=== PATIENT | male | born 1950 | race Caucasian/White ===

== ENCOUNTER 2019-08-02 13:31 | Outpatient (RCR) | payer MEDICARE, OTHER, SELFPAY | END 2019-08-29 00:01 | LOC: MPT 13:31 | PROVIDERS: Visit Provider Internal Medicine | DX: M47.816 Spondylosis without myelopathy or radiculopathy, lumbar region (principal); M16.10 Unilateral primary osteoarthritis, unspecified hip | CPT/HCPCS: 97140; 97161 ==

== ENCOUNTER 2019-08-30 06:00 | Outpatient (RCR) | payer MEDICARE, OTHER, SELFPAY | END 2019-09-29 23:59 | disposition home or self-care (01) | LOC: MPT 06:00 | PROVIDERS: PCP Nurse Practitioner; Visit Provider Internal Medicine | DX: M54.42 Lumbago with sciatica, left side (principal); G89.29 Other chronic pain | CPT/HCPCS: 97032; 97110; 97140; 97161 ==

== ENCOUNTER 2019-09-30 06:00 | Outpatient (RCR) | payer MEDICARE, OTHER, SELFPAY | END 2019-10-28 23:59 | disposition home or self-care (01) | LOC: MPT 06:00 | PROVIDERS: PCP Nurse Practitioner; Visit Provider Internal Medicine | DX: G89.29 Other chronic pain (principal); M54.42 Lumbago with sciatica, left side | CPT/HCPCS: 97032; 97110; 97140; G0283 ==

== ENCOUNTER 2019-10-29 06:00 | Outpatient (RCR) | payer MEDICARE, OTHER, SELFPAY | END 2019-11-28 23:59 | disposition home or self-care (01) | LOC: MPT 06:00 | PROVIDERS: PCP Nurse Practitioner; Visit Provider Internal Medicine | DX: M54.42 Lumbago with sciatica, left side (principal); G89.29 Other chronic pain | CPT/HCPCS: 97110; 97140; G0283 ==

== ENCOUNTER → 2019-11-07 15:07 | Outpatient (BNVA) | payer MEDICARE, OTHER, SELFPAY | PROVIDERS: PCP Nurse Practitioner; Visit Provider Podiatrist Foot & Ankle Surgery | DX: S92.511A Displaced fracture of proximal phalanx of right lesser toe(s), initial encounter for closed fracture (principal); X58.XXXA Exposure to other specified factors, initial encounter; Z89.421 Acquired absence of other right toe(s); L60.0 Ingrowing nail; E11.9 Type 2 diabetes mellitus without complications | CPT/HCPCS: 73630 ==

== ENCOUNTER → 2020-01-01 12:59 | Outpatient (BNVA) | payer MEDICARE, OTHER, SELFPAY | PROVIDERS: PCP Nurse Practitioner; Visit Provider Podiatrist Foot & Ankle Surgery | DX: S92.911A Unspecified fracture of right toe(s), initial encounter for closed fracture (principal); X58.XXXA Exposure to other specified factors, initial encounter; Z89.421 Acquired absence of other right toe(s) | CPT/HCPCS: 73630 ==

== ENCOUNTER 2020-01-11 14:12 | Outpatient (CLI) | payer MEDICARE, OTHER, SELFPAY | END 2020-01-11 14:13 | disposition home or self-care (01) | LOC: WOUND 14:15 | PROVIDERS: PCP Nurse Practitioner; Visit Provider Nurse Practitioner Family | DX: T23.202A Burn of second degree of left hand, unspecified site, initial encounter (principal); X08.8XXA Exposure to other specified smoke, fire and flames, initial encounter | CPT/HCPCS: 16020; G0463 ==

== ENCOUNTER 2020-01-18 13:35 | Outpatient (CLI) | payer MEDICARE, OTHER, SELFPAY | END 2020-01-18 13:36 | disposition home or self-care (01) | LOC: WOUND 13:37 | PROVIDERS: PCP Nurse Practitioner; Visit Provider Nurse Practitioner Family | DX: T23.231A Burn of second degree of multiple right fingers (nail), not including thumb, initial encounter (principal); X08.8XXA Exposure to other specified smoke, fire and flames, initial encounter | CPT/HCPCS: 99213 ==

== ENCOUNTER 2020-01-24 06:00 | Outpatient (RCR) | payer MEDICARE, OTHER, SELFPAY | END 2020-01-28 23:59 | disposition home or self-care (01) | LOC: MOT 06:00 | PROVIDERS: PCP Nurse Practitioner; Referring Provider Nurse Practitioner Family; Visit Provider Nurse Practitioner Family | DX: G89.29 Other chronic pain (principal); M54.41 Lumbago with sciatica, right side | CPT/HCPCS: 97140; 97167 ==

== ENCOUNTER → 2020-01-24 13:23 | Outpatient (BNVA) | payer MEDICARE, OTHER, SELFPAY | PROVIDERS: PCP Nurse Practitioner; Visit Provider Podiatrist Foot & Ankle Surgery | DX: S92.511A Displaced fracture of proximal phalanx of right lesser toe(s), initial encounter for closed fracture (principal); X58.XXXA Exposure to other specified factors, initial encounter | CPT/HCPCS: 73630 ==

== ENCOUNTER 2020-01-29 06:00 | Outpatient (RCR) | payer MEDICARE, OTHER, SELFPAY | END 2020-02-27 23:59 | disposition home or self-care (01) | LOC: MOT 06:00 | PROVIDERS: PCP Nurse Practitioner; Visit Provider Nurse Practitioner Family | DX: S69.81XD Other specified injuries of right wrist, hand and finger(s), subsequent encounter (principal) | CPT/HCPCS: 97110; 97140; 97535 ==

== ENCOUNTER 2020-02-01 06:00 | Outpatient (RCR) | payer MEDICARE, OTHER, SELFPAY | END 2020-02-27 23:59 | disposition home or self-care (01) | LOC: MPT 06:00 | PROVIDERS: PCP Nurse Practitioner; Referring Provider Internal Medicine; Visit Provider Internal Medicine | DX: G89.29 Other chronic pain (principal); M54.41 Lumbago with sciatica, right side | CPT/HCPCS: 97110; 97140; 97162; G0283 ==

== ENCOUNTER 2020-02-01 13:23 | Outpatient (CLI) | payer MEDICARE, OTHER, SELFPAY | END 2020-02-01 13:24 | disposition home or self-care (01) | LOC: WOUND 13:24 | PROVIDERS: PCP Nurse Practitioner; Visit Provider Nurse Practitioner Family | DX: T23.231A Burn of second degree of multiple right fingers (nail), not including thumb, initial encounter (principal); X08.8XXA Exposure to other specified smoke, fire and flames, initial encounter | CPT/HCPCS: 11042 ==

== ENCOUNTER 2020-02-08 10:42 | Outpatient (CLI) | payer MEDICARE, OTHER, SELFPAY | END 2020-02-08 10:43 | disposition home or self-care (01) | LOC: WOUND 10:45 | PROVIDERS: PCP Nurse Practitioner; Visit Provider Nurse Practitioner Family | DX: Z09 Encounter for follow-up examination after completed treatment for conditions other than malignant neoplasm (principal) | CPT/HCPCS: 99202; 99212 ==

== ENCOUNTER 2020-02-28 06:00 | Outpatient (RCR) | payer MEDICARE, OTHER, SELFPAY | END 2020-03-29 23:59 | disposition home or self-care (01) | LOC: MPT 06:00 | PROVIDERS: PCP Internal Medicine; Referring Provider Internal Medicine; Visit Provider Internal Medicine | DX: G89.29 Other chronic pain (principal); M54.41 Lumbago with sciatica, right side | CPT/HCPCS: 97110; 97140; G0283 ==

== ENCOUNTER 2020-02-28 06:00 | Outpatient (RCR) | payer MEDICARE, OTHER, SELFPAY | END 2020-03-29 23:59 | disposition home or self-care (01) | LOC: MOT 06:00 | PROVIDERS: PCP Internal Medicine; Visit Provider Nurse Practitioner Family | DX: R53.1 Weakness (principal) | CPT/HCPCS: 97110; 97140 ==

== ENCOUNTER 2020-03-05 00:13 | Inpatient (IN) | payer MEDICARE, OTHER, SELFPAY ==
[2020-03-05] VITALS (55 sets, daily range): BP systolic 95–142; BP diastolic 53–84; PULSE 59–159; RESP 12–31; TEMP 36.5–37; O2SAT 89–99; BMI 37.8
--- NOTE | 2020-03-05 00:38 | XRR_ITS ---
PROCEDURE INFORMATION: Exam: XR Chest, 1 View Exam date and time: 03/05/2020 1:10 AM Age: 69 years old Clinical indication: Shortness of breath; Prior surgery; Surgery type: Cabg; Additional info: SOB TECHNIQUE: Imaging protocol: XR of the chest Views: 1 view. COMPARISON: CR Chest 1 [place] [id number] 12/26/2018 2:39 PM FINDINGS: Lungs: No consolidation. No evidence of overt edema. Pleural space: No significant visible pleural effusion. No pneumothorax. Heart/Mediastinum: Stable enlargement of cardiac silhouette. Bones/joints: Sternotomy wires and / or mediastinal surgical clips are present, consistent with previous coronary arterial bypass grafting. XR/XR chest 1V portable [id number] IMPRESSION: Stable enlarged cardiac silhouette. No acute pulmonary finding.
--- NOTE | 2020-03-05 00:39 | ECG_ITS ---
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 Measurements Intervals [place] Rate: 83 P: [place]: -1 QRS: -23 QRSD: 96 T: 150 QT: 394 QTc: 464 Interpretive Statements ATRIAL FIBRILLATION WITH ABERRANT CONDUCTION OR VENTRICULAR PREMATURE COMPLEXES BORDERLINE LEFT AXIS DEVIATION [QRS AXIS < -20] ST DEVIATION AND MODERATE T-WAVE ABNORMALITY, CONSIDER LATERAL ISCHEMIA [-0.1+ mV T WAVE IN I/aVL/V5/V6] Compared to ECG 12/24/2018 20:40:35 T-wave abnormality now present Possible ischemia now present ST (T wave) deviation no longer present Electronically Signed On 03-05-2020 16:54:12 CDT by David Hilliard M.D. [id number] f
[2020-03-05] MEDS: nitroglycerin 1 gm/inch oint Pkt 0.5 INCH TOPICAL (00:49)
[2020-03-05] MEDS: bumetanide 0.25 mg/mL SDV 10 mL 2 MG IV (00:54)
[2020-03-05 01:05] LABS: Basophils % 0.5 %; Eosinophils # 0.2 10^3/uL (0.0-0.8); Hematocrit 28.5 % (42.0-52.0); Lymphocytes # 1.4 10^3/uL (0.8-4.8); Lymphocytes % 16.6 %; Mean Corpuscular HGB Conc 28.1 g/dL (30.0-36.0); Mean Corpuscular Hemoglobin 24.6 pg (28.0-34.0); Mean Corpuscular Volume 87.7 fL (80-94); Mean Platelet Volume 8.8 fL (7.4-10.4); Monocytes # 0.6 10^3/uL (0.2-0.9); Monocytes % 6.9 %; Neutrophils # 6.2 10^3/uL (1.8-7.7); Neutrophils % 73.6 %; Nucleated Red Blood Cells % 0 %; Platelet Count 148 10^3/cmm (130-400); Red Blood Count 3.25 10^6/uL (4.1-5.3); Red Cell Distribution Width 21.3 % (12.1-15.1); White Blood Count 8.4 10^3/uL (4.0-10.0)
[2020-03-05 01:14] LABS: Lactic Sepsis W/Reflex 1.6 mmol/L (0.5-2.2)
[2020-03-05 01:15] LABS: Troponin(5th) Baseline 41 ng/L (0-15)
[2020-03-05 01:24] LABS: Alanine Aminotransferase 16 U/L (0-41); Alkaline Phosphatase 110 IU/L (40-130); Anion Gap 15.9 (5-19); Aspartate Amino Transferase 18 U/L (0-40); Blood Urea Nitrogen 36 mg/dL (8-23); Calcium 8.9 mg/dL (8.5-10.5); Carbon Dioxide 24 mmol/L (22-29); Chloride 102 mmol/L (98-107); Globulin 2.7 g/dL (1.3-4.6); Glucose 156 mg/dL (65-115); NT Pro B Type Natriuretic Pept 2871 pg/mL (0-125); Osmolality Calculated 287 mOsm/kg (285-295); Potassium 3.9 mmol/L (3.5-5.1); Sodium 138 mmol/L (136-145); Total Bilirubin 0.5 mg/dL (0.15-1.2); Total Protein 6.7 g/dL (6.6-8.7)
--- NOTE | 2020-03-05 01:27 | W.ED.SOB ---
HPI - SOB/Dyspnea General: Chief Complaint: Shortness of Breath/Dyspnea Stated Complaint: sob Time Seen by Provider: 03/05/20 00:26 History of Present Illness: HPI Narrative: 69-year-old male with a history of congestive heart failure. He presents with progressive shortness of breath and dyspnea on exertion over the past several days. His daughter notes that he has had weight gain in the past 2 days as well. He is not coughing. He is not having fevers. He does experience orthopnea. He is noticed more swelling to his lower extremities. He denies any chest pain. MD elicited complaint: shortness of breath Pertinent past history: congestive heart failure Onset (ago): day(s) (3) Timing: progressively worsening Severity: moderate Exacerbating factors: lying flat and exertion Relieving factors: rest Known history of: congestive heart failure Associated symptoms: Reports dizziness and orthopnea; Deny chest congestion, chest pain, cough, fever(s), nausea, palpitations or vomiting Review of Systems Const: Denies: fever(s) or chills Eyes: Denies: change in vision Card: Reports: orthopnea; Denies: chest pain or palpitations Resp: Denies: chest congestion GI: Denies: nausea or vomiting Neuro: Reports: dizziness [facility] ED PFSH: Medical History (Updated 03/05/20 @ 03:41 by Jayden Roa DO) CHF (congestive heart failure) GERD (gastroesophageal reflux disease) Heart disease Kidney disease Surgical History History of amputation Social History Smoking and tobacco status: never smoked Alcohol intake: never Current occupational status: retired Physical Exam Const: GENERAL APPEARANCE: well developed ORIENTATION/CONSCIOUSNESS: Yes oriented to person, Yes oriented to place and Yes oriented to time HENMT: COMMON NORMALS: normocephalic, external ears normal and Normal external nose present HEAD & SCALP: normocephalic; no scalp tenderness NOSE: Normal external nose present EXTERNAL EAR: Yes external ears normal Eye: COMMON NORMALS: Equal, round and reactive pupils present, EOMs intact bilaterally and conjunctivae normal EYELID: eyelids normal CONJUNCTIVA: Yes conjunctivae normal PUPIL: Yes Equal, round and reactive pupils present Neck/C-Spine: GENERAL: No tracheal deviation Chest: COMMONS NORMALS: normal inspection of the chest CHEST: No tenderness Resp: COMMON NORMALS: clear to auscultation bilaterally EFFORT & INSPECTION: Yes tachypneic, No respiratory distress, No retractions, No uses accessory muscles and No tracheal deviation AUSCULTATION: clear to auscultation bilaterally, no rhonchi, no wheezes and diminished lung sounds Cardio: COMMON NORMALS: regular rate and regular rhythm RATE: regular rate RHYTHM: regular rhythm HEART SOUNDS: no murmurs PERIPHERAL PULSES: radial pulses present GI: INSPECTION: No abdominal distension PALPATION: No Guarding due to palpation present (GI) and No Rigid due to palpation Neuro: SENSORIUM/ORIENTATION: Yes oriented to person, Yes oriented to place and Yes oriented to time Psych: COMMON NORMALS: mental status grossly normal Course Vital Signs: Vital signs: Vital Signs Temperature 98.0 F 03/05/20 05:00 Pulse Rate 86 03/05/20 05:00 Respiratory Rate 18 03/05/20 05:00 Blood Pressure 124/63 03/05/20 05:00 Pulse Oximetry 96 03/05/20 03:17 MDM - SOB/Dyspnea MDM Narrative: Medical decision making narrative: 69-year-old male with a history of congestive heart failure, chronic renal disease. He presents with intolerance to any exertion, including walking to his own bathroom. He is tachypneic. He has somewhat diminished breath sounds and swollen legs with weight gain in the last 3 days. His hemoglobin is 8. He has some mild pulmonary vascular congestion on chest x-ray with no effusions. His creatinine is at baseline. His oxygen saturations have been good, as he is likely saturating the hemoglobin he has just fine, but his severe anemia is affecting his heart failure. He will be observed. Lab Data: Labs: Lab Results 03/05/20 03/05/20 03/05/20 Range/Units 00:50 00:50 00:50 WBC 8.4 (4.0-10.0) 10^3/ uL RBC 3.25 L (4.1-5.3) 10^6/u L Hgb 8.0 L (11.7-16.6) g/dL Hct 28.5 L (42.0-52.0) % MCV 87.7 (80-94) fL MCH 24.6 L (28.0-34.0) pg MCHC 28.1 L (30.0-36.0) g/dL RDW 21.3 H (12.1-15.1) % Plt Count 148 (130-400) 10^3/c mm MPV 8.8 (7.4-10.4) fL Neut % (Auto) 73.6 % Lymph % (Auto) 16.6 % [place] % (Auto) 6.9 % Eos % (Auto) 2.0 % Baso % (Auto) 0.5 % Neut # (Auto) 6.2 (1.8-7.7) 10^3/u L Lymph # (Auto) 1.4 (0.8-4.8) 10^3/u L [place] # (Auto) 0.6 (0.2-0.9) 10^3/u L Eos # (Auto) 0.2 (0.0-0.8) 10^3/u L Baso # (Auto) 0.0 (0.0-0.1) 10^3/u L Nucleated RBC % (a uto) 0 % Nucleated RBCs # 0.0 /100WBC Sodium 138 (136-145) mmol/L Potassium 3.9 (3.5-5.1) mmol/L Chloride 102 (98-107) mmol/L Carbon Dioxide 24 (22-29) mmol/L Anion Gap 15.9 (5-19) BUN 36 H (8-23) mg/dL Creatinine 1.9 H (0.7-1.2) mg/dL Glucose 156 H (65-115) mg/dL Calculated Osmolal ity 287 (285-295) mOsm/k g Lactic Acid 1.6 (0.5-2.2) mmol/L Calcium 8.9 (8.5-10.5) mg/dL Total Bilirubin 0.5 (0.15-1.2) mg/dL AST 18 (0-40) U/L ALT 16 (0-41) U/L Alkaline Phosphata se 110 (40-130) IU/L Troponin T Baselin e (0-15) ng/L Troponin T 120 Min table [place] (0-15) ng/L NT-Pro-B Natriuret Pep 2871 H (0-125) pg/mL Total Protein 6.7 (6.6-8.7) g/dL Albumin 4.0 (3.5-5.2) g/dL Globulin 2.7 (1.3-4.6) g/dL Blood Type Rho(D) Type Antibody Screen Crossmatch 03/05/20 03/05/20 03/05/20 Range/Units 00:50 01:57 04:37 WBC (4.0-10.0) 10^3/ uL RBC (4.1-5.3) 10^6/u L Hgb (11.7-16.6) g/dL Hct (42.0-52.0) % MCV (80-94) fL MCH (28.0-34.0) pg MCHC (30.0-36.0) g/dL RDW (12.1-15.1) % Plt Count (130-400) 10^3/c mm MPV (7.4-10.4) fL Neut % (Auto) % Lymph % (Auto) % [place] % (Auto) % Eos % (Auto) % Baso % (Auto) % Neut # (Auto) (1.8-7.7) 10^3/u L Lymph # (Auto) (0.8-4.8) 10^3/u L [place] # (Auto) (0.2-0.9) 10^3/u L Eos # (Auto) (0.0-0.8) 10^3/u L Baso # (Auto) (0.0-0.1) 10^3/u L Nucleated RBC % (a uto) % Nucleated RBCs # /100WBC Sodium (136-145) mmol/L Potassium (3.5-5.1) mmol/L Chloride (98-107) mmol/L Carbon Dioxide (22-29) mmol/L Anion Gap (5-19) BUN (8-23) mg/dL Creatinine (0.7-1.2) mg/dL Glucose (65-115) mg/dL Calculated Osmolal ity (285-295) mOsm/k g Lactic Acid (0.5-2.2) mmol/L Calcium (8.5-10.5) mg/dL Total Bilirubin (0.15-1.2) mg/dL AST (0-40) U/L ALT (0-41) U/L Alkaline Phosphata se (40-130) IU/L Troponin T Baselin e 41 H (0-15) ng/L Troponin T 120 Min [place] 46.82 H (0-15) ng/L NT-Pro-B Natriuret Pep (0-125) pg/mL Total Protein (6.6-8.7) g/dL Albumin (3.5-5.2) g/dL Globulin (1.3-4.6) g/dL Blood Type O Positive Rho(D) Type Positive Antibody Screen Negative Crossmatch See Detail Discharge Plan Discharge Patient Disposition: Placed in Observation Admit Provider: Ina Baldwin Clinical Impression: Congestive heart failure Qualifiers: Heart failure type: systolic Heart failure chronicity: acute Qualified Code(s): I50.21 - Acute systolic (congestive) heart failure Anemia Qualifiers: Anemia type: due to chronic kidney disease Chronic kidney disease stage: stage 4 (severe) Qualified Code(s): N18.4 - Chronic kidney disease, stage 4 (severe) Condition: Stable Referrals: Linh Toro MD [Primary Care Provider] - Coding Level of Care Code ED Portfolio Manager for Chg Fwd Exam Comprehensive
[2020-03-05] MEDS: oxyCODONE-APAP 5-325 mg Tablet 1 TAB PO (04:53)
[2020-03-05 05:06] LABS: Troponin 5 2HR 46.82 ng/L (0-15); Troponin 5 2HR Delta 5.82 ABS# (0-10)
[2020-03-05] MEDS: morphine 4 mg/mL SDV 1 mL IVP (06:02)
[2020-03-05 06:25] LABS: Glucose Point of Care 161 mg/dL (70-110)
--- NOTE | 2020-03-05 06:31 | P.HP_ITS ---
Providers/Chief Complaint Admitting Physician: Ina Baldwin MD Primary Care Provider: Linh Toro MD Chief Complaint: sob History of Present Illness Gian Bowers is a 69 year old male who presented to the emergency room with chief complaint of difficulty breathing. Symptoms have been progressively worsening over the last couple of weeks, even more so over the last 2 days. He reports that he is probably gained about 10 pounds in the last week. He has had increased swelling. Describes orthopnea though no PND. He is becoming progressively more short of breath with less amount of exertion. He was getting worried that something was happening to his heart and called his daughter to have him come in for evaluation. He was noted to be anemic with a hemoglobin of 8. Last comparative values that I have are from a little over a year ago. At that time hemoglobin was 12. Patient denies any blood in his stools or black tarry stools. He states that his PCP has been wanting him to get set up for an EGD and a colonoscopy. Primary care provider is in [place]. His aviation technical systems specialist is also in [place], Dr Mcgrath. He is not sure when his last echo was. Do have results from November of last year when ejection fraction was noted to be 45 to 50%. He had some wall motion abnormalities. Was a technically difficult study. He reports compliance with his diuretic therapy, 4 mg of Bumex twice a day. He says that he took his last as needed dose of Zaroxolyn about 2 weeks ago and had good urine output from that. He uses his CPAP at night. No other recent medication changes beyond addition of Requip for restless leg. This is been titrated upward. No chest pain. In the emergency room he was noted to be quite dyspneic. With the hemoglobin being low a unit of blood was ordered and was initiated. He is already received some diuresis. He is being admitted for further evaluation and treatment. Review of Systems Const: Denies: fever(s), chills or change in appetite Eyes: Denies: change in vision ENMT: Denies: throat pain, dry mouth or nasal congestion Card: Reports: swelling of feet/ankles, dyspnea on exertion and orthopnea; Denies: chest pain, palpitations or syncope Resp: Reports: dyspnea and non-productive cough; Denies: productive cough or pain on inspiration GI: Denies: abdominal pain, nausea, vomiting, diarrhea, constipation, hematochezia or melena : Denies: difficulty urinating Skin/Breast: Denies: rash or pruritus Neuro: Reports: numbness in extremities (Chronic); Denies: headache(s), weakness in extremities or dizziness Psych: Denies: anxiety or depression Flaco/Lymph: Reports: easy bruising, easy bleeding and other (But denies excessive bleeding) Medications/Allergies Home Medications Medication Instructions Recorded Confirmed Last Taken Type Novolin N Flexpen See Rx Instructions .ROUTE .COMPLEX 03/05/20 03/05/20 Unknown History Novolin R Flexpen See Rx Instructions .ROUTE .COMPLEX 03/05/20 03/05/20 Unknown History allopurinol 100 mg PO DAILY 03/05/20 03/05/20 Unknown History aspirin 81 mg PO DAILY 03/05/20 03/05/20 Unknown History atorvastatin [Lipitor] 20 mg PO QPM 03/05/20 03/05/20 Unknown History bumetanide 4 mg PO BID 03/05/20 03/05/20 Unknown History carvedilol [Coreg] 25 mg PO BID 03/05/20 03/05/20 Unknown History cetirizine [Zyrtec] 5 mg PO BID 03/05/20 03/05/20 Unknown History finasteride [Proscar] 5 mg PO DAILY 03/05/20 03/05/20 Unknown History ouxijhhvaka-lwajvqtai-sky C-Mn cap PO BID 03/05/20 Unknown History [Glucosamine Chondroitin MaxStr] hydralazine 10 mg PO QID 03/05/20 03/05/20 Unknown History iron 325 mg PO DAILY 03/05/20 03/05/20 Unknown History isosorbide mononitrate 30 mg PO DAILY 03/05/20 03/05/20 Unknown History lidocaine 1 patch TOPICAL DAILY PRN 03/05/20 03/05/20 Unknown History metolazone See Rx Instructions .ROUTE .COMPLEX 03/05/20 03/05/20 Unknown History milk thistle seed extract 200 mg PO BID 03/05/20 03/05/20 Unknown History multivitamin 1 tab PO DAILY 03/05/20 03/05/20 Unknown History nitroglycerin 0.4 mg SUBLINGUAL Q5M PRN 03/05/20 03/05/20 Unknown History re-0-fer-epa-fish oil-vit D3 [Fish cap PO 03/05/20 Unknown History Oil-Vit D3] omeprazole magnesium [Prilosec OTC] 20 mg PO DAILY 03/05/20 03/05/20 Unknown History potassium chloride 10 meq PO BID 03/05/20 03/05/20 Unknown History primidone [Mysoline] 50 mg PO BID 03/05/20 03/05/20 Unknown History ropinirole [Requip] 0.5 mg PO BID PRN 03/05/20 03/05/20 Unknown History tamsulosin [Flomax] 0.4 mg PO DAILY 03/05/20 03/05/20 Unknown History tramadol 100 mg PO TID PRN 03/05/20 03/05/20 Unknown History warfarin See Rx Instructions .ROUTE .COMPLEX 03/05/20 03/05/20 Unknown History warfarin [Coumadin] 5 mg PO DAILY 03/05/20 03/05/20 Unknown History Allergies Allergy/AdvReac Type Severity Reaction Status Date / Time lisinopril Allergy swelling Verified 01/24/20 13:40 metformin Allergy pain Verified 01/24/20 13:40 NSAIDS (Non-Steroidal Allergy kidney Verified 01/24/20 13:40 Anti-Inflamma failure zolpidem [From Ambien] Allergy sleep Verified 01/24/20 13:40 walking Additional Medication Information Home medications include Requip, iron, Zaroxolyn as needed, Novolin in and regular insulin, Mysoline, potassium, Proscar, Bumex, tramadol, carvedilol, Lido derm patch, milk thistle, aspirin, Neurontin, Flomax, Imdur, Coumadin, hydralazine, nitroglycerin as needed, Lipitor, Prilosec, allopurinol, Zyrtec, glucosamine/chondroitin, fish oil and multivitamin PFSH Acute PFSH: Medical History (Updated 03/05/20 @ 08:15 by Ina Baldwin MD) Atrial fibrillation CAD (coronary artery disease) CHF (congestive heart failure) Chronic back pain Chronic kidney disease, stage IV (severe) Diabetes mellitus, type II Insulin requiring Diverticulosis Gallstones GERD (gastroesophageal reflux disease) Gout History of MRSA infection Hyperlipidemia Hypertension Obesity (BMI 30-39.9) Obstructive sleep apnea Surgical History (Updated 03/05/20 @ 06:43 by Ina Baldwin MD) 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, 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 bypass graft 5 vessels, 2008 History of prior ablation treatment To nerves in the neck and back area Social History Smoking and tobacco status: never smoked Alcohol intake: never Current occupational status: retired Vitals/I&O/Wt Last Vital Signs Temp 98.3 F 03/05/20 05:48 Pulse 86 03/05/20 05:00 Resp 18 03/05/20 06:02 BP 128/76 03/05/20 05:48 Pulse Ox 96 03/05/20 03:17 03/04/20 03/04/20 03/05/20 14:59 22:59 06:59 Intake Total 0 / 0 Balance 0 / 0 Weight last 48 hrs Weight 130.181 kg Physical Exam Const: COMMON NORMALS: patient oriented x3 and alert HENMT: COMMON NORMALS: normocephalic and atraumatic Eye: COMMON NORMALS: Equal, round and reactive pupils present and EOMs intact bilaterally Neck/C-Spine: COMMON NORMALS: supple (Large) Lymph: LYMPHATIC: no lymphadenopathy noted Resp: COMMON NORMALS: normal respiratory effort, No use of accessory muscles and clear to auscultation bilaterally AUSCULTATION: clear to auscultation bilaterally Cardio: COMMON NORMALS: regular rate and regular rhythm JUGULAR VENOUS DISTENTION: JVD positive to the level of the angle of the jaw RHYTHM: abnormal rhythm irregularly irregular HEART SOUNDS: Gallop heart sound present S4 gallop and no murmurs GI: COMMON NORMALS: Soft to palpation and non-tender AUSCULTATION: Yes normoactive bowel sounds Extremity: COMMON NORMALS: capillary refill normal and no calf tenderness NARRATIVE EXTREMITY EXAM: 3+ edema Neuro: COMMON NORMALS: moves all extremities SPEECH: speech normal SENSORY EXAM: Yes extremities bilateral pin-prick: decreased and light-touch: decreased Psych: COMMON NORMALS: cooperative THOUGHT PROCESS: Normal thought process present Skin: NARRATIVE SKIN EXAM: Scattered sores to lower extremities in different stages of healing chronic stasis changes noted to both lower extremities. Erythema without warmth. Data : 03/05/20 00:50 03/05/20 00:50 A&P Assessment and plan (1) Congestive heart failure: Acute on chronic. Suspect multifactorial related to slowly progressive chronic kidney disease and anemia. Currently do not see evidence of other process going on here. He has recently started Requip but otherwise medicines are the same and he reports compliance. Only complaint is of being more short of breath. Status: Chronic Qualifiers: Heart failure chronicity: acute on chronic Heart failure type: diastolic Qualified Code(s): I50.33 - Acute on chronic diastolic (congestive) heart failure (2) Anemia: With iron deficiency, values February 21 by PCP showed iron of 34, percent saturation of 9 and TIBC of 358. Ferritin was 52.8. I suspect with the weight gain, some of the drop in hemoglobin is dilutional but he is also reached a threshold that is very likely contributing to the increased symptomatology he describes. Status: Chronic Qualifiers: Anemia type: due to chronic kidney disease Chronic kidney disease stage: stage 4 (severe) Qualified Code(s): N18.4 - Chronic kidney disease, stage 4 (severe); D63.1 - Anemia in chronic kidney disease (3) Atrial fibrillation: Currently rate controlled Status: Chronic Qualifiers: Atrial fibrillation type: permanent Qualified Code(s): I48.21 - Permanent atrial fibrillation (4) Chronic anticoagulation: Coumadin Status: Chronic (5) CAD (coronary artery disease): Denies current chest pain and initial cardiac enzymes without significant delta Status: Chronic Qualifiers: Coronary Disease-Associated Artery/Lesion type: bypass graft [place] vs. transplanted heart: [place] heart Associated angina: without angina Qualified Code(s): I25.810 - Atherosclerosis of coronary artery bypass graft(s) without angina pectoris (6) Chronic kidney disease, stage IV (severe): January 14, BUN and creatinine were 56/2.39. Baseline creatinine generally ranges 2-2.25 according to family Status: Chronic (7) Diabetes mellitus, type II: Hemoglobin A1c on February 21 was 7.7 Status: Chronic Qualifiers: Diabetes mellitus supervisor long goods insulin use: with skilled nursing use Diabetes mellitus complication status: with neurologic complications Diabetes mellitus complication detail: with polyneuropathy Qualified Code(s): E11.42 - Type 2 diabetes mellitus with diabetic polyneuropathy; Z79.4 - FPC (current) use of insulin (8) Hypertension: Status: Chronic Qualifiers: Hypertension type: essential hypertension Qualified Code(s): I10 - Essential (primary) hypertension (9) Obesity (BMI 30-39.9): Status: Chronic Additional A&P Information Observation admission for now Continue transfusion Give a dose of Venofer, needs oral iron replacement at discharge Watch for any evidence of bleeding but believe this probably is related to worsening chronic kidney disease over time IV diuresis Monitor I's and O's closely Limited echocardiogram ordered to see if his ejection fraction has changed significantly from last year Continue other home medications Normally on carvedilol, Imdur, statin, aspirin, Bumex and metolazone as needed Continue home Coumadin, recheck INR tomorrow Monitor renal function for worsening with IV diuresis Check urinalysis Monitor blood pressures for significant variation such as hypotension or significant hypertension that might be contributing CPAP at night Other home medications as ordered Chronic anticoagulation with therapeutic INR within the last week at 2.4 provides appropriate DVT prophylaxis Supportive care otherwise Plans discussed with patient as well as with his daughter. Both were given an opportunity to ask questions. Anticipate discharge home, possibly with some CHF monitoring in the short-term Full code Attestations Medical Necessity Statement*: Anticipated stay currently less than 2 midnights. Patient has some CHF symptoms and clinical evidence of some volume overload in addition to progressively worsening anemia. He has already received a transfusion of blood and is improving with diuresis administered in the emergency room. Clinical course today will determine ultimate plans. 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 transplanted heart: [place] heart Associated angina: without angina Chronic kidney disease, stage IV (severe) N18.4 Diabetes mellitus, type II E11.42; Z79.4 Diabetes mellitus skilled nursing insulin use: with supervisor long goods use Diabetes mellitus complication status: with neurologic complications Diabetes mellitus complication detail: with polyneuropathy Hypertension I10 Hypertension type: essential hypertension Obesity (BMI 30-39.9) E66.9
--- NOTE | 2020-03-05 08:00 | PC.NURSE ---
TAR 1st unit of blood complete. Vitals were not documented from previous shift. Vitals were obtained, WNL. Line flushed. 2nd unit of blood to be initiated.
--- NOTE | 2020-03-05 08:06 | PC.NURSE ---
TAR 2nd unit of blood initiated at 0804. Patient educated on s/s of transfusion reaction. Patient verbalized understanding of information and did not have any further questions. Nurse to continue to monitor for 15 minutes.
[2020-03-05 08:41] LABS: Glucose Point of Care 170 mg/dL (70-110)
[2020-03-05] MEDS: bumetanide 0.25 mg/mL SDV 10 mL 1 MG IV ×2 (08:48→20:04)
--- NOTE | 2020-03-05 08:52 | USCV_ITS ---
Gain Bowers Age: 69 Gender: M : 1950 Exam Date: 03/05/2020 13:15 Ordering Phys: Prashant Aguilar MD Technologist: Alicja Haq Exam Location: [facility] [place] Indication: sob BP: 112 / 66 HR: 81 Rhythm: Sinus Technical Quality: Technically difficult study MEASUREMENTS (Male / Female) Normal Values 2D ECHO LV Diastolic Diameter PLAX 4.8 cm 4.2 - 5.9 / 3.9 - 5.3 cm LV Systolic Diameter PLAX 3.4 cm LV Chamber Size 3.4 cm IVS Diastolic Thickness 1.0 cm 0.6 - 1.0 / 0.6 - 0.9 cm IVS Systolic Thickness 1.8 cm LVPW Diastolic Thickness 2.4 cm 0.6 - 1.0 / 0.6 - 0.9 cm LVPW Systolic Thickness 2.2 cm RV Chamber Size 2.8 cm LVOT Diameter 2.0 cm LV Ejection Fraction 2D Teich 54.6 % LV Ejection Fraction MOD 2C 33.7 % LV Ejection Fraction 2C AL 35.1 % LA Diameter 5.5 cm LA Width 4.2 cm LA Height 5.8 cm RA Width 3.9 cm RA Height 4.9 cm Aorta at Sinotubular Diameter 3.2 cm M-MODE LV Diastolic Diameter MM 5.7 cm 4.2 - 5.9 / 3.9 - 5.3 cm LV Systolic Diameter MM 3.8 cm LV Ejection Fraction MM Teich 60.9 % IVS Diastolic Thickness MM 1.2 cm 0.6 - 1.0 / 0.6 - 0.9 cm IVS Systolic Thickness MM 1.8 cm LVPW Diastolic Thickness MM 1.2 cm 0.6 - 1.0 / 0.6 - 0.9 cm LVPW Systolic Thickness MM 1.6 cm Aortic Annulus Diameter 3.5 cm LA Ao Ratio MM 1.6 MV E Point Septal Separation 1.1 cm DOPPLER AV Peak Velocity 103.0 cm/s LVOT Peak Velocity 98.0 cm/s AV Area Cont Eq vti 3.6 cm squared AV Area Cont Eq pk 3.0 cm squared MV Area PHT 4.4 cm squared Mitral E to A Ratio 4.0 MV E' Velocity 11.0 cm/s Mitral E to MV E' Ratio 12.3 Mitral E to LV E' Lateral Ratio 11.3 Mitral E to LV E' Septal Ratio 13.6 TR Peak Velocity 264.0 cm/s TR Peak Gradient 27.8 mmHg TR Mean Velocity 230.3 cm/s TR Mean Gradient 23.8 mmHg TR Velocity Time Integral 98.9 cm TV Peak E Velocity 94.0 cm/s Right Atrial Pressure 3.0 mmHg Pulmonary Artery Systolic Pressu 30.9 mmHg PV Peak Velocity 99.0 cm/s RV Acceleration Time 0.1 s RV Ejection Time 0.3 s RV AcT/ET 0.2 FINDINGS Left Ventricle Normal left ventricular cavity size. Normal left ventricular systolic function. Flattened septum in diastole consistent with right ventricle volume overload. Flattened septum in systole consistent with right ventricle pressure overload. Grade III/IV diastolic dysfunction (restrictive filling pattern), severely elevated filling pressures. Right Ventricle The right ventricle is normal in size and function. Moderate pulmonary hypertension, RVSP 30.9 mmHg. Right Atrium The right atrium is normal in size. Left Atrium Moderately increased left atrial size. Mitral Valve Moderately thickened mitral valve. No mitral valve stenosis. Mild mitral valve regurgitation. Aortic Valve Moderate aortic valve calcification. No aortic valve stenosis. Mild aortic valve regurgitation. Tricuspid Valve Structurally normal tricuspid valve without significant stenosis or regurgitation. Pulmonary artery systolic pressure is normal. Pulmonic Valve Structurally normal pulmonic valve without significant stenosis. There is no pulmonic regurgitation. Pericardium Normal pericardium without effusion. Aorta Normal ascending aorta dimension. CONCLUSIONS 1-Normal left ventricular cavity size. Normal left ventricular systolic function. Flattened septum in diastole consistent with right ventricle volume overload. Flattened septum in systole consistent with right ventricle pressure overload. Grade III/IV diastolic dysfunction (restrictive filling pattern), severely elevated filling pressures. 2-The right ventricle is normal in size and function. Moderate pulmonary hypertension, RVSP 30.9 mmHg. 3-Moderately thickened mitral valve. No mitral valve stenosis. Mild mitral valve regurgitation. 4-Moderately increased left atrial size. 5-Moderate aortic valve calcification. No aortic valve stenosis. Mild aortic valve regurgitation. 6-There is no pericardial effusion. 7-Right atrial pressure is around 5 mm of mercury. 8-No significant change since the prior echocardiogram study of 12/27/2018. Chele Ho MD (Electronically Signed) Final Date: 05 March 2020 18:11 S
[2020-03-05] MEDS: gabapentin 100 mg Capsule PO ×3 (08:53→20:04)
[2020-03-05] MEDS: finasteride 5 mg Tablet PO (08:53)
[2020-03-05] MEDS: tamsulosin 0.4 mg Capsule PO (08:53)
[2020-03-05] MEDS: primidone 50 mg Tablet PO ×2 (08:54→17:31)
[2020-03-05] MEDS: potassium chloride ER 10 mEq Tablet 20 MEQ PO (08:54)
[2020-03-05] MEDS: cetirizine 10 mg Tablet PO (08:54)
[2020-03-05] MEDS: isosorbide mononitrate ER 30 mg Tablet PO (08:54)
[2020-03-05] MEDS: ferrous sulfate EC 325 mg Tablet PO ×2 (08:54→17:31)
[2020-03-05] MEDS: carvedilol 25 mg Tablet PO ×2 (08:54→20:04)
[2020-03-05] MEDS: pantoprazole DR 40 mg Tablet PO (08:54)
[2020-03-05] MEDS: aspirin 81 mg EC Tablet PO (08:55)
[2020-03-05] MEDS: ropinirole 0.25 mg Tablet 0.5 MG PO ×3 (08:55→20:36)
[2020-03-05] MEDS: allopurinol 100 mg Tablet PO (08:55)
[2020-03-05] MEDS: metOLazone 5 MG Tablet 2.5 MG PO (08:55)
[2020-03-05] MEDS: hyDRALAzine 10 mg Tablet PO ×3 (08:56→20:36)
[2020-03-05] MEDS: lidocaine 5% Patch 1 PATCH TOPICAL (09:00)
--- NOTE | 2020-03-05 10:30 | PC.NURSE ---
IV iron sucrose administration clarified with Dr. Aguilar as patient had received Iron PO as well as blood transfusions. Patient also exhibiting s/s of fluid overload. Physician gave telephone order for nurse to continue with administration of iron sucrose, RBVO.
--- NOTE | 2020-03-05 10:35 | PC.NURSE ---
Addendum entered by Tosha Boucher 03/05/20 13:05: Upon finding patient exhibiting these symptoms, the blood transfusion was immediately stopped, IV flushed. When physician was notified, physician did not want patient to be started on IV normal saline per protocol. Original Note: Blood Transfusion Reaction Nurse rounded on patient to assess blood vitals, patient found lethargic, pale, clammy, and short of breath. Patient and vital signs assessed. Patient states he feels like he can't get a breath and that he is so weak he don't feel like he can open his eyes or get out of bed. Patient states he just feels like something is wrong. Crackles auscultated in lower lobes. Dr. Aguilar notified via telephone of findings. Physician gave nurse verbal order for a stat Chest X-Ray, 25 mg of benadryl IV one time NOW, send blood for transfusion reaction testing. RBVO. Nurse also informed physician that patient had not voided since the administration of IV diuretics. Physician ordered for nurse to bladder scan patient. RBVO. Call back for further orders.
--- NOTE | 2020-03-05 10:38 | XRR_ITS ---
PROCEDURE INFORMATION: Exam: XR Chest, 1 View Exam date and time: 03/05/2020 10:51 AM Age: 69 years old Clinical indication: Shortness of breath and other: Dizziness; Prior surgery; Surgery date: 6+ months; Surgery type: Open heart; Patient HX: Dyspnea, retaining fluid. Swelling of feet/ankles, dyspnea on exertion and orthopnea; Additional info: SOB, transfusion reaction TECHNIQUE: Imaging protocol: XR of the chest Views: 1 view. COMPARISON: CR XR chest 1V portable [id number] 03/05/2020 12:59 AM FINDINGS: Lungs: No consolidation. No evidence of overt pulmonary edema. Pleural space: No significant visible pleural effusion. No pneumothorax. Heart/Mediastinum: Stable enlargement of cardiac silhouette. Bones/joints: Sternotomy wires and / or mediastinal surgical clips are present, consistent with previous coronary arterial bypass grafting. XR/XR chest 1V portable [id number] IMPRESSION: Stable enlargement of cardiac silhouette. No acute pulmonary finding.
[2020-03-05] MEDS: diphenhydrAMINE 50 mg/mL SDV 1mL 25 MG IVP (10:42)
--- NOTE | 2020-03-05 10:48 | PC.NURSE ---
Bladder Scan Update Nurse notified physician that bladder scanner could not be located in the hospital at this time. Patient bladder is palpable and patient retracts from the pain produced by palpation of bladder. Physician gave nurse telephone order to straight cath patient NOW. RBVO. 550 ml of urine returned. Patient tolerated well.
[2020-03-05] MEDS: iron sucrose 200 MG in sodium chloride 0.9% (100 ml) 100 ML 220 MG IV (10:53)
--- NOTE | 2020-03-05 11:30 | PC.NURSE ---
Condition Update Patient color has returned to normal. Skin warm and dry. Patient is no longer lethargic. Patient states that he feels better and is able to breathe easier. VS are stable-see vital sign documentation. Patient no longer retracts from palpating of lower ABD/ bladder. Patient still has crackles in lower lobes. Dr. Aguilar notified of findings. Physician to return to bedside to evaluate patient. No further orders at this time.
[2020-03-05 11:32] LABS: Glucose Point of Care 205 mg/dL (70-110)
[2020-03-05 12:42] LABS: Add Urine Microscopic? NO
--- NOTE | 2020-03-05 12:42 | PC.CHAP ---
Pastoral Care Encounter/Spiritual Assessment Type of Contact [] Declined bag tester visit [] Patient/Family/Request visit [] Outpatient visit [] Follow-up visit [] Physician referral [] Code/Alert [x] Routine visit [] Staff referral [] Actively dying [] Patient sleeping [] Family support [] [] Out of room [] Palliative care [] [x] Receiving care in room [] Pre-surgical visit [] Trauma [] Long length of stay [] ICU visit [] Other: Relational/Emotional Strength [x] Patient feels connected with others/family/visitors/staff [x] Distress [] Loneliness/isolation [] Abandonment Spirituality of Patient [x] Person of Cherelle [] Attends Orthodoxy of their Cherelle [x] Believes in Prayer [] Reads Bible or Islam materials [] There are Spiritual issues to be addressed Sawmill Supervisor Interventions [x] Prayer [x] Active listening [x] Non-anxious presence [x] Spiritual/emotional support [] Crisis/trauma care [x] Spiritual counseling [] Bereavement support [] Provided bereavement packet [] Provided Bible/devotional materials [] Provided toy/stuffed animal, coloring book to patient or family member [] Provided Communion [] Anointing/[place] [] Salvation [x] Completed spiritual assessment [] Other: Impact on Illness or Injury [] Angry [] Fearful [x] Anxious [] Often cries [] Exhaustion [] Unable to work [] Unable to attend voodoo [] Unable to walk/stand [] Unable to read [] Unable to drive [] Unable to eat/drink [] Unable to sleep [] Unable to be with family [] Patient intubated [] Other: Summary lots of health problems doesn't know what is going to happen? Has a good attitude! Time spent with patient 10 mins
[2020-03-05 12:57] LABS: Urine Appearance Clear (CLEAR); Urine Color Straw (Yellow)
[2020-03-05 12:58] LABS: Bilirubin Urine Neg (NEGATIVE); Blood Urine Neg (Negative); Glucose Urine UA Norm (Normal); Ketones Urine Negative (Negative); Leukocyte Esterase Urine Negative (Negative); Nitrate Urine Negative (Negative); Protein Urine Neg (Negative); Specific Gravity, Urine 1.005 (1.005-1.030); Urobilinogen Urine Norm (Negative)
[2020-03-05] MEDS: warfarin 5 mg Tablet PO (13:56)
--- NOTE | 2020-03-05 13:59 | PC.NURSE ---
Spoke with Dr silva; patient has not had an INR drawn this stay instructions to give warfarin will draw INR in the morning. also discussed Patient blood pressure and his hydralazine order to be given now; instructions to hold hydralazine at this time.
--- NOTE | 2020-03-05 14:18 | PM.PN ---
Subjective Subjective: Interval history: This morning patient was examined, states that his shortness of breath is somewhat improved, no fevers, no chills, has been complaining of shortness of breath for the last 3 days, shortness of breath with minimal exertion, which is quite unusual for him, 10 pound weight gain, bilateral lower extremity edema no fevers, no chills, non-smoker, no recent surgeries, no calf pain or calf swelling, patient was receiving his first unit of blood At midmorning, patient receiving his second unit of blood, when he became short of breath, flushed, unit of blood was stopped, sent for transfusion related reaction, given Benadryl, given an extra dose of 5 mg metolazone, clinically improved Medications: Medication Review Details: Home medications include Requip, iron, Zaroxolyn as needed, Novolin in and regular insulin, Mysoline, potassium, Proscar, Bumex, tramadol, carvedilol, Lidoderm patch, milk thistle, aspirin, Neurontin, Flomax, Imdur, Coumadin, hydralazine, nitroglycerin as needed, Lipitor, Prilosec, allopurinol, Zyrtec, glucosamine/chondroitin, fish oil and multivitamin Vitals/I&O/Wt Last Vital Signs Temp 98.0 F 03/05/20 11:23 Pulse 93 03/05/20 11:44 Resp 24 H 03/05/20 11:44 BP 109/68 03/05/20 11:44 Pulse Ox 94 03/05/20 11:44 03/04/20 03/05/20 03/05/20 22:59 06:59 14:59 Intake Total 0 / 0 1125 / 1125 Output Total 600 / 600 Balance 0 / 0 525 / 525 Weight last 48 hrs Weight 130.181 kg Physical Exam Const: COMMON NORMALS: no acute distress and patient oriented x3 HENMT: COMMON NORMALS: normocephalic HEAD & SCALP: normocephalic Neck/C-Spine: COMMON NORMALS: no JVD Resp: COMMON NORMALS: normal respiratory effort, No retractions, No use of accessory muscles and clear to auscultation bilaterally AUSCULTATION: clear to auscultation bilaterally Cardio: COMMON NORMALS: no JVD, regular rate, regular rhythm, S1 normal heart sound present and S2 normal heart sound present RATE: regular rate RHYTHM: regular rhythm HEART SOUNDS: S1 normal heart sound present and S2 normal heart sound present GI: COMMON NORMALS: Normal to inspection, nondistended, normoactive bowel sounds present, Soft to palpation, non-tender, No hepatosplenomegaly present, no masses and no bruits PALPATION: Yes Soft to palpation and Yes No hepatosplenomegaly present Extremity: COMMON NORMALS: capillary refill normal, no clubbing, cyanosis or edema, no calf tenderness and no pedal edema Neuro: COMMON NORMALS: patient oriented x3 Psych: COMMON NORMALS: mental status grossly normal Data : 03/05/20 00:50 03/05/20 00:50 A&P Assessment and plan (1) Congestive heart failure: Acute on chronic. Suspect multifactorial related to slowly progressive chronic kidney disease and anemia. Currently do not see evidence of other process going on here. He has recently started Requip but otherwise medicines are the same and he reports compliance. Only complaint is of being more short of breath. -Continue Bumex 1 mg every 12 hours, fluid restrictions 1500 cc, increase metolazone to 5 mg daily, strict I's and O's, monitor creatinine Status: Chronic Qualifiers: Heart failure chronicity: acute on chronic Heart failure type: diastolic Qualified Code(s): I50.33 - Acute on chronic diastolic (congestive) heart failure (2) Anemia: With iron deficiency, values February 21 by PCP showed iron of 34, percent saturation of 9 and TIBC of 358. Ferritin was 52.8. I suspect with the weight gain, some of the drop in hemoglobin is dilutional but he is also reached a threshold that is very likely contributing to the increased symptomatology he describes. -Etiology likely multifactorial related to CKD and slow GI bleed -Received 1 unit PRBC -Second unit of PRBC was stopped due to transfusion related reaction, although unlikely I believe -No bloody stools, continue to monitor hemoglobin Status: Chronic Qualifiers: Anemia type: due to chronic kidney disease Chronic kidney disease stage: stage 4 (severe) Qualified Code(s): N18.4 - Chronic kidney disease, stage 4 (severe); D63.1 - Anemia in chronic kidney disease (3) Atrial fibrillation: -Currently rate controlled -Continue Coumadin, monitor INR, monitor for signs of bleeding -As there is no overt signs of GI bleed, hemodynamics stability, I will continue Coumadin Status: Chronic Qualifiers: Atrial fibrillation type: permanent Qualified Code(s): I48.21 - Permanent atrial fibrillation (4) Chronic anticoagulation: Coumadin, continue Status: Chronic (5) CAD (coronary artery disease): Denies current chest pain and initial cardiac enzymes without significant delta Status: Chronic Qualifiers: Coronary Disease-Associated Artery/Lesion type: bypass graft [place] vs. transplanted heart: [place] heart Associated angina: without angina Qualified Code(s): I25.810 - Atherosclerosis of coronary artery bypass graft(s) without angina pectoris (6) Chronic kidney disease, stage IV (severe): January 14, BUN and creatinine were 56/2.39. Baseline creatinine generally ranges 2-2.25 according to family Status: Chronic (7) Diabetes mellitus, type II: Hemoglobin A1c on February 21 was 7.7 Status: Chronic Qualifiers: Diabetes mellitus marine oil terminal superintendent insulin use: with intermediate use Diabetes mellitus complication status: with neurologic complications Diabetes mellitus complication detail: with polyneuropathy Qualified Code(s): E11.42 - Type 2 diabetes mellitus with diabetic polyneuropathy; Z79.4 - intermediate manager (current) use of insulin (8) Hypertension: Status: Chronic Qualifiers: Hypertension type: essential hypertension Qualified Code(s): I10 - Essential (primary) hypertension (9) Obesity (BMI 30-39.9): Status: Chronic (10) Transfusion reaction: -Beverly flushed, short of breath during second unit of blood -Second unit of blood was stopped, sent for transfusion related reaction -I feel that the likelihood of transfusion reaction and TRALI is fairly unlikely but panel is pending -Currently doing better, asymptomatic, received Benadryl and metolazone, chest x-ray no significant changes compared to prior Status: Acute Additional A&P Information Observation admission for now Continue transfusion Give a dose of Venofer, needs oral iron replacement at discharge Watch for any evidence of bleeding but believe this probably is related to worsening chronic kidney disease over time IV diuresis Monitor I's and O's closely Limited echocardiogram ordered to see if his ejection fraction has changed significantly from last year Continue other home medications Normally on carvedilol, Imdur, statin, aspirin, Bumex and metolazone as needed Continue home Coumadin, recheck INR tomorrow Monitor renal function for worsening with IV diuresis Check urinalysis Monitor blood pressures for significant variation such as hypotension or significant hypertension that might be contributing CPAP at night Other home medications as ordered Chronic anticoagulation with therapeutic INR within the last week at 2.4 provides appropriate DVT prophylaxis Supportive care otherwise Plans discussed with patient as well as with his daughter. Both were given an opportunity to ask questions. Anticipate discharge home, possibly with some CHF monitoring in the short-term Full code Attestations Medical Necessity Statement*: Requires continued hospitalization due to CHF exacerbation, anemia Coding Level of Care Code Acute Steel Welder for g Fwd Diagnoses Congestive heart failure I50.33 Heart failure chronicity: acute on chronic Heart failure type: diastolic Anemia N18.4; D63.1 Anemia type: due to chronic kidney disease Chronic kidney disease stage: stage 4 (severe) Atrial fibrillation I48.21 Atrial fibrillation type: permanent Chronic anticoagulation Z79.01 CAD (coronary artery disease) I25.810 Coronary Disease-Associated Artery/Lesion type: bypass graft [place] vs. transplanted heart: [place] heart Associated angina: without angina Chronic kidney disease, stage IV (severe) N18.4 Diabetes mellitus, type II E11.42; Z79.4 Diabetes mellitus marine oil terminal superintendent insulin use: with intermediate use Diabetes mellitus complication status: with neurologic complications Diabetes mellitus complication detail: with polyneuropathy Hypertension I10 Hypertension type: essential hypertension Obesity (BMI 30-39.9) E66.9 Transfusion reaction T80.92XA
[2020-03-05 16:39] LABS: Glucose Point of Care 188 mg/dL (70-110)
[2020-03-05 20:29] LABS: Glucose Point of Care 318 mg/dL (70-110)
[2020-03-05] MEDS: atorvastatin 40 mg Tablet 20 MG PO (20:36)
--- NOTE | 2020-03-05 21:09 | PC.NURSE ---
Patient does not have any complaints at this time. Will monitor.
[2020-03-05] MEDS: TRAMadol 50 mg Tablet 100 MG PO (21:47)
[2020-03-05] MEDS: gabapentin 300 mg Capsule PO (21:47)
--- NOTE | 2020-03-05 22:58 | PC.NURSE ---
Spoke with Dr. Baldwin at 1999 to verify Gabapentin ordered. One Gababpentin is ordered 100mg TID and the other one is ordered for 300 mg bedtime. Both doses were due 03/05/20 at 2100, totally 400mg. Ordered to give 2 hours apart from each other.
--- NOTE | 2020-03-05 23:10 | PC.NURSE ---
Patient is currently on CPAP.
[2020-03-06] VITALS (29 sets, daily range): BP systolic 111–135; BP diastolic 58–88; PULSE 61–132; RESP 7–24; TEMP 36.4–36.8; O2SAT 87–98
[2020-03-06 04:41] LABS: Basophils # 0.1 10^3/uL (0.0-0.1); Basophils % 0.6 %; Eosinophils # 0.2 10^3/uL (0.0-0.8); Eosinophils % 2.7 %; Hematocrit 31.2 % (42.0-52.0); Hemoglobin 9.1 g/dL (11.7-16.6); Lymphocytes # 1.2 10^3/uL (0.8-4.8); Lymphocytes % 13.8 %; Mean Corpuscular HGB Conc 29.2 g/dL (30.0-36.0); Mean Corpuscular Hemoglobin 25.3 pg (28.0-34.0); Mean Corpuscular Volume 86.7 fL (80-94); Mean Platelet Volume 9.3 fL (7.4-10.4); Monocytes # 0.6 10^3/uL (0.2-0.9); Neutrophils # 6.5 10^3/uL (1.8-7.7); Neutrophils % 75.6 %; Nucleated Red Blood Cells % 0 %; Platelet Count 155 10^3/cmm (130-400); Red Cell Distribution Width 20.7 % (12.1-15.1); White Blood Count 8.6 10^3/uL (4.0-10.0)
[2020-03-06 05:04] LABS: Magnesium 2.1 mg/dL (1.7-2.3); Phosphorus 4.1 mg/dL (2.5-4.5)
[2020-03-06 05:13] LABS: Alanine Aminotransferase 14 U/L (0-41); Albumin Level 3.9 g/dL (3.5-5.2); Alkaline Phosphatase 115 IU/L (40-130); Anion Gap 17.6 (5-19); Aspartate Amino Transferase 15 U/L (0-40); Blood Urea Nitrogen 35 mg/dL (8-23); Carbon Dioxide 23 mmol/L (22-29); Chloride 101 mmol/L (98-107); Globulin 3.1 g/dL (1.3-4.6); Glucose 141 mg/dL (65-115); Osmolality Calculated 286 mOsm/kg (285-295); Potassium 3.6 mmol/L (3.5-5.1); Sodium 138 mmol/L (136-145); Total Bilirubin 0.9 mg/dL (0.15-1.2)
[2020-03-06 06:23] LABS: Glucose Point of Care 162 mg/dL (70-110)
[2020-03-06] MEDS: carvedilol 25 mg Tablet PO ×2 (07:25→20:11)
[2020-03-06] MEDS: TRAMadol 50 mg Tablet 100 MG PO ×3 (07:25→21:51)
[2020-03-06] MEDS: ferrous sulfate EC 325 mg Tablet PO ×2 (07:25→17:20)
[2020-03-06] MEDS: bumetanide 0.25 mg/mL SDV 10 mL 1 MG IV ×2 (07:25→20:11)
--- NOTE | 2020-03-06 07:39 | USCV_ITS ---
RobinsonGian Age: 69 Gender: M : 1950 Exam Date: 03/06/2020 08:35 Ordering Phys: Prashant Aguilar MD Technologist: Shivani Madden Exam Location: [facility] Indication: LOWER LEG EDEMA HISTORY: History of RT GSV harvest per patient. PROCEDURES: Venous duplex imaging was performed in bilateral lower extremities. The following venous structures were evaluated: common femoral vein, profunda vein, proximal portion of the greater saphenous vein, superficial femoral vein, and the popliteal vein. In addition, the posterior tibial and peroneal trunk were evaluated. FINDINGS: Normal 2-D Doppler and augmentation and compressibility throughout the lower extremity venous structures. Additional imaging through the proximal calf veins also reveals no thrombus. Limited evaluation of the greater saphenous vein is patent with no thrombus. Bilateral subcutaneous lower extremity edema noted. CONCLUSIONS No DVT bilateral lower extremities. Bilateral SQ edema. Dr. Afsaneh Oden DO (Electronically Signed) Final Date: 06 March 2020 13:28 S
--- NOTE | 2020-03-06 07:39 | NM_ITS ---
WS: [id number] NUCLEAR MEDICINE VENTILATION/PERFUSION LUNG SCAN HISTORY: rv overload, sudden onset sob COMPARISON: Chest radiograph 03/05/2020 TECHNIQUE: Ventilation: 32.0 mCi of Technetium 99 DTPA aerosol inhaled. Perfusion: 5.5 mCi of technetium 99m MAA IV. Wedge-shaped matched defect at the LEFT lung base. Perfusion is improved over the ventilatory portion . Mild deposition of radionuclide at the LEFT hilum. Heart is enlarged. NM/NM pul vent and perfus* [id number] IMPRESSION: Low probability pulmonary embolism.
[2020-03-06 07:57] LABS: Troponin T (5th) Once 42 ng/L (0-15)
--- NOTE | 2020-03-06 09:42 | PC.CHAP ---
Pastoral Care Encounter/Spiritual Assessment Type of Contact [] Declined senior web analyst visit [] Patient/Family/Request visit [] Outpatient visit [] Follow-up visit [] Physician referral [] Code/Alert [x] Routine visit [] Staff referral [] Actively dying [] Patient sleeping [] Family support [] [] Out of room [] Palliative care [] [] Receiving care in room [] Pre-surgical visit [] Trauma [] Long length of stay [] ICU visit [] Other: Relational/Emotional Strength [] Patient feels connected with others/family/visitors/staff [] Distress [] Loneliness/isolation [] Abandonment Spirituality of Patient [] Person of Cherelle [] Attends Presybeterian of their Cherelle [] Believes in Prayer [] Reads Bible or Oriental Orthodox materials [] There are Spiritual issues to be addressed Air Sampler Interventions [x] Prayer [x] Active listening [x] Non-anxious presence [x] Spiritual/emotional support [] Crisis/trauma care [] Spiritual counseling [] Bereavement support [] Provided bereavement packet [] Provided Bible/devotional materials [] Provided toy/stuffed animal, coloring book to patient or family member [] Provided Communion [] Anointing/[place] [] Salvation [x] Completed spiritual assessment [] Other: Impact on Illness or Injury [] Angry [] Fearful [] Anxious [] Often cries [] Exhaustion [] Unable to work [] Unable to attend tenriism [] Unable to walk/stand [] Unable to read [] Unable to drive [] Unable to eat/drink [] Unable to sleep [] Unable to be with family [] Patient intubated [] Other: Summary Charan enjoyed breakfast, feeling his breathing has improved. Time spent with patient 15 min
[2020-03-06] MEDS: hyDRALAzine 10 mg Tablet PO (09:43)
[2020-03-06] MEDS: cetirizine 10 mg Tablet PO (09:43)
[2020-03-06] MEDS: potassium chloride ER 10 mEq Tablet 20 MEQ PO (09:43)
[2020-03-06] MEDS: ropinirole 0.25 mg Tablet 0.5 MG PO ×3 (09:43→21:51)
[2020-03-06] MEDS: isosorbide mononitrate ER 30 mg Tablet PO (09:43)
[2020-03-06] MEDS: pantoprazole DR 40 mg Tablet PO (09:43)
[2020-03-06] MEDS: gabapentin 100 mg Capsule PO ×3 (09:43→20:11)
[2020-03-06] MEDS: primidone 50 mg Tablet PO ×2 (09:43→17:20)
[2020-03-06] MEDS: tamsulosin 0.4 mg Capsule PO (09:43)
[2020-03-06] MEDS: finasteride 5 mg Tablet PO (09:43)
[2020-03-06] MEDS: aspirin 81 mg EC Tablet PO (09:43)
[2020-03-06] MEDS: allopurinol 100 mg Tablet PO (09:43)
[2020-03-06] MEDS: lidocaine 5% Patch 1 PATCH TOPICAL (09:44)
--- NOTE | 2020-03-06 11:25 | PC.NURSE ---
patient reports concerns of a blister to his great right toe Stating thats how i lost my other toes it started like that i would like Dr landin to check on it if he can patient educated on policy Dr silva notified will have patient follow up outpatient with Dr landin
--- NOTE | 2020-03-06 11:29 | PC.NURSE ---
Dr silva notified that iron infusion was recived late from pharmacy instructions to give now
[2020-03-06] MEDS: iron sucrose 200 MG in sodium chloride 0.9% (100 ml) 100 ML 220 MG IV (11:30)
[2020-03-06 11:37] LABS: Glucose Point of Care 195 mg/dL (70-110)
--- NOTE | 2020-03-06 15:06 | PC.NURSE ---
instructions given by dr silva to Brian harris
[2020-03-06] MEDS: warfarin 5 mg Tablet PO (15:09)
--- NOTE | 2020-03-06 15:47 | PC.NURSE ---
call received from orthopedics clinic from Dr Novak staff in regards to a call received from patients over the blister on his great right toe Dr Pack is willing to see patient after clinic today although a consult order is needed. Explained to Dr novak staff that this concern was brought up to Hospitalist Dr Aguilar is was not willing to consult at that time reporting that the patient could follow up outpatient. Notified Dr Aguilar of call from Dr. novak office. Dr aguilar declines the need to be seen by inpatient and could follow up with him outpatient.
--- NOTE | 2020-03-06 16:32 | PC.NURSE ---
patient reports SOB no distress noted 02 saturation is 95-98% on room air HR is Afib WNL. Dr silva notified no new orders or instructions given will continue to monitor
--- NOTE | 2020-03-06 16:33 | PC.NURSE ---
patient has called his retinal surgeon to come see him and is at the ER entrance Dr silva notified and approval is given for retinal surgeon to come in the building. Security notified
[2020-03-06 16:34] LABS: Glucose Point of Care 150 mg/dL (70-110)
--- NOTE | 2020-03-06 16:56 | P.PN_ITS ---
Subjective Subjective: Interval history: Patient had a couple episodes of intermittent shortness of breath yesterday, but they resolved on their own, he saturating high 90s during the episodes, states that he is feeling better this morning, his diuresed roughly a liter, no fevers, no chills, no chest pain, no lightheadedness, no dizziness, no nausea, no vomiting, would like me to speak to his about his hospitalization Medications: Medication Review Details: Home medications include Requip, iron, Zaroxolyn as needed, Novolin in and regular insulin, Mysoline, potassium, Proscar, Bumex, tramadol, carvedilol, Lidoderm patch, milk thistle, aspirin, Neurontin, Flomax, Imdur, Coumadin, hydralazine, nitroglycerin as needed, Lipitor, Prilosec, allopurinol, Zyrtec, glucosamine/chondroitin, fish oil and multivitamin Vitals/I&O/Wt Last Vital Signs Temp 98.0 F 03/06/20 14:54 Pulse 81 03/06/20 14:54 Resp 18 03/06/20 14:54 BP 124/79 03/06/20 14:54 Pulse Ox 96 03/06/20 14:54 03/06/20 03/06/20 03/06/20 06:59 14:59 22:59 Intake Total 620 / 620 Output Total 1500 / 2425 300 / 300 Balance -1500 / -950 320 / 320 Weight last 48 hrs Weight 98.157 kg Weight 94.438 kg Weight 130.181 kg Physical Exam Const: COMMON NORMALS: no acute distress and patient oriented x3 HENMT: COMMON NORMALS: normocephalic HEAD & SCALP: normocephalic Neck/C-Spine: COMMON NORMALS: no JVD Resp: COMMON NORMALS: normal respiratory effort, No retractions, No use of accessory muscles and clear to auscultation bilaterally AUSCULTATION: clear to auscultation bilaterally Cardio: COMMON NORMALS: no JVD, regular rate, regular rhythm, S1 normal heart sound present and S2 normal heart sound present RATE: regular rate RHYTHM: regular rhythm HEART SOUNDS: S1 normal heart sound present and S2 normal heart sound present GI: COMMON NORMALS: Normal to inspection, nondistended, normoactive bowel sounds present, Soft to palpation, non-tender, No hepatosplenomegaly present, no masses and no bruits PALPATION: Yes Soft to palpation and Yes No hepatosplenomegaly present Extremity: COMMON NORMALS: capillary refill normal, no clubbing, cyanosis or edema, no calf tenderness and no pedal edema Neuro: COMMON NORMALS: patient oriented x3 Psych: COMMON NORMALS: mental status grossly normal Data : 03/06/20 03:20 03/06/20 03:20 A&P Assessment and plan (1) Congestive heart failure: Acute on chronic. Suspect multifactorial related to slowly progressive chronic kidney disease and anemia. Currently do not see evidence of other process going on here. He has recently started Requip but otherwise medicines are the same and he reports compliance. Only complaint is of being more short of breath. -Continue Bumex 2 mg every 12 hours, fluid restrictions 1500 cc, increase metolazone to 5 mg daily, strict I's and O's, monitor creatinine -Patient's echocardiogram showed normal left ventricular systolic dysfunction, but did show flattened septum in diastole consistent with right ventricular volume overload, flattened septum in systole consistent with right ventricular pressure overload, grade 3 out of 4 diastolic dysfunction, right ventricular systolic pressure was 30, indicating moderate pulmonary hypertension -Does report a history of radiofrequency ablation for back pain, roughly a month ago by, but has been doing well since it, been quite mobile, but tells me that he has had a general decline in terms of weakness, fatigue, tiredness, shortness of breath -We will do VQ scan to rule out PE, and bilateral lower extremity ultrasound to rule out DVT, cannot do a CT Stephanie given his creatinine Status: Chronic Qualifiers: Heart failure chronicity: acute on chronic Heart failure type: diastolic Qualified Code(s): I50.33 - Acute on chronic diastolic (congestive) heart failure (2) Anemia: With iron deficiency, values February 21 by PCP showed iron of 34, percent saturation of 9 and TIBC of 358. Ferritin was 52.8. I suspect with the weight gain, some of the drop in hemoglobin is dilutional but he is also reached a threshold that is very likely contributing to the increased symptomatology he describes. -Etiology likely multifactorial related to CKD and slow GI bleed -Received 1 unit PRBC -Second unit of PRBC was stopped due to transfusion related reaction, although unlikely I believe -No bloody stools, continue to monitor hemoglobin, last hemoglobin 9.1 -Continue Venofer here transfusions Status: Chronic Qualifiers: Anemia type: due to chronic kidney disease Chronic kidney disease stage: stage 4 (severe) Qualified Code(s): N18.4 - Chronic kidney disease, stage 4 (severe); D63.1 - Anemia in chronic kidney disease (3) Atrial fibrillation: -Currently rate controlled -Continue Coumadin, monitor INR, monitor for signs of bleeding -As there is no overt signs of GI bleed, hemodynamics stability, I will continue Coumadin -If hemoglobin remained stable, I will switch him over to Eliquis or Xarelto Status: Chronic Qualifiers: Atrial fibrillation type: permanent Qualified Code(s): I48.21 - Permanent atrial fibrillation (4) Chronic anticoagulation: Coumadin, continue Status: Chronic (5) CAD (coronary artery disease): Denies current chest pain and initial cardiac enzymes without significant delta Status: Chronic Qualifiers: Coronary Disease-Associated Artery/Lesion type: bypass graft [place] vs. transplanted heart: [place] heart Associated angina: without angina Qualified Code(s): I25.810 - Atherosclerosis of coronary artery bypass graft(s) without angina pectoris (6) Chronic kidney disease, stage IV (severe): January 14, BUN and creatinine were 56/2.39. Baseline creatinine generally ranges 2-2.25 according to family Status: Chronic (7) Diabetes mellitus, type II: Hemoglobin A1c on February 21 was 7.7 Status: Chronic Qualifiers: Diabetes mellitus prison insulin use: with prison use Diabetes me llitus complication status: with neurologic complications Diabetes mellitus complication detail: with polyneuropathy Qualified Code(s): E11.42 - Type 2 diabetes mellitus with diabetic polyneuropathy; Z79.4 - continuous churn buttermaker (current) use of insulin (8) Hypertension: Status: Chronic Qualifiers: Hypertension type: essential hypertension Qualified Code(s): I10 - Essential (primary) hypertension (9) Obesity (BMI 30-39.9): Status: Chronic (10) Transfusion reaction: -[place] flushed, short of breath during second unit of blood -Second unit of blood was stopped, sent for transfusion related reaction -I feel that the likelihood of transfusion reaction and TRALI is fairly unlikely but panel is pending -Currently doing better, asymptomatic, received Benadryl and metolazone, chest x-ray no significant changes compared to prior Status: Acute Additional A&P Information Change to inpatient, needs more diuresis Give a dose of Venofer, needs oral iron replacement at discharge Watch for any evidence of bleeding but believe this probably is related to worsening chronic kidney disease over time IV diuresis Monitor I's and O's closely Continue other home medications Normally on carvedilol, Imdur, statin, aspirin, Bumex and metolazone as needed Continue home Coumadin, recheck INR tomorrow Monitor renal function for worsening with IV diuresis Check urinalysis Monitor blood pressures for significant variation such as hypotension or significant hypertension that might be contributing CPAP at night Other home medications as ordered Chronic anticoagulation with therapeutic INR within the last week at 2.4 provides appropriate DVT prophylaxis Supportive care otherwise Plans discussed with patient as well as with his daughter. Both were given an opportunity to ask questions. Anticipate discharge home, possibly with some CHF monitoring in the short-term Full code Attestations Medical Necessity Statement*: Requires continued hospitalization to acute respiratory failure secondary CHF Coding Level of Care Code Acute Claims Attorney for [facility] Fwd Diagnoses Congestive heart failure I50.33 Heart failure chronicity: acute on chronic Heart failure type: diastolic Anemia N18.4; D63.1 Anemia type: due to chronic kidney disease Chronic kidney disease stage: stage 4 (severe) Atrial fibrillation I48.21 Atrial fibrillation type: permanent Chronic anticoagulation Z79.01 CAD (coronary artery disease) I25.810 Coronary Disease-Associated Artery/Lesion type: bypass graft [place] vs. transplanted heart: [place] heart Associated angina: without angina Chronic kidney disease, stage IV (severe) N18.4 Diabetes mellitus, type II E11.42; Z79.4 Diabetes mellitus prison insulin use: with continuous churn buttermaker use Diabetes mellitus complication status: with neurologic complications Diabetes mellitus complication detail: with polyneuropathy Hypertension I10 Hypertension type: essential hypertension Obesity (BMI 30-39.9) E66.9 Transfusion reaction T80.92XA
--- NOTE | 2020-03-06 19:53 | PC.NURSE ---
Ask patient if he wanted a bath/shower. Patient said no.He already had one.
--- NOTE | 2020-03-06 20:23 | PC.NURSE ---
Dr. Aguilar notified of stating that patient was prescribed Sodium Bicarb, but did not have the chance to start taking it due to being admitted to the hospital here.
[2020-03-06] MEDS: atorvastatin 40 mg Tablet 20 MG PO (21:52)
[2020-03-06] MEDS: gabapentin 300 mg Capsule PO (21:52)
--- NOTE | 2020-03-06 23:23 | PC.NURSE ---
When to remove patient's lidocaine patch per order when bedtime medications were given and patch was not there. Patient states I think it fell off when I took a shower.
--- NOTE | 2020-03-06 23:24 | PC.NURSE ---
Patient does not have any complaints at this time. CPAP is on. Will monitor.
[2020-03-07] VITALS (30 sets, daily range): BP systolic 108–130; BP diastolic 58–80; PULSE 65–98; RESP 9–25; TEMP 36.4–36.9; O2SAT 85–98
[2020-03-07 00:20] LABS: Glucose Point of Care 170 mg/dL (70-110)
--- NOTE | 2020-03-07 00:42 | PC.NURSE ---
Nurse rounded on patient and noticed blood on his left hand. Patient had a new skin tear to left hand. Patient states I don't know how that got there, I must have done it in my sleep. Hand was cleansed with saline and optifoam placed. Patient was educated that he needs to use his urinal to pee in order to have accurate output measurements. Patient uses urinal at times. Patient voided in toilet once, getting some on the floor. Patient also spilled his urinal on the floor once.
--- NOTE | 2020-03-07 01:28 | PC.NURSE ---
Patient is currently resting in bed with eyes closed.
[2020-03-07 04:00] LABS: Basophils % 0.3 %; Eosinophils # 0.2 10^3/uL (0.0-0.8); Hematocrit 32.4 % (42.0-52.0); Hemoglobin 9.7 g/dL (11.7-16.6); Lymphocytes # 0.7 10^3/uL (0.8-4.8); Mean Corpuscular HGB Conc 29.9 g/dL (30.0-36.0); Mean Corpuscular Volume 86.9 fL (80-94); Mean Platelet Volume 9.3 fL (7.4-10.4); Monocytes # 0.7 10^3/uL (0.2-0.9); Monocytes % 6.6 %; Neutrophils # 8.55 10^3/uL (1.8-7.7); Neutrophils % 83.6 %; Nucleated Red Blood Cells % 0 %; Platelet Count 152 10^3/cmm (130-400); Red Blood Count 3.73 10^6/uL (4.1-5.3); Red Cell Distribution Width 21.4 % (12.1-15.1); White Blood Count 10.2 10^3/uL (4.0-10.0)
[2020-03-07 04:20] LABS: INR 1.89 (0.8-1.2)
[2020-03-07 04:42] LABS: Alanine Aminotransferase 12 U/L (0-41); Albumin Level 4.1 g/dL (3.5-5.2); Alkaline Phosphatase 115 IU/L (40-130); Anion Gap 17.6 (5-19); Aspartate Amino Transferase 13 U/L (0-40); Blood Urea Nitrogen 35 mg/dL (8-23); Carbon Dioxide 23 mmol/L (22-29); Chloride 99 mmol/L (98-107); Globulin 2.8 g/dL (1.3-4.6); Glucose 175 mg/dL (65-115); Magnesium 1.9 mg/dL (1.7-2.3); Osmolality Calculated 284 mOsm/kg (285-295); Phosphorus 3.4 mg/dL (2.5-4.5); Potassium 3.6 mmol/L (3.5-5.1); Sodium 136 mmol/L (136-145); Total Bilirubin 1.1 mg/dL (0.15-1.2); Total Protein 6.9 g/dL (6.6-8.7)
--- NOTE | 2020-03-07 04:57 | PC.NURSE ---
Patient has had uneventful night. Will monitor.
[2020-03-07 06:29] LABS: Glucose Point of Care 196 mg/dL (70-110)
[2020-03-07] MEDS: bumetanide 0.25 mg/mL SDV 10 mL 1 MG IV ×2 (06:56→19:49)
[2020-03-07] MEDS: carvedilol 25 mg Tablet PO ×2 (06:56→19:50)
--- NOTE | 2020-03-07 09:12 | PM.PN ---
Subjective Subjective: Interval history: patient states that he is doing well, shortness of breath has significantly improved, some shortness of breath with exertion, but overall improved, no fevers, no chills, he is concerned that on his right lower extremity has a little bit of a bruise from stubbing his toe, was hoping I could call Dr. Pack about it, Medications: Medication Review Details: Home medications include Requip, iron, Zaroxolyn as needed, Novolin in and regular insulin, Mysoline, potassium, Proscar, Bumex, tramadol, carvedilol, Lidoderm patch, milk thistle, aspirin, Neurontin, Flomax, Imdur, Coumadin, hydralazine, nitroglycerin as needed, Lipitor, Prilosec, allopurinol, Zyrtec, glucosamine/chondroitin, fish oil and multivitamin Vitals/I&O/Wt Last Vital Signs Temp 97.6 F 03/07/20 07:21 Pulse 80 03/07/20 07:21 Resp 18 03/07/20 07:21 BP 129/77 03/07/20 07:21 Pulse Ox 96 03/07/20 07:21 03/06/20 03/07/20 03/07/20 22:59 06:59 14:59 Intake Total 400 / 1020 120 / 120 Output Total 400 / 700 150 / 850 Balance -400 / -80 250 / 170 120 / 120 Weight last 48 hrs Weight 99.065 kg Weight 98.157 kg Weight 94.438 kg Physical Exam Const: COMMON NORMALS: no acute distress and patient oriented x3 HENMT: COMMON NORMALS: normocephalic HEAD & SCALP: normocephalic Neck/C-Spine: COMMON NORMALS: no JVD Resp: COMMON NORMALS: normal respiratory effort, No retractions, No use of accessory muscles and clear to auscultation bilaterally AUSCULTATION: clear to auscultation bilaterally Cardio: COMMON NORMALS: no JVD, regular rate, regular rhythm, S1 normal heart sound present and S2 normal heart sound present RATE: regular rate RHYTHM: regular rhythm HEART SOUNDS: S1 normal heart sound present and S2 normal heart sound present GI: COMMON NORMALS: Normal to inspection, nondistended, normoactive bowel sounds present, Soft to palpation, non-tender, No hepatosplenomegaly present, no masses and no bruits PALPATION: Yes Soft to palpation and Yes No hepatosplenomegaly present Extremity: COMMON NORMALS: capillary refill normal, no clubbing, cyanosis or edema, no calf tenderness and no pedal edema NARRATIVE EXTREMITY EXAM: Right lower extremity, big toe, hematoma, 1 x 1 cm, bilateral peripheral neuropathy Neuro: COMMON NORMALS: patient oriented x3 Psych: COMMON NORMALS: mental status grossly normal Data : 03/07/20 03:13 03/07/20 03:13 A&P Assessment and plan (1) Congestive heart failure: Acute on chronic. Suspect multifactorial related to slowly progressive chronic kidney disease and anemia. Currently do not see evidence of other process going on here. He has recently started Requip but otherwise medicines are the same and he reports compliance. Only complaint is of being more short of breath. -Continue Bumex 2 mg every 12 hours, fluid restrictions 1500 cc, increase metolazone to 5 mg daily, strict I's and O's, monitor creatinine -Patient's echocardiogram showed normal left ventricular systolic dysfunction, but did show flattened septum in diastole consistent with right ventricular volume overload, flattened septum in systole consistent with right ventricular pressure overload, grade 3 out of 4 diastolic dysfunction, right ventricular systolic pressure was 30, indicating moderate pulmonary hypertension -Does report a history of radiofrequency ablation for back pain, roughly a month ago by, but has been doing well since it, been quite mobile, but tells me that he has had a general decline in terms of weakness, fatigue, tiredness, shortness of breath -VQ scan low probability of PE, bilateral extremities negative for DVT Status: Chronic Qualifiers: Heart failure chronicity: acute on chronic Heart failure type: diastolic Qualified Code(s): I50.33 - Acute on chronic diastolic (congestive) heart failure (2) Anemia: With iron deficiency, values February 21 by PCP showed iron of 34, percent saturation of 9 and TIBC of 358. Ferritin was 52.8. I suspect with the weight gain, some of the drop in hemoglobin is dilutional but he is also reached a threshold that is very likely contributing to the increased symptomatology he describes. -Etiology likely multifactorial related to CKD and slow GI bleed -Received 1 unit PRBC -Second unit of PRBC was stopped due to transfusion related reaction, although unlikely I believe -No bloody stools, continue to monitor hemoglobin, last hemoglobin 9.7 -Continue Venofer here transfusions Status: Chronic Qualifiers: Anemia type: due to chronic kidney disease Chronic kidney disease stage: stage 4 (severe) Qualified Code(s): N18.4 - Chronic kidney disease, stage 4 (severe); D63.1 - Anemia in chronic kidney disease (3) Atrial fibrillation: -Currently rate controlled -Continue Coumadin, monitor INR, monitor for signs of bleeding -As there is no overt signs of GI bleed, hemodynamics stability, I will continue Coumadin -If hemoglobin remained stable patient on Coumadin, 9.7, continue Coumadin for now, switch to Eliquis as outpatient Status: Chronic Qualifiers: Atrial fibrillation type: permanent Qualified Code(s): I48.21 - Permanent atrial fibrillation (4) Chronic anticoagulation: Coumadin, continue Status: Chronic (5) CAD (coronary artery disease): Denies current chest pain and initial cardiac enzymes without significant delta Status: Chronic Qualifiers: Coronary Disease-Associated Artery/Lesion type: bypass graft [place] vs. transplanted heart: [place] heart Associated angina: without angina Qualified Code(s): I25.810 - Atherosclerosis of coronary artery bypass graft(s) without angina pectoris (6) Chronic kidney disease, stage IV (severe): January 14, BUN and creatinine were 56/2.39. Baseline creatinine generally ranges 2-2.25 according to family Status: Chronic (7) Diabetes mellitus, type II: Hemoglobin A1c on February 21 was 7.7 Status: Chronic Qualifiers: Diabetes mellitus long winder tender insulin use: with long winder tender use Diabetes mellitus complication status: with neurologic complications Diabetes mellitus complication detail: with polyneuropathy Qualified Code(s): E11.42 - Type 2 diabetes mellitus with diabetic polyneuropathy; Z79.4 - longterm (current) use of insulin (8) Hypertension: Status: Chronic Qualifiers: Hypertension type: essential hypertension Qualified Code(s): I10 - Essential (primary) hypertension (9) Obesity (BMI 30-39.9): Status: Chronic (10) Transfusion reaction: -[place] flushed, short of breath during second unit of blood -Second unit of blood was stopped, sent for transfusion related reaction -I feel that the likelihood of transfusion reaction and TRALI is fairly unlikely but panel is pending -Currently doing better, asymptomatic, received Benadryl and metolazone, chest x-ray no significant changes compared to prior Status: Acute Additional A&P Information Change to inpatient, needs more diuresis Give a dose of Venofer, needs oral iron replacement at discharge Watch for any evidence of bleeding but believe this probably is related to worsening chronic kidney disease over time IV diuresis Monitor I's and O's closely Continue other home medications Normally on carvedilol, Imdur, statin, aspirin, Bumex and metolazone as needed Continue home Coumadin, recheck INR tomorrow Monitor renal function for worsening with IV diuresis Check urinalysis Monitor blood pressures for significant variation such as hypotension or significant hypertension that might be contributing CPAP at night Other home medications as ordered Chronic anticoagulation with therapeutic INR within the last week at 2.4 provides appropriate DVT prophylaxis Supportive care otherwise Plans discussed with patient as well as with his daughter. Both were given an opportunity to ask questions. Anticipate discharge home, possibly with some CHF monitoring in the short-term Full code Right lower extremity, big toe, hematoma continue to monitor, follow with Dr. 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 transplanted heart: [place] heart Associated angina: without angina Chronic kidney disease, stage IV (severe) N18.4 Diabetes mellitus, type II E11.42; Z79.4 Diabetes mellitus longterm insulin use: with longterm use Diabetes mellitus complication status: with neurologic complications Diabetes mellitus complication detail: with polyneuropathy Hypertension I10 Hypertension type: essential hypertension Obesity (BMI 30-39.9) E66.9 Transfusion reaction T80.92XA
[2020-03-07 09:57] LABS: Glucose Point of Care 199 mg/dL (70-110)
[2020-03-07] MEDS: tamsulosin 0.4 mg Capsule PO (09:58)
[2020-03-07] MEDS: ferrous sulfate EC 325 mg Tablet PO ×2 (09:58→17:53)
[2020-03-07] MEDS: isosorbide mononitrate ER 30 mg Tablet PO (09:59)
[2020-03-07] MEDS: finasteride 5 mg Tablet PO (09:59)
[2020-03-07] MEDS: potassium chloride ER 10 mEq Tablet 20 MEQ PO (09:59)
[2020-03-07] MEDS: cetirizine 10 mg Tablet PO (09:59)
[2020-03-07] MEDS: gabapentin 100 mg Capsule PO ×3 (09:59→21:34)
[2020-03-07] MEDS: metOLazone 5 MG Tablet PO (09:59)
[2020-03-07] MEDS: pantoprazole DR 40 mg Tablet PO (09:59)
[2020-03-07] MEDS: primidone 50 mg Tablet PO ×2 (10:00→17:53)
[2020-03-07] MEDS: lidocaine 5% Patch 1 PATCH TOPICAL (10:00)
[2020-03-07] MEDS: aspirin 81 mg EC Tablet PO (10:00)
[2020-03-07] MEDS: allopurinol 100 mg Tablet PO (10:00)
[2020-03-07] MEDS: iron sucrose 200 MG in sodium chloride 0.9% (100 ml) 100 ML 220 MG IV (10:03)
[2020-03-07] MEDS: ropinirole 0.25 mg Tablet 0.5 MG PO ×3 (10:15→21:35)
[2020-03-07 11:07] LABS: Glucose Point of Care 189 mg/dL (70-110)
[2020-03-07] MEDS: TRAMadol 50 mg Tablet 100 MG PO ×2 (11:14→14:46)
[2020-03-07] MEDS: warfarin 5 mg Tablet PO (14:44)
[2020-03-07 15:55] LABS: Glucose Point of Care 166 mg/dL (70-110)
--- NOTE | 2020-03-07 16:02 | PC.NURSE ---
[id number] patient asked about a medication that he did not have on his home medication list patient had his send a picture of the medication bottle Sodium Bicarb 10Gr tab [address] silva of patient asking if he should be taking that medication instructions to contact patient's pharmacy and verify dose and order home dose. contacted [facility] dose confirmed to be Sodium bicarb 650 mg BID home dose ordered to start at next scheduled time
--- NOTE | 2020-03-07 16:12 | PC.NURSE ---
[address] silva of patients Hr dropping down to the high 40 s while sleeping no new instructions at this time
[2020-03-07] MEDS: sodium bicarbonate 650 mg Tablet PO (17:53)
[2020-03-07] MEDS: morphine 4 mg/mL SDV 1 mL IVP (19:50)
[2020-03-07] MEDS: atorvastatin 40 mg Tablet 20 MG PO (21:35)
[2020-03-07 21:48] LABS: Glucose Point of Care 155 mg/dL (70-110)
[2020-03-07] MEDS: gabapentin 300 mg Capsule PO (22:54)
[2020-03-08] VITALS (12 sets, daily range): BP systolic 110–142; BP diastolic 58–77; PULSE 59–84; RESP 11–21; TEMP 36.6–37.1; O2SAT 16–97
[2020-03-08 03:51] LABS: Basophils % 0.5 %; Eosinophils # 0.3 10^3/uL (0.0-0.8); Eosinophils % 3.6 %; Hematocrit 32.6 % (42.0-52.0); Hemoglobin 9.4 g/dL (11.7-16.6); Lymphocytes # 1.3 10^3/uL (0.8-4.8); Lymphocytes % 15.9 %; Mean Corpuscular HGB Conc 28.8 g/dL (30.0-36.0); Mean Corpuscular Hemoglobin 25.5 pg (28.0-34.0); Mean Corpuscular Volume 88.3 fL (80-94); Mean Platelet Volume 9.4 fL (7.4-10.4); Monocytes # 0.7 10^3/uL (0.2-0.9); Monocytes % 8.5 %; Neutrophils # 5.59 10^3/uL (1.8-7.7); Neutrophils % 71.1 %; Nucleated Red Blood Cells % 0 %; Platelet Count 145 10^3/cmm (130-400); Red Blood Count 3.69 10^6/uL (4.1-5.3); Red Cell Distribution Width 21.8 % (12.1-15.1); White Blood Count 7.9 10^3/uL (4.0-10.0)
[2020-03-08 04:10] LABS: INR 2.07 (0.8-1.2)
[2020-03-08 04:24] LABS: Alanine Aminotransferase 10 U/L (0-41); Albumin Level 3.7 g/dL (3.5-5.2); Alkaline Phosphatase 106 IU/L (40-130); Anion Gap 17.2 (5-19); Aspartate Amino Transferase 13 U/L (0-40); Blood Urea Nitrogen 42 mg/dL (8-23); Calcium 9.1 mg/dL (8.5-10.5); Carbon Dioxide 24 mmol/L (22-29); Chloride 98 mmol/L (98-107); Globulin 3.4 g/dL (1.3-4.6); Glucose 162 mg/dL (65-115); Osmolality Calculated 283 mOsm/kg (285-295); Phosphorus 3.7 mg/dL (2.5-4.5); Potassium 3.2 mmol/L (3.5-5.1); Sodium 136 mmol/L (136-145); Total Protein 7.1 g/dL (6.6-8.7)
[2020-03-08] MEDS: bumetanide 0.25 mg/mL SDV 10 mL 1 MG IV (07:42)
[2020-03-08] MEDS: ferrous sulfate EC 325 mg Tablet PO ×2 (07:42→17:27)
[2020-03-08] MEDS: carvedilol 25 mg Tablet PO ×2 (07:42→19:20)
[2020-03-08 07:47] LABS: Glucose Point of Care 167 mg/dL (70-110)
[2020-03-08] MEDS: primidone 50 mg Tablet PO ×2 (09:59→17:27)
[2020-03-08] MEDS: sodium bicarbonate 650 mg Tablet PO ×2 (09:59→17:27)
[2020-03-08] MEDS: finasteride 5 mg Tablet PO (09:59)
[2020-03-08] MEDS: ropinirole 0.25 mg Tablet 0.5 MG PO ×3 (09:59→21:40)
[2020-03-08] MEDS: metOLazone 5 MG Tablet PO (09:59)
[2020-03-08] MEDS: tamsulosin 0.4 mg Capsule PO (09:59)
[2020-03-08] MEDS: pantoprazole DR 40 mg Tablet PO (09:59)
[2020-03-08] MEDS: allopurinol 100 mg Tablet PO (10:00)
[2020-03-08] MEDS: cetirizine 10 mg Tablet PO (10:00)
[2020-03-08] MEDS: isosorbide mononitrate ER 30 mg Tablet PO (10:00)
[2020-03-08] MEDS: aspirin 81 mg EC Tablet PO (10:00)
--- NOTE | 2020-03-08 10:00 | PC.NURSE ---
Verified with Dr. Aguilar that patient is to receive iron infusion today. [facility] to prepare dose.
[2020-03-08] MEDS: potassium chloride ER 10 mEq Tablet 20 MEQ PO (10:01)
[2020-03-08] MEDS: lidocaine 5% Patch 1 PATCH TOPICAL ×2 (10:02→21:42)
[2020-03-08] MEDS: gabapentin 100 mg Capsule PO ×3 (10:15→21:40)
[2020-03-08 11:45] LABS: Glucose Point of Care 188 mg/dL (70-110)
[2020-03-08] MEDS: potassium chloride ER 10 mEq Tablet 40 MEQ PO (11:46)
[2020-03-08] MEDS: TRAMadol 50 mg Tablet 100 MG PO ×2 (11:54→21:56)
[2020-03-08] MEDS: iron sucrose 200 MG in sodium chloride 0.9% (100 ml) 100 ML 100 MG IV (12:16)
--- NOTE | 2020-03-08 13:19 | PM.PN ---
Subjective Subjective: Interval history: This morning patient is roughly lost about 8 to 9 pounds since his hospitalization, states that his breathing has improved, no fevers, chills, nausea, vomiting, he is worried about the hematoma on his right foot, but looks about the same compared to yesterday Plan was to discharge patient today, however physical therapy work with patient, patient walked in the hallway, midway he became short of breath, oxygen saturations dropped into the 80s, plan is to keep him another day for more diuresis Vitals/I&O/Wt Last Vital Signs Temp 97.8 F 03/08/20 11:07 Pulse 59 L 03/08/20 11:14 Resp 14 03/08/20 11:07 BP 142/67 03/08/20 11:07 Pulse Ox 97 03/08/20 11:14 03/07/20 03/08/20 03/08/20 22:59 06:59 14:59 Intake Total 350 / 710 240 / 240 Output Total 1550 / 1550 300 / 300 Balance -1200 / -840 -60 / -60 Weight last 48 hrs Weight 99.065 kg Physical Exam Const: COMMON NORMALS: no acute distress and patient oriented x3 HENMT: COMMON NORMALS: normocephalic HEAD & SCALP: normocephalic Neck/C-Spine: COMMON NORMALS: no JVD Resp: COMMON NORMALS: normal respiratory effort, No retractions, No use of accessory muscles and clear to auscultation bilaterally AUSCULTATION: clear to auscultation bilaterally Cardio: COMMON NORMALS: no JVD, regular rate, regular rhythm, S1 normal heart sound present and S2 normal heart sound present RATE: regular rate RHYTHM: regular rhythm HEART SOUNDS: S1 normal heart sound present and S2 normal heart sound present GI: COMMON NORMALS: Normal to inspection, nondistended, normoactive bowel sounds present, Soft to palpation, non-tender, No hepatosplenomegaly present, no masses and no bruits PALPATION: Yes Soft to palpation and Yes No hepatosplenomegaly present Extremity: COMMON NORMALS: capillary refill normal, no clubbing, cyanosis or edema, no calf tenderness and no pedal edema NARRATIVE EXTREMITY EXAM: Right lower extremity, big toe, hematoma, 1 x 1 cm, bilateral peripheral neuropathy Neuro: COMMON NORMALS: patient oriented x3 Psych: COMMON NORMALS: mental status grossly normal Data : 03/08/20 03:20 03/08/20 03:20 A&P Assessment and plan (1) Congestive heart failure: Acute on chronic. Suspect multifactorial related to slowly progressive chronic kidney disease and anemia. Currently do not see evidence of other process going on here. He has recently started Requip but otherwise medicines are the same and he reports compliance. Only complaint is of being more short of breath. -Continue Bumex 1 mg every 12 hours on hold given creatinine of 2.2, fluid restrictions 1500 cc, strict I's and O's, monitor creatinine -Continue metolazone 5 mg daily -Patient's echocardiogram showed normal left ventricular systolic dysfunction, but did show flattened septum in diastole consistent with right ventricular volume overload, flattened septum in systole consistent with right ventricular pressure overload, grade 3 out of 4 diastolic dysfunction, right ventricular systolic pressure was 30, indicating moderate pulmonary hypertension -Does report a history of radiofrequency ablation for back pain, roughly a month ago by, but has been doing well since it, been quite mobile, but tells me that he has had a general decline in terms of weakness, fatigue, tiredness, shortness of breath -VQ scan low probability of PE, bilateral extremities negative for DVT Status: Chronic Qualifiers: Heart failure chronicity: acute on chronic Heart failure type: diastolic Qualified Code(s): I50.33 - Acute on chronic diastolic (congestive) heart failure (2) Anemia: With iron deficiency, values February 21 by PCP showed iron of 34, percent saturation of 9 and TIBC of 358. Ferritin was 52.8. I suspect with the weight gain, some of the drop in hemoglobin is dilutional but he is also reached a threshold that is very likely contributing to the increased symptomatology he describes. -Etiology likely multifactorial related to CKD and slow GI bleed -Received 1 unit PRBC -Second unit of PRBC was stopped due to transfusion related reaction, although unlikely I believe -No bloody stools, continue to monitor hemoglobin, last hemoglobin 9.4 -Continue Venofer here transfusions Status: Chronic Qualifiers: Anemia type: due to chronic kidney disease Chronic kidney disease stage: stage 4 (severe) Qualified Code(s): N18.4 - Chronic kidney disease, stage 4 (severe); D63.1 - Anemia in chronic kidney disease (3) Atrial fibrillation: -Currently rate controlled -Continue Coumadin, monitor INR, monitor for signs of bleeding -As there is no overt signs of GI bleed, hemodynamics stability, I will continue Coumadin -If hemoglobin remained stable patient on Coumadin, 9.7, continue Coumadin for now, switch to Eliquis as outpatient Status: Chronic Qualifiers: Atrial fibrillation type: permanent Qualified Code(s): I48.21 - Permanent atrial fibrillation (4) Chronic anticoagulation: Coumadin, continue Status: Chronic (5) CAD (coronary artery disease): Denies current chest pain and initial cardiac enzymes without significant delta Status: Chronic Qualifiers: Coronary Disease-Associated Artery/Lesion type: bypass graft [place] vs. transplanted heart: [place] heart Associated angina: without angina Qualified Code(s): I25.810 - Atherosclerosis of coronary artery bypass graft(s) without angina pectoris (6) Chronic kidney disease, stage IV (severe): January 14, BUN and creatinine were 56/2.39. Baseline creatinine generally ranges 2-2.25 according to family Status: Chronic (7) Diabetes mellitus, type II: Hemoglobin A1c on February 21 was 7.7 Status: Chronic Qualifiers: Diabetes mellitus assistant terminal manager insulin use: with assistant terminal manager use Diabetes mellitus complication status: with neurologic complications Diabetes mellitus complication detail: with polyneuropathy Qualified Code(s): E11.42 - Type 2 diabetes mellitus with diabetic polyneuropathy; Z79.4 - retirement (current) use of insulin (8) Hypertension: Status: Chronic Qualifiers: Hypertension type: essential hypertension Qualified Code(s): I10 - Essential (primary) hypertension (9) Obesity (BMI 30-39.9): Status: Chronic (10) Transfusion reaction: -[place] flushed, short of breath during second unit of blood -Second unit of blood was stopped, sent for transfusion related reaction -I feel that the likelihood of transfusion reaction and TRALI is fairly unlikely but panel is pending -Currently doing better, asymptomatic, received Benadryl and metolazone, chest x-ray no significant changes compared to prior Status: Acute Additional A&P Information Change to inpatient, needs more diuresis Give a dose of Venofer, needs oral iron replacement at discharge Watch for any evidence of bleeding but believe this probably is related to worsening chronic kidney disease over time IV diuresis Monitor I's and O's closely Continue other home medications Normally on carvedilol, Imdur, statin, aspirin, Bumex and metolazone as needed Continue home Coumadin, recheck INR daily Monitor renal function for worsening with IV diuresis Monitor blood pressures for significant variation such as hypotension or significant hypertension that might be contributing CPAP at night Other home medications as ordered Chronic anticoagulation with therapeutic INR within the last week at 2.4 provides appropriate DVT prophylaxis Supportive care otherwise Plans discussed with patient as well as with his daughter. Both were given an opportunity to ask questions. Anticipate discharge home, possibly with some CHF monitoring in the short-term Full code Right lower extremity, big toe, hematoma continue to monitor, follow with Dr. Pack's outpatient Attestations Medical Necessity Statement*: Patient requires continued hospitalization due to acute respiratory failure Coding Level of Care Code Acute [employer] for [employer] Diagnoses Congestive heart failure I50.33 Heart failure chronicity: acute on chronic Heart failure type: diastolic Anemia N18.4; D63.1 Anemia type: due to chronic kidney disease Chronic kidney disease stage: stage 4 (severe) Atrial fibrillation I48.21 Atrial fibrillation type: permanent Chronic anticoagulation Z79.01 CAD (coronary artery disease) I25.810 Coronary Disease-Associated Artery/Lesion type: bypass graft [place] vs. transplanted heart: [place] heart Associated angina: without angina Chronic kidney disease, stage IV (severe) N18.4 Diabetes mellitus, type II E11.42; Z79.4 Diabetes mellitus assistant terminal manager insulin use: with assistant terminal manager use Diabetes mellitus complication status: with neurologic complications Diabetes mellitus complication detail: with polyneuropathy Hypertension I10 Hypertension type: essential hypertension Obesity (BMI 30-39.9) E66.9 Transfusion reaction T80.92XA
[2020-03-08] MEDS: bisacodyl 5 mg Tablet 10 MG PO ×2 (14:27→21:40)
[2020-03-08] MEDS: warfarin 5 mg Tablet PO (14:28)
[2020-03-08 17:20] LABS: Glucose Point of Care 157 mg/dL (70-110)
--- NOTE | 2020-03-08 19:31 | PC.NURSE ---
Rounding on patient and he is laying in bed watching tv. Patient is alert and oriented and denies any pain. Will continue to monitor.
[2020-03-08 21:01] LABS: Glucose Point of Care 171 mg/dL (70-110)
[2020-03-08] MEDS: atorvastatin 40 mg Tablet 20 MG PO (21:41)
[2020-03-08] MEDS: gabapentin 300 mg Capsule PO (22:52)
[2020-03-08] MEDS: lactulose oral liq 20 gm/30 mL UDC 30 GM PO (22:52)
--- NOTE | 2020-03-08 22:58 | PC.NURSE ---
Dr. Baldwin called Me stating patients daughter had contacted her about patients constipation and that she had put in orders for dulcolax x1 and lactalose PRN and if I could give those. I told her patient had had dulcolax on dayshift and provider said she was aware. Will monitor for bowel movement.
--- NOTE | 2020-03-09 00:05 | PC.NURSE ---
Dr. Baldwin contacted due to patient complaint of still not having a Bowel movement after PRN medications given. Patient is passing gas and has active bowel sounds. Will await further orders.
[2020-03-09] MEDS: lactulose oral liq 20 gm/30 mL UDC 30 GM PO (00:57)
[2020-03-09] MEDS: bisacodyl 10 mg Supp PR (00:58)
[2020-03-09 04:00] VITALS: BP 127/75; PULSE 60; RESP 16; TEMP 36.5; O2SAT 95
[2020-03-09 04:01] LABS: Basophils % 0.4 %; Eosinophils # 0.2 10^3/uL (0.0-0.8); Eosinophils % 2.7 %; Hematocrit 33.3 % (42.0-52.0); Hemoglobin 9.8 g/dL (11.7-16.6); Lymphocytes # 0.7 10^3/uL (0.8-4.8); Lymphocytes % 7.9 %; Mean Corpuscular HGB Conc 29.4 g/dL (30.0-36.0); Mean Corpuscular Hemoglobin 26.1 pg (28.0-34.0); Mean Corpuscular Volume 88.8 fL (80-94); Mean Platelet Volume 9.2 fL (7.4-10.4); Monocytes # 0.6 10^3/uL (0.2-0.9); Neutrophils # 7.33 10^3/uL (1.8-7.7); Neutrophils % 81.6 %; Nucleated Red Blood Cells % 0 %; Platelet Count 146 10^3/cmm (130-400); Red Blood Count 3.75 10^6/uL (4.1-5.3)
[2020-03-09 04:31] LABS: Alanine Aminotransferase 10 U/L (0-41); Albumin Level 3.9 g/dL (3.5-5.2); Alkaline Phosphatase 121 IU/L (40-130); Anion Gap 16.3 (5-19); Aspartate Amino Transferase 13 U/L (0-40); Blood Urea Nitrogen 51 mg/dL (8-23); Calcium 9.4 mg/dL (8.5-10.5); Carbon Dioxide 25 mmol/L (22-29); Chloride 99 mmol/L (98-107); Globulin 3.7 g/dL (1.3-4.6); Glucose 202 mg/dL (65-115); Magnesium 2.2 mg/dL (1.7-2.3); Osmolality Calculated 288 mOsm/kg (285-295); Phosphorus 4.1 mg/dL (2.5-4.5); Potassium 3.3 mmol/L (3.5-5.1); Sodium 137 mmol/L (136-145); Total Bilirubin 0.9 mg/dL (0.15-1.2); Total Protein 7.6 g/dL (6.6-8.7)
[2020-03-09 04:32] VITALS: BMI 29.2
--- NOTE | 2020-03-09 04:43 | PC.NURSE ---
unable to chart amount voided due to patient voided while having a BM and attempting to have a BM.
--- NOTE | 2020-03-09 05:45 | PC.NURSE ---
End of shift: Patient had a large BM this shift. Patient remains alert and oriented. Patient has had complaints of back pain. Patient has rested off and on this shift. Will continue to monitor.
[2020-03-09 07:14] VITALS: BP 128/60; PULSE 74; RESP 23; TEMP 36.7; O2SAT 97
[2020-03-09 07:53] LABS: Glucose Point of Care 170 mg/dL (70-110)
[2020-03-09] MEDS: carvedilol 25 mg Tablet PO (08:01)
[2020-03-09] MEDS: ferrous sulfate EC 325 mg Tablet PO (08:01)
[2020-03-09 08:54] LABS: INR 1.95 (0.8-1.2)
--- NOTE | 2020-03-09 09:30 | PC.SOCIAL ---
IMM completed 0n 03/09/2020 @ 0907
--- NOTE | 2020-03-09 09:38 | XRR_ITS ---
PROCEDURE INFORMATION: Exam: XR Right Foot Exam date and time: 03/09/2020 11:13 AM Age: 69 years old Clinical indication: Swelling, leg or foot; Prior surgery; Surgery date: 1-6 months; Surgery type: 2nd toe amputation; Patient HX: History of neuropathy; Additional info: Right big toe swelling TECHNIQUE: Imaging protocol: XR Right foot. Views: 1 or 2 views. COMPARISON: CR XR foot RT min 3V* [id number] 01/24/2020 1:29 PM FINDINGS: Bones/joints: Stable small plantar calcaneal bone spur. Stable moderate to severe degenerative changes at the hindfoot and ankle. Stable moderate degenerative change at the 1st MTP joint and 1st IP joint. There is redemonstration of an oblique fracture of the distal metadiaphysis of the 3rd proximal phalanx. There is mild callus formation, the fracture line is still visible however. Stable postsurgical changes consistent with previous amputation of the 2nd toe. No acute fracture. No dislocation. Bones are diffusely osteopenic. Findings are stable. Soft tissues: Stable large calcified enthesophyte at the Achilles tendon insertion. Surgical clips in the soft tissues medial to the ankle are stable. No soft tissue swelling. No radiopaque foreign body. XR/XR foot RT 2V [id number] IMPRESSION: 1. No acute fracture. Followup imaging recommended in 7-14 days if clinical concern for fracture persists. 2. There is redemonstration of an oblique fracture of the distal metadiaphysis of the 3rd proximal phalanx. There is mild callus formation, the fracture line is still visible however. 3. Stable postsurgical changes consistent with previous amputation of the 2nd toe. 4. Stable degenerative changes at the ankle and foot. 5. Incidental/nonacute findings are listed in the report.
[2020-03-09] MEDS: iron sucrose 200 MG in sodium chloride 0.9% (100 ml) 100 ML 100 MG IV (09:42)
[2020-03-09] MEDS: lidocaine 5% Patch 1 PATCH TOPICAL (09:43)
[2020-03-09] MEDS: pantoprazole DR 40 mg Tablet PO (09:44)
[2020-03-09] MEDS: gabapentin 100 mg Capsule PO (09:44)
[2020-03-09] MEDS: tamsulosin 0.4 mg Capsule PO (09:45)
[2020-03-09] MEDS: isosorbide mononitrate ER 30 mg Tablet PO (09:45)
[2020-03-09] MEDS: allopurinol 100 mg Tablet PO (09:45)
[2020-03-09] MEDS: potassium chloride ER 10 mEq Tablet 20 MEQ PO (09:45)
[2020-03-09] MEDS: cetirizine 10 mg Tablet PO (09:45)
[2020-03-09] MEDS: finasteride 5 mg Tablet PO (09:46)
[2020-03-09] MEDS: aspirin 81 mg EC Tablet PO (09:46)
[2020-03-09] MEDS: ropinirole 0.25 mg Tablet 0.5 MG PO (09:46)
[2020-03-09] MEDS: sodium bicarbonate 650 mg Tablet PO (09:46)
[2020-03-09] MEDS: metOLazone 5 MG Tablet PO (09:46)
[2020-03-09] MEDS: amoxicillin-clav 875-125 mg Tablet 1 TAB PO (09:48)
[2020-03-09] MEDS: doxycycline 100 mg Tablet PO (09:49)
--- NOTE | 2020-03-09 10:41 | PM.DCS ---
Discharge Providers Date of Admission: 03/06/20 15:23 Date of Discharge: March 09, 2020 Attending Provider at Admission: Kevan Vanegas Attending Provider at Discharge: Prashant Aguilar MD Primary Care Provider: Linh Toro MD Diagnoses at Discharge Discharge Diagnosis (1) Congestive heart failure: Status: Chronic Qualifiers: Heart failure chronicity: acute on chronic Heart failure type: diastolic Qualified Code(s): I50.33 - Acute on chronic diastolic (congestive) heart failure (2) Anemia: Status: Chronic Problem details: With iron deficiency Qualifiers: Anemia type: due to chronic kidney disease Chronic kidney disease stage: stage 4 (severe) Qualified Code(s): N18.4 - Chronic kidney disease, stage 4 (severe); D63.1 - Anemia in chronic kidney disease (3) Atrial fibrillation: Status: Chronic Qualifiers: Atrial fibrillation type: permanent Qualified Code(s): I48.21 - Permanent atrial fibrillation (4) Chronic anticoagulation: Status: Chronic (5) CAD (coronary artery disease): Status: Chronic Qualifiers: Associated angina: without angina Coronary Disease-Associated Artery/Lesion type: bypass graft [place] vs. 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 Qualified Code(s): E11.42 - Type 2 diabetes mellitus with diabetic polyneuropathy; Z79.4 - adjunct faculty for medical terminology (current) use of insulin (8) Hypertension: Status: Chronic Qualifiers: Hypertension type: essential hypertension Qualified Code(s): I10 - Essential (primary) hypertension (9) Obesity (BMI 30-39.9): Status: Chronic (10) Transfusion reaction: Status: Acute Reason for Visit Reason for Visit: sob Hospital Course Discharge Summary: This is a 69-year-old male with a past medical history of diastolic CHF, atrial fibrillation on Coumadin, CAD, chronic kidney disease stage IV, type 2 diabetes mellitus, diverticulosis, GERD, hypertension, hyperlipidemia, obesity, obesity hypoventilation syndrome, history of osteomyelitis of the right second toe, who presents to [facility] due to complaints of shortness of breath and generalized weakness. For patient's shortness of breath, likely secondary to diastolic CHF exacerbation, was admitted to the cardiac stepdown unit, received fluid restrictions less than 1500 cc, daily weights, strict I's and O's, Bumex IV, with metolazone p.o., patient clinically improved, ambulating without significant symptomatology. Echo showed normal left ventricular systolic function, no wall motion abnormalities, severe diastolic dysfunction grade 3 out of 4. Patient was discharged on Bumex 1 mg twice daily, metolazone 5 mg daily, potassium replacement therapy, fluid restrictions less than 1500 cc daily, with close follow-up with me in clinic for recheck creatinine in 1 week. Patient on echocardiogram showed flattened septum in diastole consistent with right ventricular volume overload, flattened septum in systole consistent with right ventricular pressure overload, right ventricular systolic pressure was 30.9, moderate pulmonary hypertension. I felt that likelihood of pulmonary embolism was fairly unlikely, especially as he was on Coumadin, however his history of being in therapeutic range is unknown. Given his elevated creatinine, CT angiogram of the chest cannot be ordered. Patient had a ventilation/perfusion scan to evaluate for his risk of pulmonary embolism, the probability was low, bilateral lower extremity ultrasounds were negative for DVT. Thus I felt that the likelihood of pulmonary embolism was fairly unlikely. Likely the elements of right ventricular overload and pulmonary hypertension could all be from the diastolic heart failure. But given his moderate pulmonary hypertension, and evidence of right ventricular overload, I will have patient follow-up with Dr. Persaud as outpatient. On admission, patient's hemoglobin was as low as 9.1, he received 1 unit PRBC. Hemoglobin remains between 9 and 10 throughout his admission. No bloody or black stools, no hemodynamic compromise. Likely patient's acute on chronic anemia is secondary to acute renal failure and a slow GI bleed. Patient was kept on Protonix during his admission. After extensive discussion with patient, decision was made to continue with Protonix and Carafate as outpatient. For consideration of EGD and colonoscopy as outpatient through either Dr. Castro's office or Dr. Ceballos's office depending on patient's choice. Patient was advised that if he were to have any bloody or black stools or any lightheadedness currently or dizziness go to the emergency room. Patient was advised to recheck CBC in 1 week. As patient's hemoglobin remained stable on Coumadin, after discussion risks and benefits, we decided to keep patient on Coumadin, with close follow-up of INR and CBC as outpatient. After his EGD and colonoscopy, hopefully we can switch him over from Coumadin to Eliquis or Xarelto. Patient has chronic kidney disease stage IV, Dr. Aburto has been considering dialysis for some time, but patient has been delaying it. Creatinine on discharge was 2.2. Baseline is anywhere between 2-4. Also during admission, patient was noted to have right toe ingrown toenail, with minimal hematoma at the tip of his toe, has severe diabetic peripheral neuropathy and no feeling in his right toe. On the day of discharge, there was some erythema and redness surrounding the area concerning for developing cellulitis. I have kept the patient on doxycycline and Augmentin for 7 days. Patient is to follow-up with Dr. Pack as outpatient for further evaluation. Physical Exam Const: COMMON NORMALS: no acute distress and patient oriented x3 HENMT: COMMON NORMALS: normocephalic HEAD & SCALP: normocephalic Neck/C-Spine: COMMON NORMALS: no JVD Resp: COMMON NORMALS: normal respiratory effort, No retractions, No use of accessory muscles and clear to auscultation bilaterally AUSCULTATION: clear to auscultation bilaterally Cardio: COMMON NORMALS: no JVD, regular rate, regular rhythm, S1 normal heart sound present and S2 normal heart sound present RATE: regular rate RHYTHM: regular rhythm HEART SOUNDS: S1 normal heart sound present and S2 normal heart sound present GI: COMMON NORMALS: Normal to inspection, nondistended, normoactive bowel sounds present, Soft to palpation, non-tender, No hepatosplenomegaly present, no masses and no bruits PALPATION: Yes Soft to palpation and Yes No hepatosplenomegaly present Extremity: COMMON NORMALS: capillary refill normal, no clubbing, cyanosis or edema, no calf tenderness and no pedal edema NARRATIVE EXTREMITY EXAM: Right great toe, minimal hematoma at the tip of the toe, swelling or surrounding erythema Neuro: COMMON NORMALS: patient oriented x3 Psych: COMMON NORMALS: mental status grossly normal Discharge Data Data Completed and Pending: Completed Studies During Hospitalization Category Date Time Status XR chest 1V raheem ble [id number] Stat Exams 03/05/20 10:38 Completed XR chest 1V raheem ble [id number] Urgent Exams 03/05/20 00:38 Completed NM pul vent and p erfus* [id number] Stat Nuc Med 03/06/20 07:39 Completed CV echo complete* [id number] Routine Ultrasound 03/05/20 08:52 [place] [id number] Routin e Ultrasound 03/06/20 07:39 Completed Pending at discharge Category Date Time Status XR foot RT 2V [id number] Stat Exams 03/09/20 09:38 Ordered Labs from last 24 hours 03/09/20 03/09/20 03/09/20 07:50 03:32 03:32 WBC RBC Hgb Hct MCV MCH MCHC RDW Plt Count MPV Neut % (Auto) Lymph % (Auto) [place] % (Auto) Eos % (Auto) Baso % (Auto) Neut # (Auto) Lymph # (Auto) [place] # (Auto) Eos # (Auto) Baso # (Auto) Nucleated RBC % (a uto) Nucleated RBCs # PT 23.00 H INR 1.95 H Sodium 137 Potassium 3.3 L Chloride 99 Carbon Dioxide 25 Anion Gap 16.3 BUN 51 H Creatinine 2.2 H Glucose 202 H POC Glucose 170 Calculated Osmolal ity 288 Calcium 9.4 Phosphorus 4.1 Magnesium 2.2 Total Bilirubin 0.9 AST 13 ALT 10 Alkaline Phosphata se 121 Total Protein 7.6 Albumin 3.9 Globulin 3.7 03/09/20 03/08/20 03/08/20 03:32 20:56 17:08 WBC 9.0 RBC 3.75 L Hgb 9.8 L Hct 33.3 L MCV 88.8 MCH 26.1 L MCHC 29.4 L RDW 22.0 H Plt Count 146 MPV 9.2 Neut % (Auto) 81.6 Lymph % (Auto) 7.9 [place] % (Auto) 7.0 Eos % (Auto) 2.7 Baso % (Auto) 0.4 Neut # (Auto) 7.33 Lymph # (Auto) 0.7 L [place] # (Auto) 0.6 Eos # (Auto) 0.2 Baso # (Auto) 0.0 Nucleated RBC % (a uto) 0 Nucleated RBCs # 0.0 PT INR Sodium Potassium Chloride Carbon Dioxide Anion Gap BUN Creatinine Glucose POC Glucose 171 157 Calculated Osmolal ity Calcium Phosphorus Magnesium Total Bilirubin AST ALT Alkaline Phosphata se Total Protein Albumin Globulin 03/08/20 11:38 WBC RBC Hgb Hct MCV MCH MCHC RDW Plt Count MPV Neut % (Auto) Lymph % (Auto) [place] % (Auto) Eos % (Auto) Baso % (Auto) Neut # (Auto) Lymph # (Auto) [place] # (Auto) Eos # (Auto) Baso # (Auto) Nucleated RBC % (a uto) Nucleated RBCs # PT INR Sodium Potassium Chloride Carbon Dioxide Anion Gap BUN Creatinine Glucose POC Glucose 188 Calculated Osmolal ity Calcium Phosphorus Magnesium Total Bilirubin AST ALT Alkaline Phosphata se Total Protein Albumin Globulin Vitals: Last Vital Signs Temp 98.0 F 03/09/20 07:14 Pulse 74 03/09/20 07:14 Resp 23 H 03/09/20 07:14 BP 128/60 03/09/20 07:14 Pulse Ox 97 03/09/20 07:14 Discharge Plan Discharge Patient Disposition: Home, Self-Care Condition: Stable Prescriptions: New metolazone 5 mg Tablet 5 mg PO DAILY 30 Days Qty: 30 RF: 0 doxycycline monohydrate 100 mg Tablet 100 mg PO BID 7 Days Qty: 14 RF: 0 amoxicillin-pot clavulanate 875-125 mg Tablet 1 tab PO BID 7 Days Qty: 14 RF: 0 Klor-Con M20 20 mEq tablet,ER particles/crystals 20 meq PO BID 30 Days Qty: 60 RF: 0 Protonix 40 mg tablet,delayed release (DR/EC) 40 mg PO BID 30 Days Qty: 60 RF: 0 Carafate 1 gram tablet 1 gm PO BID 30 Days Qty: 60 RF: 0 Continued Mysoline 50 mg Tablet 50 mg PO BID RF: 0 Coreg 25 mg Tablet 25 mg PO BID RF: 0 Lipitor 20 mg Tablet 20 mg PO QPM RF: 0 isosorbide mononitrate 30 mg Tablet Extended Release 24 Hr 30 mg PO DAILY RF: 0 warfarin 2.5 mg Tablet See Rx Instructions .ROUTE .COMPLEX RF: 0 allopurinol 100 mg Tablet 100 mg PO DAILY RF: 0 aspirin 81 mg Tablet,Delayed Release (Dr/Ec) 81 mg PO DAILY RF: 0 Flomax 0.4 mg Capsule 0.4 mg PO DAILY RF: 0 Requip 0.25 mg Tablet 0.5 mg PO BID PRN (Reason: RESTLESS LEG SYNDROME) RF: 0 iron 325 mg (65 mg iron) Tablet 325 mg PO DAILY RF: 0 lidocaine 5 % Adhesive Patch,Medicated 1 patch TOPICAL DAILY PRN (Reason: Pain) RF: 0 Coumadin 5 mg Tablet 5 mg PO DAILY RF: 0 nitroglycerin 0.4 mg Tablet, Sublingual 0.4 mg SUBLINGUAL Q5M PRN (Reason: Chest Pain) RF: 0 Proscar 5 mg Tablet 5 mg PO DAILY RF: 0 milk thistle seed extract 200 mg Capsule 200 mg PO BID RF: 0 tramadol 100 mg Tablet 100 mg PO TID PRN (Reason: Pain) RF: 0 multivitamin Tablet 1 tab PO DAILY RF: 0 Zyrtec 10 mg Tablet 5 mg PO BID RF: 0 Glucosamine Chondroitin MaxStr 500-400 mg Capsule PO BID RF: 0 Fish Oil-Vit D3 300-1,000-1,000 mg-mg-unit Capsule PO RF: 0 sodium bicarbonate 650 mg Tablet 650 mg PO BID RF: 0 Changed bumetanide 2 mg Tablet 1 mg PO BID 30 Days Qty: 30 RF: 0 Novolin R Flexpen See Rx Instructions .ROUTE .COMPLEX Qty: 100 RF: 1 Discontinued metolazone 2.5 mg Tablet See Rx Instructions .ROUTE .COMPLEX RF: 0 hydralazine 10 mg Tablet 10 mg PO QID RF: 0 potassium chloride 10 mEq Tablet Extended Release 10 meq PO BID RF: 0 Prilosec OTC 20 mg Tablet,Delayed Release (Dr/Ec) 20 mg PO DAILY RF: 0 Novolin N Flexpen See Rx Instructions .ROUTE .COMPLEX RF: 0 Discharge Orders: Discharge Order (Routine); Ordered 03/09/20 Ordered By: Prashant Aguilar Other Ambulatory Orders: Complete Blood Count w/Auto (Routine) Timeframe: 1 Week Location: Determined by Patient Ordered By: Prashant Aguilar Comprehensive Metabolic Panel (Routine) Timeframe: 1 Week Facility: [facility] - Location: Lab - Main Lab Ordered By: Prashant Aguilar Referrals: Ion Ceballos MD [Physician] - 1 week ([facility] [place] Computer [employer]ware [employer] will contact you to schedule an appointment in 1 week. If you haven't heard from them by Wednesday afternoon. Please, call ) Prashant Aguilar MD [Hospitalist] - 03/13/20 1:00 pm ( [facility] [place] [facility] will contact you to confirm your appointment on 03/13/20 at 1:00p.m. If you haven't heard from them by Wednesday afternoon. Please, call ) Linh Toro MD [Primary Care Provider] - (Please, call for an appointment with Dr. Linh Toro in 1 week. ) Susanne Persaud MD [Physician] - 1 month ([facility] will contact you to schedule an follow-up appointment in 1 month. If you haven't heard from them by Wednesday afternoon. Please, call ) Discharge Diet: Cardiac Discharge Activity: Resume usual activity Patient Instructions: Metolazone (By mouth), Sucralfate (By mouth), Doxycycline (By mouth), Potassium Chloride (By mouth), Amoxicillin (By mouth), Pantoprazole (By mouth), Heart Failure (DC), Coronary Artery Disease (DC), Atrial Fibrillation (DC), Hypertension (DC), Anemia (DC), CHF Stoplight Activity Restrictions/Additional Instructions: -For heart failure, please restrict fluids less than 1500 cc, daily weights, if you gain more than 2 pounds over a day, take an extra 1 mg of Bumex -Continue 1 mg of Bumex twice daily, metolazone 5 mg once daily -Recheck CMP for creatinine in 1 week -If you have worsening shortness of breath please come to the emergency room -For your GI bleed, continue Protonix 40 twice daily, Carafate 1 g twice daily -If you have bloody or black stools come back to the emergency room -Recheck CBC in 1 week -Continue Coumadin dosing, recheck INR in 1 week -For your right lower toe swelling, please follow-up Dr. Pack on Wednesday, continue antibiotics Discharge Attestations Time Spent in Discharge Care*: less than 30 min Quality Metrics Clinical Quality Measures During this hospital stay, did patient experience: None Coding Level of Care Code Acute Document Advisor for Wallace Fwd Exam Comprehensive Diagnoses Congestive heart failure I50.33 Heart failure chronicity: acute on chronic Heart failure type: diastolic Anemia N18.4; D63.1 Anemia type: due to chronic kidney disease Chronic kidney disease stage: stage 4 (severe) Atrial fibrillation I48.21 Atrial fibrillation type: permanent Chronic anticoagulation Z79.01 CAD (coronary artery disease) I25.810 Associated angina: without angina Coronary Disease-Associated Artery/Lesion type: bypass graft [place] vs. 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
[2020-03-09 11:21] VITALS: BP 123/73; PULSE 71; RESP 19; TEMP 36.5; O2SAT 98
[2020-03-09 11:33] LABS: Glucose Point of Care 162 mg/dL (70-110)
[2020-03-09 14:00] VITALS: BP 123/73; PULSE 71; RESP 19; TEMP 36.5; O2SAT 98
[2020-03-09 14:02] VITALS: BP 123/73; PULSE 71; RESP 19; TEMP 36.5; O2SAT 98
--- NOTE | 2020-03-09 14:02 | PC.NURSE ---
no mouna/arb ordered due to ef 54% and ckd
--- NOTE | 2020-03-09 14:47 | PC.NURSE ---
pt has been recommended to have a colonoscopy and an egd post-hospitalization.he requests that a dr peraza in [place] perform it,as he is familiar with his case.he states he needs an order for this.dr silva notified.he states he cannot decide which provider will do these tests for pt.dr silva suggests we fax the discharge summary to dr peraza's office with request for appt.this was done.
--- NOTE | 2020-03-09 15:23 | PC.NURSE ---
discharge instructions given and explained.pt verb understanding of instructions.discharged via w/c to exit.daughter to drive pt home.
== END 2020-03-09 14:30 | disposition home or self-care (01) | DRG 291 ==
LOC: ER 03:41 → CSU 05:05
PROVIDERS: Emergency Medicine; Hospitalist; Admitting Provider Pathology Anatomic Pathology & Clinical Pathology; PCP Internal Medicine; Visit Provider Family Medicine
DX: I13.0 Hypertensive heart and chronic kidney disease with heart failure and stage 1 through stage 4 chronic kidney disease, or unspecified chronic kidney disease (principal); I50.33 Acute on chronic diastolic (congestive) heart failure; N18.4 Chronic kidney disease, stage 4 (severe); I48.21 Permanent atrial fibrillation; I25.810 Atherosclerosis of coronary artery bypass graft(s) without angina pectoris; E66.2 Morbid (severe) obesity with alveolar hypoventilation; D63.1 Anemia in chronic kidney disease; Z79.01 Long term (current) use of anticoagulants; E11.42 Type 2 diabetes mellitus with diabetic polyneuropathy; E11.22 Type 2 diabetes mellitus with diabetic chronic kidney disease; Z79.4 Long term (current) use of insulin; Z68.29 Body mass index [BMI] 29.0-29.9, adult; T80.92XA Unspecified transfusion reaction, initial encounter; K21.9 Gastro-esophageal reflux disease without esophagitis; E78.5 Hyperlipidemia, unspecified; Z79.82 Long term (current) use of aspirin; G89.29 Other chronic pain; M54.9 Dorsalgia, unspecified; Z86.14 Personal history of Methicillin resistant Staphylococcus aureus infection; Y84.8 Other medical procedures as the cause of abnormal reaction of the patient, or of later complication, without mention of misadventure at the time of the procedure; Y92.230 Patient room in hospital as the place of occurrence of the external cause
CPT/HCPCS: 12345; 36415; 36416; 36430; 71045; 73620; 78014; 80053; 80500; 81003; 82962; 83605; 83735; 83880; 84100; 84484; 85025; 85610; 86850; 86900; 86920; 93005; 93306; 93970; 94660; 96372; 96375; 97162; 99283; A9540; A9567; G0378; J1200; J1756; J1815; J2270; J3490; P9016

== ENCOUNTER 2020-04-03 09:55 | Outpatient (CLI) | payer MEDICARE, OTHER, SELFPAY | END 2020-04-03 09:56 | disposition home or self-care (01) | LOC: WOUND 09:57 | PROVIDERS: PCP Internal Medicine; Visit Provider Nurse Practitioner Family | DX: E11.622 Type 2 diabetes mellitus with other skin ulcer (principal); L98.492 Non-pressure chronic ulcer of skin of other sites with fat layer exposed | CPT/HCPCS: G0463 ==

== ENCOUNTER 2020-04-09 12:56 | Emergency (ER) | payer MEDICARE, OTHER, SELFPAY ==
[2020-04-09] VITALS (9 sets, daily range): BP systolic 103–132; BP diastolic 49–80; PULSE 112–132; RESP 17–27; TEMP 37–37.3; O2SAT 96–100; BMI 35.7
[2020-04-09 13:37] LABS: Basophils # 0.1 10^3/uL (0.0-0.1); Basophils % 0.5 %; Eosinophils # 0.1 10^3/uL (0.0-0.8); Eosinophils % 1.1 %; Hematocrit 29.8 % (42.0-52.0); Hemoglobin 9.3 g/dL (11.7-16.6); Lymphocytes # 1.7 10^3/uL (0.8-4.8); Lymphocytes % 12.6 %; Mean Corpuscular HGB Conc 31.2 g/dL (30.0-36.0); Mean Corpuscular Hemoglobin 28.5 pg (28.0-34.0); Mean Corpuscular Volume 91.4 fL (80-94); Mean Platelet Volume 9.6 fL (7.4-10.4); Monocytes % 7.8 %; Neutrophils # 10.09 10^3/uL (1.8-7.7); Neutrophils % 77.1 %; Nucleated Red Blood Cells % 0 %; Platelet Count 209 10^3/cmm (130-400); Red Blood Count 3.26 10^6/uL (4.1-5.3); Red Cell Distribution Width 20.8 % (12.1-15.1); White Blood Count 13.1 10^3/uL (4.0-10.0)
[2020-04-09] MEDS: sodium chloride 0.9% 1,000 ML 100 ML IV (13:46)
[2020-04-09 13:50] LABS: INR 1.78 (0.8-1.2)
[2020-04-09 13:58] LABS: Alanine Aminotransferase 14 U/L (0-41); Albumin Level 3.8 g/dL (3.5-5.2); Alkaline Phosphatase 92 IU/L (40-130); Anion Gap 16.9 (5-19); Aspartate Amino Transferase 19 U/L (0-40); Calcium 8.3 mg/dL (8.5-10.5); Carbon Dioxide 30 mmol/L (22-29); Chloride 91 mmol/L (98-107); Globulin 3.2 g/dL (1.3-4.6); Glucose 364 mg/dL (65-115); Lipase 23 U/L (13-60); Osmolality Calculated 293 mOsm/kg (285-295); Potassium 3.9 mmol/L (3.5-5.1); Sodium 134 mmol/L (136-145); Total Bilirubin 0.4 mg/dL (0.15-1.2)
[2020-04-09 13:59] LABS: Lactate (Lactic Acid level) 2.7 mmol/L (0.5-2.2)
[2020-04-09 14:15] LABS: Blood Urea Nitrogen 91 mg/dL (8-23)
--- NOTE | 2020-04-09 14:38 | W.ED.GIBLEED ---
HPI - GI Bleed General: Chief complaint: GI Bleed Stated complaint: weakness/ blood in stool Source: patient and family Mode of arrival: ambulatory Limitations: no limitations History of Present Illness: HPI Narrative: 69-year-old gentleman with a history of atrial fibrillation on warfarin anticoagulation, congestive heart failure, who presents to the emergency department with complaints of bright red blood per rectum. Symptoms started about 4 AM this morning. He has had 5 episodes so far today including 1 in the waiting room in the emergency department. The triage note stated he had a large volume bright red blood per rectum. He says he feels very weak with some lightheadedness also. complaint: gross hematochezia Onset (ago): hour(s) (12) Pain Consistency: intermittent Severity: severe Relieving factors: none Exacerbating factors: none Context: anticoagulant use Associated symptoms: Reports abdominal pain, malaise and weakness; Denies chills, easy bruising, epistaxis, fever(s), headache(s), nausea, other bleeding, poor appetite, rash, syncope, vomiting or other Treatments Prior to Arrival: none Review of Systems General: Reports: 10 or more systems reviewed and unremarkable except in HPI and below Const: Reports: malaise; Denies: fever(s) or chills Eyes: Denies: change in vision or blurry vision ENMT: Denies: epistaxis Card: Denies: syncope Resp: Denies: dyspnea, productive cough or non-productive cough GI: Reports: abdominal pain; Denies: nausea or vomiting : Denies: flank pain, dysuria, urinary frequency, urinary urgency or urinary hesitancy Musc: Denies: neck pain, back pain or extremity swelling Skin/Breast: Denies: rash Neuro: Denies: headache(s) Endo: Denies: polyuria, polydipsia or tired all the time Flaco/Lymph: Denies: easy bruising PFSH ED PFSH: Medical History (Reviewed 04/09/20 @ 14:47 by Radha Ayala MD, [facility] [place]) Atrial fibrillation CAD (coronary artery disease) CHF (congestive heart failure) Chronic back pain Chronic kidney disease, stage IV (severe) Diabetes mellitus, type II Insulin requiring Diverticulosis Gallstones GERD (gastroesophageal reflux disease) Gout History of MRSA infection Hyperlipidemia Hypertension Obesity (BMI 30-39.9) Obstructive sleep apnea Surgical History (Reviewed 04/09/20 @ 14:47 by Radha Ayala MD, 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 [place]) Smoking and tobacco status: never smoked Alcohol intake: never Substance/Drug Use: never Current occupational status: retired Physical Exam Const: COMMON NORMALS: no acute distress, average body habitus, patient oriented x3, no limitations, healthy appearing, alert and well nourished HENMT: COMMON NORMALS: normocephalic, atraumatic and moist oral mucous membranes HEAD & SCALP: normocephalic and atraumatic Neck/C-Spine: COMMON NORMALS: no meningeal signs and no JVD Resp: COMMON NORMALS: normal respiratory effort, No retractions, No use of accessory muscles, clear to auscultation bilaterally and percussion normal AUSCULTATION: clear to auscultation bilaterally PERCUSSION: percussion normal Cardio: COMMON NORMALS: no JVD, S1 normal heart sound present, S2 normal heart sound present, No gallops present (Cardio), No clicks present (Cardio), No murmurs present (Cardio), No rub (Cardio) and Peripheral pulses 2+ throughout RATE: tachycardic RHYTHM: abnormal rhythm regularly irregular HEART SOUNDS: S1 normal heart sound present and S2 normal heart sound present PERIPHERAL PULSES: Peripheral pulses 2+ throughout GI: COMMON NORMALS: Normal to inspection, nondistended, normoactive bowel sounds present, Soft to palpation, No hepatosplenomegaly present, no masses and no bruits PALPATION: Yes Soft to palpation, Yes Tenderness to palpation present (GI) (epigastric) and Yes No hepatosplenomegaly present RECTAL EXAM: Yes deferred : COMMON NORMALS: Yes no CVA tenderness BLADDER/KIDNEY EXAM: Yes no CVA tenderness Back/Pelvis: COMMON NORMALS: no CVA tenderness Extremity: COMMON NORMALS: normal to inspection, full ROM, capillary refill normal, no calf tenderness and no pedal edema Neuro: COMMON NORMALS: patient oriented x3 SENSORIUM/ORIENTATION: Yes alert MENINGEAL SIGNS: Yes no meningeal signs Skin: COMMON NORMALS: no rashes or lesions noted, no wounds, turgor normal, no jaundice, no petechiae and no mottling GENERAL SKIN EXAM: no rashes or lesions noted and turgor normal Course Reevaluation(s): Reevaluation #1: Discussed his lab findings with his daughter and later his who was on a video call. Informed them that his hemoglobin was 9.3, no need for acute transfusion at this time. Explained my conversation with [facility]. He had initially wanted to go to [facility] but [facility] in [place] has no beds today. He will therefore be transferred to [facility] for further evaluation and management. He voiced understanding and they are in agreement with the plan. Time: 14:40 Reevaluation #2: Patient has had an episode of hematemesis. He is also had another bloody bowel movement. He feels dizzy and lightheaded. On evaluation his heart rate is 120 bpm blood pressure 157/126 but I do not think that is correct we will have them retake it. Time: 15:50 Consultations: Consultation #1: I called [facility] to transfer this patient because he is having a large amount of bright red blood per rectum and possibly needs intervention. The transfer nurse spoke to the surgeon, Dr. Rosenthal who kindly accepted the patient to his service. Time: 14:14 Vital Signs: Vital signs: Vital Signs Temperature 99.1 F 04/09/20 16:08 Pulse Rate 130 H 04/09/20 17:15 Respiratory Rate 17 04/09/20 17:15 Blood Pressure 103/56 04/09/20 17:15 Pulse Oximetry 97 04/09/20 17:15 MDM - GI Bleed MDM Narrative: Medical decision making narrative: 69-year-old gentleman who had a recent colonoscopy and upper GI endoscopy and was discovered to have colonic polyp and a large gastric polyp. Gastric polyp related to when they tried to cut it off during endoscopy. Patient presents to the emergency department with lower GI bleed, however while he was in the emergency department he had episodes of hematemesis. Hemoglobin was 9.3, but when he had continued hematemesis and bloody stools I started him on a unit of packed red blood cell. When he was admitted last time he had a reaction to blood. While he was on the blood his blood pressure dropped and after it was discontinued his blood pressure return to what it had been throughout his ED stay. I think he had another transfusion reaction. The patient is transferred to [facility] because I believe he needs an urgent endoscopy. His preference was to be transferred to [facility] however they did not have any beds until tomorrow. Patient is on anticoagulation with warfarin but his INR was just about 1.78. He was also given IV Protonix and Zofran in the emergency department. BUN was critically elevated which is consistent with blood in the GI tract. Differential Diagnosis: GI bleed differential diagnosis: Likely hemorrhoids, infectious diarrhea, gastritis, Upper gastrointestinal hemorrhage and Lower gastrointestinal hemorrhage Medical Records: Attestation: I reviewed the patient's medical records. Lab Data: Attestation: I reviewed the patient's lab results. Labs: Lab Results 04/09/20 04/09/20 04/09/20 Range/Units 13:22 13:22 13:22 WBC 13.1 H (4.0-10.0) 10^3/ uL RBC 3.26 L (4.1-5.3) 10^6/u L Hgb 9.3 L (11.7-16.6) g/dL Hct 29.8 L (42.0-52.0) % MCV 91.4 (80-94) fL MCH 28.5 (28.0-34.0) pg MCHC 31.2 (30.0-36.0) g/dL RDW 20.8 H (12.1-15.1) % Plt Count 209 (130-400) 10^3/c mm MPV 9.6 (7.4-10.4) fL Neut % (Auto) 77.1 % Lymph % (Auto) 12.6 % [place] % (Auto) 7.8 % Eos % (Auto) 1.1 % Baso % (Auto) 0.5 % Neut # (Auto) 10.09 H (1.8-7.7) 10^3/u L Lymph # (Auto) 1.7 (0.8-4.8) 10^3/u L [place] # (Auto) 1.0 H (0.2-0.9) 10^3/u L Eos # (Auto) 0.1 (0.0-0.8) 10^3/u L Baso # (Auto) 0.1 (0.0-0.1) 10^3/u L Nucleated RBC % (a uto) 0 % Nucleated RBCs # 0.0 /100WBC PT 21.30 H (12.1-14.9) SECO NDS INR 1.78 H (0.8-1.2) Sodium 134 L (136-145) mmol/L Potassium 3.9 (3.5-5.1) mmol/L Chloride 91 L (98-107) mmol/L Carbon Dioxide 30 H (22-29) mmol/L Anion Gap 16.9 (5-19) BUN 91 H* D (8-23) mg/dL Creatinine 2.1 H (0.7-1.2) mg/dL GFR Calculation Not Reportable Glucose 364 H (65-115) mg/dL Calculated Osmolal ity 293 (285-295) mOsm/k g Lactate (0.5-2.2) mmol/L Calcium 8.3 L (8.5-10.5) mg/dL Total Bilirubin 0.4 (0.15-1.2) mg/dL AST 19 (0-40) U/L ALT 14 (0-41) U/L Alkaline Phosphata se 92 (40-130) IU/L Total Protein 7.0 (6.6-8.7) g/dL Albumin 3.8 (3.5-5.2) g/dL Globulin 3.2 (1.3-4.6) g/dL Lipase 23 (13-60) U/L Blood Type Rho(D) Type Antibody Screen Crossmatch 04/09/20 04/09/20 Range/Units 13:22 13:22 WBC (4.0-10.0) 10^3/ uL RBC (4.1-5.3) 10^6/u L Hgb (11.7-16.6) g/dL Hct (42.0-52.0) % MCV (80-94) fL MCH (28.0-34.0) pg MCHC (30.0-36.0) g/dL RDW (12.1-15.1) % Plt Count (130-400) 10^3/c mm MPV (7.4-10.4) fL Neut % (Auto) % Lymph % (Auto) % [place] % (Auto) % Eos % (Auto) % Baso % (Auto) % Neut # (Auto) (1.8-7.7) 10^3/u L Lymph # (Auto) (0.8-4.8) 10^3/u L [place] # (Auto) (0.2-0.9) 10^3/u L Eos # (Auto) (0.0-0.8) 10^3/u L Baso # (Auto) (0.0-0.1) 10^3/u L Nucleated RBC % (a uto) % Nucleated RBCs # /100WBC PT (12.1-14.9) SECO NDS INR (0.8-1.2) Sodium (136-145) mmol/L Potassium (3.5-5.1) mmol/L Chloride (98-107) mmol/L Carbon Dioxide (22-29) mmol/L Anion Gap (5-19) BUN (8-23) mg/dL Creatinine (0.7-1.2) mg/dL GFR Calculation Glucose (65-115) mg/dL Calculated Osmolal ity (285-295) mOsm/k g Lactate 2.7 H (0.5-2.2) mmol/L Calcium (8.5-10.5) mg/dL Total Bilirubin (0.15-1.2) mg/dL AST (0-40) U/L ALT (0-41) U/L Alkaline Phosphata se (40-130) IU/L Total Protein (6.6-8.7) g/dL Albumin (3.5-5.2) g/dL Globulin (1.3-4.6) g/dL Lipase (13-60) U/L Blood Type O Positive Rho(D) Type Positive Antibody Screen Negative Crossmatch See Detail Critical Care Time Critical Care Time: Critical Care Time: Yes Total Critical Care Time: 60 Attestation: This case had a high probability of a clinically significant, sudden, or life threatening deterioration of this patient's condition which required my full and direct attention, intervention and personal management. Discharge Plan Discharge Patient Disposition: Xfer Other Clinical Impression: Acute lower gastrointestinal hemorrhage, Acute uremia Congestive heart failure Qualifiers: Heart failure type: unspecified Heart failure chronicity: chronic Qualified Code(s): I50.9 - Heart failure, unspecified Anemia Qualifiers: Anemia type: other cause Other causes of anemia: acute posthemorrhagic Qualified Code(s): D62 - Acute posthemorrhagic anemia Transfusion reaction Qualifiers: Encounter type: initial encounter Qualified Code(s): T80.92XA - Unspecified transfusion reaction, initial encounter Hematemesis Qualifiers: Nausea presence: with nausea Qualified Code(s): K92.0 - Hematemesis Condition: Stable Discharge Orders: Transfer Out of Facility (Order); Ordered 04/09/20 Ordered By: Radha Ayala Referrals: Linh Toro MD [Primary Care Provider] - Interventions: ED Discharge Assessment Last Done: 04/09/20 17:15 ED Charges Last Done: 04/09/20 17:15 Discharge Date/Time: 04/09/20 17:28 Coding Level of Care Code ED Weight Analyst for Chg Fwd Exam Comprehensive
[2020-04-09] MEDS: ropinirole 0.25 mg Tablet 0.5 MG PO (15:00)
[2020-04-09] MEDS: diphenhydrAMINE 50 mg/mL SDV 1mL IVP (16:04)
[2020-04-09] MEDS: ondansetron 2 mg/ML SDV 2 mL 8 MG IVP (16:29)
[2020-04-09] MEDS: pantoprazole 40 mg SDV 80 MG IVP (16:33)
== END 2020-04-09 17:28 | disposition other institution (70) ==
PROVIDERS: Emergency Provider Family Medicine; PCP Internal Medicine
DX: K92.2 Gastrointestinal hemorrhage, unspecified (principal); D62 Acute posthemorrhagic anemia; T80.92XA Unspecified transfusion reaction, initial encounter; K92.0 Hematemesis; I11.0 Hypertensive heart disease with heart failure; I50.9 Heart failure, unspecified; I48.91 Unspecified atrial fibrillation; I25.10 Atherosclerotic heart disease of native coronary artery without angina pectoris; I13.0 Hypertensive heart and chronic kidney disease with heart failure and stage 1 through stage 4 chronic kidney disease, or unspecified chronic kidney disease; E11.22 Type 2 diabetes mellitus with diabetic chronic kidney disease; N18.4 Chronic kidney disease, stage 4 (severe); E78.5 Hyperlipidemia, unspecified; Z95.1 Presence of aortocoronary bypass graft
CPT/HCPCS: 12345; 36430; 80053; 80500; 83605; 83690; 85025; 85610; 86850; 86900; 86920; 96361; 96374; 96375; 99283; 99285; C9113; J1200; J2405; J7030; P9016

== ENCOUNTER 2020-05-20 11:08 | Outpatient (RCR) | payer MEDICARE, OTHER, SELFPAY | END 2020-05-29 23:59 | disposition home or self-care (01) | LOC: MPT 11:08 | PROVIDERS: PCP Internal Medicine; Referring Provider Internal Medicine; Visit Provider Internal Medicine | DX: G89.29 Other chronic pain (principal); M54.2 Cervicalgia; M47.816 Spondylosis without myelopathy or radiculopathy, lumbar region | CPT/HCPCS: 97110; 97140; 97162; G0283 ==

== ENCOUNTER 2020-05-30 06:00 | Outpatient (RCR) | payer MEDICARE, OTHER, SELFPAY | END 2020-06-29 23:59 | disposition home or self-care (01) | LOC: MPT 06:00 | PROVIDERS: PCP Internal Medicine; Referring Provider Internal Medicine; Visit Provider Internal Medicine | DX: G89.29 Other chronic pain (principal); M47.816 Spondylosis without myelopathy or radiculopathy, lumbar region; M54.2 Cervicalgia | CPT/HCPCS: 97110; 97140; G0283 ==

== ENCOUNTER → 2020-06-09 15:55 | Outpatient (BNVA) | payer MEDICARE, OTHER, SELFPAY | PROVIDERS: PCP Internal Medicine; Visit Provider Nurse Practitioner | DX: Z11.59 Encounter for screening for other viral diseases (principal) | CPT/HCPCS: 87635 ==

== ENCOUNTER 2020-06-30 06:00 | Outpatient (RCR) | payer MEDICARE, OTHER, SELFPAY | END 2020-07-29 23:59 | disposition home or self-care (01) | LOC: MPT 06:00 | PROVIDERS: PCP Internal Medicine; Referring Provider Internal Medicine; Visit Provider Internal Medicine | DX: M47.816 Spondylosis without myelopathy or radiculopathy, lumbar region (principal); M54.2 Cervicalgia; G89.29 Other chronic pain | CPT/HCPCS: 97110; 97140; G0283 ==

== ENCOUNTER 2020-07-24 12:45 | Outpatient (CLI) | payer MEDICARE, OTHER, SELFPAY ==
--- NOTE | 2020-07-24 13:30 | USCV_ITS ---
Gian Bowers Age: 69 Gender: M : 1950 Exam Date: 07/24/2020 12:54 Ordering Phys: Alfredo Pack DPM Technologist: Exam Location: [facility] [place]_ Indication: PRE PROCEDURAL PLANNING RIGHT LEFT Brachial 114.00 mmHg Brachial 109.00 mmHg Pressure (mmHg) Waveform Pressure (mmHg) Waveform 162.00 MOLD MOVER 165.00 137.00 DPA 157.00 1.42 Ankle/Brachial Index 1.45 188.00 Pre-Exercise Toe Pressure 186.00 1.65 Pre-Exercise Toe/Brachial Index 1.63 FINDINGS Supernormal resting ABIs and TBIs bilaterally Slightly elevated segmental pressures CONCLUSIONS Features a history of extensive arterial sclerosis No significant arterial obstruction, based on the above findings Dr Lisa Rosenthal MD FAC (Electronically Signed) Final Date: 26 July 2020 19:24 S
== END 2020-07-24 12:46 | disposition home or self-care (01) ==
PROVIDERS: PCP Internal Medicine; Visit Provider Podiatrist Foot & Ankle Surgery
DX: Z01.818 Encounter for other preprocedural examination (principal)
CPT/HCPCS: 93922

== ENCOUNTER 2020-07-27 01:48 | Inpatient (IN) | payer MEDICARE, OTHER, SELFPAY ==
[2020-07-27] VITALS (16 sets, daily range): BP systolic 109–129; BP diastolic 61–89; PULSE 80–110; RESP 16–26; TEMP 37.1–38.3; O2SAT 93–99; BMI 35.3
--- NOTE | 2020-07-27 01:54 | ECG_ITS ---
[facility] Test Date: 2020-07-27 Pat Name: Gian Bowers Department: Room: Gender: Male Screen Stretcher: : 1950 Requested By: Rory Ramesh Order Number: [id number] Tanja MD: CHEMA MELO Measurements Intervals [place] Rate: 105 P: NC: QRS: -12 QRSD: 100 T: 107 QT: 351 QTc: 465 Interpretive Statements ATRIAL FIBRILLATION WITH RAPID VENTRICULAR RESPONSE NONSPECIFIC ST & T-WAVE ABNORMALITY Compared to ECG 03/05/2020 01:11:12 Ventricular premature complex(es) no longer present Aberrant conduction of supraventricular beat(s) no longer present Possible ischemia no longer present T-wave abnormality still present Electronically Signed On 07-27-2020 18:13:53 ITALIAN TEACHER by CHEMA MELO [id number]
--- NOTE | 2020-07-27 01:54 | XRR_ITS ---
PROCEDURE INFORMATION: Exam: XR Chest, 1 View Exam date and time: 07/27/2020 2:07 AM Age: 69 years old Clinical indication: Shortness of breath; Prior surgery; Surgery type: Cabg; Additional info: SOB TECHNIQUE: Imaging protocol: XR of the chest Views: 1 view. COMPARISON: CR XR chest 1V portable [id number] 03/05/2020 10:39 AM FINDINGS: Lung volumes are somewhat low. Otherwise no focal pulmonary consolidation is demonstrated on this single frontal image. No significant obscuration of the lateral costophrenic angles is demonstrated. No significant vascular congestion is demonstrated. There is scattered pulmonary scarring bilaterally. Visualized cardiac silhouette size appears about moderately enlarged. Pericardial effusion not excluded. There are changes from median sternotomy. XR/XR chest 1V portable [id number] IMPRESSION: No definite acute pulmonary process is demonstrated. Visualized cardiac silhouette size appears about moderately enlarged. Pericardial effusion not excluded.
[2020-07-27 02:06] LABS: Basophils # 0.1 10^3/uL (0.0-0.1); Basophils % 0.5 %; Eosinophils # 0.3 10^3/uL (0.0-0.8); Hematocrit 38.5 % (42.0-52.0); Lymphocytes % 6.6 %; Mean Corpuscular HGB Conc 31.2 g/dL (30.0-36.0); Mean Corpuscular Hemoglobin 30.2 pg (28.0-34.0); Mean Platelet Volume 10.3 fL (7.4-10.4); Monocytes % 6.6 %; Nucleated Red Blood Cells % 0 %; Platelet Count 156 10^3/cmm (130-400); Red Blood Count 3.97 10^6/uL (4.1-5.3); Red Cell Distribution Width 18.6 % (12.1-15.1); White Blood Count 14.6 10^3/uL (4.0-10.0)
[2020-07-27 02:12] LABS: ABG PCO2 33.2 mmHg (35-45); ABG PH Result 7.52 (7.35-7.45); Base Excess ABG 4.6 mmol/L (-2.0-2.0); Blood Gas Allen Test Pos; Blood Gas Sample Type Arterial; HCO3 ABG 27.3 mmol/L (22-26); PO2 ABG 84.3 mmHg (80.0-100.0)
[2020-07-27 02:12] LABS: Fibrinogen 543 mg/dL (174-498)
[2020-07-27 02:13] LABS: Blood Gas Operator Identificat HARKR; Blood Gas Sample Site Radial, right; Oxygen Device NC
[2020-07-27 02:15] LABS: D Dimer <= 0.27 ug/mIFEU (0-0.59)
--- NOTE | 2020-07-27 02:19 | ED_ITS ---
HPI - SOB/Dyspnea General: Chief Complaint: Shortness of Breath/Dyspnea Stated Complaint: sob Time Seen by Provider: 07/27/20 01:51 Source: patient Mode of arrival: ambulatory Limitations: no limitations History of Present Illness: HPI Narrative: 69-year-old male who has a history of congestive heart failure states that tonight he started having increasing shortness of breath. He states he gets flash pulmonary edema at times but was febrile tonight. He does have a temperature 101. He denies any known sick contacts or cough. Patient per EMS was in the 80s when they arrived patient is currently on 3 L to keep his oxygen saturation up. He denies any chest pain. Denies any worsening improving factors. MD elicited complaint: shortness of breath Associated symptoms: Reports fever(s); Deny abdominal pain, chest pain, nausea or vomiting Review of Systems Const: Reports: fever(s); Denies: chills, body aches or change in appetite Eyes: Denies: blurry vision or eye discomfort ENMT: Denies: throat pain or dental pain Card: Denies: chest pain Resp: Reports: dyspnea and non-productive cough GI: Denies: abdominal pain, nausea, vomiting or diarrhea : Denies: dysuria Musc: Denies: neck pain or back pain Skin/Breast: Denies: rash Neuro: Denies: headache(s) Psych: Denies: depression Flaco/Lymph: Denies: easy bruising All/Imm: Denies: urticaria PFS ED PFSH: Medical History (Updated 07/27/20 @ 03:55 by Rory Ramesh MD) Atrial fibrillation CAD (coronary artery disease) CHF (congestive heart failure) Chronic back pain Chronic kidney disease, stage IV (severe) Diabetes mellitus, type II Insulin requiring Diverticulosis Gallstones GERD (gastroesophageal reflux disease) Gout History of MRSA infection Hyperlipidemia Hypertension Obesity (BMI 30-39.9) Obstructive sleep apnea Surgical History 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, 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 bypass graft 5 vessels, 2007 History of prior ablation treatment To nerves in the neck and back area Social History Smoking and tobacco status: never smoked Alcohol intake: never Current occupational status: retired Physical Exam Const: COMMON NORMALS: patient oriented x3 GENERAL APPEARANCE: ill appearing HENMT: COMMON NORMALS: normocephalic and atraumatic HEAD & SCALP: normocephalic and atraumatic Eye: COMMON NORMALS: Equal, round and reactive pupils present and EOMs intact bilaterally PUPIL: Yes Equal, round and reactive pupils present Neck/C-Spine: COMMON NORMALS: full ROM and supple Chest: COMMONS NORMALS: normal inspection of the chest and normal palpation of entire chest wall Resp: COMMON NORMALS: normal respiratory effort, No retractions, No use of accessory muscles and clear to auscultation bilaterally AUSCULTATION: clear to auscultation bilaterally Cardio: COMMON NORMALS: regular rhythm and No murmurs present (Cardio) RATE: tachycardic RHYTHM: regular rhythm GI: COMMON NORMALS: Normal to inspection, nondistended, normoactive bowel sounds present, Soft to palpation, non-tender and no masses PALPATION: Yes Soft to palpation Extremity: COMMON NORMALS: normal to inspection and full ROM Neuro: COMMON NORMALS: patient oriented x3, moves all extremities and no focal motor deficits Psych: COMMON NORMALS: mental status grossly normal, Normal thought process present and cooperative THOUGHT PROCESS: Normal thought process present Skin: COMMON NORMALS: no rashes or lesions noted and no wounds GENERAL SKIN EXAM: no rashes or lesions noted Course Vital Signs: Vital signs: Vital Signs Temperature 100.9 F H 07/27/20 01:49 Pulse Rate 110 H 07/27/20 04:00 Respiratory Rate 23 H 07/27/20 04:00 Blood Pressure 117/77 07/27/20 04:00 Pulse Oximetry 97 07/27/20 04:00 MDM - SOB/Dyspnea MDM Narrative: Medical decision making narrative: Gian presents here with shortness of breath. He is also febrile here as well. His rapid Covid was negative we will send off a PTC as well. Patient has an elevated white count his lactate is normal. His blood pressure here has been normal. Patient started on antibiotics and had blood cultures drawn. Patient's improved on oxygen. Lab Data: Labs: Lab Results 07/27/20 07/27/20 07/27/20 Range/Units 01:00 01:00 01:00 WBC 14.6 H (4.0-10.0) 10^3/ uL RBC 3.97 L (4.1-5.3) 10^6/u L Hgb 12.0 (11.7-16.6) g/dL Hct 38.5 L (42.0-52.0) % MCV 97.0 H (80-94) fL MCH 30.2 (28.0-34.0) pg MCHC 31.2 (30.0-36.0) g/dL RDW 18.6 H (12.1-15.1) % Plt Count 156 (130-400) 10^3/c mm MPV 10.3 (7.4-10.4) fL Neut % (Auto) 84.0 % Lymph % (Auto) 6.6 % [place] % (Auto) 6.6 % Eos % (Auto) 2.0 % Baso % (Auto) 0.5 % Neut # (Auto) 12.30 H (1.8-7.7) 10^3/u L Lymph # (Auto) 1.0 (0.8-4.8) 10^3/u L [place] # (Auto) 1.0 H (0.2-0.9) 10^3/u L Eos # (Auto) 0.3 (0.0-0.8) 10^3/u L Baso # (Auto) 0.1 (0.0-0.1) 10^3/u L Nucleated RBC % (a uto) 0 % Nucleated RBCs # 0.0 /100WBC Fibrinogen 543 H (174-498) mg/dL D-Dimer <= 0.27 (0-0.59) ug/mIFE U Specimen Type Sample Site ABG pH (7.35-7.45) ABG pCO2 (35-45) mmHg ABG pO2 (80.0-100.0) mmH g ABG HCO3 (22-26) mmol/L ABG Base Excess (-2.0-2.0) mmol/ L Catrachito Test Hematocrit (42-52) % O2 Delivery Device O2 Liters/Min % Produce Associate ID Sodium 139 (136-145) mmol/L Potassium 3.4 L (3.5-5.1) mmol/L Chloride 94 L (98-107) mmol/L Carbon Dioxide 29 (22-29) mmol/L Anion Gap 19.4 H (5-19) BUN 77 H (8-23) mg/dL Creatinine 2.4 H (0.7-1.2) mg/dL GFR Calculation Not Reportable Glucose 185 H (65-115) mg/dL Calculated Osmolal ity 316 H (285-295) mOsm/k g Lactic Acid (0.5-2.2) mmol/L Calcium 9.7 (8.5-10.5) mg/dL Total Bilirubin 0.8 (0.15-1.2) mg/dL AST 21 (0-40) U/L ALT 20 (0-41) U/L Alkaline Phosphata se 142 H (40-130) IU/L C-Reactive Protein 11.8 H (0.0-4.9) mg/L NT-Pro-B Natriuret Pep 2841 H (0-125) pg/mL Total Protein 8.3 (6.6-8.7) g/dL Albumin 4.6 (3.5-5.2) g/dL Globulin 3.7 (1.3-4.6) g/dL Influenza Type A A g (Negative) Influenza Type B A g (Negative) SARS-CoV-2 Ag (Rap id) (Negative) 07/27/20 07/27/20 07/27/20 Range/Units 02:02 02:42 02:55 WBC (4.0-10.0) 10^3/ uL RBC (4.1-5.3) 10^6/u L Hgb (11.7-16.6) g/dL Hct (42.0-52.0) % MCV (80-94) fL MCH (28.0-34.0) pg MCHC (30.0-36.0) g/dL RDW (12.1-15.1) % Plt Count (130-400) 10^3/c mm MPV (7.4-10.4) fL Neut % (Auto) % Lymph % (Auto) % [place] % (Auto) % Eos % (Auto) % Baso % (Auto) % Neut # (Auto) (1.8-7.7) 10^3/u L Lymph # (Auto) (0.8-4.8) 10^3/u L [place] # (Auto) (0.2-0.9) 10^3/u L Eos # (Auto) (0.0-0.8) 10^3/u L Baso # (Auto) (0.0-0.1) 10^3/u L Nucleated RBC % (a uto) % Nucleated RBCs # /100WBC Fibrinogen (174-498) mg/dL D-Dimer (0-0.59) ug/mIFE U Specimen Type Arterial Sample Site Radial, right ABG pH 7.52 H (7.35-7.45) ABG pCO2 33.2 L (35-45) mmHg ABG pO2 84.3 (80.0-100.0) mmH g ABG HCO3 27.3 H (22-26) mmol/L ABG Base Excess 4.6 H (-2.0-2.0) mmol/ L Catrachito Test Pos Hematocrit 36.0 L (42-52) % O2 Delivery Device Nc O2 Liters/Min 3.0 % Produce Associate ID Harkr Sodium (136-145) mmol/L Potassium (3.5-5.1) mmol/L Chloride (98-107) mmol/L Carbon Dioxide (22-29) mmol/L Anion Gap (5-19) BUN (8-23) mg/dL Creatinine (0.7-1.2) mg/dL GFR Calculation Glucose (65-115) mg/dL Calculated Osmolal ity (285-295) mOsm/k g Lactic Acid 2.0 (0.5-2.2) mmol/L Calcium (8.5-10.5) mg/dL Total Bilirubin (0.15-1.2) mg/dL AST (0-40) U/L ALT (0-41) U/L Alkaline Phosphata se (40-130) IU/L C-Reactive Protein (0.0-4.9) mg/L NT-Pro-B Natriuret Pep (0-125) pg/mL Total Protein (6.6-8.7) g/dL Albumin (3.5-5.2) g/dL Globulin (1.3-4.6) g/dL Influenza Type A A g Negative (Negative) Influenza Type B A g Negative (Negative) SARS-CoV-2 Ag (Rap id) (Negative) 07/27/20 Range/Units 02:55 WBC (4.0-10.0) 10^3/ uL RBC (4.1-5.3) 10^6/u L Hgb (11.7-16.6) g/dL Hct (42.0-52.0) % MCV (80-94) fL MCH (28.0-34.0) pg MCHC (30.0-36.0) g/dL RDW (12.1-15.1) % Plt Count (130-400) 10^3/c mm MPV (7.4-10.4) fL Neut % (Auto) % Lymph % (Auto) % [place] % (Auto) % Eos % (Auto) % Baso % (Auto) % Neut # (Auto) (1.8-7.7) 10^3/u L Lymph # (Auto) (0.8-4.8) 10^3/u L [place] # (Auto) (0.2-0.9) 10^3/u L Eos # (Auto) (0.0-0.8) 10^3/u L Baso # (Auto) (0.0-0.1) 10^3/u L Nucleated RBC % (a uto) % Nucleated RBCs # /100WBC Fibrinogen (174-498) mg/dL D-Dimer (0-0.59) ug/mIFE U Specimen Type Sample Site ABG pH (7.35-7.45) ABG pCO2 (35-45) mmHg ABG pO2 (80.0-100.0) mmH g ABG HCO3 (22-26) mmol/L ABG Base Excess (-2.0-2.0) mmol/ L Catrachito Test Hematocrit (42-52) % O2 Delivery Device O2 Liters/Min % Produce Associate ID Sodium (136-145) mmol/L Potassium (3.5-5.1) mmol/L Chloride (98-107) mmol/L Carbon Dioxide (22-29) mmol/L Anion Gap (5-19) BUN (8-23) mg/dL Creatinine (0.7-1.2) mg/dL GFR Calculation Glucose (65-115) mg/dL Calculated Osmolal ity (285-295) mOsm/k g Lactic Acid (0.5-2.2) mmol/L Calcium (8.5-10.5) mg/dL Total Bilirubin (0.15-1.2) mg/dL AST (0-40) U/L ALT (0-41) U/L Alkaline Phosphata se (40-130) IU/L C-Reactive Protein (0.0-4.9) mg/L NT-Pro-B Natriuret Pep (0-125) pg/mL Total Protein (6.6-8.7) g/dL Albumin (3.5-5.2) g/dL Globulin (1.3-4.6) g/dL Influenza Type A A g (Negative) Influenza Type B A g (Negative) SARS-CoV-2 Ag (Rap id) Negative (Negative) Imaging Data^: CXR: Radiologist's impression: [employer] [address] XRay Report Signed Patient: Gian Bowers Unit #: [id number] : 1950 Age/Sex: 69 / M ADM Date: 07/27/20 Loc: ER Room/Bed: Attending Dr: Ordering Provider/Ordering MD: Rory Ramesh MD Date of Service: 07/27/20 Procedure(s): XR chest 1V portable [id number] Accession Number(s): [id number] Report Number: [id number] PROCEDURE INFORMATION: Exam: XR Chest, 1 View Exam date and time: 07/27/2020 2:07 AM Age: 69 years old Clinical indication: Shortness of breath; Prior surgery; Surgery type: Cabg; Additional info: SOB TECHNIQUE: Imaging protocol: XR of the chest Views: 1 view. COMPARISON: CR XR chest 1V portable [id number] 03/05/2020 10:39 AM FINDINGS: Lung volumes are somewhat low. Otherwise no focal pulmonary consolidation is demonstrated on this single frontal image. No significant obscuration of the lateral costophrenic angles is demonstrated. No significant vascular congestion is demonstrated. There is scattered pulmonary scarring bilaterally. Visualized cardiac silhouette size appears about moderately enlarged. Pericardial effusion not excluded. There are changes from median sternotomy. XR/XR chest 1V portable [id number] IMPRESSION: No definite acute pulmonary process is demonstrated. Visualized cardiac silhouette size appears about moderately enlarged. Pericardial effusion not excluded. EKG Data^: EKG 1: Attestation: I personally reviewed and interpreted this EKG as follows: EKG Interpretation Date: 07/27/20 EKG interpretation time: 02:24 Interpretation: afib hr [address] or t wave abnormalities qrs 100 qtc 412 Discharge Plan Discharge Patient Disposition: Admitted As Inpatient Admit Provider: Laney Weeks Clinical Impression: Shortness of breath Fever Qualifiers: Fever type: unspecified Qualified Code(s): R50.9 - Fever, unspecified Condition: Stable Coding Level of Care Code ED [employer] Director for Chg Fwd Exam Comprehensive
[2020-07-27 02:32] LABS: Alanine Aminotransferase 20 U/L (0-41); Albumin Level 4.6 g/dL (3.5-5.2); Alkaline Phosphatase 142 IU/L (40-130); Anion Gap 19.4 (5-19); Aspartate Amino Transferase 21 U/L (0-40); Blood Urea Nitrogen 77 mg/dL (8-23); C Reactive Protein 11.8 mg/L (0.0-4.9); Calcium 9.7 mg/dL (8.5-10.5); Carbon Dioxide 29 mmol/L (22-29); Chloride 94 mmol/L (98-107); Globulin 3.7 g/dL (1.3-4.6); Glucose 185 mg/dL (65-115); NT Pro B Type Natriuretic Pept 2841 pg/mL (0-125); Osmolality Calculated 316 mOsm/kg (285-295); Potassium 3.4 mmol/L (3.5-5.1); Sodium 139 mmol/L (136-145); Total Bilirubin 0.8 mg/dL (0.15-1.2); Total Protein 8.3 g/dL (6.6-8.7)
[2020-07-27] MEDS: acetaminophen 325 mg Tablet 650 MG PO (02:50)
[2020-07-27 03:30] LABS: Influenza A by IFA Negative (Negative); Influenza B by IFA Negative (Negative); SARS Covid-2 Antigen Negative (Negative)
[2020-07-27] MEDS: cefTRIAXone 1,000 MG in sodium chloride 0.9% (plus) 50 ML 100 MG IV (04:05)
[2020-07-27 04:42] LABS: Add Urine Microscopic? YES; Bilirubin Urine Neg (Negative); Blood Urine 2+ (Negative); Glucose Urine UA Norm (Normal); Ketones Urine Negative (Negative); Leukocyte Esterase Urine Negative (Negative); Nitrate Urine Negative (Negative); Protein Urine Trace (Negative); Urine Appearance Clear (CLEAR); Urine Color Yellow (Yellow); Urobilinogen Urine Norm (Negative); pH Urine 7 (5-7)
[2020-07-27] MEDS: azithromycin 500 MG in sodium chloride 0.9% 250 ML 250 MG IV (04:47)
[2020-07-27 05:13] LABS: Add Urine Culture? No; Bacteria Urine TRACE /hpf; Squamous Epithelial Cell Urine 0-4 /hpf (0-5); WBC Urine 0-4 /hpf (0-5)
--- NOTE | 2020-07-27 06:42 | CTR_ITS ---
PROCEDURE INFORMATION: Exam: CT Chest Without Contrast; Diagnostic Exam date and time: 07/27/2020 8:26 AM Age: 69 years old Clinical indication: Other: Neck and back; Chest pain; Additional info: Abdominal tenderness, evalute for pyelonephritis, pneumonia TECHNIQUE: Imaging protocol: Diagnostic computed tomography of the chest without contrast. Radiation optimization: All CT scans at this facility use at least one of these dose optimization techniques: automated exposure control; mA and/or kV adjustment per patient size (includes targeted exams where dose is matched to clinical indication); or iterative reconstruction. COMPARISON: CR XR chest 1V portable [id number] 07/27/2020 2:06 AM RADIATION DOSE METRICS: Total DLP (mGy-cm): 2862.48 FINDINGS: Lungs: Hyperinflation, interstitial prominence, and chronic granulomatous disease. Mild airspace disease and poorly defined subpleural parenchymal density in the posterior segment of the left lower lobe. Pleural space: No significant pleural effusion. Heart: Coronary artery calcification and borderline cardiomegaly. Aorta: Enlargement of the ascending thoracic aorta measuring 4.7 cm in maximum diameter. Lymph nodes: Enlarged mediastinal lymph nodes, including 1.7 x 1.5 x 1.8 cm right paratracheal lymph node. Note evaluation of the leonardo is somewhat limited in the absence of intravenous contrast. Bones/joints: Median sternotomy. Osteopenia. Degenerative change and ligamentous calcification. 5 mm bone island in the T6 vertebral body. Soft tissues: Gynecomastia. IMPRESSION: 1. Enlargement of the ascending thoracic aorta measuring 4.7 cm in maximum diameter. 2. Enlarged mediastinal lymph nodes, including 1.7 x 1.5 x 1.8 cm right paratracheal lymph node. 3. Hyperinflation, interstitial prominence, and chronic granulomatous disease. Mild airspace disease and poorly defined subpleural parenchymal density in the posterior segment of the left lower lobe. 4. Additional findings as described above. PROCEDURE INFORMATION: Exam: CT Abdomen And Pelvis Without Contrast Exam date and time: 07/27/2020 8:26 AM Age: 69 years old Clinical indication: Other: Neck and back; Chest pain; Additional info: Abdominal tenderness, evalute for pyelonephritis, pneumonia TECHNIQUE: Imaging protocol: Computed tomography of the abdomen and pelvis without contrast. Radiation optimization: All CT scans at this facility use at least one of these dose optimization techniques: automated exposure control; mA and/or kV adjustment per patient size (includes targeted exams where dose is matched to clinical indication); or iterative reconstruction. COMPARISON: CR XR chest 1V portable [id number] 07/27/2020 2:06 AM RADIATION DOSE METRICS: Total DLP (mGy-cm): 2862.48 FINDINGS: Detailed evaluation of the abdominal and pelvic viscera is somewhat limited in the absence of intravenous contrast. Liver: Fatty infiltration of the liver. Gallbladder and bile ducts: Cholelithiasis. No biliary ductal dilatation. Pancreas: No pancreatic mass or ductal dilatation. Spleen: Enlarged spleen measuring 16.3 cm in length. Adrenal glands: Unremarkable adrenals. Kidneys and ureters: Bilateral renal cysts, including a 1.9 cm cyst in the medial right kidney. No hydronephrosis. No pyelonephritis is poorly evaluated on noncontrast CT, and can be better evaluated with delayed post-contrast imaging, if clinically indicated. Stomach and bowel: Prominent stool and diverticula, without pericolonic inflammation. Appendix: No acute appendicitis. Intraperitoneal space: No free fluid. Vasculature: Vascular calcification. No abdominal aortic aneurysm. Lymph nodes: Subcentimeter lymph nodes. Urinary bladder: Trabeculated bladder morphology and mild wall thickening. Reproductive: Unremarkable as visualized. Bones/joints: Osteopenia. Degenerative change and ligamentous calcification. Soft tissues: Mild infiltration of subcutaneous fat in the anterior abdominal wall. Calcification at the gluteal muscle attachment sites. CT/CT chest abd pel wo con IMPRESSION: 1. Cholelithiasis. 2. Bilateral renal cysts, including a 1.9 cm cyst in the medial right kidney. Note hydronephrosis. No pyelonephritis is poorly evaluated on noncontrast CT, and can be better evaluated with delayed post-contrast imaging, if clinically indicated. 3. Trabeculated bladder morphology and mild wall thickening. 4. Additional findings as described above. COMMENTS: Consistent with the [employer]'s Incidental Findings Committee white paper (J Am Lucy Radiol 2018): Any incidental renal lesion less than 1 cm or classified as too small to characterize, or any incidental cystic renal lesion characterized as simple-appearing, is likely benign. No follow-up imaging is recommended for these lesions per consensus recommendations based on imaging criteria. Radiation Dose CTDIVOL = (mGy): DLP = 2862.48~2862.48 (mGy-cm)
--- NOTE | 2020-07-27 06:43 | ECG_ITS ---
[facility] Test Date: 2020-07-27 Pat Name: Gian Bowers Department: Room: 264 Gender: Male Medical Technician Assistant: : 1950 Requested By: Laney Weeks Order Number: [id number] Reading MD: CHEMA MELO Measurements Intervals [place] Rate: 119 P: WI: QRS: -16 QRSD: 106 T: 135 QT: 357 QTc: 502 Interpretive Statements SUPRAVENTRICULAR TACHYCARDIA ST DEVIATION AND MODERATE T-WAVE ABNORMALITY, CONSIDER LATERAL ISCHEMIA [-0.1+ mV T WAVE IN I/aVL/V5/V6] Compared to ECG 03/05/2020 01:11:12 Atrial fibrillation no longer present Ventricular premature complex(es) no longer present Aberrant conduction of supraventricular beat(s) no longer present T-wave abnormality still present Possible ischemia still present Electronically Signed On 07-27-2020 18:14:03 SALES ACTIVITY MANAGER by CHEMA MELO [id number]
--- NOTE | 2020-07-27 06:52 | P.HP_ITS ---
Providers/Chief Complaint Admitting Physician: Laney Weeks MD Primary Care Provider: Santa Franklin MD Chief Complaint: sob History of Present Illness Gian Bowers is a 69 year old male with a past medical history of diastolic CHF, atrial fibrillation on Coumadin, CAD, chronic kidney disease stage IV, type 2 diabetes mellitus, diverticulosis, GERD, hypertension, hyperlipidemia, obesity, obesity hypoventilation syndrome, history of osteomyelitis of the right second toe, who presents to [facility] due to complaints of shortness of breath, fever and chills. States that around midnight while he was sleeping was in his recliner he developed fever chills and uncontrollable shaking. Thereafter he also developed sudden onset shortness of breath. He was brought to the ER with the above complaints and he was noted to have O2 sats in the 80s for which she was started on 3 L/min via nasal cannula. He does not normally wear oxygen at home. He does have a history of CHF and had been regulating his diuretics recently. For 10 pound weight gain he had added metolazone to his regimen of Bumex, however he states his would know how frequently he is taking the Bumex currently. Denies any episode of chest pain or palpitations. Denies cough or hemoptysis he feels better after being started on oxygen in the ER. Also reports some upper respiratory symptoms such as rhinorrhea. Rapid Covid antigen was negative in the ER. Covid PCR remains pending at this time. Review of systems is positive for increased urinary urgency hesitancy and some burning micturition. On examination patient reported pain to palpation of bilateral flanks, though he did not present with complaint of any abdominal pain nausea vomiting or diarrhea. States that he is usually constipated on the contrary. Diagnostics in the ER are notable for leukocytosis 14.6, ROSA with creatinine up to 2.4, ABG with seven-point //84/20 7.3, negative D-dimer, BNP elevated at around 2800 which appears to be recent baseline, negative lactate Review of Systems General: Reports: 10 or more systems reviewed and unremarkable except in HPI and below Const: Reports: fever(s), chills and body aches Eyes: Denies: change in vision, blurry vision or photophobia ENMT: Reports: hoarseness; Denies: throat pain, enlarged tonsils, odynophagia or nasal congestion Card: Reports: swelling of feet/ankles, dyspnea on exertion and orthopnea; Denies: chest pain, palpitations, irregular heart rhythm, edema, lightheadedness or pre-syncope Resp: Denies: dyspnea, productive cough, non-productive cough, wheezing, stridor, pain on inspiration, change in phlegm color, hemoptysis or chest congestion GI: Denies: abdominal pain, nausea, vomiting, hematemesis, coffee ground emesis, dysphagia, heartburn, diarrhea, constipation, GI cramping, change in stool character, hematochezia or melena : Denies: flank pain, dysuria, urinary frequency, urinary urgency, urinary hesitancy or hematuria Musc: Denies: neck pain, back pain, extremity pain, joint swelling, joint warmth or deformity Neuro: Denies: headache(s), numbness in extremities, weakness in extremities, sensory changes, difficulty walking, frequent falls, dizziness, vertigo, behavioral changes, Slurred speech present or seizure-like activity Psych: Denies: anxiety, depression, suicidal ideation or homicidal ideation Endo: Denies: polyuria, polydipsia, tired all the time, cold intolerance or hot flashes Flaco/Lymph: Denies: easy bruising or easy bleeding Medications/Allergies Home Medications Medication Instructions Recorded Confirmed Last Taken Type allopurinol 100 mg PO DAILY 03/05/20 07/17/20 04/08/20 History aspirin 81 mg PO DAILY 03/05/20 07/17/20 04/08/20 History atorvastatin [Lipitor] 20 mg PO QPM 03/05/20 07/17/20 04/08/20 History carvedilol [Coreg] 25 mg PO BID 03/05/20 07/17/20 04/08/20 History cetirizine [Zyrtec] 5 mg PO BID 03/05/20 07/17/20 04/08/20 History finasteride [Proscar] 5 mg PO DAILY 03/05/20 07/17/20 04/08/20 History lntdappebsv-mhnurbwlc-lax C-Mn 1 cap PO BID 03/05/20 07/17/20 04/08/20 History [Glucosamine Chondroitin MaxStr] isosorbide mononitrate 30 mg PO DAILY 03/05/20 07/17/2020 History lidocaine 1 patch TOPICAL DAILY PRN 03/05/20 07/17/20 Unknown History milk thistle seed extract 200 mg PO BID 03/05/20 07/17/20 04/08/20 History multivitamin 1 tab PO DAILY 03/05/20 07/17/20 04/08/20 History nitroglycerin 0.4 mg SUBLINGUAL Q5M PRN 03/05/20 07/17/20 Unknown History [id number]-[id number]-epa-fish oil-vit D3 [Fish 1 cap PO DAILY 03/05/20 07/17/20 04/08/20 History Oil-Vit D3] primidone [Mysoline] 50 mg PO BID 03/05/20 07/17/20 04/08/20 History ropinirole [Requip] 0.5 mg PO BID PRN 03/05/20 07/17/20 04/08/20 History tamsulosin [Flomax] 0.4 mg PO DAILY 03/05/20 07/17/20 04/08/20 History tramadol 100 mg PO TID PRN 03/05/20 07/17/20 04/09/20 History warfarin See Rx Instructions .ROUTE .COMPLEX 03/05/20 07/17/20 04/07/20 History warfarin [Coumadin] 5 mg PO DAILY 03/05/20 07/17/20 04/09/20 History Novolin R Flexpen See Rx Instructions .ROUTE 03/09/20 07/17/20 04/09/20 Rx .COMPLEX #100 units Neurontin See Rx Instructions .ROUTE .COMPLEX 04/09/20 07/17/20 04/08/20 History Zaroxolyn 2.5 mg PO PRN PRN 04/09/20 07/17/20 Unknown History bumetanide 4 mg PO BID 04/09/20 07/17/20 04/08/20 History cyclobenzaprine 10 mg PO TID PRN 04/09/20 07/17/20 04/08/20 History ferrous gluconate 324 mg PO DAILY 04/09/20 07/17/20 04/09/20 History hydralazine 10 mg PO QID 04/09/20 07/17/20 04/08/20 History insulin regular human [Novolin R See Rx Instructions .ROUTE .COMPLEX 08/07/1907/17/20 04/09/20 History Regular U-100 Insuln] omeprazole magnesium [Prilosec OTC] 20 mg PO DAILY 04/09/20 07/17/20 04/08/20 History potassium chloride 10 meq PO BID 04/09/20 07/17/20 04/08/20 History doxycycline hyclate 100 mg capsule 100 mg PO BID 7 Days #14 cap 05/14/20 07/17/20 Unknown Rx Allergies Allergy/AdvReac Type Severity Reaction Status Date / Time lisinopril Allergy swelling Verified 07/17/20 15:15 metformin Allergy pain Verified 07/17/20 15:15 NSAIDS (Non-Steroidal Allergy kidney Verified 07/17/20 15:15 Anti-Inflamma failure zolpidem [From Ambien] Allergy sleep Verified 07/17/20 15:15 walking PFSH Acute PFSH: Medical History (Updated 07/27/20 @ 07:11 by Laney Weeks MD) Atrial fibrillation CAD (coronary artery disease) CHF (congestive heart failure) Chronic back pain Chronic kidney disease, stage IV (severe) Diabetes mellitus, type II Insulin requiring Diverticulosis Gallstones GERD (gastroesophageal reflux disease) Gout History of MRSA infection Hyperlipidemia Hypertension Obesity (BMI 30-39.9) Obstructive sleep apnea Surgical History 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, 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 bypass graft 5 vessels, 2007 History of prior ablation treatment To nerves in the neck and back area Social History Smoking and tobacco status: never smoked Alcohol intake: never Current occupational status: retired Vitals/I&O/Wt Last Vital Signs Temp 98.9 F 07/27/20 06:15 Pulse 90 07/27/20 06:15 Resp 18 07/27/20 06:15 BP 129/72 07/27/20 06:15 Pulse Ox 99 07/27/20 06:15 07/26/20 07/26/20 07/27/20 14:59 22:59 06:59 Intake Total 50 / 50 Balance 50 / 50 Weight last 48 hrs Weight 121.563 kg Physical Exam Narrative: EXAM NARRATIVE: GEN: Awake, alert and oriented, no acute distress HEENT: Normocephalic/atraumatic, nasal cannula in place. CVS: S1S2 N RS: CTA B/L Abd: Soft, nt/nd , bs+ INSECT CONTROL INSPECTOR: no focal neuro deficits Extremity no gross pitting edema Data : 07/27/20 01:00 07/27/20 01:00 Micro: Microbiology 07/27/20 04:00 Blood Culture - Preliminary Blood SPECIMEN COLLECTED 07/27/20 03:50 Blood Culture - Preliminary Blood SPECIMEN COLLECTED CXR: Radiologist's impression: XR/XR chest 1V portable [id number] IMPRESSION: No definite acute pulmonary process is demonstrated. Visualized cardiac silhouette size appears about moderately enlarged. Pericardial effusion not excluded. A&P Assessment and plan (1) Shortness of breath: Patient presenting with shortness of breath and new hypoxia today, new oxygen requirement up to 3 L/min. Possible differentials include pneumonia/pneumonitis versus CHF Given fever possibility of infection certainly exists. Covid antigen negative, Covid PCR pending Chest x-ray without any gross consolidation Obtain CT of the chest to evaluate for any underlying pneumonia/pneumonitis. Additionally obtain CT imaging of the abdomen given tenderness to palpation over bilateral flanks. Clinically appears to be euvolemic, BNP appears to be at recent baseline, no JVD, no pitting edema. Continue home dose of Bumex 4 mg p.o. twice daily. Hold metolazone for now. Closely monitor LAUREN and urine output and daily weight. Negative D-dimer, being on Coumadin make possibility of PE less likely Check EKG and troponin series to evaluate for ACS Status: Acute (2) Hypoxia: As above Supplemental O2 to keep O2 sat greater than 92% Has a history of sleep apnea, CPAP at night. Status: Acute (3) Fever: Status: Acute Qualifiers: Fever type: unspecified Qualified Code(s): R50.9 - Fever, unspecified (4) SIRS (systemic inflammatory response syndrome): As evidenced by fever, leukocytosis and tachycardia, sepsis cannot be excluded at this point CT chest abdomen pelvis to evaluate for source Blood culture taken Empiric Zosyn to be started at this present time UA does not appear to be consistent with UTI, however patient does report some symptoms of urgency and burning micturition, check urine culture. Creatinine higher than baseline at 2.[address] abdomen to evaluate for obstructive uropathy given additional flank tenderness. Additionally check lipase to evaluate for pancreatitis, though clinically this does appear to be less likely. Status: Acute (5) Diabetes mellitus, type II: Insulin sliding scale at high dose right now Status: Chronic Qualifiers: Diabetes mellitus custodial insulin use: with custodial use Diabetes mellitus complication status: with neurologic complications Diabetes mellitus complication detail: with polyneuropathy Qualified Code(s): E11.42 - Type 2 diabetes mellitus with diabetic polyneuropathy; Z79.4 - group home (current) use of insulin (6) Obesity (BMI 30-39.9): Status: Chronic (7) Chronic kidney disease, stage IV (severe): Creatinine higher than baseline at 2.4, may be related to increased diuretic use recently. Hold metolazone. Continue Bumex, monitor with serial labs Status: Chronic (8) Chronic anticoagulation: On Coumadin at home, check INR today During the admission of hospitalization, will use Lovenox 1 mg/kg twice daily. Creatinine clearance currently at 38. Dose may need to be adjusted if clearance drops. Anticoagulation is for atrial fibrillation Status: Chronic (9) Atrial fibrillation: Tachycardic upon presentation, now rate controlled, continuous telemetry monitoring Status: Chronic Qualifiers: Atrial fibrillation type: permanent Qualified Code(s): I48.21 - Permanent atrial fibrillation (10) Hypertension: Continue home medications Status: Chronic Qualifiers: Hypertension type: essential hypertension Qualified Code(s): I10 - Essential (primary) hypertension (11) CAD (coronary artery disease): Continue aspirin statin beta-blockers Status: Chronic Qualifiers: Coronary Disease-Associated Artery/Lesion type: bypass graft [place] vs. transplanted heart: [place] heart Associated angina: without angina Qualified Code(s): I25.810 - Atherosclerosis of coronary artery bypass graft(s) without angina pectoris (12) Obstructive sleep apnea: CPAP at night Status: Chronic (13) Congestive heart failure: Does not appear to be in exacerbation right now. Continue Bumex at home dose. 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 Diagnoses Shortness of breath R06.02 Hypoxia R09.02 Fever R50.9 Fever type: unspecified SIRS (systemic inflammatory response syndrome) R65.10 Diabetes mellitus, type II E11.42; Z79.4 Diabetes mellitus custodial insulin use: with emt intermediate use Diabetes mellitus complication status: with neurologic complications Diabetes mellitus complication detail: with polyneuropathy Obesity (BMI 30-39.9) E66.9 Chronic kidney disease, stage IV (severe) N18.4 Chronic anticoagulation Z79.01 Atrial fibrillation I48.21 Atrial fibrillation type: permanent Hypertension I10 Hypertension type: essential hypertension CAD (coronary artery disease) I25.810 Coronary Disease-Associated Artery/Lesion type: bypass graft [place] vs. transplanted heart: [place] heart Associated angina: without angina Obstructive sleep apnea G47.33 Congestive heart failure I50.9 Heart failure chronicity: chronic Heart failure type: unspecified
[2020-07-27 07:13] LABS: Glucose Point of Care 204 mg/dL (70-110)
[2020-07-27 07:54] LABS: INR 1.67 (0.8-1.2)
[2020-07-27 08:01] LABS: Lipase 32 U/L (13-60)
[2020-07-27 08:03] LABS: Troponin(5th) Baseline 65 ng/L (0-15)
--- NOTE | 2020-07-27 08:43 | ECG_ITS ---
[facility] Test Date: 2020-07-27 Pat Name: Gian Bowers Department: Room: 264 Gender: Male Emergency Veterinarian: adriel : 1950 Requested By: Laney Weeks Order Number: [id number] Reading MD: CHEMA MELO Measurements Intervals [place] Rate: 85 P: [place]: QRS: -26 QRSD: 105 T: 140 QT: 420 QTc: 500 Interpretive Statements ATRIAL FIBRILLATION WITH ABERRANT CONDUCTION OR VENTRICULAR PREMATURE COMPLEXES POSSIBLE INFERIOR MYOCARDIAL INFARCTION [30 ms Q WAVE IN II/aVF], PROBABLY OLD MODERATE T-WAVE ABNORMALITY, CONSIDER LATERAL ISCHEMIA [-0.1+ mV T WAVE IN I/aVL/V5/V6] Compared to ECG 07/27/2020 02:24:27 Ventricular premature complex(es) now present Aberrant conduction of supraventricular beat(s) now present Myocardial infarct finding now present Possible ischemia now present T-wave abnormality still present Electronically Signed On 07-27-2020 18:14:55 CALENDER WIND UP TENDER by CHEMA MELO [id number]
[2020-07-27] MEDS: enoxaparin 120 mg/0.8 mL Syringe SUBCUT (08:47)
[2020-07-27] MEDS: primidone 50 mg Tablet PO ×2 (08:48→17:24)
[2020-07-27] MEDS: aspirin 81 mg EC Tablet PO (08:48)
[2020-07-27] MEDS: allopurinol 100 mg Tablet PO (08:48)
[2020-07-27] MEDS: bumetanide 1 mg Tablet 4 MG PO (08:48)
[2020-07-27] MEDS: tamsulosin 0.4 mg Capsule PO (08:48)
[2020-07-27] MEDS: isosorbide mononitrate ER 30 mg Tablet PO (08:48)
[2020-07-27] MEDS: carvedilol 25 mg Tablet PO ×2 (08:48→17:24)
[2020-07-27] MEDS: piperacillin-tazobactam 3.375 GM in sodium chloride 0.9% (plus) 50 ML IV ×2 (08:49→17:24)
[2020-07-27] MEDS: finasteride 5 mg Tablet PO (08:49)
[2020-07-27 10:42] LABS: Troponin 5 2HR 59.02 ng/L (0-15)
[2020-07-27 10:58] LABS: Troponin 5 2HR Delta -5.98 ABS# (0-10)
[2020-07-27] MEDS: ipratropium-albuterol 3 mL Neb INHALATION (11:25)
[2020-07-27 11:29] LABS: Procalcitonin 0.13 ng/mL (0-0.5)
[2020-07-27 11:41] LABS: Iron 73 ug/dL (59-158); Percent Saturation 24.4 % (20-50); Total Iron Binding Capacity 299 mcg/dl; Unsaturated Iron Binding 226 ug/dL (112-347)
[2020-07-27 12:12] LABS: Thyroid Stimulating Hormone 3.52 uIU/mL (0.27-4.20)
--- NOTE | 2020-07-27 12:43 | ECG_ITS ---
[facility] Test Date: 2020-07-27 Pat Name: Gian Bowers Department: Room: 264 Gender: Male Java Developer Consultant: : 1950 Requested By: Laney Weeks Order Number: [id number] Reading MD: CHEMA MELO Measurements Intervals [place] Rate: 94 P: [place]: QRS: -25 QRSD: 100 T: 141 QT: 400 QTc: 502 Interpretive Statements ATRIAL FIBRILLATION WITH ABERRANT CONDUCTION OR VENTRICULAR PREMATURE COMPLEXES POSSIBLE INFERIOR MYOCARDIAL INFARCTION [30 ms Q WAVE IN II/aVF], PROBABLY OLD MODERATE T-WAVE ABNORMALITY, CONSIDER LATERAL ISCHEMIA [-0.1+ mV T WAVE IN I/aVL/V5/V6] Compared to ECG 07/27/2020 10:02:46 No significant changes Electronically Signed On 07-27-2020 18:14:34 CERAMIC SPRAYER by CHEMA MELO [id number]
[2020-07-27 13:16] LABS: Glucose Point of Care 174 mg/dL (70-110)
[2020-07-27] MEDS: vancomycin 1,500 MG/300 ML PIGGYBACK 200 MG IV (13:55)
[2020-07-27] MEDS: warfarin 5 mg Tablet PO (13:56)
[2020-07-27] MEDS: TRAMadol 50 mg Tablet PO (14:09)
[2020-07-27] MEDS: ropinirole 0.25 mg Tablet 0.5 MG PO (14:09)
[2020-07-27 14:59] LABS: Troponin 5 6HR 66.26 ng/L (0-15); Troponin 5 6HR Delta 1.26 ng/L (0-12)
--- NOTE | 2020-07-27 15:37 | P.PN_ITS ---
Subjective Subjective: Interval history: Admitted last night. And H&P noted. History taken by on phone and also through patient. As per outi patient told her yesterday that he has been having occasional hesitancy while passing urine for last 2 days, difficulty in breathing and chills last night because of which they came to the ER. Patient has not checked fever at home more than last night when he was found to be febrile. On examination patient is lying comfortably in bed, occasionally lethargic but able to answer in complete sentences. Denies any nausea, vomiting, headache, dizziness, chest pain at present. He does complain of hesitancy but denies any dysuria, diarrhea. T-max in last 24 hours since admission 99.7 Fahrenheit, has remained hemodynamically stable. Vitals/I&O/Wt Last Vital Signs Temp 99.7 F H 07/27/20 11:23 Pulse 83 07/27/20 11:32 Resp 18 07/27/20 11:25 BP 120/69 07/27/20 11:23 Pulse Ox 97 07/27/20 11:25 07/27/20 07/27/20 07/27/20 06:59 14:59 22:59 Intake Total 50 / 50 240 / 240 Output Total 1150 / 1150 Balance 50 / 50 -910 / -910 Weight last 48 hrs Weight 121.563 kg Weight 121.563 kg Physical Exam Narrative: EXAM NARRATIVE: General: No acute distress, AO x3, lethargic, on 2 L nasal cannula saturating 96% HEENT: PERRLA, pupils bilaterally equal and reactive Chest: Normal vesicular breath sounds, no added sounds, equal good air entry bilaterally CVS: S1-S2 regular, no murmurs, no tachycardia, no gallops, no rubs Abdomen: Soft, nontender, no organomegaly, bowel sounds present Neuro: No focal deficits, no facial deformity, AO x3, power 5/5 in all limbs Extremities: Left leg mild erythema and localized rise of temperature present in alves area and bilateral calf up to mid leg with small open dressed wound without any purulent discharge. Pulses bilaterally equal. Urinary Catheter Management^: Leslie: Cath Placed During This Visit: yes Urinary Catheter Date of Insertion: 07/27/20 Urinary Catheter Time of Insertion: 13:14 Data : 07/27/20 01:00 07/27/20 01:00 Micro: Microbiology 07/27/20 04:00 Blood Culture - Preliminary Blood SPECIMEN COLLECTED 07/27/20 03:50 Blood Culture - Preliminary Blood SPECIMEN COLLECTED A&P Assessment and plan (1) SIRS (systemic inflammatory response syndrome): As evidenced by fever, leukocytosis and tachycardia, sepsis cannot be excluded at this point CT chest abdomen pelvis results appreciated. No obvious source of infection for now other than possible cellulitis of left leg. COVID-19 PCR has been sent out. Isolation precautions. Inflammatory markers including CRP, fibrinogen mildly elevated. We will continue to follow markers for now. Check procalcitonin, MRSA swab, urinalysis, urine culture, urine Legionella, bacterial antigen, flu negative. Follow blood cultures. Continue with Zosyn and vancomycin. Both renally dosed. Will de-escalate antibiotics as per the culture results. Status: Acute (2) Cellulitis: Possible cellulitis on left leg. Patient has history of polyneuropathy in the past. Does have a small open wound without any purulent discharge. Continue to monitor. Antibiotics as above. TERI recently negative. Lower limb Doppler done recently in February negative for DVT. Status: Acute (3) Shortness of breath: Most likely secondary to exacerbation of congestive heart failure. D-dimer negative less likely PE. EKG and troponin stable. Echocardiogram done in February 2020 shows a normal EF with no regional wall motion abnormalities besides the diastolic dysfunction of grade 3. CT chest results appreciated. Patient has been having fever and chills. Rapid COVID-19 antigen negative. PCR has been sent out. Isolation precaution. Advair, Spiriva. Oxygen supplementation keeping saturation over 90%. Strict input output charting. Daily weights. Leslie catheter to be placed for strict input output charting. Lasix 60 mg IV twice daily. Fluid restriction up to 1500 cc. Status: Acute (4) Hypoxia: As above Supplemental O2 to keep O2 sat greater than 92% Has a history of sleep apnea, CPAP at night. Status: Acute (5) Chronic kidney disease, stage IV (severe): Baseline creatinine seems to be ranging from 1.9-2.2. Currently 2.4. Cannot rule out cardiorenal syndrome. Check urine lites, urine creatinine, urine eosinophils. CT abdomen pelvis negative for any obstructive uropathy. Leslie catheterization for strict output charting. Hold metolazone for now. Check BMP daily. Medical reconciliation done for nephrotoxic drugs. Status: Chronic (6) Atrial fibrillation: Telemetry. Continue with home dose of carvedilol rate control for now. Patient is on Coumadin for anticoagulation. He takes 5 mg 6 days a week and 2.5 mg on . Continue Coumadin at home dose. Check INR daily. Goal INR 1.5-2. T Status: Chronic Qualifiers: Atrial fibrillation type: permanent Qualified Code(s): I48.21 - Permanent atrial fibrillation (7) Chronic anticoagulation: As above Status: Chronic (8) Diabetes mellitus, type II: Oral hypoglycemics. Carb consistent cardiac diet. Insulin sliding scale at high dose for now. We will continue to monitor. If required will start patient on Lantus accordingly. Status: Chronic Qualifiers: Diabetes mellitus predatory animal exterminator insulin use: with fpc use Diabetes mellitus complication status: with neurologic complications Diabetes mellitus complication detail: with polyneuropathy Qualified Code(s): E11.42 - Type 2 diabetes mellitus with diabetic polyneuropathy; Z79.4 - USP (current) use of insulin (9) Hypertension: Goal blood pressure less than 140/90 mmHg. Continue to monitor blood pressures. Continue home medications Status: Chronic Qualifiers: Hypertension type: essential hypertension Qualified Code(s): I10 - Essential (primary) hypertension (10) CAD (coronary artery disease): Chest pain-free at present. Continue aspirin statin beta-blockers Status: Chronic Qualifiers: Coronary Disease-Associated Artery/Lesion type: bypass graft [place] vs. transplanted heart: [place] heart Associated angina: without angina Qualified Code(s): I25.810 - Atherosclerosis of coronary artery bypass graft(s) without angina pectoris (11) Obstructive sleep apnea: CPAP at night Status: Chronic (12) Congestive heart failure: Status: Chronic Qualifiers: Heart failure chronicity: chronic Heart failure type: unspecified Qualified Code(s): I50.9 - Heart failure, unspecified (13) Obesity (BMI 30-39.9): Status: Chronic (14) Fever: Status: Acute Qualifiers: Fever type: unspecified Qualified Code(s): R50.9 - Fever, unspecified Additional A&P Information Continue other chronic medications including allopurinol, cyclobenzaprine, finasteride, primidone, Requip, Flomax, tramadol. Check HbA1c, iron panel, TSH, vitamin B12, folate. Patient's updated in detail. All the questions were answered. Cardiac carb consistent diet. Warfarin will also help with DVT prophylaxis. Full code. Attestations Medical Necessity Statement*: Patient needs further hospitalization for management of SIRS, most likely secondary to cellulitis, evaluation of hypoxia, ROSA on CKD. 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 [facility] Fwd Diagnoses SIRS (systemic inflammatory response syndrome) R65.10 Cellulitis L03.90 Shortness of breath R06.02 Hypoxia R09.02 Chronic kidney disease, stage IV (severe) N18.4 Atrial fibrillation I48.21 Atrial fibrillation type: permanent Chronic anticoagulation Z79.01 Diabetes mellitus, type II E11.42; Z79.4 Diabetes mellitus fpc insulin use: with fpc use Diabetes mellitus complication status: with neurologic complications Diabetes mellitus complication detail: with polyneuropathy Hypertension I10 Hypertension type: essential hypertension CAD (coronary artery disease) I25.810 Coronary Disease-Associated Artery/Lesion type: bypass graft [place] vs. transplanted heart: [place] heart Associated angina: without angina Obstructive sleep apnea G47.33 Congestive heart failure I50.9 Heart failure chronicity: chronic Heart failure type: unspecified Obesity (BMI 30-39.9) E66.9 Fever R50.9 Fever type: unspecified
[2020-07-27] MEDS: atorvastatin 40 mg Tablet 20 MG PO (17:24)
[2020-07-27] MEDS: ferrous gluconate 324 mg Tablet PO (17:24)
[2020-07-27] MEDS: FUROsemide 10 mg/mL SDV 10mL 80 MG IVP (17:25)
[2020-07-27 20:58] LABS: Glucose Point of Care 168 mg/dL (70-110)
[2020-07-28] VITALS (8 sets, daily range): BP systolic 110–133; BP diastolic 64–73; PULSE 74–108; RESP 16–18; TEMP 36.9–37.5; O2SAT 94–96
[2020-07-28] MEDS: piperacillin-tazobactam 3.375 GM in sodium chloride 0.9% (plus) 50 ML IV ×4 (02:07→23:09)
[2020-07-28 03:14] LABS: Potassium, Radom Urine 31 mmol/L; Urine Creatinine 57 mg/dL (39-259); Urine Random Chloride 58 mmol/L; Urine Random Sodium 71 mmol/L
[2020-07-28 05:06] LABS: Basophils # 0.1 10^3/uL (0.0-0.1); Basophils % 0.5 %; Eosinophils # 0.2 10^3/uL (0.0-0.8); Eosinophils % 2.1 %; Hematocrit 34.5 % (42.0-52.0); Hemoglobin 10.8 g/dL (11.7-16.6); Lymphocytes # 0.7 10^3/uL (0.8-4.8); Lymphocytes % 7.1 %; Mean Corpuscular HGB Conc 31.3 g/dL (30.0-36.0); Mean Corpuscular Hemoglobin 30.3 pg (28.0-34.0); Mean Corpuscular Volume 96.6 fL (80-94); Mean Platelet Volume 9.4 fL (7.4-10.4); Monocytes % 9.6 %; Neutrophils # 8.02 10^3/uL (1.8-7.7); Neutrophils % 80.3 %; Nucleated Red Blood Cells % 0 %; Platelet Count 117 10^3/cmm (130-400); Red Blood Count 3.57 10^6/uL (4.1-5.3); Red Cell Distribution Width 18.8 % (12.1-15.1)
[2020-07-28] MEDS: FUROsemide 10 mg/mL SDV 10mL 80 MG IVP ×2 (05:13→18:09)
[2020-07-28 05:24] LABS: Alanine Aminotransferase 15 U/L (0-41); Albumin Level 3.9 g/dL (3.5-5.2); Alkaline Phosphatase 99 IU/L (40-130); Anion Gap 18.9 (5-19); Aspartate Amino Transferase 14 U/L (0-40); Blood Urea Nitrogen 74 mg/dL (8-23); Calcium 9.1 mg/dL (8.5-10.5); Carbon Dioxide 27 mmol/L (22-29); Chloride 93 mmol/L (98-107); Globulin 3.5 g/dL (1.3-4.6); Glucose 172 mg/dL (65-115); Osmolality Calculated 308 mOsm/kg (285-295); Sodium 136 mmol/L (136-145); Total Protein 7.4 g/dL (6.6-8.7)
[2020-07-28 05:35] LABS: Potassium 2.9 mmol/L (3.5-5.1)
[2020-07-28 05:40] LABS: Estmated Average Glucose 146; Hemoglobin A1C 6.7 % (4.0-6.0)
[2020-07-28 06:14] LABS: Eosinophil Urine Eosinophils Seen; Urine Eosinophil Count 1 (0-0)
[2020-07-28] MEDS: lidocaine 1% 5 ML in potassium chloride premix 100 ML 25 ML IV ×2 (06:24→10:43)
[2020-07-28] MEDS: acetaminophen 325 mg Tablet 650 MG PO (06:24)
[2020-07-28 07:00] LABS: Glucose Point of Care 182 mg/dL (70-110)
[2020-07-28] MEDS: isosorbide mononitrate ER 30 mg Tablet PO (08:22)
[2020-07-28] MEDS: carvedilol 25 mg Tablet PO ×2 (08:22→18:10)
[2020-07-28] MEDS: ferrous gluconate 324 mg Tablet PO ×2 (08:22→18:10)
[2020-07-28] MEDS: allopurinol 100 mg Tablet PO (08:22)
[2020-07-28] MEDS: primidone 50 mg Tablet PO ×2 (08:22→18:13)
[2020-07-28] MEDS: tamsulosin 0.4 mg Capsule PO (08:22)
[2020-07-28] MEDS: aspirin 81 mg EC Tablet PO (08:22)
[2020-07-28] MEDS: finasteride 5 mg Tablet PO (08:22)
[2020-07-28] MEDS: vancomycin 1,500 MG/300 ML PIGGYBACK 200 MG IV (13:29)
[2020-07-28] MEDS: warfarin 5 mg Tablet PO (13:30)
[2020-07-28 13:58] LABS: Glucose Point of Care 245 mg/dL (70-110)
--- NOTE | 2020-07-28 15:26 | P.PN_ITS ---
Subjective Subjective: Interval history: No acute events overnight. Patient states he is feeling a lot better. On examination is a lot more awake. Has had a good urine output response since yesterday. Denies any nausea, vomiting, headache, dizziness. Is on 1 L oxygen supplementation keeping saturation at around 95%. He states he is feeling a lot better today and would like to go home. Vitals/I&O/Wt Last Vital Signs Temp 99.5 F 07/28/20 12:00 Pulse 102 H 07/28/20 12:00 Resp 16 07/28/20 12:00 BP 133/66 07/28/20 12:00 Pulse Ox 94 07/28/20 12:00 07/28/20 07/28/20 07/28/20 06:59 14:59 22:59 Intake Total 50 / 1290 945 / 945 Output Total 2019 / 0 900 / 900 Balance -1970 / -3180 45 / 45 Weight last 48 hrs Weight 123.559 kg Weight 121.563 kg Weight 121.563 kg Physical Exam Narrative: EXAM NARRATIVE: General: No acute distress, AO x3, HEENT: PERRLA, pupils bilaterally equal and reactive Chest: Normal vesicular breath sounds, no added sounds, equal good air entry bilaterally CVS: S1-S2 regular, no murmurs, no tachycardia, no gallops, no rubs Abdomen: Soft, nontender, no organomegaly, bowel sounds present Neuro: No focal deficits, no facial deformity, AO x3, power 5/5 in all limbs Extremities: Left leg mild erythema and localized rise of temperature present in alves area and bilateral calf up to mid leg with small open dressed wound without any purulent discharge. Pulses bilaterally equal. Urinary Catheter Management^: Leslie: Cath Placed During This Visit: yes Reason for Continuing Indwelling Catheter: Accurate Measurement of Urinary Output in Critically Ill Patients Urinary Catheter Date of Insertion: 07/27/20 Urinary Catheter Time of Insertion: 13:14 Data : 07/28/20 04:50 07/28/20 04:50 Micro: Microbiology 07/27/20 12:28 MRSA Culture - Final Nose 07/28/20 02:37 Bacterial Antigens - Final Urine Kidney 07/27/20 04:00 Blood Culture - Preliminary Blood NEGATIVE TO DATE 07/27/20 03:50 Blood Culture - Preliminary Blood NEGATIVE TO DATE 11/29/20 02:37 Legionella Urinary Antigen - Final Urethra A&P Assessment and plan (1) SIRS (systemic inflammatory response syndrome): As evidenced by fever, leukocytosis and tachycardia, sepsis cannot be excluded at this point CT chest abdomen pelvis results appreciated. No obvious source of infection for now other than possible cellulitis of left leg. COVID-19 PCR results awaited. Isolation precautions. Inflammatory markers including CRP, fibrinogen mildly elevated. We will continu e to follow markers for now. Procalcitonin, MRSA swab negative, urine Legionella, bacterial antigen negative. Urinalysis negative for nitrite or leukoesterase. Continue to follow blood cultures for now. Patient's erythema and cellulitis left leg improving. Continue with Zosyn and vancomycin. Both renally dosed. Will de-escalate antibiotics as per the culture results. If patient continues to improve can most likely discharge him on oral antibiotics to finish a 5-day course if COVID-19 comes back negative. Status: Acute (2) Cellulitis: Possible cellulitis on left leg. Patient has history of polyneuropathy in the past. Does have a small open wound without any purulent discharge. Continue to monitor. Antibiotics as above. TERI recently negative. Lower limb Doppler done recently in February negative for DVT. Status: Acute (3) Shortness of breath: Resolving. On minimal oxygen supplementation keeping saturation 95%. Most likely secondary to exacerbation of congestive heart failure. D-dimer negative less likely PE. EKG and troponin stable. Echocardiogram done in February 2020 shows a normal EF with no regional wall motion abnormalities besides the diastolic dysfunction of grade 3. CT chest results appreciated. Patient has been having fever and chills. Rapid COVID-19 antigen negative. COVID-19 PCR awaited. Continue with isolation precautions. Advair, Spiriva. Oxygen supplementation keeping saturation over 90%. Strict input output charting. Daily weights. Leslie catheter to be placed for strict input output charting. Continue with Lasix 60 mg IV twice daily. At home patient takes Bumex 4 mg and 6 mg on alternate days and metolazone 2.5 mg on the day when he takes Bumex 4 mg. Most likely patient would need to be discharged on modified diuretic therapy. Fluid restriction up to 1500 cc. Status: Acute (4) Hypoxia: As above Supplemental O2 to keep O2 sat greater than 92% Has a history of sleep apnea, CPAP at night. Status: Acute (5) Chronic kidney disease, stage IV (severe): Baseline creatinine seems to be ranging from 1.9-2.2. Currently stable. Cannot rule out cardiorenal syndrome. Urine studies appreciated. Urine eosinophils positive. CT abdomen pelvis negative for any obstructive uropathy. Leslie catheterization for strict output charting. Hold metolazone for now. Check BMP daily. Medical reconciliation done for nephrotoxic drugs. Status: Chronic (6) Atrial fibrillation: Telemetry. Continue with home dose of carvedilol rate control for now. Patient is on Coumadin for anticoagulation. He takes 5 mg 6 days a week and 2.5 mg on . Continue Coumadin at home dose. Check INR daily. Goal INR 1.5-2. Status: Chronic Qualifiers: Atrial fibrillation type: permanent Qualified Code(s): I48.21 - Permanent atrial fibrillation (7) Chronic anticoagulation: As above Status: Chronic (8) Diabetes mellitus, type II: Oral hypoglycemics. Carb consistent cardiac diet. Insulin sliding scale at high dose for now. We will continue to monitor. If re quired will start patient on Lantus accordingly. Status: Chronic Qualifiers: Diabetes mellitus terminal computer operator insulin use: with terminal computer operator use Diabetes mellitus complication status: with neurologic complications Diabetes mellitus complication detail: with polyneuropathy Qualified Code(s): E11.42 - Type 2 diabetes mellitus with diabetic polyneuropathy; Z79.4 - correction (current) use of insulin (9) Hypertension: Goal blood pressure less than 140/90 mmHg. Continue to monitor blood pressures. Continue home medications Status: Chronic Qualifiers: Hypertension type: essential hypertension Qualified Code(s): I10 - Essential (primary) hypertension (10) CAD (coronary artery disease): Chest pain-free at present. Continue aspirin statin beta-blockers Status: Chronic Qualifiers: Coronary Disease-Associated Artery/Lesion type: bypass graft [place] vs. transplanted heart: [place] heart Associated angina: without angina Qualified Code(s): I25.810 - Atherosclerosis of coronary artery bypass graft(s) without angina pectoris (11) Obstructive sleep apnea: CPAP at night Status: Chronic (12) Congestive heart failure: Status: Chronic Qualifiers: Heart failure chronicity: chronic Heart failure type: unspecified Qualified Code(s): I50.9 - Heart failure, unspecified (13) Obesity (BMI 30-39.9): Status: Chronic (14) Fever: Status: Acute Qualifiers: Fever type: unspecified Qualified Code(s): R50.9 - Fever, unspecified Additional A&P Information Continue other chronic medications including allopurinol, cyclobenzaprine, finasteride, primidone, Requip, Flomax, tramadol. Patient's daughter Ms. Melody Castro has been informed in detail regarding patient's health. All the questions were answered. Ms. Castro was also requested to update the rest of family regarding patient's health. Cardiac carb consistent diet. Warfarin will also help with DVT prophylaxis. Full code. Plan of the day: Await COVID-19 PCR results. Continue with broad-spectrum antibiotics for SIRS most likely secondary to cellulitis of left leg which seems to be improving. Continue with IV Lasix for now while monitoring strict input output charting for mild congestive heart failure. Attestations Medical Necessity Statement*: Patient requires further hospitalization for ma nagement of sepsis most likely secondary to cellulitis, exacerbation of mixed congestive heart failure, COVID-19 PCR results awaited. Time Spent in Patient Care: Greater than 35 minutes (>than 50% of time spent in counselling and/or direct pt care on unit) . Coding Level of Care Code Acute [employer] for [facility] Diagnoses SIRS (systemic inflammatory response syndrome) R65.10 Cellulitis L03.90 Shortness of breath R06.02 Hypoxia R09.02 Chronic kidney disease, stage IV (severe) N18.4 Atrial fibrillation I48.21 Atrial fibrillation type: permanent Chronic anticoagulation Z79.01 Diabetes mellitus, type II E11.42; Z79.4 Diabetes mellitus snf insulin use: with terminal computer operator use Diabetes mellitus complication status: with neurologic complications Diabetes mellitus complication detail: with polyneuropathy Hypertension I10 Hypertension type: essential hypertension CAD (coronary artery disease) I25.810 Coronary Disease-Associated Artery/Lesion type: bypass graft [place] vs. transplanted heart: [place] heart Associated angina: without angina Obstructive sleep apnea G47.33 Congestive heart failure I50.9 Heart failure chronicity: chronic Heart failure type: unspecified Obesity (BMI 30-39.9) E66.9 Fever R50.9 Fever type: unspecified
[2020-07-28 17:04] LABS: Glucose Point of Care 230 mg/dL (70-110)
[2020-07-28] MEDS: atorvastatin 40 mg Tablet 20 MG PO (18:10)
[2020-07-28 19:52] LABS: Glucose Point of Care 213 mg/dL (70-110)
[2020-07-29] VITALS (7 sets, daily range): BP systolic 115–141; BP diastolic 62–80; PULSE 79–125; RESP 18–20; TEMP 36.8–37.6; O2SAT 94–99
[2020-07-29] MEDS: FUROsemide 10 mg/mL SDV 10mL 80 MG IVP (03:09)
[2020-07-29 03:50] LABS: Basophils # 0.1 10^3/uL (0.0-0.1); Basophils % 0.5 %; Eosinophils # 0.4 10^3/uL (0.0-0.8); Eosinophils % 3.9 %; Hematocrit 35.3 % (42.0-52.0); Hemoglobin 10.9 g/dL (11.7-16.6); Lymphocytes # 0.9 10^3/uL (0.8-4.8); Mean Corpuscular HGB Conc 30.9 g/dL (30.0-36.0); Mean Corpuscular Volume 97.2 fL (80-94); Mean Platelet Volume 9.7 fL (7.4-10.4); Monocytes # 0.9 10^3/uL (0.2-0.9); Neutrophils # 8.73 10^3/uL (1.8-7.7); Neutrophils % 79.3 %; Nucleated Red Blood Cells % 0 %; Platelet Count 118 10^3/cmm (130-400); Red Blood Count 3.63 10^6/uL (4.1-5.3); Red Cell Distribution Width 18.7 % (12.1-15.1)
[2020-07-29 04:02] LABS: INR 1.73 (0.8-1.2)
[2020-07-29 04:07] LABS: Alanine Aminotransferase 13 U/L (0-41); Albumin Level 3.7 g/dL (3.5-5.2); Alkaline Phosphatase 98 IU/L (40-130); Anion Gap 20.9 (5-19); Aspartate Amino Transferase 14 U/L (0-40); Blood Urea Nitrogen 79 mg/dL (8-23); Calcium 9.4 mg/dL (8.5-10.5); Carbon Dioxide 27 mmol/L (22-29); Chloride 94 mmol/L (98-107); Glucose 164 mg/dL (65-115); Osmolality Calculated 315 mOsm/kg (285-295); Sodium 139 mmol/L (136-145); Total Bilirubin 1.2 mg/dL (0.15-1.2); Total Protein 7.7 g/dL (6.6-8.7)
[2020-07-29 04:15] LABS: Potassium 2.9 mmol/L (3.5-5.1)
[2020-07-29] MEDS: acetaminophen 325 mg Tablet 650 MG PO (05:21)
--- NOTE | 2020-07-29 06:11 | PC.NURSE ---
Patient had an uneventful night. Only complaint is that the patient did not enjoy our Cpap mask.
[2020-07-29] MEDS: lidocaine 1% 5 ML in potassium chloride premix 100 ML 25 ML IV (06:54)
[2020-07-29 07:01] LABS: Glucose Point of Care 189 mg/dL (70-110)
[2020-07-29 07:22] LABS: Coronavirus Lab Test PTC Negative
[2020-07-29] MEDS: piperacillin-tazobactam 3.375 GM in sodium chloride 0.9% (plus) 50 ML IV (08:14)
[2020-07-29] MEDS: aspirin 81 mg EC Tablet PO (08:14)
[2020-07-29] MEDS: ferrous gluconate 324 mg Tablet PO (08:14)
[2020-07-29] MEDS: tamsulosin 0.4 mg Capsule PO (08:14)
[2020-07-29] MEDS: primidone 50 mg Tablet PO (08:15)
[2020-07-29] MEDS: TRAMadol 50 mg Tablet PO (08:15)
[2020-07-29] MEDS: carvedilol 25 mg Tablet PO (08:15)
[2020-07-29] MEDS: allopurinol 100 mg Tablet PO (08:15)
[2020-07-29] MEDS: finasteride 5 mg Tablet PO (08:15)
[2020-07-29] MEDS: cyclobenzaprine 10 mg Tablet PO (08:15)
[2020-07-29] MEDS: isosorbide mononitrate ER 30 mg Tablet PO (08:15)
--- NOTE | 2020-07-29 08:27 | PC.NURSE ---
MALIA Pt refusing the KCL iv. He had us stop the iv. Pt stated he is leaving today no matter what.
[2020-07-29] MEDS: potassium chloride ER 20 mEq Tablet 40 MEQ PO ×2 (09:55→12:18)
[2020-07-29 10:46] LABS: Glucose Point of Care 197 mg/dL (70-110)
--- NOTE | 2020-07-29 12:53 | P.DS_ITS ---
Discharge Providers Date of Admission: 07/27/20 03:56 Date of Discharge: July 29, 2020 Attending Provider at Admission: Laney Weeks MD Attending Provider at Discharge: Spencer Brewer Primary Care Provider: Santa Franklin MD Diagnoses at Discharge Discharge Diagnosis (1) SIRS (systemic inflammatory response syndrome): Status: Acute (2) Cellulitis: Status: Acute (3) Abnormal urine finding: Status: Acute Permanent problem details: Eosinophils (4) Shortness of breath: Status: Acute (5) Hypoxia: Status: Acute (6) Chronic kidney disease, stage IV (severe): Status: Chronic (7) Atrial fibrillation: Status: Chronic Qualifiers: Atrial fibrillation type: permanent Qualified Code(s): I48.21 - Permanent atrial fibrillation (8) Chronic anticoagulation: Status: Chronic (9) Diabetes mellitus, type II: Status: Chronic Permanent problem details: Insulin requiring Qualifiers: Diabetes mellitus complication detail: with polyneuropathy Diabetes mellitus complication status: with neurologic complications Diabetes mellitus mcc insulin use: with mcc use Qualified Code(s): E11.42 - Type 2 diabetes mellitus with diabetic polyneuropathy; 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 transplanted heart: [place] heart Qualified Code(s): I25.810 - Atherosclerosis of coronary artery bypass graft(s) without angina pectoris (12) Obstructive sleep apnea: Status: Chronic (13) Congestive heart failure: Status: Chronic Qualifiers: Heart failure chronicity: chronic Heart failure type: unspecified Qualified Code(s): I50.9 - Heart failure, unspecified (14) Obesity (BMI 30-39.9): Status: Chronic (15) Fever: Status: Acute Qualifiers: Fever type: unspecified Qualified Code(s): R50.9 - Fever, unspecified Reason for Visit Reason for Visit: sob Hospital Course Hospital Course Very pleasant 69-year-old gentleman with history of diastolic congestive heart failure, A. fib on chronic anticoagulation with Coumadin, CAD, chronic kidney disease stage IV, DM 2, diverticulosis, GERD, HTN, HLD, obesity, OHS, history of osteomyelitis of right second toe was admitted after developing rigors, fever, chills, sudden shortness of breath, initially started on O2 support, on presentation with concern for sepsis. D-dimer was negative, with lower possibility of PE, also on anticoagulation, although INR noted subtherapeutic. CT chest with nonspecific findings with noted hyperinflation, interstitial prominence, chronic granulomatous change, as well as mild airspace disease and pretty fine subpleural parenchymal density in posterior segment in the left lower lobe. Incidentally noted enlargement of ascending thoracic aorta 4.7 cm. Incidentally noted enlarged mediastinal lymph nodes, including 1.7 x 1.5 x 1.8 cm right paratracheal lymph node. CT abdomen pelvis with incidental finding of cholelithiasis, bilateral renal cysts, no hydronephrosis, no pyelonephritis, trabeculated bladder morphology and mild wall thickening, although UA not suggestive of UTI. He was treated empirically with Zosyn, vancomycin. There is been no growth on any culture so far including blood culture from admission, urine culture. Final cultures need to be followed up. Urine Legionella, GBS, Haemophilus, strep pneumo, Neisseria antigens negative. MRSA PCR negative. COVID-19 tested by PCR as well and negative. Rapid flu negative. He was noted to have a wound, with surrounding erythema/cellulitis on anterior left mid alves. This appears to have improved with treatment. Overall he is feeling much better. Fevers resolved, with low-grade temp 99.7 this morning. Diuresis was transiently intensified in the hospital due to mild diastolic CHF exacerbation. His heart rate overall is better, although he does have underlying chronic atrial fibrillation. Heart rates mostly staying in the mid 90s. Today he reports that he is feeling much better, and is firm that he is going home today. Request to have IVs, Leslie catheter and monitor removed. He does understand that the source of sepsis may have been from the wound and cellulitis on his chin, but may also not have been entirely identified. He states he will seek medical attention in case of any concerning symptoms without any delay. He is weaned off oxygen entirely and not qualify for any on home O2 evaluation. Of note his renal function is a little bit worse than usual, appears it is normally around 2.2, this admission was 2.4-2.8. Of note his urine is positive for eosinophils. It is not clear what is the cause of this, possibly infection itself, versus possibly medication, perhaps vancomycin. This has been discontinued, and on discharge she will complete a course of doxycycline and ciprofloxacin for cellulitis and lower extremity wounds in setting of diabetes. 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 I have also discussed this with his daughter, and nephrology office (although his office machine repair shop supervisor not available, discussed with on-call office machine repair shop supervisor Dr. Zaidi), and if possible they will try to have an appointment scheduled sooner for him to reassess. As discussed with daughter, I would like to make sure that he follows up, and she states will ensure that he does. We briefly discussed differential diagnosis, including possible AIN, although at this time high-dose steroid therapy will be rather risky and with questionable benefit, but he definitely needs close follow-up. Of note also his INR is subtherapeutic. He is asked to take a higher dose warfarin today, and follow-up with primary care doctor to reassess INR. Discussed briefly regarding DOAC, however, he prefers to continue with warfarin which had worked for him well in the past and is financially more affordable. Of note he also recently found a wartlike lesion on his penis, which he is not sure how long it has been there. It was pointed out to him by his . It is nonpainful, there has been no drainage or ulceration. He states he follows with urology already, and is instructed to follow-up with them for assessment of the lesion, which he states he will do. Please follow-up with him regarding resolution of his symptoms, healing of the wound on left anterior mid alves, stabilization of renal function, resolution of eosinophils in the urine, as well as follow-up of incidental findings seen on CT chest abdomen pelvis. Please follow-up with him regarding chronic anticoagulation. Please see full documentation for details. Do not hesitate to call any questions. Physical Exam Const: COMMON NORMALS: no acute distress, patient oriented x3 and alert ORIENTATION/CONSCIOUSNESS: Yes awake OTHER: Pleasant, conversant. Sitting up at the edge of the bed. States he is feeling very well. Denies any complaints. Insistent that he is leaving home. HENMT: COMMON NORMALS: oropharynx normal Neck/C-Spine: COMMON NORMALS: no JVD Resp: COMMON NORMALS: normal respiratory effort and clear to auscultation bilaterally AUSCULTATION: clear to auscultation bilaterally Cardio: COMMON NORMALS: no JVD, regular rhythm, S1 normal heart sound present, S2 normal heart sound present and No murmurs present (Cardio) RHYTHM: regular rhythm HEART SOUNDS: S1 normal heart sound present and S2 normal heart sound present GI: COMMON NORMALS: Normal to inspection, nondistended, normoactive bowel sounds present, Soft to palpation and non-tender PALPATION: Yes Soft to palpation Extremity: COMMON NORMALS: no joint enlargement and no pedal edema OTHER: Chronic venous stasis dermatitis Neuro: COMMON NORMALS: patient oriented x3 and moves all extremities SENSORIUM/ORIENTATION: Yes alert Skin: OTHER: Wound/skin tear mid anterior L alves. Minimal surrounding erythema. Urinary Catheter Management^: Leslie: Cath Placed During This Visit: yes, but has since been removed by the nurse Reason for Continuing Indwelling Catheter: Decision to DC Catheter Urinary Catheter Date of Insertion: 07/27/20 Urinary Catheter Time of Insertion: 13:14 Date Urinary Catheter Removed: 07/29/20 Time Urinary Catheter Discontinued: 10:56 Discharge Data Data Completed and Pending: Completed Studies During Hospitalization Category Date Time Status CT chest abd pel wo con Routine Cat Scan 07/27/20 06:42 Completed XR chest 1V raheem ble [id number] Stat Exams 07/27/20 01:54 Completed Pending at discharge Category Date Time Status Blood Culture Sta t Lab 07/27/20 04:00 Results CMP [Comprehensiv e Metabolic Panel] AM LABS Lab 07/30/20 04:00 Ordered Complete Blood Co unt w/Auto AM LABS Lab 07/30/20 04:00 Ordered Prothrombin Time INR AM LABS Lab 07/30/20 04:00 Ordered Urine Culture Rou manjinder Lab 07/27/20 16:00 Results Labs from last 24 hours 07/29/20 07/29/20 07/29/20 10:37 06:20 03:40 WBC RBC Hgb Hct MCV MCH MCHC RDW Plt Count MPV Neut % (Auto) Lymph % (Auto) [place] % (Auto) Eos % (Auto) Baso % (Auto) Neut # (Auto) Lymph # (Auto) [place] # (Auto) Eos # (Auto) Baso # (Auto) Nucleated RBC % (a uto) Nucleated RBCs # PT 20.90 H INR 1.73 H Sodium Potassium Chloride Carbon Dioxide Anion Gap BUN Creatinine GFR Calculation Glucose POC Glucose 197 189 Calculated Osmolal ity Calcium Total Bilirubin AST ALT Alkaline Phosphata se Total Protein Albumin Globulin Nasal/Oral COVID-1 9 PCR 07/29/20 07/29/20 07/28/20 03:40 03:40 19:43 WBC 11.0 H RBC 3.63 L Hgb 10.9 L Hct 35.3 L MCV 97.2 H MCH 30.0 MCHC 30.9 RDW 18.7 H Plt Count 118 L MPV 9.7 Neut % (Auto) 79.3 Lymph % (Auto) 8.0 [place] % (Auto) 8.0 Eos % (Auto) 3.9 Baso % (Auto) 0.5 Neut # (Auto) 8.73 H Lymph # (Auto) 0.9 [place] # (Auto) 0.9 Eos # (Auto) 0.4 Baso # (Auto) 0.1 Nucleated RBC % (a uto) 0 Nucleated RBCs # 0.0 PT INR Sodium 139 Potassium 2.9 L Chloride 94 L Carbon Dioxide 27 Anion Gap 20.9 H BUN 79 H Creatinine 2.8 H GFR Calculation Not Reportable Glucose 164 H POC Glucose 213 Calculated Osmolal ity 315 H Calcium 9.4 Total Bilirubin 1.2 AST 14 ALT 13 Alkaline Phosphata se 98 Total Protein 7.7 Albumin 3.7 Globulin 4.0 Nasal/Oral COVID-1 9 PCR 07/28/20 07/28/20 07/27/20 16:59 13:40 03:55 WBC RBC Hgb Hct MCV MCH MCHC RDW Plt Count MPV Neut % (Auto) Lymph % (Auto) [place] % (Auto) Eos % (Auto) Baso % (Auto) Neut # (Auto) Lymph # (Auto) [place] # (Auto) Eos # (Auto) Baso # (Auto) Nucleated RBC % (a uto) Nucleated RBCs # PT INR Sodium Potassium Chloride Carbon Dioxide Anion Gap BUN Creatinine GFR Calculation Glucose POC Glucose 230 245 Calculated Osmolal ity Calcium Total Bilirubin AST ALT Alkaline Phosphata se Total Protein Albumin Globulin Nasal/Oral COVID-1 9 PCR Negative Vitals: Last Vital Signs Temp 98.3 F 07/29/20 11:07 Pulse 102 H 07/29/20 11:07 Resp 19 H 11/30/20 11:07 BP 141/70 07/29/20 11:07 Pulse Ox 94 07/29/20 11:56 Discharge Plan Discharge Patient Disposition: Home Condition: Stable Prescriptions: New doxycycline hyclate 100 mg capsule 100 mg PO BID 5 Days Qty: 10 RF: 0 ciprofloxacin HCl 500 mg tablet 500 mg PO BID Qty: 10 RF: 0 Continued primidone [Mysoline] 50 mg Tablet 50 mg PO BID RF: 0 carvedilol [Coreg] 25 mg Tablet 25 mg PO BID RF: 0 atorvastatin [Lipitor] 20 mg Tablet 20 mg PO QPM RF: 0 isosorbide mononitrate 30 mg Tablet Extended Release 24 Hr 30 mg PO DAILY RF: 0 warfarin 2.5 mg Tablet See Rx Instructions .ROUTE .COMPLEX RF: 0 allopurinol 100 mg Tablet 100 mg PO DAILY RF: 0 aspirin 81 mg Tablet,Delayed Release (Dr/Ec) 81 mg PO DAILY RF: 0 tamsulosin [Flomax] 0.4 mg Capsule 0.4 mg PO BEDTIME RF: 0 ropinirole [Requip] 0.25 mg Tablet 0.5 mg PO TID PRN (Reason: RESTLESS LEG SYNDROME) RF: 0 lidocaine 5 % Adhesive Patch,Medicated 1 patch TOPICAL DAILY PRN (Reason: Pain) RF: 0 warfarin [Coumadin] 5 mg Tablet 5 mg PO DAILY RF: 0 nitroglycerin 0.4 mg Tablet, Sublingual 0.4 mg SUBLINGUAL Q5M PRN (Reason: Chest Pain) RF: 0 finasteride [Proscar] 5 mg Tablet 5 mg PO DAILY RF: 0 milk thistle seed extract 200 mg Capsule 200 mg PO BID RF: 0 tramadol 100 mg Tablet 100 mg PO TID PRN (Reason: Pain) RF: 0 multivitamin Tablet 1 tab PO DAILY RF: 0 cetirizine [Zyrtec] 10 mg Tablet 5 mg PO BID RF: 0 [id number]-gdhavtbtm-dmw C-Mn [Glucosamine Chondroitin MaxStr] 500-400 mg Capsule 1 cap PO BID RF: 0 gm-0-pcg-epa-fish oil-vit D3 [Fish Oil-Vit D3] 300-1,000-1,000 mg-mg-unit Capsule 1 cap PO DAILY RF: 0 Novolin R Flexpen See Rx Instructions .ROUTE .COMPLEX Qty: 100 RF: 1 ferrous gluconate 324 mg (38 mg iron) Tablet 324 mg PO BID RF: 0 bumetanide 2 mg tablet See Rx Instructions .ROUTE .COMPLEX RF: 0 cyclobenzaprine 10 mg tablet 10 mg PO TID PRN (Reason: MUSCLE SPASMS) RF: 0 metolazone 2.5 mg Tablet See Rx Instructions .ROUTE .COMPLEX RF: 0 hydralazine 10 mg Tablet 10 mg PO QID RF: 0 potassium chloride 20 mEq tablet,ER particles/crystals See Rx Instructions .ROUTE .COMPLEX RF: 0 gabapentin 100 mg Capsule 100 mg PO BID RF: 0 Vitamin C 500 mg Tablet 500 mg PO DAILY RF: 0 sodium bicarbonate 650 mg tablet 650 mg PO BID RF: 0 pantoprazole 40 mg tablet,delayed release (DR/EC) 40 mg PO BID RF: 0 gabapentin 300 mg Capsule 300 mg PO BEDTIME RF: 0 Novolin N Flexpen 100 unit/mL (3 mL) Insulin Pen 75 unit SUBCUT Q12H RF: 0 flaxseed 1,000 mg Capsule 1,000 mg PO DAILY RF: 0 Discharge Orders: Discharge Order (Routine); Ordered 07/29/20 Ordered By: Spencer Brewer Referrals: Your, urologist [Other] - 1 month Praveen Pereira MD [Referring] - 1 month (Dr. Pereira office will call you with an appointment. ) Chintan Summers MD [Referring] - 4-7 days (Dr. Summers office will call you with an appointment time. Eosinophiluria) Santa Franklin MD [Primary Care Provider] - 4-7 days (You have an appointment on August 05 at 2:[address] Franklin. ) Discharge Diet: Cardiac and Diabetic Discharge Activity: Increase activity as tolerated and Cpap/Bipap as instructed Patient Instructions: Cellulitis, Ciprofloxacin (By mouth), Doxycycline (By mouth), Heart Healthy Diet, Basic Carbohydrate Counting (DC), Pneumonia (DC), Pneumonia Stoplight Activity Restrictions/Additional Instructions: Please make sure to follow-up with your primary care doctor with regards to suspected underlying infection as a cause of your symptoms, as well as on the progress of healing of skin infection and tear on the front mid left alves. If you experience any high fevers at home, any worsening of redness, worsening of wound, persistent purulent discharge, or other concerning symptoms please seek medical attention without delay. Your INR is low, 1.73, please take a dose of 7.5 mg warfarin x1 today, then resume usual dosing. Have your primary care doctor recheck your INR and monitor closely. Please also be aware ciprofloxacin, the antibiotic you are started on at discharge may sometimes affect an increased INR. If you experience any abnormal bleeding, please hold warfarin dose and seek medical attention. Resume your usual diuretic dose. Continue cardiac diet. Continue fluid restriction 1500 mL/day. Please have your office machine repair shop supervisor and primary doctor follow up your renal function as well as your urine studies. Please have them assess that eosinophils in your urine resolved. Continue follow-up with your primary care doctor with regards to diabetes, chronic kidney disease, atrial fibrillation, and other chronic problems. Please follow up with your urologist regarding the warty growth on your penis. Please follow-up with your primary care doctor regarding enlargement of ascending thoracic aorta seen incidentally on CT, 4.7 cm. Follow-up with your primary care doctor regarding also incidentally seen enlarged lymph nodes in your chest on the CT scan, 1.7 x 1.5 x 1.8 cm, which is an incidental finding. Please follow-up with your primary care doctor with regards to incidental findings in your lungs including interstitial prominence, chronic granulomatous disease, poorly defined subpleural parenchymal density in posterior segment and left lower lobe. Please discuss with your primary care doctor consideration of follow-up imaging. Please follow-up with your primary care doctor regarding gallstones. Discharge Attestations Time Spent in Discharge Care*: greater than 30 min Quality Metrics Clinical Quality Measures During this hospital stay, did patient experience: None Coding Level of Care Code Acute Advertising Statistical Clerk for [facility] Fwd Exam Comprehensive Diagnoses SIRS (systemic inflammatory response syndrome) R65.10 Cellulitis L03.90 Abnormal urine finding R82.90 Shortness of breath R06.02 Hypoxia R09.02 Chronic kidney disease, stage IV (severe) N18.4 Atrial fibrillation I48.21 Atrial fibrillation type: permanent Chronic anticoagulation Z79.01 Diabetes mellitus, type II E11.42; Z79.4 Diabetes mellitus complication detail: with polyneuropathy Diabetes mellitus complication status: with neurologic complications Diabetes mellitus termite treater helper insulin use: with mcc use Hypertension I10 Hypertension type: essential hypertension CAD (coronary artery disease) I25.810 Associated angina: without angina Coronary Disease-Associated Artery/Lesion type: bypass graft [place] vs. transplanted heart: [place] heart Obstructive sleep apnea G47.33 Congestive heart failure I50.9 Heart failure chronicity: chronic Heart failure type: unspecified Obesity (BMI 30-39.9) E66.9 Fever R50.9 Fever type: unspecified
== END 2020-07-29 13:50 | disposition home or self-care (01) | DRG 871 ==
LOC: ER 02:39 → MEDSURG 04:13
PROVIDERS: Student in an Organized Health Care Education/Training Program; Admitting Provider Student in an Organized Health Care Education/Training Program; Emergency Provider Emergency Medicine; PCP Internal Medicine; Visit Provider Internal Medicine
DX: A41.9 Sepsis, unspecified organism (principal); I50.33 Acute on chronic diastolic (congestive) heart failure; J96.91 Respiratory failure, unspecified with hypoxia; I13.0 Hypertensive heart and chronic kidney disease with heart failure and stage 1 through stage 4 chronic kidney disease, or unspecified chronic kidney disease; N18.4 Chronic kidney disease, stage 4 (severe); I48.21 Permanent atrial fibrillation; E66.2 Morbid (severe) obesity with alveolar hypoventilation; N17.9 Acute kidney failure, unspecified; L03.116 Cellulitis of left lower limb; E11.22 Type 2 diabetes mellitus with diabetic chronic kidney disease; Z79.01 Long term (current) use of anticoagulants; I25.10 Atherosclerotic heart disease of native coronary artery without angina pectoris; K57.90 Diverticulosis of intestine, part unspecified, without perforation or abscess without bleeding; K21.9 Gastro-esophageal reflux disease without esophagitis; E78.5 Hyperlipidemia, unspecified; G89.29 Other chronic pain; M10.9 Gout, unspecified; Z86.14 Personal history of Methicillin resistant Staphylococcus aureus infection; Z89.421 Acquired absence of other right toe(s); Z95.1 Presence of aortocoronary bypass graft; Z79.84 Long term (current) use of oral hypoglycemic drugs; N28.1 Cyst of kidney, acquired; K80.20 Calculus of gallbladder without cholecystitis without obstruction; E11.42 Type 2 diabetes mellitus with diabetic polyneuropathy
CPT/HCPCS: 12345; 36415; 36416; 36600; 51702; 71045; 71250; 74176; 80053; 81001; 82378; 82436; 82570; 82803; 82962; 83036; 83540; 83550; 83605; 83690; 83880; 84133; 84145; 84300; 84443; 84484; 85025; 85378; 85384; 85610; 85999; 86140; 86403; 87040; 87086; 87426; 87449; 87635; 87641; 87804; 93005; 93922; 94640; 94660; 94664; 96372; 96375; 99283; J0456; J0696; J1650; J1815; J1940; J2543; J3370; J3480; J7050

== ENCOUNTER 2020-07-30 06:00 | Outpatient (RCR) | payer MEDICARE, OTHER, SELFPAY | END 2020-08-29 23:59 | disposition home or self-care (01) | LOC: MPT 06:00 | PROVIDERS: PCP Internal Medicine; Referring Provider Internal Medicine; Visit Provider Internal Medicine | DX: M47.816 Spondylosis without myelopathy or radiculopathy, lumbar region (principal); M54.2 Cervicalgia; G89.29 Other chronic pain | CPT/HCPCS: 97110; 97140; G0283 ==

== ENCOUNTER 2020-08-30 06:00 | Outpatient (RCR) | payer MEDICARE, OTHER, SELFPAY | END 2020-09-29 23:59 | disposition home or self-care (01) | LOC: MPT 06:00 | PROVIDERS: PCP Internal Medicine; Referring Provider Internal Medicine; Visit Provider Internal Medicine | DX: M47.816 Spondylosis without myelopathy or radiculopathy, lumbar region (principal); M54.2 Cervicalgia | CPT/HCPCS: 97110; 97140; G0283 ==

== ENCOUNTER 2020-10-15 13:34 | Outpatient (CLI) | payer MEDICARE, OTHER, SELFPAY ==
[2020-10-15 13:54] LABS: Basophils # 0.1 10^3/uL (0.0-0.1); Basophils % 0.8 %; Eosinophils # 0.3 10^3/uL (0.0-0.8); Eosinophils % 3.3 %; Hematocrit 28.9 % (42.0-52.0); Hemoglobin 8.6 g/dL (11.7-16.6); Lymphocytes % 13.7 %; Mean Corpuscular HGB Conc 29.8 g/dL (30.0-36.0); Mean Corpuscular Hemoglobin 29.8 pg (28.0-34.0); Mean Platelet Volume 9.3 fL (7.4-10.4); Monocytes # 0.6 10^3/uL (0.2-0.9); Monocytes % 7.3 %; Neutrophils # 5.62 10^3/uL (1.8-7.7); Neutrophils % 74.5 %; Nucleated Red Blood Cells % 0 %; Platelet Count 162 10^3/cmm (130-400); Red Blood Count 2.89 10^6/uL (4.1-5.3); Red Cell Distribution Width 21.1 % (12.1-15.1); White Blood Count 7.5 10^3/uL (4.0-10.0)
[2020-10-15 14:11] LABS: Alanine Aminotransferase 12 U/L (0-41); Albumin Level 3.8 g/dL (3.5-5.2); Alkaline Phosphatase 136 IU/L (40-130); Anion Gap 16.5 (5-19); Aspartate Amino Transferase 17 U/L (0-40); Blood Urea Nitrogen 36 mg/dL (8-23); Calcium 8.6 mg/dL (8.5-10.5); Carbon Dioxide 27 mmol/L (22-29); Chloride 97 mmol/L (98-107); Globulin 3.1 g/dL (1.3-4.6); Glucose 137 mg/dL (65-115); Osmolality Calculated 294 mOsm/kg (285-295); Potassium 3.5 mmol/L (3.5-5.1); Sodium 137 mmol/L (136-145); Total Bilirubin 0.6 mg/dL (0.15-1.2); Total Protein 6.9 g/dL (6.6-8.7)
== END 2020-10-15 13:35 | disposition home or self-care (01) ==
PROVIDERS: PCP Internal Medicine; Visit Provider Internal Medicine
DX: D50.0 Iron deficiency anemia secondary to blood loss (chronic) (principal); I25.10 Atherosclerotic heart disease of native coronary artery without angina pectoris; E11.9 Type 2 diabetes mellitus without complications
CPT/HCPCS: 80053; 85025; 85730

== ENCOUNTER 2020-10-17 16:57 | Outpatient (CLI) | payer MEDICARE, OTHER, SELFPAY ==
[2020-10-17 17:40] LABS: INR 1.29 (0.8-1.2)
== END 2020-10-17 16:58 | disposition home or self-care (01) ==
PROVIDERS: PCP Internal Medicine; Visit Provider Internal Medicine
DX: I48.11 Longstanding persistent atrial fibrillation (principal)
CPT/HCPCS: 85610

== ENCOUNTER → 2020-10-21 12:26 | Day surgery (SDC) | payer MEDICARE, OTHER, SELFPAY ==
[2020-10-21] MEDS: ferric carboxy (IVPB) 750 MG in sodium chloride 0.9% (100 ml) 100 ML 345 MG IV (13:29)
[2020-10-21 13:31] VITALS: BP 128/79; PULSE 95; RESP 18; TEMP 36.4; O2SAT 98
== END ==
PROVIDERS: PCP Internal Medicine; Visit Provider Internal Medicine
DX: D50.0 Iron deficiency anemia secondary to blood loss (chronic) (principal)
CPT/HCPCS: 96365; J1439

== ENCOUNTER 2020-10-24 12:07 | Outpatient (CLI) | payer MEDICARE, OTHER, SELFPAY ==
[2020-10-24 12:36] LABS: INR 1.48 (0.8-1.2)
== END 2020-10-24 12:08 | disposition home or self-care (01) ==
LOC: LAB 12:09
PROVIDERS: PCP Internal Medicine; Visit Provider Internal Medicine
DX: I48.11 Longstanding persistent atrial fibrillation (principal)
CPT/HCPCS: 85610

== ENCOUNTER 2020-10-31 08:54 | Outpatient (RCR) | payer MEDICARE, OTHER, SELFPAY ==
[2020-10-31 09:40] VITALS: BP 119/81; PULSE 83; RESP 18; TEMP 36.5; O2SAT 97
[2020-10-31] MEDS: ferric carboxy (IVPB) 750 MG in sodium chloride 0.9% (100 ml) 100 ML 345 MG IV (09:40)
== END 2020-11-27 23:59 | disposition home or self-care (01) ==
LOC: OPS 08:54
PROVIDERS: PCP Internal Medicine; Visit Provider Internal Medicine Cardiovascular Disease
DX: Z95.1 Presence of aortocoronary bypass graft (principal); I48.20 Chronic atrial fibrillation, unspecified; I25.2 Old myocardial infarction; I50.42 Chronic combined systolic (congestive) and diastolic (congestive) heart failure; I25.10 Atherosclerotic heart disease of native coronary artery without angina pectoris; I25.5 Ischemic cardiomyopathy; E11.22 Type 2 diabetes mellitus with diabetic chronic kidney disease; N18.30 Chronic kidney disease, stage 3 unspecified; Z79.4 Long term (current) use of insulin; I48.11 Longstanding persistent atrial fibrillation; I12.9 Hypertensive chronic kidney disease with stage 1 through stage 4 chronic kidney disease, or unspecified chronic kidney disease; N18.9 Chronic kidney disease, unspecified
CPT/HCPCS: 80053; 85025; 85610; 96365; J1439

== ENCOUNTER 2020-10-31 17:08 | Outpatient (CLI) | payer MEDICARE, OTHER, SELFPAY ==
[2020-10-31 17:51] LABS: Basophils # 0.1 10^3/uL (0.0-0.1); Basophils % 0.9 %; Eosinophils # 0.2 10^3/uL (0.0-0.8); Hematocrit 36.7 % (42.0-52.0); Hemoglobin 10.9 g/dL (11.7-16.6); Lymphocytes # 0.8 10^3/uL (0.8-4.8); Lymphocytes % 13.8 %; Mean Corpuscular HGB Conc 29.7 g/dL (30.0-36.0); Mean Corpuscular Hemoglobin 31.2 pg (28.0-34.0); Mean Corpuscular Volume 105.2 fL (80-94); Mean Platelet Volume 10.2 fL (7.4-10.4); Monocytes # 0.4 10^3/uL (0.2-0.9); Monocytes % 7.1 %; Neutrophils # 4.22 10^3/uL (1.8-7.7); Neutrophils % 74.8 %; Nucleated Red Blood Cells % 0 %; Platelet Count 115 10^3/cmm (130-400); Red Blood Count 3.49 10^6/uL (4.1-5.3); Red Cell Distribution Width 21.4 % (12.1-15.1); White Blood Count 5.6 10^3/uL (4.0-10.0)
[2020-10-31 17:55] LABS: INR 1.67 (0.8-1.2)
[2020-10-31 18:01] LABS: Alanine Aminotransferase 9 U/L (0-41); Alkaline Phosphatase 132 IU/L (40-130); Anion Gap 15.8 (5-19); Aspartate Amino Transferase 19 U/L (0-40); Blood Urea Nitrogen 40 mg/dL (8-23); Calcium 8.7 mg/dL (8.5-10.5); Carbon Dioxide 25 mmol/L (22-29); Chloride 101 mmol/L (98-107); Globulin 3.5 g/dL (1.3-4.6); Glucose 117 mg/dL (65-115); Osmolality Calculated 297 mOsm/kg (285-295); Potassium 3.8 mmol/L (3.5-5.1); Sodium 138 mmol/L (136-145); Total Bilirubin 0.8 mg/dL (0.15-1.2); Total Protein 7.5 g/dL (6.6-8.7)
== END 2020-10-31 17:09 | disposition home or self-care (01) ==
LOC: LAB 17:12
PROVIDERS: PCP Internal Medicine; Visit Provider Internal Medicine
DX: I48.11 Longstanding persistent atrial fibrillation (principal); I12.9 Hypertensive chronic kidney disease with stage 1 through stage 4 chronic kidney disease, or unspecified chronic kidney disease; N18.9 Chronic kidney disease, unspecified
CPT/HCPCS: 80053; 85025; 85610

== ENCOUNTER 2020-11-05 16:00 | Outpatient (CLI) | payer MEDICARE, OTHER, SELFPAY ==
[2020-11-05 16:26] LABS: INR 2.17 (0.8-1.2)
== END 2020-11-05 16:01 | disposition home or self-care (01) ==
LOC: LAB 16:02
PROVIDERS: PCP Internal Medicine; Visit Provider Internal Medicine
DX: I48.11 Longstanding persistent atrial fibrillation (principal)
CPT/HCPCS: 85610

== ENCOUNTER 2020-11-11 12:44 | Outpatient (CLI) | payer MEDICARE, SELFPAY ==
[2020-11-11 13:18] LABS: Basophils % 0.6 %; Eosinophils # 0.3 10^3/uL (0.0-0.8); Eosinophils % 4.1 %; Hematocrit 35.9 % (42.0-52.0); Hemoglobin 11.1 g/dL (11.7-16.6); Lymphocytes # 0.7 10^3/uL (0.8-4.8); Lymphocytes % 11.1 %; Mean Corpuscular HGB Conc 30.9 g/dL (30.0-36.0); Mean Corpuscular Hemoglobin 31.9 pg (28.0-34.0); Mean Corpuscular Volume 103.2 fL (80-94); Mean Platelet Volume 10.5 fL (7.4-10.4); Monocytes # 0.5 10^3/uL (0.2-0.9); Monocytes % 7.2 %; Neutrophils # 5.11 10^3/uL (1.8-7.7); Neutrophils % 76.7 %; Nucleated Red Blood Cells % 0 %; Platelet Count 106 10^3/cmm (130-400); Red Blood Count 3.48 10^6/uL (4.1-5.3); Red Cell Distribution Width 19.9 % (12.1-15.1); White Blood Count 6.7 10^3/uL (4.0-10.0)
[2020-11-11 13:22] LABS: INR 2.16 (0.8-1.2)
[2020-11-11 13:28] LABS: Anion Gap 15.7 (5-19); Blood Urea Nitrogen 59 mg/dL (8-23); Calcium 8.5 mg/dL (8.5-10.5); Carbon Dioxide 22 mmol/L (22-29); Chloride 102 mmol/L (98-107); Glucose 147 mg/dL (65-115); Osmolality Calculated 301 mOsm/kg (285-295); Potassium 3.7 mmol/L (3.5-5.1); Sodium 136 mmol/L (136-145)
== END 2020-11-11 12:45 | disposition home or self-care (01) ==
LOC: LAB 12:47
PROVIDERS: Visit Provider Internal Medicine
DX: I48.11 Longstanding persistent atrial fibrillation (principal); D50.0 Iron deficiency anemia secondary to blood loss (chronic)
CPT/HCPCS: 80048; 85025; 85610

== ENCOUNTER 2020-11-20 17:48 | Outpatient (CLI) | payer MEDICARE, OTHER, SELFPAY ==
[2020-11-20 18:02] LABS: Basophils % 0.6 %; Eosinophils # 0.3 10^3/uL (0.0-0.8); Eosinophils % 4.4 %; Hematocrit 38.6 % (42.0-52.0); Hemoglobin 11.8 g/dL (11.7-16.6); Lymphocytes # 0.9 10^3/uL (0.8-4.8); Lymphocytes % 12.3 %; Mean Corpuscular HGB Conc 30.6 g/dL (30.0-36.0); Mean Corpuscular Hemoglobin 31.6 pg (28.0-34.0); Mean Corpuscular Volume 103.5 fL (80-94); Monocytes # 0.6 10^3/uL (0.2-0.9); Monocytes % 8.4 %; Neutrophils # 5.17 10^3/uL (1.8-7.7); Nucleated Red Blood Cells % 0 %; Platelet Count 94 10^3/cmm (130-400); Red Blood Count 3.73 10^6/uL (4.1-5.3); Red Cell Distribution Width 19.1 % (12.1-15.1)
[2020-11-20 19:02] LABS: Anion Gap 17.7 (5-19); Blood Urea Nitrogen 61 mg/dL (8-23); Calcium 8.6 mg/dL (8.5-10.5); Carbon Dioxide 26 mmol/L (22-29); Chloride 99 mmol/L (98-107); Glucose 152 mg/dL (65-115); Iron 57 ug/dL (59-158); Osmolality Calculated 308 mOsm/kg (285-295); Potassium 3.7 mmol/L (3.5-5.1); Sodium 139 mmol/L (136-145)
[2020-11-20 20:58] LABS: Estmated Average Glucose 117; Hemoglobin A1C 5.7 % (4.0-6.0)
== END 2020-11-20 17:49 | disposition home or self-care (01) ==
LOC: LAB 17:52
PROVIDERS: PCP Family Medicine; Visit Provider Family Medicine
DX: D64.9 Anemia, unspecified (principal); Z79.01 Long term (current) use of anticoagulants
CPT/HCPCS: 80048; 83036; 83540; 85025; 85610

== ENCOUNTER 2020-11-22 10:12 | Outpatient (CLI) | payer MEDICARE, OTHER, SELFPAY ==
[2020-11-22 12:37] LABS: INR 2.01 (0.8-1.2)
== END 2020-11-22 10:13 | disposition home or self-care (01) ==
PROVIDERS: PCP Family Medicine; Visit Provider Internal Medicine
DX: I48.11 Longstanding persistent atrial fibrillation (principal)
CPT/HCPCS: 85610

== ENCOUNTER → 2020-11-23 16:48 | Outpatient (BNVA) | payer MEDICARE, OTHER, SELFPAY | PROVIDERS: PCP Family Medicine; Referring Provider Family Medicine; Visit Provider Family Medicine | DX: I48.21 Permanent atrial fibrillation (principal) | CPT/HCPCS: 85610 ==

== ENCOUNTER 2020-12-12 06:00 | Outpatient (RCR) | payer MEDICARE, SELFPAY | END 2020-12-27 23:59 | disposition home or self-care (01) | LOC: MPT 06:00 | PROVIDERS: PCP Family Medicine; Referring Provider Internal Medicine; Visit Provider Internal Medicine | DX: I50.9 Heart failure, unspecified (principal) | CPT/HCPCS: 97110; 97140; 97162; G0283 ==

== ENCOUNTER 2020-12-16 06:00 | Outpatient (RCR) | payer MEDICARE, SELFPAY | END 2020-12-27 23:00 | disposition home or self-care (01) | LOC: MOT 06:00 | PROVIDERS: PCP Family Medicine; Referring Provider Family Medicine; Visit Provider Family Medicine | DX: I50.9 Heart failure, unspecified (principal) | CPT/HCPCS: 97140; 97166 ==

== ENCOUNTER → 2020-12-23 11:36 | Outpatient (BNVA) | payer MEDICARE, SELFPAY | PROVIDERS: PCP Family Medicine; Visit Provider Family Medicine | DX: E11.42 Type 2 diabetes mellitus with diabetic polyneuropathy (principal); I10 Essential (primary) hypertension; I25.810 Atherosclerosis of coronary artery bypass graft(s) without angina pectoris; N18.4 Chronic kidney disease, stage 4 (severe); L97.829 Non-pressure chronic ulcer of other part of left lower leg with unspecified severity; L03.116 Cellulitis of left lower limb; I95.1 Orthostatic hypotension; L97.821 Non-pressure chronic ulcer of other part of left lower leg limited to breakdown of skin; R25.1 Tremor, unspecified; I50.9 Heart failure, unspecified; I48.21 Permanent atrial fibrillation; Z79.4 Long term (current) use of insulin | CPT/HCPCS: 36416; 82962 ==

== ENCOUNTER 2021-02-17 06:00 | Outpatient (RCR) | payer MEDICARE, SELFPAY | END 2021-02-26 23:59 | disposition home or self-care (01) | LOC: MPT 06:00 | PROVIDERS: PCP Family Medicine; Referring Provider Family Medicine; Visit Provider Family Medicine | DX: I50.9 Heart failure, unspecified (principal) | CPT/HCPCS: 97110; 97140; 97162; G0283 ==

== ENCOUNTER 2021-02-27 06:00 | Outpatient (RCR) | payer MEDICARE, SELFPAY | END 2021-03-29 23:59 | disposition home or self-care (01) | LOC: MPT 06:00 | PROVIDERS: PCP Family Medicine; Referring Provider Family Medicine; Visit Provider Family Medicine | DX: I50.9 Heart failure, unspecified (principal) | CPT/HCPCS: 97110; 97140; G0283 ==

== ENCOUNTER 2021-03-30 06:00 | Outpatient (RCR) | payer MEDICARE, SELFPAY | END 2021-04-29 23:59 | disposition home or self-care (01) | LOC: MPT 06:00 | PROVIDERS: PCP Family Medicine; Referring Provider Family Medicine; Visit Provider Family Medicine | DX: I50.9 Heart failure, unspecified (principal) | CPT/HCPCS: 97110; 97140; G0283 ==

== ENCOUNTER 2021-04-23 13:47 | Outpatient (CLI) | payer MEDICARE, SELFPAY ==
--- NOTE | 2021-04-23 14:15 | USCV_ITS ---
Gian Bowers Age: 70 Gender: M : 1950 Exam Date: 04/23/2021 14:16 Ordering Phys: Chele Ho MD ([email or web address]) Technologist: Otilia Rincon Exam Location: [facility] [place] Indication: SOB BP: 110 / 60 HR: 93 Rhythm: Other Technical Quality: Technically difficult study MEASUREMENTS (Male / Female) Normal Values 2D ECHO LV Diastolic Diameter PLAX 5.1 cm 4.2 - 5.9 / 3.9 - 5.3 cm LV Systolic Diameter PLAX 4.3 cm IVS Diastolic Thickness 2.3 cm 0.6 - 1.0 / 0.6 - 0.9 cm IVS Systolic Thickness 2.5 cm LVPW Diastolic Thickness 1.5 cm 0.6 - 1.0 / 0.6 - 0.9 cm LVPW Systolic Thickness 1.8 cm LVOT Diameter 2.0 cm LV Ejection Fraction 2D Teich 34.9 % LV Ejection Fraction MOD 2C 32.7 % LV Ejection Fraction 2C AL 31.6 % LA Diameter 4.8 cm LA Width 4.1 cm LA Height 6.0 cm RA Width 4.1 cm RA Height 5.0 cm Aorta at Sinotubular Diameter 3.5 cm M-MODE Aortic Annulus Diameter 3.3 cm LA Ao Ratio MM 1.3 MV E Point Septal Separation 0.8 cm DOPPLER AV Peak Velocity 160.0 cm/s LVOT Peak Velocity 92.0 cm/s AV Area Cont Eq vti 2.1 cm squared AV Area Cont Eq pk 1.8 cm squared MV Area PHT 3.9 cm squared MV E' Velocity 104.0 cm/s TR Peak Velocity 229.2 cm/s TR Peak Gradient 21.0 mmHg TR Mean Velocity 218.4 cm/s TR Mean Gradient 20.9 mmHg TR Velocity Time Integral 71.0 cm TV Peak E Velocity 60.0 cm/s Right Atrial Pressure 3.0 mmHg Pulmonary Artery Systolic Pressu 24.0 mmHg PV Peak Velocity 111.0 cm/s RV Acceleration Time 0.1 s RV Ejection Time 0.3 s RV AcT/ET 0.2 FINDINGS Left Ventricle Moderately increased left ventricular cavity size. Severely decreased left ventricular systolic function. Global left ventricular hypokinesis. Left ventricular ejection fraction is estimated at 34 %. Grade II/IV diastolic dysfunction, moderately elevated filling pressures. Right Ventricle The right ventricle is normal in size and function. Right Atrium The right atrium is normal in size. Left Atrium Moderately increased left atrial size. Mitral Valve Moderately thickened mitral valve. No mitral valve stenosis. Moderate mitral valve regurgitation. Aortic Valve Severe aortic valve calcification. Mild aortic valve stenosis, mean gradient 5.1 mmHg, NISHI 2.1 cm squared. Mild aortic valve regurgitation. Tricuspid Valve Ivgr-ux-sasjyjyl tricuspid valve regurgitation. Pulmonic Valve Structurally normal pulmonic valve without significant stenosis. There is no pulmonic regurgitation. Pericardium Normal pericardium without effusion. Aorta Normal ascending aorta dimension. CONCLUSIONS 1-Moderately increased left ventricular cavity size. Severely decreased left ventricular systolic function. Global left ventricular hypokinesis. Left ventricular ejection fraction is estimated at 34 %. Grade II/IV diastolic dysfunction, moderately elevated filling pressures. 2-Severe aortic valve calcification. Mild aortic valve stenosis, mean gradient 5.1 mmHg, NISHI 2.1 cm squared. Mild aortic valve regurgitation. 3-Moderately increased left atrial size. 1-Casb-ne-moderate tricuspid valve regurgitation. 5-There is no pericardial effusion. 6-Right atrial pressure is around 15 mm of mercury. 7-When compared to the prior echocardiogram dated 05 March 2020 there is worsening of left ventricular ejection fraction from normal 60% to severely reduced 34% now. There is global hypokinesis there is worsening of mitral and tricuspid valve regurgitation from mild to moderate now Chele Ho MD (Electronically Signed) Final Date: 23 April 2021 21:02 S
== END 2021-04-23 13:48 | disposition home or self-care (01) ==
LOC: RAD 13:55
PROVIDERS: PCP Family Medicine; Visit Provider Internal Medicine Cardiovascular Disease
DX: R06.02 Shortness of breath (principal); I35.0 Nonrheumatic aortic (valve) stenosis; I07.1 Rheumatic tricuspid insufficiency
CPT/HCPCS: 93306

== ENCOUNTER 2021-04-30 06:00 | Outpatient (RCR) | payer MEDICARE, SELFPAY | END 2021-05-29 23:59 | disposition home or self-care (01) | LOC: MPT 06:00 | PROVIDERS: PCP Family Medicine; Referring Provider Family Medicine; Visit Provider Family Medicine | DX: I50.9 Heart failure, unspecified (principal) | CPT/HCPCS: 97110; 97140; G0283 ==

== ENCOUNTER 2021-04-30 09:01 | Outpatient (RCR) | payer MEDICARE, SELFPAY | END 2021-05-29 23:59 | disposition home or self-care (01) | LOC: CR 09:01 | PROVIDERS: PCP Family Medicine; Referring Provider Internal Medicine Cardiovascular Disease; Visit Provider Internal Medicine Cardiovascular Disease | DX: I50.9 Heart failure, unspecified (principal); Z95.1 Presence of aortocoronary bypass graft | CPT/HCPCS: 93798 ==

== ENCOUNTER → 2021-05-07 11:40 | Outpatient (BNVA) | payer MEDICARE, SELFPAY | PROVIDERS: PCP Family Medicine; Visit Provider Internal Medicine | DX: N18.32 Chronic kidney disease, stage 3b (principal); E11.42 Type 2 diabetes mellitus with diabetic polyneuropathy; E11.9 Type 2 diabetes mellitus without complications; Z79.4 Long term (current) use of insulin | CPT/HCPCS: 80069; 82310; 82570; 83970; 84156; 85025 ==

== ENCOUNTER → 2021-05-08 14:01 | Outpatient (BNVA) | payer MEDICARE, SELFPAY | PROVIDERS: PCP Family Medicine; Visit Provider Internal Medicine | DX: N18.32 Chronic kidney disease, stage 3b (principal); E11.42 Type 2 diabetes mellitus with diabetic polyneuropathy; E11.9 Type 2 diabetes mellitus without complications; Z79.4 Long term (current) use of insulin | CPT/HCPCS: 83036 ==

== ENCOUNTER 2021-05-16 13:01 | Emergency (ER) | payer OTHER, MEDICARE, SELFPAY ==
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
[2021-05-16 13:05] VITALS: BP 133/86; PULSE 90; RESP 18; O2SAT 99; BMI 33.0
--- NOTE | 2021-05-16 13:13 | CT_ITS ---
WS: [id number] CT HEAD NONCONTRAST HISTORY: trauma TECHNIQUE: Contiguous axial imaging performed through the brain in 2.5 mm imaging. Bone and soft tiss ue windows. Sagittal and coronal reformats reviewed. All CT scans at [facility] use at least one of these dose optimization techniques: automated exposure control; mA and/or kV adjustment per pa tient size (includes targeted exams where dose is matched to clinical indication); or iterative recon struction. DLP: 1121.51 mGy.cm COMPARISON: None available. No acute intracranial hemorrhage, midline shift or mass effect. Mild symmetric atrophy with mild chronic microvascular ischemic disease. Ventricles: Normal size with no hydrocephalus. Paranasal sinuses: As visualized are clear. Mastoid air cells: Well pneumatized. Calvarium and scalp: Skull is intact with no soft tissue edema or swelling. CT/CT head wo con* [id number] IMPRESSION: 1. No acute intracranial hemorrhage or edema. 2. Mild atrophy and mild chronic ischemic disease.
--- NOTE | 2021-05-16 13:13 | CT_ITS ---
WS: [id number] CT CERVICAL SPINE HISTORY: trauma TECHNIQUE: Contiguous 2.5 mm axial imaging performed through the entire cervical spine. Sagittal and coronal reformats also performed. All CT scans at [facility] use at least one of these dose o ptimization techniques: automated exposure control; mA and/or kV adjustment per patient size (include s targeted exams where dose is matched to clinical indication); or iterative reconstruction. DLP: 761.96 mGy.cm COMPARISON: None available. Straightening of the normal cervical lordosis. Large bridging osteophyte posterior to C2-C4 extends o evon length of 4 cm and is contiguous along the posterior longitudinal ligament. Advanced degenerative disc disease with large osteophytes throughout the cervical spine. Lateral masses of C1 and C2 are a ligned. Odontoid process is intact. C2-C3: No foraminal stenosis. Central stenosis due to dense calcification along the posterior longitu dinal ligament. C3-C4: Broad based calcification on the posterior longitudinal ligament causing central and bilateral lateral recess stenosis. There is a nondisplaced fracture involving the superior articular facet of C4 on the LEFT. C4-C5: Calcification encroaching upon ventral thecal sac. No high-grade stenosis. C5-C6: Moderate bilateral facet joint arthritis. No fracture. C6-C7: No fracture or stenosis. C7-T1: Normal. Lung apices are clear. Moderate amount of soft tissue induration along the LEFT lateral neck just jose miguel p to the sternocleidomastoid muscle and lateral to the carotid artery. CT/CT cervical spin wo con* [id number] IMPRESSION: 1. Acute nondisplaced fracture at C4 involving the superior articular facet. 2. Soft tissue injury with hematoma along the LEFT lateral neck. 3. Dense contiguous calcification along the posterior longitudinal ligament en croaching upon the ventral thecal sac, most significant at C3. Notified Aly Wiseman MD at 05/16/2021 2:25 PM.
--- NOTE | 2021-05-16 13:13 | CT_ITS ---
WS: [id number] CT CHEST, ABDOMEN AND PELVIS WITH CONTRAST HISTORY: trauma TECHNIQUE: Contiguous 5 mm axial imaging performed through the chest, abdomen and pelvis with IV cont rast, oral contrast has been provided. Coronal and sagittal reformats chest. Coronal and sagittal ref ormats through the abdomen and pelvis. All CT scans at [facility] use at least one of these d ose optimization techniques: automated exposure control; mA and/or kV adjustment per patient size (in cludes targeted exams where dose is matched to clinical indication); or iterative reconstruction. CONTRAST: Omnipaque 300; 95 mL IV. DLP: 2546.14 mGy.cm COMPARISON: 01/30/2021 and 07/27/2020. Chest CT: Numerous 2 to 3 mm pulmonary nodules throughout both lungs. Some of these are calcified. Th e nodules are noncalcified. No pulmonary contusion or pneumothorax. Prior CABG. Heart is normal size. No pericardial or pleural effusion. Small hiatal hernia. No adenopathy. Bilateral gynecomastia. No r ib fractures are identified. Abdomen CT: No lacerations within the liver or spleen. Cholelithiasis without acute cholecystitis. Pa ncreas is negative. No adrenal mass. No renal obstruction or injury. Cortical cyst measures 18 mm RIG HT kidney. Additional too small to characterize nodules within the LEFT renal cortex. No adenopathy o r ascites. No mesenteric injury. GI tract is normal caliber. Diverticular disease without acute diverticulitis. Pelvic CT: No free fluid within the pelvis. Urinary bladder is well distended. No prostate enlargemen t. Partial fusion of the SI joints. No pelvic fractures. CT/CT chest abd pel w con* IMPRESSION: 1. No acute injury within the thorax. No pneumothorax or aortic injury/mediast inal hematoma. 2. No visceral organ injury or mesenteric injury within the abdomen or pelvis. 3. Cholelithiasis. 4. No additional fractures.
[2021-05-16] MEDS: ondansetron 2 mg/ML SDV 2 mL 4 MG IVP (13:46)
[2021-05-16 13:50] VITALS: BP 134/81; PULSE 75; RESP 16; O2SAT 95; O2SAT 96
[2021-05-16] MEDS: fentaNYL 50 mcg/mL INJ 2mL 75 MCG IVP ×2 (13:50→15:58)
[2021-05-16 13:58] LABS: Basophils % 0.2 %; Eosinophils # 0.3 10^3/uL (0.0-0.8); Eosinophils % 3.4 %; Hematocrit 38.1 % (42.0-52.0); Hemoglobin 12.4 g/dL (11.7-16.6); Lymphocytes % 12.3 %; Mean Corpuscular HGB Conc 32.5 g/dL (30.0-36.0); Mean Corpuscular Volume 92.3 fl (80-94); Mean Platelet Volume 9.1 fL (7.4-10.4); Monocytes # 0.5 10^3/uL (0.2-0.9); Neutrophils # 6.37 10^3/uL (1.8-7.7); Neutrophils % 77.6 %; Nucleated Red Blood Cells % 0 %; Platelet Count 115 10^3/cmm (130-400); Red Blood Count 4.13 10^6/uL (4.1-5.3); Red Cell Distribution Width 16.9 % (12.1-15.1); White Blood Count 8.2 10^3/uL (4.0-10.0)
[2021-05-16] MEDS: iodixanol 320 mg/mL 100mL Btl IV (14:08)
[2021-05-16 14:17] LABS: Alanine Aminotransferase 10 U/L (0-41); Albumin Level 3.9 g/dL (3.5-5.2); Alkaline Phosphatase 102 IU/L (40-130); Anion Gap 16.3 (5-19); Aspartate Amino Transferase 16 U/L (0-40); Blood Urea Nitrogen 53 mg/dL (8-23); Calcium 8.6 mg/dL (8.5-10.5); Carbon Dioxide 27 mmol/L (22-29); Chloride 97 mmol/L (98-107); Globulin 3.1 g/dL (1.3-4.6); Glucose 227 mg/dL (65-115); Osmolality Calculated 306 mOsm/kg (285-295); Potassium 3.3 mmol/L (3.5-5.1); Sodium 137 mmol/L (136-145); Total Bilirubin 0.8 mg/dL (0.15-1.2)
[2021-05-16 15:13] VITALS: BP 135/85; PULSE 75; O2SAT 98
[2021-05-16 15:58] VITALS: RESP 16
[2021-05-16] MEDS: potassium chloride oral liq 20 mEq/15 mL UDC 40 MEQ PO (15:58)
[2021-05-16 16:27] VITALS: BP 135/85; PULSE 75; O2SAT 98
--- NOTE | 2021-05-19 09:22 | DCPLANNER ---
Addendum entered by Shiloh Garcia 05/22/21 14:36: Ortho clinic called shoe parts caser stating that when clinic called patient to schedule an appointment, that patient wanted to be seen in [place]. manager project called patient and left a voicemail for patient to call shoe parts caser back on if patient wanted to use [facility] for follow up. Original Note: manager project had message to schedule a follow up appointment for patient with ortho. manager project called the ortho clinic, spoke with Margarita, gave clinic patients information. manager project was told that patients information would be printed and reviewed. Clinic will call patient with appointment information.
== END 2021-05-16 16:29 | disposition home or self-care (01) ==
PROVIDERS: Emergency Provider Emergency Medicine; PCP Family Medicine
DX: S12.391A Other nondisplaced fracture of fourth cervical vertebra, initial encounter for closed fracture (principal); Z79.01 Long term (current) use of anticoagulants; Z79.82 Long term (current) use of aspirin; Z79.4 Long term (current) use of insulin; I25.10 Atherosclerotic heart disease of native coronary artery without angina pectoris; I13.0 Hypertensive heart and chronic kidney disease with heart failure and stage 1 through stage 4 chronic kidney disease, or unspecified chronic kidney disease; E11.22 Type 2 diabetes mellitus with diabetic chronic kidney disease; N18.4 Chronic kidney disease, stage 4 (severe); I50.9 Heart failure, unspecified; E78.5 Hyperlipidemia, unspecified; Z95.1 Presence of aortocoronary bypass graft; V89.2XXA Person injured in unspecified motor-vehicle accident, traffic, initial encounter
CPT/HCPCS: 70450; 71260; 72125; 74177; 80053; 85025; 86850; 86900; 96374; 96375; 96376; 97760; 99284; J2405; J3010; L0172; L0174; Q9967

== ENCOUNTER → 2021-05-22 14:15 | Outpatient (BNVA) | payer MEDICARE, SELFPAY | PROVIDERS: PCP Family Medicine; Referring Provider Emergency Medicine; Visit Provider Orthopaedic Surgery | DX: S12.391A Other nondisplaced fracture of fourth cervical vertebra, initial encounter for closed fracture (principal); X58.XXXA Exposure to other specified factors, initial encounter | CPT/HCPCS: 72040 ==

== ENCOUNTER 2021-06-29 09:24 | Emergency (ER) | payer OTHER, MEDICARE, SELFPAY ==
[2021-06-29] VITALS (9 sets, daily range): BP systolic 115–130; BP diastolic 57–80; PULSE 65–77; RESP 16–18; TEMP 36.8; O2SAT 95–100; BMI 33.6
--- NOTE | 2021-06-29 09:53 | XRR_ITS ---
PROCEDURE INFORMATION: Exam: XR Lumbosacral Spine Exam date and time: 06/29/2021 9:53 AM Age: 70 years old Clinical indication: Low back pain; Additional info: Lower back pain TECHNIQUE: Imaging protocol: XR of the lumbosacral spine. Views: 3 views. Other technique: AP, lateral and spot lateral views of the lumbar spine are submitted. COMPARISON: CT chest abd pel w con* 05/16/2021 2:05 PM FINDINGS: Bones/joints: Lumbar spine vertebral body marginal osteophytes are noted at multiple levels. Mild L1-L2 spondylosis. Severe posterior L5-S1 disc narrowing with mild spondylosis. No acute fracture. No destructive bony process identified. Soft tissues: Unremarkable. XR/XR lumbar spine 2-3V* [id number] IMPRESSION: 1. Degenerative changes as above. 2. No acute lumbar spinal bony abnormality identified. Radiation Dose CTDIVOL = (mGy): DLP = (mGy-cm)
--- NOTE | 2021-06-29 09:53 | XRR_ITS ---
PROCEDURE INFORMATION: Exam: XR Pelvis Exam date and time: 06/29/2021 9:53 AM Age: 70 years old Clinical indication: Hip pain; Left hip; Additional info: Lateral, cocygeal pain TECHNIQUE: Imaging protocol: XR pelvis. Views: AP single view. COMPARISON: CT chest abd pel w con* 05/16/2021 2:05 PM FINDINGS: Bones/joints: No acute bony abnormality identified. L5-S1 degenerative disc disease. Small benign right supra-acetabular bone island, stable. Soft tissues: Unremarkable. XR/XR pelvis 1-2V* [id number] IMPRESSION: No acute bony abnormality identified. Radiation Dose CTDIVOL = (mGy): DLP = (mGy-cm)
--- NOTE | 2021-06-29 10:09 | PC.NURSE ---
pc to pharmacy spoke with Jah who stated it was able to be adm via im injection.
[2021-06-29] MEDS: morphine 4 mg/mL SDV 1 mL IM (10:15)
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
--- NOTE | 2021-06-29 11:34 | PC.NURSE ---
while at bedside pt is resting in bed in nad. pt denies any needs at this time.
[2021-06-29] MEDS: lidocaine 5% Patch 1 PATCH TOPICAL (13:35)
--- NOTE | 2021-06-29 13:36 | PC.NURSE ---
while at bedside pt assisted with positioning and given urinal.pt requested to wait on dc instructions until daughter returned to room informed him i would be back in 10 minutes to see if his daughter returned.
[2021-06-29] MEDS: morphine 4 mg/mL SDV 1 mL 2 MG IM (14:09)
== END 2021-06-29 14:35 | disposition home or self-care (01) ==
PROVIDERS: Emergency Provider Emergency Medicine; PCP Family Medicine
DX: M54.9 Dorsalgia, unspecified (principal); I48.91 Unspecified atrial fibrillation; Z79.01 Long term (current) use of anticoagulants; I25.10 Atherosclerotic heart disease of native coronary artery without angina pectoris; I10 Essential (primary) hypertension; N18.5 Chronic kidney disease, stage 5; E11.9 Type 2 diabetes mellitus without complications; Z79.4 Long term (current) use of insulin; Z79.82 Long term (current) use of aspirin; E78.5 Hyperlipidemia, unspecified
CPT/HCPCS: 72100; 72170; 96372; 99284; J2270

== ENCOUNTER → 2021-07-10 10:00 | Outpatient (BNVA) | payer OTHER, MEDICARE, SELFPAY | PROVIDERS: PCP Family Medicine; Referring Provider Family Medicine; Visit Provider Anesthesiology Pain Medicine | DX: G89.29 Other chronic pain (principal); M54.2 Cervicalgia; M48.9 Spondylopathy, unspecified; M48.062 Spinal stenosis, lumbar region with neurogenic claudication; Z79.891 Long term (current) use of opiate analgesic | CPT/HCPCS: 99205 ==

== ENCOUNTER → 2021-07-30 13:05 | Outpatient (BNVA) | payer MEDICARE, SELFPAY | PROVIDERS: PCP Family Medicine; Visit Provider Internal Medicine | DX: E11.42 Type 2 diabetes mellitus with diabetic polyneuropathy (principal); E11.65 Type 2 diabetes mellitus with hyperglycemia; E11.59 Type 2 diabetes mellitus with other circulatory complications; E11.22 Type 2 diabetes mellitus with diabetic chronic kidney disease; N18.4 Chronic kidney disease, stage 4 (severe); I25.810 Atherosclerosis of coronary artery bypass graft(s) without angina pectoris; I25.10 Atherosclerotic heart disease of native coronary artery without angina pectoris; E78.5 Hyperlipidemia, unspecified; Z86.31 Personal history of diabetic foot ulcer; Z79.4 Long term (current) use of insulin; I11.0 Hypertensive heart disease with heart failure | CPT/HCPCS: 99214 ==

== ENCOUNTER 2021-08-07 06:00 | Outpatient (RCR) | payer OTHER, MEDICARE, SELFPAY | END 2021-08-29 23:59 | disposition home or self-care (01) | LOC: MPT 06:00 | PROVIDERS: PCP Family Medicine; Referring Provider Nurse Practitioner Family; Visit Provider Nurse Practitioner Family | DX: S12.9XXA Fracture of neck, unspecified, initial encounter (principal); X58.XXXA Exposure to other specified factors, initial encounter | CPT/HCPCS: 95992; 97032; 97110; 97140; 97162; G0283 ==

== ENCOUNTER 2021-09-01 19:50 | Emergency (ER) | payer MEDICARE, SELFPAY ==
[2021-09-01 20:12] VITALS: BP 125/71; PULSE 84; RESP 18; TEMP 37.3; O2SAT 96; BMI 33.1
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
--- NOTE | 2021-09-01 23:23 | XRR_ITS ---
PROCEDURE INFORMATION: Exam: XR Left Hand Exam date and time: 09/01/2021 11:23 PM Age: 70 years old Clinical indication: Other: Left thumb pain; Prior surgery; Surgery type: Radius; Patient HX: Pain with swelling and redness to left thumb. Possible cellulitis. Unable to remove ring from 4th digit. ; Additional info: Pain and swelling in thumb TECHNIQUE: Imaging protocol: XR Left hand. Views: 3 or more views. COMPARISON: No relevant prior studies available. FINDINGS: Bones/joints: Erosion of the distal end of the distal tuft of the distal phalanx of the thumb associated with residual tiny bony densities; no sclerosis in this area. Mild narrowing of the interphalangeal joint in the thumb Erosions of part of the distal tuft of the 2nd distal phalanx. Periarticular erosions along multiple DIP joints and some of the PIP and MCP joints and diffuse mild narrowing of many of these joints in addition to marginal spurs along them. No erosions of the radial or ulnar styloids. No periarticular osteopenia. Prominent narrowing of the joints along the distal end of the scaphoid. Probable narrowing of the 2nd carpometacarpal joint, especially considering the small spur of the base of the 2nd metacarpal. Small bony body along the trapeziometacarpal joint, possibly a loose body. Slight volar subluxation of the base of the 1st metacarpal on the lateral image. Mild negative ulnar variance. Suspicion of an old fracture of the distal aspect of the 3rd middle phalanx. Conceivable small old nonunited fracture of the distal end of the 5th middle phalanx. Soft tissues: Soft tissue swelling in the distal thumb, but no gas bubbles or calcifications in this area. Surgical clip in the soft tissues volar to the distal radial metaphysis. Vasculature: Arterial calcifications in the wrist and distal forearm. XR/XR hand LT min 3V* [id number] IMPRESSION: 1. Erosion of the distal tuft of the distal phalanx of the thumb with soft tissue swelling in this area; inflammatory disease as from psoriasis felt to be much more likely than osteomyelitis in light of the erosion of the distal tuft of the 2nd distal phalanx. Raynaud's phenomenon, scleroderma and dermatomyositis also in the differential diagnosis. 2. Periarticular erosions and marginal spurs along multiple narrowed joints in the digits, possibly due to degenerative disease. Degenerative findings in the wrist detailed above. 3. Suspected old fractures and other findings detailed above.
[2021-09-02] MEDS: HYDROcodone-acetaminophen 7.5-325 mg Tablet 1 TAB PO (00:07)
[2021-09-02] MEDS: vancomycin 1,500 MG/300 ML PIGGYBACK 200 MG IV (01:06)
[2021-09-02 01:08] LABS: Basophils % 0.3 %; Eosinophils # 0.2 10^3/uL (0.0-0.8); Eosinophils % 1.3 %; Hematocrit 39.9 % (42.0-52.0); Lymphocytes # 1.4 10^3/uL (0.8-4.8); Lymphocytes % 11.5 %; Mean Corpuscular HGB Conc 32.6 g/dL (30.0-36.0); Mean Corpuscular Hemoglobin 30.1 pg (28.0-34.0); Mean Corpuscular Volume 92.4 fl (80-94); Mean Platelet Volume 8.9 fL (7.4-10.4); Monocytes % 8.2 %; Neutrophils # 9.29 10^3/uL (1.8-7.7); Neutrophils % 78.3 %; Nucleated Red Blood Cells % 0 %; Platelet Count 127 10^3/cmm (130-400); Red Blood Count 4.32 10^6/uL (4.1-5.3); Red Cell Distribution Width 16.2 % (12.1-15.1); White Blood Count 11.9 10^3/uL (4.0-10.0)
[2021-09-02 01:32] LABS: Alanine Aminotransferase 8 U/L (0-41); Albumin Level 3.9 g/dL (3.5-5.2); Alkaline Phosphatase 108 IU/L (40-130); Anion Gap 19.4 (5-19); Aspartate Amino Transferase 11 U/L (0-40); Blood Urea Nitrogen 55 mg/dL (8-23); C Reactive Protein 19.2 mg/L (0.0-4.9); Calcium 8.4 mg/dL (8.5-10.5); Carbon Dioxide 28 mmol/L (22-29); Chloride 91 mmol/L (98-107); Globulin 3.9 g/dL (1.3-4.6); Glucose 302 mg/dL (65-115); Osmolality Calculated 306 mOsm/kg (285-295); Potassium 3.4 mmol/L (3.5-5.1); Sodium 135 mmol/L (136-145); Total Bilirubin 0.8 mg/dL (0.15-1.2); Total Protein 7.8 g/dL (6.6-8.7)
[2021-09-02 01:34] VITALS: RESP 20
[2021-09-02] MEDS: morphine 4 mg/mL SDV 1 mL IVP (01:34)
[2021-09-02 01:42] VITALS: BP 112/52; PULSE 101; RESP 17; TEMP 37.3; O2SAT 94
[2021-09-02 02:13] LABS: Erythrocyte Sedimentation Rate 50 mm/hr (0-10)
== END 2021-09-02 03:28 | disposition home or self-care (01) ==
PROVIDERS: Emergency Provider Physician Assistant; PCP Family Medicine
DX: L03.012 Cellulitis of left finger (principal); Z79.01 Long term (current) use of anticoagulants; Z79.4 Long term (current) use of insulin; I13.0 Hypertensive heart and chronic kidney disease with heart failure and stage 1 through stage 4 chronic kidney disease, or unspecified chronic kidney disease; E11.22 Type 2 diabetes mellitus with diabetic chronic kidney disease; N18.4 Chronic kidney disease, stage 4 (severe); I50.9 Heart failure, unspecified; I25.10 Atherosclerotic heart disease of native coronary artery without angina pectoris; E78.5 Hyperlipidemia, unspecified; Z86.14 Personal history of Methicillin resistant Staphylococcus aureus infection; Z95.1 Presence of aortocoronary bypass graft
CPT/HCPCS: 36415; 73130; 80053; 85025; 85651; 86140; 87040; 87077; 87186; 87205; 96365; 96375; 99283; J2270; J3370

== ENCOUNTER 2021-09-03 13:17 | Inpatient (IN) | payer MEDICARE, SELFPAY ==
[2021-09-03] VITALS (8 sets, daily range): BP systolic 101–132; BP diastolic 63–87; PULSE 88–103; RESP 15–25; TEMP 38.1–38.2; O2SAT 92–100; BMI 32.0
--- NOTE | 2021-09-03 14:40 | XR_ITS ---
WS: [id number] Left hand, 3 views, 09/03/2021 Clinical Data: infection Comparison: Portable left hand, 09/01/2021. Findings: The soft tissue swelling of the distal phalanx of the left first finger remains the same. There are s mall calcifications within this swelling. There are small erosions of the distal portions of the seco nd through fifth finger middle phalanges.There is osteoarthritis at the base of the left first metaca rpal and again a small loose body adjacent to the trapezium. There is a metal fragment adjacent to th e distal left radius on the radial side in the subcutaneous tissue. There are no new fractures or dis locations. XR/XR hand LT min 3V* [id number] Impression: 1. Soft tissue swelling with soft tissue calcifications which have the appearan ce of inflammatory change rather than osteomyelitis. 2. Small erosions of the distal portions of the seventh through fifth finger mi ddle phalanges probably secondary to osteoarthritis.
[2021-09-03 15:17] LABS: Basophils % 0.3 %; Eosinophils % 0.1 %; Hematocrit 37.6 % (42.0-52.0); Lymphocytes # 0.5 10^3/uL (0.8-4.8); Lymphocytes % 5.8 %; Mean Corpuscular HGB Conc 31.9 g/dL (30.0-36.0); Mean Corpuscular Hemoglobin 29.6 pg (28.0-34.0); Mean Corpuscular Volume 92.6 fl (80-94); Mean Platelet Volume 9.5 fL (7.4-10.4); Monocytes # 0.7 10^3/uL (0.2-0.9); Monocytes % 7.5 %; Neutrophils # 7.94 10^3/uL (1.8-7.7); Neutrophils % 85.8 %; Nucleated Red Blood Cells % 0 %; Platelet Count 121 10^3/cmm (130-400); Red Blood Count 4.06 10^6/uL (4.1-5.3); Red Cell Distribution Width 16.4 % (12.1-15.1); White Blood Count 9.3 10^3/uL (4.0-10.0)
[2021-09-03 15:48] LABS: Alanine Aminotransferase 6 U/L (0-41); Albumin Level 3.6 g/dL (3.5-5.2); Alkaline Phosphatase 95 IU/L (40-130); Anion Gap 18.4 (5-19); Aspartate Amino Transferase 11 U/L (0-40); Blood Urea Nitrogen 64 mg/dL (8-23); C Reactive Protein 114.1 mg/L (0.0-4.9); Calcium 8.4 mg/dL (8.5-10.5); Carbon Dioxide 25 mmol/L (22-29); Chloride 90 mmol/L (98-107); Globulin 3.4 g/dL (1.3-4.6); Glucose 236 mg/dL (65-115); Osmolality Calculated 296 mOsm/kg (285-295); Potassium 3.4 mmol/L (3.5-5.1); Sodium 130 mmol/L (136-145); Total Bilirubin 1.1 mg/dL (0.15-1.2)
[2021-09-03 15:49] LABS: Lactic Sepsis W/Reflex 1.8 mmol/L (0.5-2.2)
--- NOTE | 2021-09-03 16:40 | W.ED.EXTPRO ---
Documented by User: Gian Jenkins MD 09/03/21 18:05 HPI - Extremity Problem General: Chief complaint: Extremity Problem,Nontraumatic Stated complaint: swelling to Left thumb Time Seen by Provider: 09/03/21 16:32 History of Present Illness: HPI Narrative: 70-year-old male history of diabetes presents due to infection of the left thumb. Seen Wednesday for same but failed to improve with home antibiotics. Today he noticed streaking up the hand. Denies any focal numbness or tingling. Denies any fever or injury. Review of Systems Narrative: - CONSTITUTIONAL: Denies weight loss, fever and chills. - HEENT: Denies changes in vision and hearing. - RESPIRATORY: Denies SOB and cough. - CV: Denies palpitations and CP. - GI: Denies abdominal pain, nausea, vomiting and diarrhea. - : Denies dysuria and urinary frequency. - MSK: As above - SKIN: As above - NEUROLOGICAL: Denies headache, weakness, numbness and syncope. - PSYCHIATRIC: Denies suicidal ideation [facility] ED PFSH: Medical History (Updated 09/04/21 @ 01:25 by Rory Ramesh MD) Atrial fibrillation CAD (coronary artery disease) Cervical spine disease CHF (congestive heart failure) Chronic anticoagulation Chronic back pain Chronic kidney disease, stage IV (severe) Congestive heart failure Diabetes mellitus, type II Current SSI: 141-180 = 4 units/SQ 181-220 = 6 units/SQ 221-260 = 8 units/SQ 261-300 = 10 units/SQ 301-350 = 12 units/SQ 351-400 = 14 units/SQ > 400 = 16 units/SQ Diverticulosis Gallstones GERD (gastroesophageal reflux disease) Gout History of amputation of toe History of diabetic ulcer of foot History of GI bleed History of MRSA infection Hyperlipidemia Hypertension Obesity (BMI 30-39.9) Obstructive sleep apnea Prostate hypertrophy RLS (restless legs syndrome) Surgical History 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, 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 bypass graft 5 vessels, 2008 History of prior ablation treatment To nerves in the neck and back area Family History Mother Cancer Heart disease Myocardial infarct Father Cancer Heart disease Myocardial infarct Diabetes Other Hypertension Social History Alcohol intake: never Caregiver/support person: Yes Lives independently: Yes Household members: spouse Current occupational status: retired Physical Exam Narrative: EXAM NARRATIVE: - GENERAL: Alert and oriented x 3. No acute distress. Well-nourished. - EYES: EOMI. Anicteric. - HENT: Atraumatic, no C-spine tenderness. Moist mucous membranes. No scleral icterus. No cervical lymphadenopathy. - LUNGS: Clear to auscultation bilaterally. No accessory muscle use. Equal lung sounds bilaterally. No respiratory distress. - CARDIOVASCULAR: Regular rate and rhythm. No murmur. No JVD. - ABDOMEN: Soft, non-tender and non-distended. Negative CVA tenderness bilaterally, no rebound or guarding, negative Schwartz sign. No palpable masses. - EXTREMITIES: Erythema and edema of the left thumb with minor streaking to the wrist. No crepitus. Tenderness over the distal tip of the thumb and interphalangeal joint. There is also some areas of skin discoloration. No tenderness deeper into the wrist. No snuffbox tenderness. - SKIN: No rashes or lesions. Warm. - NEUROLOGIC: No meningismus or focal neurological deficits. CN II-XII grossly intact. - PSYCHIATRIC: Cooperative. Appropriate mood and affect. Course Vital Signs: Vital signs: Vital Signs Temperature 100.5 F H 09/03/21 18:54 Pulse Rate 95 09/03/21 23:15 Respiratory Rate 15 09/03/21 23:15 Blood Pressure 101/67 09/03/21 23:15 Pulse Oximetry 97 09/03/21 23:15 MDM - Extremity (Nontraumatic) MDM Narrative: Medical decision making narrative: 70-year-old male presents due to some pain infection. Failed oral antibiotics. There is sausage-like digit with streaking to the wrist concern for flexor tenosynovitis. IV antibiotics started. However there is concern for flexor tenosynovitis. Orthopedic surgery called but is not yet responded. Patient signed out to Dr. Ramesh. Lab Data: Labs: Lab Results 09/03/21 09/03/21 09/03/21 15:08 15:08 15:08 WBC 9.3 10^3/uL 10^3/ uL (4.0-10.0) RBC 4.06 10^6/uL L 10 ^6/uL (4.1-5.3) Hgb 12.0 g/dL g/dL (11.7-16.6) Hct 37.6 % L % (42.0-52.0) MCV 92.6 fl fl (80-94) MCH 29.6 pg pg (28.0-34.0) MCHC 31.9 g/dL g/dL (30.0-36.0) RDW 16.4 % H % (12.1-15.1) Plt Count 121 10^3/cmm L 10 ^3/cmm (130-400) MPV 9.5 fL fL (7.4-10.4) Neut % (Auto) 85.8 % % Lymph % (Auto) 5.8 % % Borden % (Auto) 7.5 % % Eos % (Auto) 0.1 % % Baso % (Auto) 0.3 % % Neut # (Auto) 7.94 10^3/uL H 10 ^3/uL (1.8-7.7) Lymph # (Auto) 0.5 10^3/uL L 10^ 3/uL (0.8-4.8) Borden # (Auto) 0.7 10^3/uL 10^3/ uL (0.2-0.9) Eos # (Auto) 0.0 10^3/uL 10^3/ uL (0.0-0.8) Baso # (Auto) 0.0 10^3/uL 10^3/ uL (0.0-0.1) Nucleated RBC % (a uto) 0 % % Nucleated RBCs # 0.0 /100WBC /100W BC Sodium 130 mmol/L L mmol /L (136-145) Potassium 3.4 mmol/L L mmol /L (3.5-5.1) Chloride 90 mmol/L L mmol/ L (98-107) Carbon Dioxide 25 mmol/L mmol/L (22-29) Anion Gap 18.4 (5-19) BUN 64 mg/dL H mg/dL (8-23) Creatinine 2.0 mg/dL H mg/dL (0.7-1.2) GFR Calculation Not Reportable Glucose 236 mg/dL H mg/dL (65-115) Calculated Osmolal ity 296 mOsm/kg H mOs m/kg (285-295) Lactic Acid 1.8 mmol/L mmol/L (0.5-2.2) Calcium 8.4 mg/dL L mg/dL (8.5-10.5) Total Bilirubin 1.1 mg/dL mg/dL (0.15-1.2) AST 11 U/L U/L (0-40) ALT 6 U/L U/L (0-41) Alkaline Phosphata se 95 IU/L IU/L (40-130) C-Reactive Protein 114.1 mg/L H mg/L (0.0-4.9) Total Protein 7.0 g/dL g/dL (6.6-8.7) Albumin 3.6 g/dL g/dL (3.5-5.2) Globulin 3.4 g/dL g/dL (1.3-4.6) 09/03/21 19:55 WBC RBC Hgb Hct MCV MCH MCHC RDW Plt Count MPV Neut % (Auto) Lymph % (Auto) Borden % (Auto) Eos % (Auto) Baso % (Auto) Neut # (Auto) Lymph # (Auto) Borden # (Auto) Eos # (Auto) Baso # (Auto) Nucleated RBC % (a uto) Nucleated RBCs # Sodium Potassium Chloride Carbon Dioxide Anion Gap BUN Creatinine GFR Calculation Glucose Calculated Osmolal ity Lactic Acid 1.6 mmol/L mmol/L (0.5-2.2) Calcium Total Bilirubin AST ALT Alkaline Phosphata se C-Reactive Protein Total Protein Albumin Globulin Discharge Plan Discharge Patient Disposition: Admitted As Inpatient Clinical Impression: Paronychia of finger of left hand, Cellulitis Condition: Stable Coding Level of Care Code ED Residential Monitor for Chg Fwd Documented by User: Rory Ramesh MD 09/04/21 01:25 HPI - Extremity Problem General: Chief complaint: Extremity Problem,Nontraumatic Stated complaint: swelling to Left thumb Time Seen by Provider: 09/03/21 16:32 Review of Systems Narrative: This picture is from today Picture below is from 09/01/2021 [facility] ED PFSH: Medical History (Updated 09/04/21 @ 01:25 by Rory Ramesh MD) Atrial fibrillation CAD (coronary artery disease) Cervical spine disease CHF (congestive heart failure) Chronic anticoagulation Chronic back pain Chronic kidney disease, stage IV (severe) Congestive heart failure Diabetes mellitus, type II Current SSI: 141-180 = 4 units/SQ 181-220 = 6 units/SQ 221-260 = 8 units/SQ 261-300 = 10 units/SQ 301-350 = 12 units/SQ 351-400 = 14 units/SQ > 400 = 16 units/SQ Diverticulosis Gallstones GERD (gastroesophageal reflux disease) Gout History of amputation of toe History of diabetic ulcer of foot History of GI bleed History of MRSA infection Hyperlipidemia Hypertension Obesity (BMI 30-39.9) Obstructive sleep apnea Prostate hypertrophy RLS (restless legs syndrome) Surgical History 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, 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 bypass graft 5 vessels, 2008 History of prior ablation treatment To nerves in the neck and back area Family History Mother Cancer Heart disease Myocardial infarct Father Cancer Heart disease Myocardial infarct Diabetes Other Hypertension Social History Alcohol intake: never Caregiver/support person: Yes Lives independently: Yes Household members: spouse Current occupational status: retired Procedures Abscess I/D Site: hand (right thumb paronychia) Side (if applicable): right Local Anesthetic: bupivacaine 0.5% Amount of anesthesia used (mL): 10 Technique: incised with #11 blade Amount of fluid expressed (mL): 15 Packing used?: none Course Vital Signs: Vital signs: Vital Signs Temperature 100.5 F H 09/03/21 18:54 Pulse Rate 95 09/03/21 23:15 Respiratory Rate 15 09/03/21 23:15 Blood Pressure 101/67 09/03/21 23:15 Pulse Oximetry 97 09/03/21 23:15 MDM - Extremity (Nontraumatic) MDM Narrative: Medical decision making narrative: Patient presents here with a paronychia drained the paronychia in the ER and it was quite large with a moderate amount of drainage thumb is much improved after the incision and drainage patient has already been given IV antibiotics before I did the drainage CT shows no obvious abscess otherwise he does have streaking up his arm patient started on IV antibiotics patient is also seen by Dr. Denny caban in the ER. Lab Data: Labs: Lab Results 09/03/21 09/03/21 09/03/21 15:08 15:08 15:08 WBC 9.3 10^3/uL 10^3/ uL (4.0-10.0) RBC 4.06 10^6/uL L 10 ^6/uL (4.1-5.3) Hgb 12.0 g/dL g/dL (11.7-16.6) Hct 37.6 % L % (42.0-52.0) MCV 92.6 fl fl (80-94) MCH 29.6 pg pg (28.0-34.0) MCHC 31.9 g/dL g/dL (30.0-36.0) RDW 16.4 % H % (12.1-15.1) Plt Count 121 10^3/cmm L 10 ^3/cmm (130-400) MPV 9.5 fL fL (7.4-10.4) Neut % (Auto) 85.8 % % Lymph % (Auto) 5.8 % % Borden % (Auto) 7.5 % % Eos % (Auto) 0.1 % % Baso % (Auto) 0.3 % % Neut # (Auto) 7.94 10^3/uL H 10 ^3/uL (1.8-7.7) Lymph # (Auto) 0.5 10^3/uL L 10^ 3/uL (0.8-4.8) Borden # (Auto) 0.7 10^3/uL 10^3/ uL (0.2-0.9) Eos # (Auto) 0.0 10^3/uL 10^3/ uL (0.0-0.8) Baso # (Auto) 0.0 10^3/uL 10^3/ uL (0.0-0.1) Nucleated RBC % (a uto) 0 % % Nucleated RBCs # 0.0 /100WBC /100W BC Sodium 130 mmol/L L mmol /L (136-145) Potassium 3.4 mmol/L L mmol /L (3.5-5.1) Chloride 90 mmol/L L mmol/ L (98-107) Carbon Dioxide 25 mmol/L mmol/L (22-29) Anion Gap 18.4 (5-19) BUN 64 mg/dL H mg/dL (8-23) Creatinine 2.0 mg/dL H mg/dL (0.7-1.2) GFR Calculation Not Reportable Glucose 236 mg/dL H mg/dL (65-115) Calculated Osmolal ity 296 mOsm/kg H mOs m/kg (285-295) Lactic Acid 1.8 mmol/L mmol/L (0.5-2.2) Calcium 8.4 mg/dL L mg/dL (8.5-10.5) Total Bilirubin 1.1 mg/dL mg/dL (0.15-1.2) AST 11 U/L U/L (0-40) ALT 6 U/L U/L (0-41) Alkaline Phosphata se 95 IU/L IU/L (40-130) C-Reactive Protein 114.1 mg/L H mg/L (0.0-4.9) Total Protein 7.0 g/dL g/dL (6.6-8.7) Albumin 3.6 g/dL g/dL (3.5-5.2) Globulin 3.4 g/dL g/dL (1.3-4.6) 09/03/21 19:55 WBC RBC Hgb Hct MCV MCH MCHC RDW Plt Count MPV Neut % (Auto) Lymph % (Auto) Borden % (Auto) Eos % (Auto) Baso % (Auto) Neut # (Auto) Lymph # (Auto) Borden # (Auto) Eos # (Auto) Baso # (Auto) Nucleated RBC % (a uto) Nucleated RBCs # Sodium Potassium Chloride Carbon Dioxide Anion Gap BUN Creatinine GFR Calculation Glucose Calculated Osmolal ity Lactic Acid 1.6 mmol/L mmol/L (0.5-2.2) Calcium Total Bilirubin AST ALT Alkaline Phosphata se C-Reactive Protein Total Protein Albumin Globulin Discharge Plan Discharge Patient Disposition: Admitted As Inpatient Clinical Impression: Paronychia of finger of left hand, Cellulitis Condition: Stable Coding Level of Care Code ED Residential Monitor for Wallace Pascual
[2021-09-03] MEDS: cefTRIAXone 2,000 MG in sodium chloride 0.9% (plus) 50 ML 100 MG IV (17:08)
[2021-09-03] MEDS: sodium chloride 0.9% 500 ML 999 ML IV (17:09)
[2021-09-03] MEDS: morphine 4 mg/mL SDV 1 mL IVP ×2 (17:34→20:13)
[2021-09-03] MEDS: vancomycin 1,500 MG/300 ML PIGGYBACK 200 MG IV (17:52)
--- NOTE | 2021-09-03 18:47 | CTR_ITS ---
PROCEDURE INFORMATION: Exam: CT Left Upper Extremity Without Contrast, Hand Exam date and time: 09/03/2021 6:47 PM Age: 70 years old Clinical indication: Pain; Swelling; Hand; Left; Finger(s); Additional info: Cellulits thumb TECHNIQUE: Imaging protocol: CT of the Left upper extremity without contrast was performed. Exam focused on the hand. Radiation optimization: All CT scans at this facility use at least one of these dose optimization techniques: automated exposure control; mA and/or kV adjustment per patient size (includes targeted exams where dose is matched to clinical indication); or iterative reconstruction. COMPARISON: CR (UP EXM, ) 09/01/2021 11:29 PM RADIATION DOSE METRICS: Total DLP (mGy-cm): 270.78 FINDINGS: Bones/joints: Mild to moderate 1st carpometacarpal joint osteoarthritis. Soft tissues: Mild subcutaneous edema suspected about the hand, nonspecific. CT/CT hand LT wo con* [id number] IMPRESSION: 1. Negative for acute bony abnormality. 2. Mild to moderate 1st carpometacarpal joint osteoarthritis. 3. Mild subcutaneous edema suspected about the hand, nonspecific.
[2021-09-03 20:34] LABS: Lactic Sepsis W/Reflex 1.6 mmol/L (0.5-2.2)
--- NOTE | 2021-09-03 21:43 | PC.NURSE ---
patient has infection in left thumb. was seen on wednesday for same and was given IV antibiotics and PO antibiotics and sent home. the infection increased tracking up his arm. He has been given Vanc IV today. he is set for admission/transfer. VSS. cares met.
[2021-09-04] VITALS (17 sets, daily range): BP systolic 95–130; BP diastolic 62–88; PULSE 65–102; RESP 12–18; TEMP 36.8–39.4; O2SAT 85–99
[2021-09-04] MEDS: sodium chloride 0.9% 500 ML 999 ML IV (00:25)
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
[2021-09-04] MEDS: oxyCODONE-APAP 5-325 mg Tablet 1 TAB PO (03:15)
--- NOTE | 2021-09-04 03:30 | PC.PHAR ---
Vancomycin is dosed at 1500mg IVPB every 24 hours to produce a predicted trough level of 14.46 (population based pharmacokinetic analysis). A trough level has been ordered from the lab to be obtained before the fourth dose.
[2021-09-04 05:05] LABS: Basophils % 0.5 %; Eosinophils % 0.3 %; Hematocrit 35.3 % (42.0-52.0); Hemoglobin 11.2 g/dL (11.7-16.6); Lymphocytes # 0.9 10^3/uL (0.8-4.8); Lymphocytes % 11.6 %; Mean Corpuscular HGB Conc 31.7 g/dL (30.0-36.0); Mean Corpuscular Hemoglobin 28.9 pg (28.0-34.0); Mean Platelet Volume 10.2 fL (7.4-10.4); Monocytes # 0.8 10^3/uL (0.2-0.9); Monocytes % 10.5 %; Neutrophils # 5.74 10^3/uL (1.8-7.7); Neutrophils % 76.6 %; Nucleated Red Blood Cells % 0 %; Platelet Count 117 10^3/cmm (130-400); Red Blood Count 3.88 10^6/uL (4.1-5.3); Red Cell Distribution Width 16.5 % (12.1-15.1); White Blood Count 7.5 10^3/uL (4.0-10.0)
[2021-09-04 05:26] LABS: Blood Urea Nitrogen 69 mg/dL (8-23); C Reactive Protein 91.1 mg/L (0.0-4.9); Calcium 8.7 mg/dL (8.5-10.5); Carbon Dioxide 23 mmol/L (22-29); Chloride 93 mmol/L (98-107); Glucose 156 mg/dL (65-115); Magnesium 1.5 mg/dL (1.7-2.3); Osmolality Calculated 301 mOsm/kg (285-295); Sodium 134 mmol/L (136-145)
[2021-09-04 06:00] LABS: Estmated Average Glucose 206; Hemoglobin A1C 8.8 % (4.0-6.0)
[2021-09-04 06:25] LABS: INR 1.61 (0.8-1.2); Partial Thromboplastin Time 41.4 SECONDS (23.9-36.7)
[2021-09-04 06:45] LABS: Glucose Point of Care 156 mg/dL (70-110)
[2021-09-04] MEDS: insulin lispro 100 unit/1 mL SUBCUT ×3 (09:07→20:40)
[2021-09-04] MEDS: finasteride 5 mg Tablet PO (09:08)
[2021-09-04] MEDS: pantoprazole DR 40 mg Tablet PO ×2 (09:08→18:10)
[2021-09-04] MEDS: sodium bicarbonate 650 mg Tablet PO ×2 (09:08→18:10)
[2021-09-04] MEDS: apixaban 5 mg Tablet PO ×2 (09:08→20:27)
[2021-09-04] MEDS: allopurinol 100 mg Tablet PO (09:08)
[2021-09-04] MEDS: isosorbide mononitrate ER 30 mg Tablet PO (09:08)
[2021-09-04] MEDS: ropinirole 0.25 mg Tablet 0.5 MG PO ×2 (09:08→20:27)
[2021-09-04] MEDS: lactobacillus 1 Tablet 1 TAB PO ×2 (09:08→18:10)
[2021-09-04] MEDS: carvedilol 12.5 mg Tablet PO ×2 (09:08→18:10)
[2021-09-04] MEDS: potassium chloride ER 20 mEq Tablet PO (09:10)
[2021-09-04] MEDS: magnesium sulfate premix 2 GM/50 ML PIGGYBACK IV (10:10)
[2021-09-04 11:46] LABS: Glucose Point of Care 219 mg/dL (70-110)
--- NOTE | 2021-09-04 11:52 | PM.PN ---
Subjective Subjective: Interval history: Persistent swelling, redness of the left thumb, tracking to the left hand. Fever 103 Fahrenheit this afternoon. Vitals/I&O/Wt Last Vital Signs Temp 100.2 F H 09/04/21 11:13 Pulse 90 09/04/21 11:13 Resp 16 09/04/21 11:13 BP 127/81 09/04/21 11:13 Pulse Ox 92 09/04/21 11:13 09/03/21 09/04/21 09/04/21 22:59 06:59 14:59 Intake Total 50 / 50 240 / 290 1360 / 1360 Output Total 600 / 600 225 / 225 Balance 50 / 50 -360 / -310 1135 / 1135 Weight last 48 hrs Weight 110.223 kg Physical Exam Const: COMMON NORMALS: no acute distress and patient oriented x3 HENMT: COMMON NORMALS: oropharynx normal Neck/C-Spine: COMMON NORMALS: no JVD Resp: COMMON NORMALS: normal respiratory effort and clear to auscultation bilaterally AUSCULTATION: clear to auscultation bilaterally Cardio: COMMON NORMALS: no JVD, regular rhythm, S1 normal heart sound present, S2 normal heart sound present and No murmurs present (Cardio) RHYTHM: regular rhythm HEART SOUNDS: S1 normal heart sound present and S2 normal heart sound present GI: COMMON NORMALS: Normal to inspection, nondistended, normoactive bowel sounds present, Soft to palpation and non-tender PALPATION: Yes Soft to palpation Extremity: COMMON NORMALS: no pedal edema OTHER: Swelling, redness of the left thumb, tracking to the left hand toward the wrist Neuro: COMMON NORMALS: patient oriented x3 and moves all extremities Skin: COMMON NORMALS: no rashes or lesions noted GENERAL SKIN EXAM: no rashes or lesions noted Data : 09/04/21 04:09 09/04/21 04:09 Micro: Microbiology 09/03/21 15:08 Blood Culture - Preliminary Blood SPECIMEN COLLECTED 09/03/21 15:06 Blood Culture - Preliminary Blood SPECIMEN COLLECTED A&P Assessment and plan (1) Abscess of left thumb: Incision and drainage of abscess of left thumb today by Dr. Schumacher. Appreciate consultation. Anticipated improvement after I&D. Follow-up with orthopedics in office. Continue IV antibiotics. Follow-up blood culture from this admission. Preliminary culture from 08/30 still pending, currently growing staph aureus in 1/ bottles. Pending sensitivity. Leukocytosis resolved. Today up to 103 Fahrenheit. Status: Acute (2) Paronychia of finger of left hand: Status: Acute (3) Cellulitis: Left thumb. Continue IV antibiotics. 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 He cannot feel his hands and feet. Today severe proprioceptive loss. Consider outpatient follow-up with neurology. Will check B12, folic acid. Status: Chronic Qualifiers: Diabetes mellitus complication detail: with polyneuropathy Diabetes mellitus complication status: with neurologic complications Diabetes mellitus shelter insulin use: with shelter use Qualified Code(s): E11.42 - Type 2 diabetes mellitus with diabetic polyneuropathy; Z79.4 - senior living (current) use of insulin (6) Chronic kidney disease, stage IV (severe): Status: Chronic (7) CHF (congestive heart failure): Status: Chronic Qualifiers: Heart failure chronicity: chronic Heart failure type: combined systolic and diastolic Qualified Code(s): I50.42 - Chronic combined systolic (congestive) and diastolic (congestive) heart failure (8) CAD (coronary artery disease): Status: Chronic Qualifiers: Associated angina: without angina Coronary Disease-Associated Artery/Lesion type: bypass graft [place] vs. transplanted heart: [place] heart Qualified Code(s): I25.810 - Atherosclerosis of coronary artery bypass graft(s) without angina pectoris (9) Chronic anticoagulation: eliquis Status: Chronic (10) Atrial fibrillation: Status: Chronic Qualifiers: Atrial fibrillation type: permanent Qualified Code(s): I48.21 - Permanent atrial fibrillation (11) Cervical spine disease: Status: Chronic (12) Difficulty balancing: Status: Acute (13) Gout: Status: Chronic (14) Obstructive sleep apnea: Status: Chronic (15) Aortic stenosis: Status: Chronic Attestations Medical Necessity Statement*: Continue admission for assessment of staph aureus bacteremia complicating left thumb abscess and cellulitis. Coding Level of Care Code Acute Rock Breaker for [facility] Fwd Exam Comprehensive Diagnoses Abscess of left thumb L02.512 Paronychia of finger of left hand L03.012 Cellulitis L03.012 Laterality: left Site of cellulitis: extremity Site of cellulitis of extremity: finger SIRS (systemic inflammatory response syndrome) R65.10 Diabetes mellitus, type II E11.42; Z79.4 Diabetes mellitus complication detail: with polyneuropathy Diabetes mellitus complication status: with neurologic complications Diabetes mellitus medical terminologist insulin use: with shelter use Chronic kidney disease, stage IV (severe) N18.4 CHF (congestive heart failure) I50.42 Heart failure chronicity: chronic Heart failure type: combined systolic and diastolic CAD (coronary artery disease) I25.810 Associated angina: without angina Coronary Disease-Associated Artery/Lesion type: bypass graft [place] vs. transplanted heart: [place] heart Chronic anticoagulation Z79.01 Atrial fibrillation I48.21 Atrial fibrillation type: permanent Cervical spine disease M48.9 Difficulty balancing R29.818 Gout M10.9 Obstructive sleep apnea G47.33 Aortic stenosis I35.0
--- NOTE | 2021-09-04 12:05 | PC.SOCIAL ---
Addendum entered by Naz Juarez, RN 09/04/21 12:40: Per Dr Osman Schumacher will take for surgery and can cancel request. Called [facility] ([facility]) and asked one of the other bed coordinators since Marley was on the phone to relay message transfer no longer needed. Original Note: [facility] called and they do not have beds available. Advise to call back in 8-10 hours. [facility] called and they also do not have beds and advise to call back later today but not likely to change. [phone] [facility] called and no beds available advise to call back in 6-[phone] Tera concepcion. [facility] ([facility]) [phone]. Bed coordinator will reach out to see if they have a provider available and let me know. This nurse provided her number and also updated Dr Brewer. Per Dr Osman Schumacher will reevaluate regarding surgery also. Will not cancel transfer request until known for sure.
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
[2021-09-04] MEDS: sodium chloride 0.9% 1,000 ML 30 ML IV (13:09)
--- NOTE | 2021-09-04 13:52 | P.PCN_ITS ---
Documented by User: Kyle Winn CRNA 09/04/21 13:53 PACU note PACU note: VSS, Good respiratory effort, report to [employer] P[employer] PLANT MANAGER Post-Anesthesia Exam: awake
--- NOTE | 2021-09-04 13:52 | PM.PACU ---
Documented by User: Kyle Winn CRNA 09/04/21 13:53 PACU note PACU note: VSS, Good respiratory effort, report to BPM ARCHITECT Post-Anesthesia Exam: awake
--- NOTE | 2021-09-04 13:53 | PM.OP ---
Operative Report Date of procedure: September 04, 2021 Pre-op Diagnosis: Abscess left thumb Post-op diagnosis: same Post-op Findings: Same Procedure Done: Irrigation and debridement (incisional) deep abscess left thumb and excision necrotic tissue proximal medial and lateral nail bed Specimens removed/disposition: Routine cultures of the abscess tissue were sent Surgeon: Virgil Schumacher Anesthesia: Nerve Block (Digital block) Estimated blood loss (mL): 5 Tourniquet time (min): 5 Findings: The patient had abscess of fluid in the pulp of the left thumb beneath the distal phalanx extending up ulnarly along the ulnar and proximal nail fold. There was slight necrosis of tissue along the medial lateral and proximal nail fold. Procedure: The patient was taken to the operating room and given sedation by anesthesia. The left hand was prepped and draped in the usual fashion. A digital block was provided by infiltrating approxi-6 cc of 0.5% Marcaine peripherally around the base of the thumb. A Suma drain was applied circumferentially and tightened with a hemostat to right hemostasis. Initially dorsal incision was made over swellings of the proximal nail fold and hemostat used bringing us down into dorsal cavity with small amounts of purulent material. Dissection was then carried down along fluid track along the medial nail fold. A more distal ulnar incision was made and dissection carried down bluntly beneath the distal phalanx revealing a cavity of abscess fluid. Deep aerobic and anaerobic cultures were sent. As necrotic margins were seen around the nail decision was made to elevate the nail from its bed to minimize nonviable tissue that could hold bacteria. Tenotomy scissors were passed underneath the thumbnail and it was elevated. Utilizing tenotomy scissors necrotic areas along the medial lateral and proximal nail fold were excised. The wounds were then irrigated with antibiotic solution. Incisions and the nailbed were covered with Xeroflo gauze. 4 x 4 dressings and tube gauze were applied over the thumb. The patient was taken to recovery room in stable condition.
--- NOTE | 2021-09-04 14:09 | ANE.PACU2 ---
Inpatient post-anesthesia follow up: Airway intact: Yes Vital signs: Temperature 98.7 F Pulse Rate 78 Respiratory Rate 16 Blood Pressure 101/71 Pulse Oximetry 99 Oxygen Delivery Me thod [ Room Air Current Rate & Del kenneth] Oxygen Delivery Me thod Room Air Oxygen Flow Rate 6 Fraction of Inspir ed Oxygen Hydration adequate: Yes Nausea and vomiting: No Pain level: 1 Mental status: Baseline
[2021-09-04 14:14] LABS: Vitamin B12 564 pg/mL (232-1245)
[2021-09-04 14:17] LABS: Folate Level 19.1 ng/mL (4.5-32.2)
[2021-09-04 15:51] LABS: Glucose Point of Care 227 mg/dL (70-110)
[2021-09-04 16:30] LABS: Glucose Point of Care 247 mg/dL (70-110)
[2021-09-04] MEDS: vancomycin 1,500 MG/300 ML PIGGYBACK 150 MG IV (18:09)
[2021-09-04] MEDS: gabapentin 100 mg Capsule PO (18:10)
--- NOTE | 2021-09-04 19:31 | PC.NURSE ---
i reported high temp 100.8 and high pulse 102 to nurse
[2021-09-04] MEDS: tamsulosin 0.4 mg Capsule PO (20:26)
[2021-09-04] MEDS: gabapentin 300 mg Capsule PO (20:27)
[2021-09-04] MEDS: atorvastatin 40 mg Tablet 20 MG PO (20:27)
[2021-09-04 20:30] LABS: Glucose Point of Care 264 mg/dL (70-110)
[2021-09-04] MEDS: acetaminophen 325 mg Tablet 650 MG PO (20:38)
[2021-09-05] VITALS (13 sets, daily range): BP systolic 90–152; BP diastolic 61–82; PULSE 69–113; RESP 16–20; TEMP 36.6–39.1; O2SAT 91–96
[2021-09-05 06:37] LABS: Glucose Point of Care 218 mg/dL (70-110)
[2021-09-05 07:04] LABS: Basophils % 0.4 %; Eosinophils # 0.1 10^3/uL (0.0-0.8); Hematocrit 33.1 % (42.0-52.0); Hemoglobin 10.6 g/dL (11.7-16.6); Lymphocytes # 1.3 10^3/uL (0.8-4.8); Mean Corpuscular Hemoglobin 29.1 pg (28.0-34.0); Mean Corpuscular Volume 90.9 fl (80-94); Mean Platelet Volume 10.3 fL (7.4-10.4); Monocytes # 0.9 10^3/uL (0.2-0.9); Monocytes % 10.5 %; Neutrophils # 6.59 10^3/uL (1.8-7.7); Neutrophils % 73.8 %; Nucleated Red Blood Cells % 0 %; Platelet Count 113 10^3/cmm (130-400); Red Blood Count 3.64 10^6/uL (4.1-5.3); Red Cell Distribution Width 16.6 % (12.1-15.1); White Blood Count 8.9 10^3/uL (4.0-10.0)
[2021-09-05 07:21] LABS: Blood Urea Nitrogen 69 mg/dL (8-23); C Reactive Protein 111.9 mg/L (0.0-4.9); Calcium 8.4 mg/dL (8.5-10.5); Carbon Dioxide 23 mmol/L (22-29); Chloride 94 mmol/L (98-107); Glucose 183 mg/dL (65-115); Magnesium 2.2 mg/dL (1.7-2.3); Osmolality Calculated 301 mOsm/kg (285-295); Phosphorus 3.7 mg/dL (2.5-4.5); Sodium 133 mmol/L (136-145)
[2021-09-05] MEDS: acetaminophen 325 mg Tablet 650 MG PO ×2 (07:53→14:31)
[2021-09-05] MEDS: insulin lispro 100 unit/1 mL SUBCUT ×4 (07:53→17:18)
[2021-09-05] MEDS: sodium bicarbonate 650 mg Tablet PO ×2 (07:54→17:15)
[2021-09-05] MEDS: pantoprazole DR 40 mg Tablet PO ×2 (07:54→17:14)
[2021-09-05] MEDS: apixaban 5 mg Tablet PO ×2 (07:54→22:00)
[2021-09-05] MEDS: potassium chloride ER 20 mEq Tablet PO (07:54)
[2021-09-05] MEDS: ropinirole 0.25 mg Tablet 0.5 MG PO ×3 (07:54→21:59)
[2021-09-05] MEDS: carvedilol 12.5 mg Tablet PO ×2 (07:54→17:14)
[2021-09-05] MEDS: isosorbide mononitrate ER 30 mg Tablet PO (07:54)
[2021-09-05] MEDS: allopurinol 100 mg Tablet PO (07:54)
[2021-09-05] MEDS: finasteride 5 mg Tablet PO (07:54)
[2021-09-05] MEDS: lactobacillus 1 Tablet 1 TAB PO ×2 (07:55→17:14)
[2021-09-05] MEDS: bumetanide 1 mg Tablet 4 MG PO ×2 (09:21→17:14)
--- NOTE | 2021-09-05 10:38 | XR_ITS ---
WS: [id number] Portable AP upright chest, 09/05/2021 Clinical Data: dyspnea Comparison: Portable chest, 07/27/2020. Findings: No nodules, masses or effusions are seen. The heart is enlarged. The pulmonary vascularity is not increased. No pneumonia or pneumothorax is seen. Midline sternotomy sutures are present along with small mediastinal and pericardial clips. XR/XR chest 1V portable [id number] Impression: Cardiomegaly.
--- NOTE | 2021-09-05 10:39 | ECG_ITS ---
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 Measurements Intervals [place] Rate: 116 P: [place]: QRS: -21 QRSD: 100 T: 105 QT: 331 QTc: 461 Interpretive Statements ATRIAL FIBRILLATION WITH RAPID VENTRICULAR RESPONSE WITH ABERRANT CONDUCTION OR VENTRICULAR PREMATURE COMPLEXES POSSIBLE ANTERIOR MYOCARDIAL INFARCTION , PROBABLY OLD [30 ms Q WAVE IN V3/V4, OR R < 0.2 mV IN V4] INFERIOR MYOCARDIAL INFARCTION , PROBABLY OLD [40+ ms Q WAVE AND/OR ST/T ABNORMALITY IN II/aVF] Compared to ECG 07/27/2020 13:18:40 T-wave abnormality no longer present Possible ischemia no longer present Myocardial infarct finding still present Electronically Signed On 09-05-2021 17:53:14 STEAMER TENDER by Lisa Rosenthal M.D. [id number]
[2021-09-05 10:49] LABS: Glucose Point of Care 225 mg/dL (70-110)
[2021-09-05] MEDS: gabapentin 100 mg Capsule PO ×2 (11:26→17:14)
[2021-09-05 11:34] LABS: Troponin(5th) Baseline 113 ng/L (0-15)
--- NOTE | 2021-09-05 12:39 | ECG_ITS ---
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 Measurements Intervals [place] Rate: 107 P: [place]: QRS: -21 QRSD: 106 T: 107 QT: 338 QTc: 452 Interpretive Statements Atrial fibrillation with rapid ventricular rate Aberrant CONDUCTION OR VENTRICULAR PREMATURE COMPLEXES POSSIBLE ANTERIOR MYOCARDIAL INFARCTION , PROBABLY OLD [30 ms Q WAVE IN V3/V4, OR R < 0.2 mV IN V4] INFERIOR MYOCARDIAL INFARCTION , PROBABLY OLD [40+ ms Q WAVE AND/OR ST/T ABNORMALITY IN II/aVF] Compared to ECG 09/05/2021 11:02:46 Atrial fibrillation no longer present Myocardial infarct finding still present Electronically Signed On 09-05-2021 17:58:19 LOCKSMITH APPRENTICE by Lisa Rosenthal M.D. [email or web address] [id number]
[2021-09-05] MEDS: aspirin 325 mg Tablet PO (13:25)
[2021-09-05] MEDS: cefTRIAXone 1,000 MG in sodium chloride 0.9% (plus) 50 ML 100 MG IV (13:25)
[2021-09-05 13:38] LABS: Troponin 5 2HR 111.7 ng/L (0-15); Troponin 5 2HR Delta -1.3 ABS# (0-10)
--- NOTE | 2021-09-05 14:23 | PC.CHAP ---
Pastoral Care Encounter/Spiritual Assessment Type of Contact [] Declined aoc director combat operations officer visit [] Patient/Family/Request visit [] Outpatient visit [] Follow-up visit [] Physician referral [] Code/Alert [xx] Routine visit [] Staff referral [] Actively dying [] Patient sleeping [] Family support [] [] Out of room [] Palliative care [] [] Receiving care in room [] Pre-surgical visit [] Trauma [] Long length of stay [] ICU visit [] Other: Relational/Emotional Strength [xx] Patient feels connected with others/family/visitors/staff [] Distress [] Loneliness/isolation [] Abandonment Spirituality of Patient [xx] Person of Cherelle [xx] Attends Rastafarian of their Cherelle [xx] Believes in Prayer [xx] Reads Bible or Buddhist materials [] There are Spiritual issues to be addressed Drill Instructor Interventions [xx] Prayer [xx] Active listening [xx] Non-anxious presence [] Spiritual/emotional support [] Crisis/trauma care [] Spiritual counseling [] Bereavement support [] Provided bereavement packet [] Provided Bible/devotional materials [] Provided toy/stuffed animal, coloring book to patient or family member [] Provided Communion [] Anointing/[place] [] Salvation [xx] Completed spiritual assessment [] Other: Impact on Illness or Injury [] Angry [] Fearful [] Anxious [] Often cries [] Exhaustion [] Unable to work [] Unable to attend evangelical [] Unable to walk/stand [] Unable to read [] Unable to drive [] Unable to eat/drink [] Unable to sleep [] Unable to be with family [] Patient intubated [] Other: Summary Patient's , Yulia, was present. Patient is feling better. 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 She asked if I, as aoc director combat operations officer, could give Jew style communion. I said I am mu-ism and we do communion differently but I could still pray for him which I did. She will call their roasterman in [place] and see if he can come or if he knows a local roasterman willing to come and give them communion. Time spent with patient 5 minutes
[2021-09-05 16:02] LABS: Adenovirus Not Detected (NOT DETECT); Chlamydia Pneumoniae Not Detected (NOT DETECT); Coronavirus 229E,HKU1,NL63,OC4 Not Detected (NOT DETECT); Human Metapneumovirus Not Detected (NOT DETECT); Human Rhinovirus/Enterovirus Not Detected (NOT DETECT); Influenza A Not Detected (NOT DETECT); Influenza A H1 Not Detected (NOT DETECT); Influenza A H1-2009 Not Detected (NOT DETECT); Influenza A H3 Not Detected (NOT DETECT); Influenza B Not Detected (NOT DETECT); Mycoplasma Pneumoniae Not Detected (NOT DETECT); Parainfluenza Virus Type 1 Not Detected (NOT DETECT); Parainfluenza Virus Type 2 Not Detected (NOT DETECT); Parainfluenza Virus Type 3 Not Detected (NOT DETECT); Parainfluenza Virus Type 4 Not Detected (NOT DETECT); Respiratory Syncytial Virus A Not Detected (NOT DETECT); Respiratory Syncytial Virus B Not Detected (NOT DETECT); SARS-COV-2 Not Detected (NOT DETECT)
--- NOTE | 2021-09-05 16:39 | ECG_ITS ---
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 Measurements Intervals [place] Rate: 110 P: [place]: QRS: -27 QRSD: 99 T: 103 QT: 358 QTc: 485 Interpretive Statements ATRIAL FIBRILLATION WITH RAPID VENTRICULAR RESPONSE WITH ABERRANT CONDUCTION OR VENTRICULAR PREMATURE COMPLEXES POSSIBLE ANTERIOR MYOCARDIAL INFARCTION , PROBABLY OLD [30 ms Q WAVE IN V3/V4, OR R < 0.2 mV IN V4] INFERIOR MYOCARDIAL INFARCTION , PROBABLY OLD [40+ ms Q WAVE AND/OR ST/T ABNORMALITY IN II/aVF] Compared to ECG 09/05/2021 13:30:45 Atrial flutter no longer present Myocardial infarct finding still present Electronically Signed On 09-05-2021 17:59:57 PLATE SETTER by Lisa Rosenthal M.D. [email or web address] [email or web address]/[id number]
[2021-09-05 17:00] LABS: Glucose Point of Care 349 mg/dL (70-110)
[2021-09-05] MEDS: metOLazone 5 MG Tablet 2.5 MG PO (17:14)
[2021-09-05] MEDS: vancomycin 1,500 MG/300 ML PIGGYBACK 200 MG IV (17:45)
[2021-09-05 21:24] LABS: Glucose Point of Care 235 mg/dL (70-110)
--- NOTE | 2021-09-05 21:31 | PM.PN ---
Subjective Subjective: Interval history: Feels he is not doing well today. Was having chills this morning. Later in the morning reported dyspnea, chest pressure GI his nurse. Vitals/I&O/Wt Last Vital Signs Temp 98.3 F 09/05/21 20:00 Pulse 89 09/05/21 20:00 Resp 18 09/05/21 20:00 BP 99/61 09/05/21 20:00 Pulse Ox 92 09/05/21 20:00 09/05/21 09/05/21 09/05/21 06:59 14:59 22:59 Intake Total 420 / 2532.5 530 / 530 780 / 1310 Output Total 600 / 2025 Balance -180 / 507.5 530 / 530 780 / 1310 Physical Exam Const: COMMON NORMALS: no acute distress and patient oriented x3 HENMT: COMMON NORMALS: oropharynx normal Neck/C-Spine: COMMON NORMALS: no JVD Resp: COMMON NORMALS: normal respiratory effort and clear to auscultation bilaterally AUSCULTATION: clear to auscultation bilaterally Cardio: COMMON NORMALS: no JVD, regular rhythm, S1 normal heart sound present, S2 normal heart sound present and No murmurs present (Cardio) RHYTHM: regular rhythm HEART SOUNDS: S1 normal heart sound present and S2 normal heart sound present GI: COMMON NORMALS: Normal to inspection, nondistended, normoactive bowel sounds present, Soft to palpation and non-tender PALPATION: Yes Soft to palpation Extremity: COMMON NORMALS: no pedal edema OTHER: Postop dressing left arm, decreased swelling and redness of proximal thumb, decreased erythema tracking proximally at left wrist. Neuro: COMMON NORMALS: patient oriented x3 and moves all extremities Skin: COMMON NORMALS: no rashes or lesions noted GENERAL SKIN EXAM: no rashes or lesions noted Data : 09/05/21 05:36 09/05/21 05:36 Micro: Microbiology 09/04/21 13:32 Gram Stain - Final Finger - #1 Wound Culture - Preliminary Staphylococcus aureus 09/05/21 10:50 Blood Culture - Preliminary Blood SPECIMEN COLLECTED 09/05/21 10:55 Blood Culture - Preliminary Blood SPECIMEN COLLECTED A&P Assessment and plan (1) Abscess of left thumb: On examination proximal edema appears decreased from prior. Still spiking fevers up to 100.3 this morning. Rigors. Rest of the day. Is afebrile. Leukocytosis has resolved. Continue vancomycin. Blood culture from 09/02 growing MRSA. Staph aureus so far growing in wound culture. Follow-up repeat blood cultures to exclude persistent bacteremia which may be concerning for seeding to other places, possible endocarditis. Discussed risks with him and his daughter. Status: Acute (2) Paronychia of finger of left hand: Status: Acute (3) Cellulitis: Left thumb. Continue IV antibiotics. 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 He cannot feel his hands and feet. Today severe proprioceptive loss. Consider outpatient follow-up with neurology. Will check B12, folic acid. Status: Chronic Qualifiers: Diabetes mellitus detention insulin use: with medical terminologist use Diabetes mellitus complication status: with neurologic complications Diabetes mellitus complication detail: with polyneuropathy Qualified Code(s): E11.42 - Type 2 diabetes mellitus with diabetic polyneuropathy; Z79.4 - exterminator helper (current) use of insulin (6) Chronic kidney disease, stage IV (severe): Status: Chronic (7) CHF (congestive heart failure): Acute systolic CHF exacerbation. Today with some dyspnea, with noted weight gain, resumed his usual dose of Bumex 4 mg twice daily, and requesting for metolazone 30 mg before evening dose as well. Symptoms today suspected secondary to CHF exacerbation. Troponin and EKG series obtained, troponin 113-111.7-107. Monitor I&O and weight. Chest x-ray without pneumonia. Status: Chronic Qualifiers: Heart failure type: combined systolic and diastolic Heart failure chronicity: chronic Qualified Code(s): I50.42 - Chronic combined systolic (congestive) and diastolic (congestive) heart failure (8) CAD (coronary artery disease): Status: Chronic Qualifiers: Coronary Disease-Associated Artery/Lesion type: bypass graft [place] vs. transplanted heart: [place] heart Associated angina: without angina Qualified Code(s): I25.810 - Atherosclerosis of coronary artery bypass graft(s) without angina pectoris (9) Chronic anticoagulation: eliquis Status: Chronic (10) Atrial fibrillation: Status: Chronic Qualifiers: Atrial fibrillation type: permanent Qualified Code(s): I48.21 - Permanent atrial fibrillation (11) Cervical spine disease: Status: Chronic (12) Difficulty balancing: Status: Acute (13) Gout: Status: Chronic (14) Obstructive sleep apnea: Status: Chronic (15) Aortic stenosis: Status: Chronic Attestations Medical Necessity Statement*: Continue admission for assessment management of cellulitis, abscess status post drainage in the left arm, with recurrent fevers, further assessment of bacteremia, CHF exacerbation. Coding Level of Care Code Acute Contracts Attorney for g Fwd Diagnoses Abscess of left thumb L02.512 Paronychia of finger of left hand L03.012 Cellulitis L03.012 Laterality: left Site of cellulitis: extremity Site of cellulitis of extremity: finger SIRS (systemic inflammatory response syndrome) R65.10 Diabetes mellitus, type II E11.42; Z79.4 Diabetes mellitus detention insulin use: with medical terminologist use Diabetes mellitus complication status: with neurologic complications Diabetes mellitus complication detail: with polyneuropathy Chronic kidney disease, stage IV (severe) N18.4 CHF (congestive heart failure) I50.42 Heart failure type: combined systolic and diastolic Heart failure chronicity: chronic CAD (coronary artery disease) I25.810 Coronary Disease-Associated Artery/Lesion type: bypass graft [place] vs. transplanted heart: [place] heart Associated angina: without angina Chronic anticoagulation Z79.01 Atrial fibrillation I48.21 Atrial fibrillation type: permanent Cervical spine disease M48.9 Difficulty balancing R29.818 Gout M10.9 Obstructive sleep apnea G47.33 Aortic stenosis I35.0
[2021-09-05] MEDS: tamsulosin 0.4 mg Capsule PO (22:41)
[2021-09-05] MEDS: atorvastatin 40 mg Tablet 20 MG PO (22:41)
[2021-09-05] MEDS: gabapentin 300 mg Capsule PO (22:41)
[2021-09-06] VITALS (12 sets, daily range): BP systolic 106–141; BP diastolic 53–72; PULSE 65–108; RESP 16–18; TEMP 36.5–37.7; O2SAT 90–99
--- NOTE | 2021-09-06 04:35 | ECG_ITS ---
[facility] Test Date: 2021-09-06 Pat Name: Gian Bowers Department: Room: 253 Gender: Male Medical Device: : 1950 Requested By: Ina Baldwin Order Number: [id number] Tanja MD: Angie March M.D. Measurements Intervals [place] Rate: 108 P: MD: QRS: -21 QRSD: 101 T: 101 QT: 339 QTc: 456 Interpretive Statements ATRIAL FIBRILLATION WITH RAPID VENTRICULAR RESPONSE WITH ABERRANT CONDUCTION OR VENTRICULAR PREMATURE COMPLEXES POSSIBLE ANTERIOR MYOCARDIAL INFARCTION , PROBABLY OLD ABNORMAL RHYTHM ECG Compared to ECG 09/05/2021 16:45:59 Atrial fibrillation no longer present Aberrant conduction of supraventricular beat(s) no longer present Ventricular premature complex(es) no longer present Myocardial infarct finding still present Electronically Signed On 09-09-2021 5:23:49 NARROW FABRIC CALENDERER by Angie March M.D. [id number]
[2021-09-06] MEDS: nitroglycerin 0.4 mg sublingual Tablet SUBLINGUAL ×2 (04:47→04:54)
--- NOTE | 2021-09-06 05:20 | PC.NURSE ---
04:40: after getting up to chair for linen change, pt states I can't get my lungs to fill with air. no objective s/s resp distress. Resp even, Unlabored, SpO2 98% on 2L via NC, rate 16, no cyanosis present. Lungs CTA throughout. 12-lead EKG preformed per protocol exhibiting SVT with intermittent PVCs, HR 108. Telemetry showing a.fib with intermittent PVCs. BP 141/68. Nitro SL x2 given. While monitoring pt during administration of nitro, he began chatting with staff, laughing and joking. Pt stated after episode of laughter Oh!, I can breath now, I can take a full breath. Notified Dr Baldwin, no new orders received.
[2021-09-06 06:52] LABS: Basophils % 0.2 %; Eosinophils # 0.1 10^3/uL (0.0-0.8); Eosinophils % 1.5 %; Hematocrit 33.3 % (42.0-52.0); Hemoglobin 10.9 g/dL (11.7-16.6); Lymphocytes # 0.8 10^3/uL (0.8-4.8); Lymphocytes % 9.6 %; Mean Corpuscular HGB Conc 32.7 g/dL (30.0-36.0); Mean Corpuscular Hemoglobin 29.5 pg (28.0-34.0); Mean Platelet Volume 10.3 fL (7.4-10.4); Monocytes # 0.7 10^3/uL (0.2-0.9); Monocytes % 7.8 %; Neutrophils # 6.78 10^3/uL (1.8-7.7); Neutrophils % 80.4 %; Nucleated Red Blood Cells % 0 %; Platelet Count 123 10^3/cmm (130-400); Red Cell Distribution Width 16.4 % (12.1-15.1); White Blood Count 8.4 10^3/uL (4.0-10.0)
[2021-09-06 07:17] LABS: Alanine Aminotransferase 8 U/L (0-41); Albumin Level 3.3 g/dL (3.5-5.2); Alkaline Phosphatase 99 IU/L (40-130); Aspartate Amino Transferase 25 U/L (0-40); Blood Urea Nitrogen 65 mg/dL (8-23); Calcium 9.2 mg/dL (8.5-10.5); Carbon Dioxide 23 mmol/L (22-29); Chloride 83 mmol/L (98-107); Globulin 3.6 g/dL (1.3-4.6); Glucose 147 mg/dL (65-115); Osmolality Calculated 275 mOsm/kg (285-295); Sodium 122 mmol/L (136-145); Total Protein 6.9 g/dL (6.6-8.7)
[2021-09-06 07:55] LABS: Anion Gap 19.2 (5-19); Potassium 3.2 mmol/L (3.5-5.1)
[2021-09-06] MEDS: lactobacillus 1 Tablet 1 TAB PO ×2 (10:54→17:57)
[2021-09-06] MEDS: sodium bicarbonate 650 mg Tablet PO ×2 (10:54→17:57)
[2021-09-06] MEDS: carvedilol 12.5 mg Tablet PO ×2 (10:54→17:57)
[2021-09-06] MEDS: apixaban 5 mg Tablet PO ×2 (10:54→21:51)
[2021-09-06] MEDS: pantoprazole DR 40 mg Tablet PO ×2 (10:54→17:57)
[2021-09-06] MEDS: ropinirole 0.25 mg Tablet 0.5 MG PO ×3 (10:54→23:20)
[2021-09-06] MEDS: allopurinol 100 mg Tablet PO (10:54)
[2021-09-06] MEDS: finasteride 5 mg Tablet PO (10:54)
[2021-09-06] MEDS: bumetanide 1 mg Tablet 4 MG PO (10:54)
[2021-09-06] MEDS: potassium chloride ER 20 mEq Tablet PO (10:55)
[2021-09-06] MEDS: isosorbide mononitrate ER 30 mg Tablet PO (10:55)
[2021-09-06] MEDS: metOLazone 5 MG Tablet 2.5 MG PO (10:55)
--- NOTE | 2021-09-06 11:20 | USCV_ITS ---
Robinson Gian Age: 70 Gender: M : 1950 Exam Date: 09/06/2021 15:18 Ordering Phys: Spencer Brewer MD Technologist: Jessica Parr Exam Location: [facility] [place] Indication: Assess EF, RWMA BP: 116 / 56 HR: 109 Rhythm: PVCs Technical Quality: Suboptimal MEASUREMENTS (Male / Female) Normal Values 2D ECHO LV Diastolic Diameter PLAX 4.8 cm 4.2 - 5.9 / 3.9 - 5.3 cm LV Systolic Diameter PLAX 3.8 cm IVS Diastolic Thickness 1.8 cm 0.6 - 1.0 / 0.6 - 0.9 cm IVS Systolic Thickness 2.0 cm LVPW Diastolic Thickness 1.4 cm 0.6 - 1.0 / 0.6 - 0.9 cm LVPW Systolic Thickness 1.4 cm LV Ejection Fraction 2D Teich 43.7 % LV Ejection Fraction MOD 2C 17.1 % LV Ejection Fraction 2C AL 18.0 % FINDINGS Left Ventricle Mildly dilated left ventricular cavity with moderately decreased left ventricle systolic function. Left ventricle ejection fraction estimated at 30 to 35%. Global hypokinesis however the study was inadequate to assess regional wall motion abnormality. Abnormal septal motion. Right Ventricle Mildly dilated right ventricle with mildly decreased right ventricle systolic function. Right Atrium Mildly increased right atrial size. Right atrial pressure estimated at 15 mmHg. Left Atrium Moderately increased left atrial size. Mitral Valve Mildly thickened mitral valve. Aortic Valve Thickened probably trileaflet aortic valve. Tricuspid Valve Tricuspid valve not well visualized. Pulmonic Valve Pulmonic valve not well visualized. Pericardium No pericardial effusion. Aorta Normal-sized aortic root. Dilated inferior vena cava with decreased respiratory variation. CONCLUSIONS 1. This is a technically difficult study with off axis views. 2. Mildly dilated left ventricular cavity with moderately decreased left ventricle systolic function. Left ventricle ejection fraction estimated at 30 to 35%. Global hypokinesis however the study was inadequate to assess regional wall motion abnormality. Abnormal septal motion. 3. Mildly dilated right ventricle with mildly decreased right ventricle systolic function. 4. Dilated inferior vena cava with decreased respiratory variation. 5. When compared to previous report dated 04/23/2021, right ventricle systolic function may have decreased Angie March MD (Electronically Signed) Final Date: 06 September 2021 17:17 S
[2021-09-06 11:48] LABS: Glucose Point of Care 321 mg/dL (70-110)
[2021-09-06] MEDS: insulin lispro 100 unit/1 mL SUBCUT ×3 (12:14→23:22)
[2021-09-06] MEDS: gabapentin 100 mg Capsule PO ×2 (12:15→17:57)
[2021-09-06] MEDS: cefTRIAXone 1,000 MG in sodium chloride 0.9% (plus) 50 ML 100 MG IV (16:00)
[2021-09-06 17:26] LABS: Glucose Point of Care 248 mg/dL (70-110)
--- NOTE | 2021-09-06 17:29 | PC.PT ---
Physical therapy was reordered today, was canceled [address] Schumacher, unable to determine any significant changes, will continue with original evaluation and goals of care
[2021-09-06] MEDS: bumetanide 0.25 mg/mL SDV 10 mL 2 MG IVP (17:57)
[2021-09-06] MEDS: vancomycin 1,500 MG/300 ML PIGGYBACK 200 MG IV (17:58)
[2021-09-06 18:02] LABS: Vancomycin Trough 21.2 ug/mL (10-15)
--- NOTE | 2021-09-06 18:38 | PC.PHAR ---
Vancocmycin trough level on dosage of 1500mg IVPB every 24 hours is 21.2. Dosage is adjusted to 1250mg IVPB every 24 hours with another trough level to be obtained before the fourth 1250mg dose.
--- NOTE | 2021-09-06 21:01 | P.PN_ITS ---
Subjective Subjective: Interval history: Discussed with him and his regarding results of cultures. Discussed finding of MRSA. Discussed consideration of additional steps. Discussed that concern would be for seeding of infection to other places, possible endocarditis. Discussed consideration of more invasive work-up. At this time only 1/4 bottles positive on blood culture from 09/02. Wo und culture growing MRSA. However, repeat blood cultures both negative. At this time he and spouse would want to hold off on more aggressive intervention, and especially would want to avoid risk of contrast-induced nephropathy with chronic kidney disease. We discussed also appears compared to his home weight, weight measured here was up by about 16 pounds. Not sure if this was accurate given that he was measured on the bed scale. However, his tells me that also that at home he takes Bumex 3 times a day, 4 mg in the morning, 4 mg afternoon, and 2 mg in the evening, as well as in addition if fluid overloaded takes also metolazone. His symptoms currently with some dyspnea, chest heaviness and remind her very much of times when he gets fluid overloaded. We discussed transition to IV diuretics, resumption of the 3 times daily schedule, and continuation of metolazone currently. Discussed also concern for progression of coronary disease, and discussed additional assessment including by stress testing which would be available on Wednesday. They are agreeable, due to difficulties with ambulation this would be a pharmacologic stress test. Vitals/I&O/Wt Last Vital Signs Temp 100 F H 09/06/21 20:00 Pulse 93 09/06/21 20:00 Resp 16 09/06/21 20:00 BP 126/72 09/06/21 20:00 Pulse Ox 91 09/06/21 20:00 09/06/21 09/06/21 09/06/21 06:59 14:59 22:59 Intake Total 480 / 1790 50 / 50 Output Total 400 / 400 450 / 450 800 / 1250 Balance 80 / 1390 -450 / -450 -750 / -1200 Physical Exam Const: COMMON NORMALS: no acute distress and patient oriented x3 HENMT: COMMON NORMALS: oropharynx normal Neck/C-Spine: COMMON NORMALS: no JVD Resp: COMMON NORMALS: normal respiratory effort and clear to auscultation bilaterally AUSCULTATION: clear to auscultation bilaterally Cardio: COMMON NORMALS: no JVD, regular rhythm, S1 normal heart sound present, S2 normal heart sound present and No murmurs present (Cardio) RHYTHM: regular rhythm HEART SOUNDS: S1 normal heart sound present and S2 normal heart sound present GI: COMMON NORMALS: Normal to inspection, nondistended, normoactive bowel sounds present, Soft to palpation and non-tender PALPATION: Yes Soft to palpation Extremity: COMMON NORMALS: no pedal edema OTHER: Postop dressing left arm, decreased swelling and redness of proximal thumb, decreased erythema track toward left wrist. Neuro: COMMON NORMALS: patient oriented x3 and moves all extremities Skin: COMMON NORMALS: no rashes or lesions noted GENERAL SKIN EXAM: no rashes or lesions noted Data : 09/06/21 05:30 09/06/21 05:30 Micro: Microbiology 09/04/21 13:32 Gram Stain - Final Finger - #1 Anaerobic Culture - Preliminary Wound Culture - Preliminary Methicillin Resis Staph Aureus 09/05/21 10:50 Blood Culture - Preliminary Blood NEGATIVE TO DATE 09/05/21 10:55 Blood Culture - Preliminary Blood NEGATIVE TO DATE A&P Assessment and plan (1) CHF (congestive heart failure): Acute systolic CHF exacerbation. His tells me at home he takes Bumex 3 times a day, 4 mg in the morning, 4 in afternoon, and 2 in the evening. Metolazone is added to EF and fluid overload. Symptoms currently similar to how he gets with fluid overload. Discussed we will transition for now to IV Bumex with a 3 times daily home gila edule. Continue metolazone. Discussed also additional assessment. TTE obtained, showing ejection fraction 30-35%. Global hypokinesis, unable to assess regional wall motion abnormality. Abnormal septal motion. Mildly dilated right ventricle with mildly decreased right ventricle systolic function. Dilated inferior vena cava with decreased respiratory variation. Discussed additional assessment by stress testing once possible on Wednesday given troponin abnormality, CHF, concern for possible progressed CAD. He has not had a stress test in several years. Chest x-ray without pneumonia. Status: Chronic Qualifiers: Heart failure type: combined systolic and diastolic Heart failure chronicity: chronic Qualified Code(s): I50.42 - Chronic combined systolic (congestive) and diastolic (congestive) heart failure (2) Staphylococcus aureus bacteremia: Discussed anticipate would need antibiotics for 2 weeks due to currently suspected uncomplicated bacteremia related to left thumb abscess, however, in case we are seeing signs of seeding of infection elsewhere, would require neck case additional assessment and treatment. Status: Acute (3) Abscess of left thumb: Fevers improving. Continue IV antibiotics while in the hospital. Follow- up with orthopedics in office, has an appointment on Wednesday. Leukocytosis has resolved. Continue vancomycin. Stop ceftriaxone. Blood culture from 09/02 growing MRSA. Staph aureus so far growing in wound culture. Follow-up repeat blood cultures to exclude persistent bacteremia which may be concerning for seeding to other places, possible endocarditis. Discussed risks with him and his . Status: Acute (4) Paronychia of finger of left hand: Status: Acute (5) Cellulitis: Left thumb. Continue IV antibiotics. 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 He cannot feel his hands and feet. Today severe proprioceptive loss. Consider outpatient follow-up with neurology. Will check B12, folic acid. 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 transplanted heart: [place] heart Associated angina: without angina Qualified Code(s): I25.810 - Atherosclerosis of coronary artery bypass graft(s) without angina pectoris (10) Chronic anticoagulation: eliquis Status: Chronic (11) Atrial fibrillation: Status: Chronic Qualifiers: Atrial fibrillation type: permanent Qualified Code(s): I48.21 - Permanent atrial fibrillation (12) Cervical spine disease: Status: Chronic (13) Difficulty balancing: Status: Acute (14) Gout: Status: Chronic (15) Obstructive sleep apnea: Status: Chronic (16) Aortic stenosis: Status: Chronic Attestations Medical Necessity Statement*: Continue admission for assessment management of acute CHF, improving SIRS, antibiotics for bacteremia, cellulitis, abscess of left thumb status post drainage. 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 transplanted heart: [place] heart Associated angina: without angina Chronic anticoagulation Z79.01 Atrial fibrillation I48.21 Atrial fibrillation type: permanent Cervical spine disease M48.9 Difficulty balancing R29.818 Gout M10.9 Obstructive sleep apnea G47.33 Aortic stenosis I35.0
[2021-09-06] MEDS: atorvastatin 40 mg Tablet 20 MG PO (21:45)
[2021-09-06] MEDS: gabapentin 300 mg Capsule PO (21:45)
[2021-09-06] MEDS: potassium chloride ER 20 mEq Tablet 10 MEQ PO (21:52)
[2021-09-06 22:10] LABS: Glucose Point of Care 202 mg/dL (70-110)
[2021-09-07] VITALS (10 sets, daily range): BP systolic 107–133; BP diastolic 58–80; PULSE 74–106; RESP 15–18; TEMP 36.4–37.1; O2SAT 89–98
--- NOTE | 2021-09-07 02:12 | PC.NURSE ---
0200 sitting up in bed watching tv. No distress.
--- NOTE | 2021-09-07 02:13 | PC.NURSE ---
2300 Assisted x 1 to sink using walker to wash hands and brush teeth. Standby assist. Gowned changed.
[2021-09-07] MEDS: bisacodyl 5 mg Tablet 10 MG PO (04:23)
--- NOTE | 2021-09-07 04:42 | PC.NURSE ---
0400 Assisted to BR using walker and standby assist for pt to have BM. Unsuccessful. PRN stool softener/laxative given as ordered.
[2021-09-07] MEDS: bumetanide 0.25 mg/mL SDV 10 mL 2 MG IVP ×3 (05:59→18:32)
--- NOTE | 2021-09-07 06:26 | PC.NURSE ---
0600 Sitting up in bed watching tv. No requests.
[2021-09-07 06:44] LABS: Glucose Point of Care 168 mg/dL (70-110)
[2021-09-07 06:59] LABS: Basophils % 0.2 %; Eosinophils # 0.2 10^3/uL (0.0-0.8); Eosinophils % 1.9 %; Hematocrit 37.4 % (42.0-52.0); Hemoglobin 12.1 g/dL (11.7-16.6); Lymphocytes # 1.6 10^3/uL (0.8-4.8); Lymphocytes % 19.1 %; Mean Corpuscular HGB Conc 32.4 g/dL (30.0-36.0); Mean Corpuscular Hemoglobin 28.9 pg (28.0-34.0); Mean Corpuscular Volume 89.5 fl (80-94); Mean Platelet Volume 9.2 fL (7.4-10.4); Monocytes # 0.8 10^3/uL (0.2-0.9); Monocytes % 9.2 %; Neutrophils # 5.93 10^3/uL (1.8-7.7); Neutrophils % 68.9 %; Nucleated Red Blood Cells % 0 %; Platelet Count 146 10^3/cmm (130-400); Red Blood Count 4.18 10^6/uL (4.1-5.3); Red Cell Distribution Width 16.1 % (12.1-15.1); White Blood Count 8.6 10^3/uL (4.0-10.0)
[2021-09-07 07:16] LABS: Alanine Aminotransferase 10 U/L (0-41); Albumin Level 3.8 g/dL (3.5-5.2); Alkaline Phosphatase 124 IU/L (40-130); Aspartate Amino Transferase 19 U/L (0-40); Blood Urea Nitrogen 75 mg/dL (8-23); Calcium 8.5 mg/dL (8.5-10.5); Carbon Dioxide 22 mmol/L (22-29); Chloride 90 mmol/L (98-107); Globulin 3.8 g/dL (1.3-4.6); Glucose 149 mg/dL (65-115); Osmolality Calculated 301 mOsm/kg (285-295); Sodium 133 mmol/L (136-145); Total Protein 7.6 g/dL (6.6-8.7)
[2021-09-07] MEDS: insulin lispro 100 unit/1 mL SUBCUT ×4 (09:52→21:33)
[2021-09-07] MEDS: finasteride 5 mg Tablet PO (09:55)
[2021-09-07] MEDS: carvedilol 12.5 mg Tablet PO ×2 (09:55→18:29)
[2021-09-07] MEDS: sodium bicarbonate 650 mg Tablet PO ×2 (09:55→18:29)
[2021-09-07] MEDS: isosorbide mononitrate ER 30 mg Tablet PO (09:56)
[2021-09-07] MEDS: potassium chloride ER 20 mEq Tablet 10 MEQ PO ×3 (09:56→20:49)
[2021-09-07] MEDS: apixaban 5 mg Tablet PO ×2 (09:56→20:49)
[2021-09-07] MEDS: lactobacillus 1 Tablet 1 TAB PO ×2 (09:56→18:29)
[2021-09-07] MEDS: ropinirole 0.25 mg Tablet 0.5 MG PO ×3 (09:58→20:49)
[2021-09-07] MEDS: metOLazone 5 MG Tablet 2.5 MG PO (09:58)
[2021-09-07] MEDS: pantoprazole DR 40 mg Tablet PO ×2 (10:00→18:29)
[2021-09-07] MEDS: allopurinol 100 mg Tablet PO (10:00)
[2021-09-07 12:04] LABS: Glucose Point of Care 206 mg/dL (70-110)
[2021-09-07] MEDS: gabapentin 100 mg Capsule PO ×2 (12:23→18:29)
--- NOTE | 2021-09-07 15:21 | PC.SOCIAL ---
IMM UPDATED IMM initialed and dated and copy given to patient
[2021-09-07 17:20] LABS: Glucose Point of Care 204 mg/dL (70-110)
[2021-09-07 21:09] LABS: Glucose Point of Care 198 mg/dL (70-110)
--- NOTE | 2021-09-07 21:33 | P.PN_ITS ---
Subjective Subjective: Interval history: Today he is for the first time feeling better. His scale was brought in from home and he weighs 240 pounds here which appears to be a good weight for him. Previously at one point was down as low as 234, but his states currently this weight may be too low for him. He denies chest pain or pressure at this time. No longer having chills. Fever resolving. Vitals/I&O/Wt Last Vital Signs Temp 98.7 F 09/07/21 20:00 Pulse 81 09/07/21 20:00 Resp 17 09/07/21 20:00 BP 113/70 09/07/21 20:00 Pulse Ox 98 09/07/21 20:00 09/07/21 09/07/21 09/07/21 06:59 14:59 22:59 Intake Total 480 / 480 Output Total 450 / 1700 200 / 200 850 / 1050 Balance -450 / -1530 280 / 280 -850 / -570 Physical Exam Const: COMMON NORMALS: no acute distress and patient oriented x3 HENMT: COMMON NORMALS: oropharynx normal Neck/C-Spine: COMMON NORMALS: no JVD Resp: COMMON NORMALS: normal respiratory effort and clear to auscultation bilaterally AUSCULTATION: clear to auscultation bilaterally Cardio: COMMON NORMALS: no JVD, regular rhythm, S1 normal heart sound present, S2 normal heart sound present and No murmurs present (Cardio) RHYTHM: regular rhythm HEART SOUNDS: S1 normal heart sound present and S2 normal heart sound present GI: COMMON NORMALS: Normal to inspection, nondistended, normoactive bowel sounds present, Soft to palpation and non-tender PALPATION: Yes Soft to palpation Extremity: COMMON NORMALS: no pedal edema OTHER: Postop dressing left arm, decreased swelling and redness of proximal thumb, decreased erythema track toward left wrist. Neuro: COMMON NORMALS: patient oriented x3 and moves all extremities Skin: COMMON NORMALS: no rashes or lesions noted GENERAL SKIN EXAM: no rashes or lesions noted Data : 09/07/21 06:40 09/07/21 06:40 Micro: Microbiology 09/04/21 13:32 Gram Stain - Final Finger - #1 Anaerobic Culture - Preliminary Wound Culture - Preliminary Methicillin Resis Staph Aureus A&P Assessment and plan (1) CHF (congestive heart failure): CHF now improving, and appears she has reached baseline weight. Continue current diuretics without escalation, transition back to her usual regimen at discharge. Given acute CHF, troponin abnormality, history of CAD, will additionally assess by stress testing prior to discharge. He cannot ambulate well due to severe neuropathy, so Lexiscan nuclear stress test requested for tomorrow. Discontinue metolazone. Chest x-ray without pneumonia. Status: Chronic Qualifiers: Heart failure type: combined systolic and diastolic Heart failure chronicity: chronic Qualified Code(s): I50.42 - Chronic combined systolic (congestive) and diastolic (congestive) heart failure (2) Staphylococcus aureus bacteremia: Consider 2 weeks of oral Levaquin or linezolid therapy given susceptibility. The other option would be to complete 2 weeks with IV vancomycin for which could get PICC line placed tomorrow. Discussed anticipate would need antibiotics for 2 weeks due to currently suspected uncomplicated bacteremia related to left thumb abscess, however, in case we are seeing signs of seeding of infection elsewhere, would require neck case additional assessment and treatment. Status: Acute (3) Abscess of left thumb: Fevers improving. Family asking if Dr. Schumacher able to see him in the hospital tomorrow to reassess the wound and for dressing change. Otherwise we will follow-up with orthopedics in office with appointment on Wednesday. Leukocytosis has resolved. Continue vancomycin. Stopped ceftriaxone. Blood culture from 09/02 growing MRSA. Staph aureus so far growing in wound culture. Follow-up repeat blood cultures to exclude persistent bacteremia which may be concerning for seeding to other places, possible endocarditis. Discussed risks with him and his . Status: Acute (4) Paronychia of finger of left hand: Status: Acute (5) Cellulitis: Left thumb. Continue IV antibiotics. 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 He cannot feel his hands and feet. Today severe proprioceptive loss. Consider outpatient follow-up with neurology. Normal B12, folic acid. 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 transplanted heart: [place] heart Associated angina: without angina Qualified C ode(s): I25.810 - Atherosclerosis of coronary artery bypass graft(s) without angina pectoris (10) Chronic anticoagulation: eliquis Status: Chronic (11) Atrial fibrillation: Status: Chronic Qualifiers: Atrial fibrillation type: permanent Qualified Code(s): I48.21 - Permanent atrial fibrillation (12) Cervical spine disease: Status: Chronic (13) Difficulty balancing: Status: Acute (14) Gout: Status: Chronic (15) Obstructive sleep apnea: Status: Chronic (16) Aortic stenosis: Status: Chronic Attestations Medical Necessity Statement*: Continue admission for additional assessment by stress testing given acute CHF, now compensated, and troponin abnormality with underlying CAD Coding Level of Care Code 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 Diagnoses CHF (congestive heart failure) I50.42 Heart failure type: combined systolic and diastolic Heart failure chronicity: chronic Staphylococcus aureus bacteremia R78.81; B95.61 Abscess of left thumb L02.512 Paronychia of finger of left hand L03.012 Cellulitis L03.012 Laterality: left Site of cellulitis: extremity Site of cellulitis of extremity: finger SIRS (systemic inflammatory response syndrome) R65.10 Diabetes mellitus, type II E11.42; Z79.4 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 transplanted heart: [place] heart Associated angina: without angina Chronic anticoagulation Z79.01 Atrial fibrillation I48.21 Atrial fibrillation type: permanent Cervical spine disease M48.9 Difficulty balancing R29.818 Gout M10.9 Obstructive sleep apnea G47.33 Aortic stenosis I35.0
[2021-09-08] VITALS (13 sets, daily range): BP systolic 86–123; BP diastolic 43–73; PULSE 60–92; RESP 16–18; TEMP 36.4–36.7; O2SAT 97–99
--- NOTE | 2021-09-08 00:36 | PC.NURSE ---
1944 Assisted up at side of bed with walker to void using urinal. Pt reports dizziness and feels need to hold to walker, unable to hold urinal. NUrse feels this is appropriate based on pt condition. Nurse holds urinal in place while pt voids. Assisted back to bed william done.
--- NOTE | 2021-09-08 00:38 | PC.NURSE ---
2130 Pt sitting up in bed watching tv. No requests. Ice water given and NPO after MV status discussed. Voices understanding.
--- NOTE | 2021-09-08 00:39 | PC.NURSE ---
2330 Assisted up using walker to stand beside bed. Reports dizziness and unsteady if hands not on walker. Nurse holds urinal in place while pt voids. Assisted back to bed.
--- NOTE | 2021-09-08 00:40 | PC.NURSE ---
0015 home CPAP applied per pt. No distress.
--- NOTE | 2021-09-08 01:50 | PC.NURSE ---
0100 manual orthostatic BPs done due to low BP report with routine MN vitals and c/o dizziness. Reported to Dr. Baldwin along with brief hx. She plans to review his chart and get back to me.
--- NOTE | 2021-09-08 02:00 | NUR.SHIFT ---
0200 Dr Morales come to unit to discuss pt status. Plans to hold am Amymex.
--- NOTE | 2021-09-08 05:04 | PC.NURSE ---
0500 Sitting up in bed watching tv. POC explained for holding Bumex and having stress test this am.
[2021-09-08 06:08] LABS: Basophils % 0.5 %; Eosinophils # 0.2 10^3/uL (0.0-0.8); Eosinophils % 2.8 %; Hematocrit 36.1 % (42.0-52.0); Lymphocytes # 1.4 10^3/uL (0.8-4.8); Lymphocytes % 17.5 %; Mean Corpuscular HGB Conc 33.2 g/dL (30.0-36.0); Mean Corpuscular Hemoglobin 29.6 pg (28.0-34.0); Mean Corpuscular Volume 89.1 fl (80-94); Mean Platelet Volume 10.1 fL (7.4-10.4); Monocytes # 0.6 10^3/uL (0.2-0.9); Neutrophils # 5.65 10^3/uL (1.8-7.7); Neutrophils % 71.7 %; Nucleated Red Blood Cells % 0 %; Platelet Count 177 10^3/cmm (130-400); Red Blood Count 4.05 10^6/uL (4.1-5.3); Red Cell Distribution Width 15.9 % (12.1-15.1); White Blood Count 7.9 10^3/uL (4.0-10.0)
--- NOTE | 2021-09-08 06:19 | PC.NURSE ---
0610 Sitting up in bed watching tv. Denies pain. Voices understanding of having stress test today.
[2021-09-08 06:31] LABS: Alanine Aminotransferase 11 U/L (0-41); Albumin Level 3.5 g/dL (3.5-5.2); Alkaline Phosphatase 137 IU/L (40-130); Aspartate Amino Transferase 19 U/L (0-40); Calcium 9.6 mg/dL (8.5-10.5); Carbon Dioxide 23 mmol/L (22-29); Chloride 91 mmol/L (98-107); Globulin 4.2 g/dL (1.3-4.6); Glucose 145 mg/dL (65-115); Osmolality Calculated 307 mOsm/kg (285-295); Sodium 135 mmol/L (136-145); Total Bilirubin 0.8 mg/dL (0.15-1.2); Total Protein 7.7 g/dL (6.6-8.7)
--- NOTE | 2021-09-08 06:37 | PC.NURSE ---
0635 radiology at bedside.
--- NOTE | 2021-09-08 06:42 | PC.NURSE ---
0642 Pitcher of water given to pt to drink as instructed by rad staff.
[2021-09-08 06:44] LABS: Glucose Point of Care 155 mg/dL (70-110)
[2021-09-08 06:51] LABS: Blood Urea Nitrogen 81 mg/dL (8-23)
--- NOTE | 2021-09-08 06:53 | PC.NURSE ---
[address] Baldwin of BUN 81. NO orders received at this time.
--- NOTE | 2021-09-08 08:00 | ECG_ITS ---
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 Interpretive Statements NAME OF STUDY: LEXISCAN SESTAMIBI STRESS TEST INDICATION: Elevated troponin, congestive heart failure PROCEDURE: At the baseline, the blood pressure was 104/78 bpm with a heart rate of 91 bpm and oxygen saturation of 95%. The electrocardiogram showed atrial fibrillation with frequent PVC's. Poor anterior R wave progression. The Lexiscan was infused over a period of 20 seconds. A total of 0.4 milligrams of Lexiscan was infused. The stress phase was continued for a total of 5 minutes. Heart rate at the end of the stress phase was 92 bpm, oxygen saturation of 99% with a blood pressure of 92/52 bpm. The EKG at the peak infusion revealed no significant ST-T wave changes. Sestamibi was injected 20 seconds after the Lexiscan infusion. Blood pressure at the end of the recovery phase was 145/59 mm Hg, oxygen saturation of 99% with a heart rate of 84 beats per minute. CONCLUSION: 1. No significant EKG changes with the LexiScan infusion. 2. No LexiScan induced chest pain or cardiac arrhythmia. 3. Normal blood pressure and heart rate response. 4. Sestamibi/sestamibi perfusion scan pending; see separate report. Electronically Signed On 09-15-2021 19:48:33 COMMODITY ANALYST by Angie March M.D. [id number]
[2021-09-08] MEDS: regadenoson 0.4 Mg/5 ml Syringe IVP (09:32)
[2021-09-08 11:07] LABS: Glucose Point of Care 192 mg/dL (70-110)
[2021-09-08] MEDS: potassium chloride ER 20 mEq Tablet 10 MEQ PO ×3 (11:55→21:25)
[2021-09-08] MEDS: finasteride 5 mg Tablet PO (11:56)
[2021-09-08] MEDS: apixaban 5 mg Tablet PO ×2 (11:56→21:26)
[2021-09-08] MEDS: lactobacillus 1 Tablet 1 TAB PO ×2 (11:57→18:04)
[2021-09-08] MEDS: isosorbide mononitrate ER 30 mg Tablet PO (11:58)
[2021-09-08] MEDS: oxyCODONE-APAP 5-325 mg Tablet 1 TAB PO (11:58)
[2021-09-08] MEDS: pantoprazole DR 40 mg Tablet PO ×2 (11:59→18:04)
[2021-09-08] MEDS: allopurinol 100 mg Tablet PO (11:59)
[2021-09-08] MEDS: ropinirole 0.25 mg Tablet 0.5 MG PO ×3 (12:00→21:26)
[2021-09-08] MEDS: sodium bicarbonate 650 mg Tablet PO ×2 (12:02→18:05)
[2021-09-08] MEDS: carvedilol 12.5 mg Tablet PO (12:02)
[2021-09-08] MEDS: gabapentin 100 mg Capsule PO ×2 (12:05→18:04)
[2021-09-08] MEDS: insulin lispro 100 unit/1 mL SUBCUT ×2 (12:11→18:05)
--- NOTE | 2021-09-08 12:12 | NMCV_ITS ---
NM jennifer perf SPECT r/s* [id number] Gian Bowers Age: 70 Gender: M : 1950 Exam Date: 09/08/2021 07:08 Ordering Phys: Spencer Brewer MD Technologist: AGUEDA Archibald Exam Location: [facility] Indications: CHEST PAIN STRESS TEST [facility] IMAGE PROTOCOL Rest/Stress 1 Lexiscan Day Radiopharmaceutical Dose (mCi) Administration Site Administered by Rest: Tc-99m 9.4 IV AGUEDA Whitfield Sestamibi Stress:Tc-99m 26.5 IV AGUEDA Whitfield Sestamibi Rest: 08-Sep-2021 60 Discovery 630 Stress: 08-Sep-2021 30 Discovery 630 0.4mg Lexiscan. Supine position only as patient was unable to lay prone. SPECT RESULTS Technical Quality: Good Raw Data Analysis: Normal Image Corrections: No attenuation or motion correction applied Summed Stress Score: 26 Summed Rest Score: 25 Summed Difference Score: 2 PERFUSION FINDINGS There is large in size mostly fixed perfusion defect noted in the apical, apical lateral, anterior and inferior winn. There is small area of periinfarct ischemia noted in the inferior and inferolateral winn. FUNCTIONAL RESULTS (calculated via Gated SPECT) Stress Image LV EF (%): 40 Stress EDV (mL):193 TID: 0.83 Stress ESV (mL):116 FUNCTIONAL FINDINGS: LV systolic function is mild to moderately reduced with EF of 40% IMPRESSIONS 1. Abnormal myocardial perfusion imaging with evidence of large sized infarct in anterior, apical, apical lateral and inferior winn with small to moderate sized area of ismael-infarct ischemia in the inferior and inferolateral winn 2. LV systolic function is mild to moderately reduced with EF of 40% Kadeem Oliva MD (Electronically Signed) Final Date: 08 September 2021 11:08 S
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
[2021-09-08 17:36] LABS: Glucose Point of Care 234 mg/dL (70-110)
[2021-09-08] MEDS: carvedilol 3.125 mg Tablet PO (18:03)
[2021-09-08] MEDS: vancomycin 1,250 MG/250 ML PIGGYBACK 250 MG IV (18:06)
--- NOTE | 2021-09-08 19:09 | PC.NURSE ---
AT APPROX 1600 PTS DAUGHTER LISA PERRIN, DECIDED TO UNDRESS PTS WOUND. I EDUC HER THAT THE DR HAD ORDERED THE DRESSING TO STAY INTACT AND TO NOT BE CHANGED, EXCEPT WHEN THE DR CHANGED IT. SHE PROCEEDED TO CHANGED AND REDRESS PTS WOUND.
[2021-09-08 20:47] LABS: Glucose Point of Care 157 mg/dL (70-110)
[2021-09-08] MEDS: bisacodyl 5 mg Tablet 10 MG PO (21:25)
[2021-09-08] MEDS: scopolamine 1.5 Patch 1 PATCH TRANSDERMA (21:25)
[2021-09-08] MEDS: acetaminophen 325 mg Tablet 650 MG PO (21:26)
[2021-09-08] MEDS: atorvastatin 40 mg Tablet 20 MG PO (21:36)
[2021-09-09] VITALS (7 sets, daily range): BP systolic 111–154; BP diastolic 65–83; PULSE 63–76; RESP 15–18; TEMP 36.4–36.9; O2SAT 94–100
--- NOTE | 2021-09-09 00:36 | PC.NURSE ---
2000 sitting up in bed watching tv. Reports back/neck pain. Repositioned and let pt know when next med is due Voices understanding, will give when due.
--- NOTE | 2021-09-09 00:37 | PC.NURSE ---
2200 awake in bed. reports pain to be improving. no distress.
--- NOTE | 2021-09-09 00:38 | PC.NURSE ---
2330 Irregular afib with occasional PVCs noted on monitor. HR 74 on #12 box. Pt resting in bed. Easily arouses.
--- NOTE | 2021-09-09 02:57 | PC.NURSE ---
0230 pt sleeping in bed with home cpap in use. Resp e/u. No distress.
[2021-09-09] MEDS: bumetanide 0.25 mg/mL SDV 10 mL 2 MG IVP ×2 (06:03→17:32)
--- NOTE | 2021-09-09 06:03 | PC.ADMIT ---
[phone] Admission Note: The patient,Gian Bowers,70 y/o, was given written information regarding hospital policies, unit procedures and contact persons. Patient's smoking status: never smoked. Vital Signs - 8 hr 09/09/21 00:00 09/09/21 04:00 Temperature 97.6 F 98.4 F Pulse Rate 75 69 Respiratory Rate 15 15 Blood Pressure 125/78 125/80 Pulse Oximetry 94 98
[2021-09-09 06:42] LABS: Glucose Point of Care 182 mg/dL (70-110)
--- NOTE | 2021-09-09 07:49 | PM.PN ---
Subjective Subjective: Interval history: No pain left thumb Vitals/I&O/Wt Last Vital Signs Temp 98.1 F 09/09/21 07:36 Pulse 66 09/09/21 07:36 Resp 16 09/09/21 07:36 BP 117/65 09/09/21 07:36 Pulse Ox 98 09/09/21 07:36 09/08/21 09/09/21 09/09/21 22:59 06:59 14:59 Intake Total 240 / 480 Output Total 350 / 350 350 / 350 Balance 240 / 480 -350 / 130 -350 / -350 Physical Exam Narrative: EXAM NARRATIVE: Much less swelling and erythema left thumb. No necrotic tissue. Data : 09/08/21 04:37 09/08/21 04:37 Micro: Microbiology 09/03/21 15:08 Blood Culture - Final Blood NO GROWTH AFTER 5 DAYS 09/03/21 15:06 Blood Culture - Final Blood NO GROWTH AFTER 5 DAYS 09/04/21 13:32 Gram Stain - Final Finger - #1 Anaerobic Culture - Preliminary Wound Culture - Preliminary Methicillin Resis Staph Aureus A&P Assessment and plan (1) Abscess of left thumb: Left thumb looks great. Home health to assist with dressing changes. Status: Acute Attestations Medical Necessity Statement*: as per medicine Coding Level of Care Code Acute Occupational Therapist Per Diem for [facility] Diagnoses Abscess of left thumb L02.512
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
[2021-09-09] MEDS: apixaban 5 mg Tablet PO ×2 (09:20→21:04)
[2021-09-09] MEDS: lactobacillus 1 Tablet 1 TAB PO ×2 (09:21→18:35)
[2021-09-09] MEDS: ropinirole 0.25 mg Tablet 0.5 MG PO ×3 (09:21→21:04)
[2021-09-09] MEDS: allopurinol 100 mg Tablet PO (09:21)
[2021-09-09] MEDS: finasteride 5 mg Tablet PO (09:21)
[2021-09-09] MEDS: isosorbide mononitrate ER 30 mg Tablet PO (09:21)
[2021-09-09] MEDS: pantoprazole DR 40 mg Tablet PO ×2 (09:21→18:36)
[2021-09-09] MEDS: carvedilol 3.125 mg Tablet PO ×2 (09:22→18:36)
[2021-09-09] MEDS: potassium chloride ER 20 mEq Tablet 10 MEQ PO ×3 (09:22→21:04)
[2021-09-09] MEDS: insulin lispro 100 unit/1 mL SUBCUT ×4 (09:23→22:18)
[2021-09-09] MEDS: sodium bicarbonate 650 mg Tablet PO ×2 (09:24→18:36)
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
--- NOTE | 2021-09-09 09:28 | CT_ITS ---
WS: [id number] CT head wo con* [id number] REASON FOR EXAM: septic, dizziness IV CONTRAST ADMINISTERED: Noncontrast TOTAL EXAM DLP: 1231.[address] scans at [facility] use at least one of these dose optimization techniques: automat ed exposure control; mA and/or kV adjustment per patient size (includes targeted exams where dose is matched to clinical indication); or iterative reconstruction. FINDINGS: The examination is unchanged compared to 05/16/2021. Base of skull and bony calvarium are intact. There is no midline shift or other significant mass effect. No findings of intracranial hemorrhage. No mass effect. No focal acute brain parenchymal abnormality supra or infratentorial. Small punctate basal ganglia calcifications, not significant. Significant global atrophy with symmetric enlargement of CSF spaces. Dolichoectasia and calcification of the basilar artery. CT/CT head wo con* [id number] IMPRESSION: No acute intracranial finding. No change from 05/16/2021.
--- NOTE | 2021-09-09 10:44 | PC.SOCIAL ---
IMM Update pg 2 of IMM updated and reviewed w/ patient. Copy provided.
[2021-09-09 10:54] LABS: Alanine Aminotransferase 11 U/L (0-41); Albumin Level 3.9 g/dL (3.5-5.2); Alkaline Phosphatase 135 IU/L (40-130); Anion Gap 22.2 (5-19); Aspartate Amino Transferase 17 U/L (0-40); Blood Urea Nitrogen 75 mg/dL (8-23); Calcium 9.3 mg/dL (8.5-10.5); Carbon Dioxide 25 mmol/L (22-29); Chloride 90 mmol/L (98-107); Globulin 4.2 g/dL (1.3-4.6); Glucose 141 mg/dL (65-115); Osmolality Calculated 303 mOsm/kg (285-295); Potassium 3.2 mmol/L (3.5-5.1); Sodium 134 mmol/L (136-145); Total Bilirubin 0.7 mg/dL (0.15-1.2); Total Protein 8.1 g/dL (6.6-8.7)
[2021-09-09] MEDS: meclizine 25 mg tablet PO (11:07)
[2021-09-09 11:18] LABS: Glucose Point of Care 154 mg/dL (70-110)
[2021-09-09] MEDS: gabapentin 100 mg Capsule PO ×2 (13:04→18:38)
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
[2021-09-09 17:12] LABS: Glucose Point of Care 269 mg/dL (70-110)
[2021-09-09] MEDS: vancomycin 1,250 MG/250 ML PIGGYBACK 250 MG IV (18:35)
[2021-09-09 21:51] LABS: Glucose Point of Care 170 mg/dL (70-110)
[2021-09-10] VITALS (7 sets, daily range): BP systolic 110–145; BP diastolic 62–75; PULSE 66–82; RESP 16–18; TEMP 36.3–36.9; O2SAT 94–100
[2021-09-10 05:50] LABS: Basophils % 0.4 %; Eosinophils # 0.2 10^3/uL (0.0-0.8); Eosinophils % 1.9 %; Hematocrit 36.3 % (42.0-52.0); Hemoglobin 11.9 g/dL (11.7-16.6); Lymphocytes # 1.2 10^3/uL (0.8-4.8); Lymphocytes % 12.3 %; Mean Corpuscular HGB Conc 32.8 g/dL (30.0-36.0); Mean Corpuscular Hemoglobin 29.4 pg (28.0-34.0); Mean Corpuscular Volume 89.6 fl (80-94); Mean Platelet Volume 9.2 fL (7.4-10.4); Monocytes # 0.7 10^3/uL (0.2-0.9); Neutrophils # 7.47 10^3/uL (1.8-7.7); Neutrophils % 77.1 %; Nucleated Red Blood Cells % 0 %; Platelet Count 211 10^3/cmm (130-400); Red Blood Count 4.05 10^6/uL (4.1-5.3); Red Cell Distribution Width 15.8 % (12.1-15.1); White Blood Count 9.7 10^3/uL (4.0-10.0)
[2021-09-10 06:17] LABS: Alanine Aminotransferase 10 U/L (0-41); Albumin Level 3.6 g/dL (3.5-5.2); Alkaline Phosphatase 118 IU/L (40-130); Anion Gap 22.2 (5-19); Aspartate Amino Transferase 15 U/L (0-40); Blood Urea Nitrogen 74 mg/dL (8-23); Calcium 8.5 mg/dL (8.5-10.5); Carbon Dioxide 23 mmol/L (22-29); Chloride 91 mmol/L (98-107); Glucose 139 mg/dL (65-115); Osmolality Calculated 300 mOsm/kg (285-295); Potassium 3.2 mmol/L (3.5-5.1); Sodium 133 mmol/L (136-145); Total Bilirubin 0.7 mg/dL (0.15-1.2); Total Protein 7.6 g/dL (6.6-8.7)
[2021-09-10 06:41] LABS: Glucose Point of Care 130 mg/dL (70-110)
[2021-09-10] MEDS: sodium bicarbonate 650 mg Tablet PO (09:12)
[2021-09-10] MEDS: lactobacillus 1 Tablet 1 TAB PO (09:12)
[2021-09-10] MEDS: ropinirole 0.25 mg Tablet 0.5 MG PO ×2 (09:12→15:56)
[2021-09-10] MEDS: finasteride 5 mg Tablet PO (09:12)
[2021-09-10] MEDS: oxyCODONE-APAP 5-325 mg Tablet 1 TAB PO (09:12)
[2021-09-10] MEDS: carvedilol 3.125 mg Tablet PO (09:13)
[2021-09-10] MEDS: apixaban 5 mg Tablet PO (09:13)
[2021-09-10] MEDS: allopurinol 100 mg Tablet PO (09:13)
[2021-09-10] MEDS: pantoprazole DR 40 mg Tablet PO (09:13)
[2021-09-10] MEDS: isosorbide mononitrate ER 30 mg Tablet PO (09:13)
[2021-09-10] MEDS: bumetanide 0.25 mg/mL SDV 10 mL 2 MG IVP (09:13)
[2021-09-10] MEDS: potassium chloride ER 20 mEq Tablet 10 MEQ PO (09:14)
--- NOTE | 2021-09-10 10:30 | MR_ITS ---
WS: [id number] MRI HEAD WITHOUT CONTRAST TECHNIQUE: Sagittal T1, T2 axial, T2 axial FLAIR, axial and coronal T1 images, axial susceptibility w eighted imaging, axial diffusion weighted images, and coronal T2 images were obtained. CLINICAL INFORMATION: vertigo, r/o posterior circulation CVA COMPARISON: CT September 09, 2021 FINDINGS: No evidence of restricted diffusion to suggest acute ischemia. Ventricular system and basal cisterns are patent. Mild small vessel changes. Moderate parenchymal volume loss. Parenchymal volume loss wors e in the frontal lobes bilaterally. Normal posterior fossa. Normal vascular flow voids at the skull b ase. No extra-axial fluid collections. No evidence of mass or mass effect. Paranasal sinuses and mastoid air cells are well aerated. No hemosiderin on susceptibly weighted imag es. Mild to moderate symmetric atrophy involving the temporal lobes and hippocampal formations. Normal op tic chiasm and pituitary infundibulum. Normal cavernous sinuses and Meckel's cave. MR/MR head wo con* [id number] IMPRESSION: 1. No evidence of restricted diffusion to suggest acute ischemia. 2. Mild small vessel changes with moderate parenchymal volume loss worse in th e frontal lobes. 3. No hemosiderin on susceptibly weighted images. 4. Mild to moderate symmetric atrophy temporal lobes and hippocampal formation s. 5. No other significant findings.
[2021-09-10 11:17] LABS: Vancomycin Random 35.1 ug/mL (20.0-40.0)
[2021-09-10 12:02] LABS: Glucose Point of Care 200 mg/dL (70-110)
[2021-09-10] MEDS: gabapentin 100 mg Capsule PO (12:47)
[2021-09-10] MEDS: insulin lispro 100 unit/1 mL SUBCUT ×2 (12:47→17:32)
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
--- NOTE | 2021-09-10 14:26 | XR_ITS ---
WS: [id number] CHEST XRAY TECHNIQUE: Portable chest. CLINICAL INFORMATION: post picc insertion COMPARISON: September 05, 2021 FINDINGS: Right PICC line with tip in the distal SVC. No pneumothorax. Heart: Cardiomegaly. Sternotomy. Mediastinal clips. Lungs: Lungs are well aerated. No acute pulmonary infiltrates. Bones: Normal visualized bony structures. XR/XR chest 1V portable [id number] IMPRESSION: Right PICC line with tip in the distal SVC. No pneumothorax.
[2021-09-10] MEDS: potassium chloride ER 20 mEq Tablet PO (15:56)
[2021-09-10 16:24] LABS: Vancomycin Trough 28.9 ug/mL (10-15)
--- NOTE | 2021-09-10 17:11 | PC.NURSE ---
DR. BRANDON CLARIFIED TROUGH ORDERS FOR [facility]. REPEAT TROUGH TOMORROW. TO REDOSE VANCOMYCIN ONLY IF TROUGH LEVEL BELOW 15. IF ABOVE 15 HOLD TOMORROW'S DOSE ALSO. JUS AT [facility] NOTIFIED.
--- NOTE | 2021-09-10 17:17 | P.PN_ITS ---
Subjective Subjective: Interval history: ID progress note. PICC placed. CT head and MR brain negative for emboli or any acute abnormality. Chart reviewed, recommendation discussed with primary team. Discharged by the time of rounds. 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 Found to have Blood cx positive for MRSA on admission Unclear duration of bacteremia, however suspect that may be have been bacteremic in the days leading up to current admission given systemic signs of illness including fever. Cx results may additionally be clouded by outpatient abx treatment with clindamycin. Currently blood cx clear as of 09/03 after appropriate debridement and iv abx treatment with vancomycin. Currently on vancomycin, last trough at 21, check prior to dose today- discussed with pharmacy. No signs of osteomyelitis on CT, no gross valvular vegetations on CT Will plan for at least 4 weeks of iv abx for treatment of complicated skin and soft tissue infection with unclear duration of bacteremia. CX currently cleared quickly post debridement, lower suspicion for endocarditis. Daptomycin copay not affordable so plan to c/w vancomycin on discharge. Trough level today high at 28.9. Today's dose held. Recommend to check Vanc level tomorrow, redose once level close to 15 to avoid risk of nephrotoxicity. Attestations Medical Necessity Statement*: As per primary team. Time Spent in Patient Care: Greater than 35 minutes (>than 50% of time spent in counselling and/or direct pt care on unit) . Coding Level of Care Code Acute [employer] for [facility] Fwd Diagnoses Staphylococcus aureus bacteremia R78.81; B95.61 Abscess of left thumb L02.512 Paronychia of finger of left hand L03.012
[2021-09-10 17:18] LABS: Glucose Point of Care 431 mg/dL (70-110)
== END 2021-09-10 17:30 | disposition home or self-care (01) | DRG 573 ==
LOC: ER 09-04 01:25 → MEDSURG 09-04 01:58
PROVIDERS: Internal Medicine; Orthopaedic Surgery; Physician Assistant; Admitting Provider Hospitalist; Emergency Provider Emergency Medicine; PCP Family Medicine; Visit Provider Student in an Organized Health Care Education/Training Program
PROC: 0HBQXZZ Excision of Finger Nail, External Approach (ICD-10-PCS; principal; 2021-09-04 13:00)
DX: L03.012 Cellulitis of left finger (principal); I50.43 Acute on chronic combined systolic (congestive) and diastolic (congestive) heart failure; I13.0 Hypertensive heart and chronic kidney disease with heart failure and stage 1 through stage 4 chronic kidney disease, or unspecified chronic kidney disease; N18.4 Chronic kidney disease, stage 4 (severe); I48.21 Permanent atrial fibrillation; R65.10 Systemic inflammatory response syndrome (SIRS) of non-infectious origin without acute organ dysfunction; E11.65 Type 2 diabetes mellitus with hyperglycemia; E11.42 Type 2 diabetes mellitus with diabetic polyneuropathy; E11.22 Type 2 diabetes mellitus with diabetic chronic kidney disease; I25.10 Atherosclerotic heart disease of native coronary artery without angina pectoris; Z95.1 Presence of aortocoronary bypass graft; G89.29 Other chronic pain; M48.8X2 Other specified spondylopathies, cervical region; K57.90 Diverticulosis of intestine, part unspecified, without perforation or abscess without bleeding; K21.9 Gastro-esophageal reflux disease without esophagitis; Z86.14 Personal history of Methicillin resistant Staphylococcus aureus infection; E78.5 Hyperlipidemia, unspecified; E66.9 Obesity, unspecified; Z68.32 Body mass index [BMI] 32.0-32.9, adult; G47.33 Obstructive sleep apnea (adult) (pediatric); G25.81 Restless legs syndrome; M65.9 Synovitis and tenosynovitis, unspecified; Z89.421 Acquired absence of other right toe(s); Z79.891 Long term (current) use of opiate analgesic; Z79.4 Long term (current) use of insulin; Z79.01 Long term (current) use of anticoagulants; N40.0 Benign prostatic hyperplasia without lower urinary tract symptoms; I25.2 Old myocardial infarction; I95.1 Orthostatic hypotension; B95.62 Methicillin resistant Staphylococcus aureus infection as the cause of diseases classified elsewhere; I35.0 Nonrheumatic aortic (valve) stenosis; M10.9 Gout, unspecified
CPT/HCPCS: 10060; 36415; 36416; 36569; 70450; 70551; 71045; 73130; 73200; 78452; 80048; 80053; 80202; 82607; 82746; 82962; 83036; 83605; 83735; 84100; 84484; 85025; 85610; 85651; 85730; 86140; 87040; 87070; 87075; 87077; 87186; 87205; 87635; 93005; 93308; 96365; 96367; 96372; 96375; 96376; 97110; 97116; 97162; 97530; 99283; 99285; A9500; J0696; J1580; J1815; J2250; J2270; J2704; J2785; J3010; J3370; J3475; J3490; J7030; J7040; J8597

== ENCOUNTER 2021-09-11 14:23 | Outpatient (CLI) | payer MEDICARE, SELFPAY ==
[2021-09-11 14:52] LABS: Vancomycin Trough 19.1 ug/mL (10-15)
== END 2021-09-11 14:24 | disposition home or self-care (01) ==
LOC: LAB 14:24
PROVIDERS: PCP Family Medicine; Visit Provider Student in an Organized Health Care Education/Training Program
DX: L03.012 Cellulitis of left finger (principal)
CPT/HCPCS: 80202

== ENCOUNTER 2021-09-12 11:38 | Outpatient (CLI) | payer MEDICARE, SELFPAY ==
[2021-09-12 12:47] LABS: Vancomycin Trough 13.7 ug/mL (10-15)
== END 2021-09-12 11:39 | disposition home or self-care (01) ==
LOC: LAB 11:42
PROVIDERS: PCP Family Medicine; Visit Provider Student in an Organized Health Care Education/Training Program
DX: Z45.2 Encounter for adjustment and management of vascular access device (principal)
CPT/HCPCS: 80202

== ENCOUNTER 2021-09-15 16:37 | Outpatient (CLI) | payer MEDICARE, SELFPAY ==
[2021-09-15 17:21] LABS: Basophils # 0.1 10^3/uL (0.0-0.1); Basophils % 0.8 %; Eosinophils # 0.1 10^3/uL (0.0-0.8); Eosinophils % 1.8 %; Hematocrit 34.6 % (42.0-52.0); Hemoglobin 11.1 g/dL (11.7-16.6); Lymphocytes # 1.2 10^3/uL (0.8-4.8); Lymphocytes % 17.6 %; Mean Corpuscular HGB Conc 32.1 g/dL (30.0-36.0); Mean Corpuscular Hemoglobin 29.7 pg (28.0-34.0); Mean Corpuscular Volume 92.5 fl (80-94); Mean Platelet Volume 9.5 fL (7.4-10.4); Monocytes # 0.5 10^3/uL (0.2-0.9); Monocytes % 8.2 %; Neutrophils # 4.67 10^3/uL (1.8-7.7); Neutrophils % 70.7 %; Nucleated Red Blood Cells % 0 %; Platelet Count 192 10^3/cmm (130-400); Red Blood Count 3.74 10^6/uL (4.1-5.3); Red Cell Distribution Width 15.9 % (12.1-15.1); White Blood Count 6.6 10^3/uL (4.0-10.0)
[2021-09-15 17:36] LABS: Alanine Aminotransferase 14 U/L (0-41); Albumin Level 3.4 g/dL (3.5-5.2); Alkaline Phosphatase 128 IU/L (40-130); Anion Gap 20.8 (5-19); Aspartate Amino Transferase 19 U/L (0-40); Blood Urea Nitrogen 50 mg/dL (8-23); Calcium 8.3 mg/dL (8.5-10.5); Carbon Dioxide 21 mmol/L (22-29); Chloride 97 mmol/L (98-107); Globulin 3.6 g/dL (1.3-4.6); Glucose 235 mg/dL (65-115); Magnesium 1.5 mg/dL (1.7-2.3); Osmolality Calculated 301 mOsm/kg (285-295); Phosphorus 2.7 mg/dL (2.5-4.5); Potassium 3.8 mmol/L (3.5-5.1); Sodium 135 mmol/L (136-145); Total Bilirubin 0.4 mg/dL (0.15-1.2)
[2021-09-15 17:45] LABS: Urine Creatinine 45 mg/dL (39-259)
[2021-09-15 17:46] LABS: UPRO/UCREAT Ratio 1.29 mg/mg CR; Urine Protein Random 58 mg/dL
[2021-09-15 17:47] LABS: Calcium 8.1 mg/dL (8.5-10.5); Vancomycin Trough 8.3 ug/mL (10-15)
[2021-09-15 17:52] LABS: 25 Hydroxy Vitamin D 55 ng/mL (30-100)
[2021-09-15 17:53] LABS: Parathyroid Hormone 95.8 pg/mL (15-65)
== END 2021-09-15 16:38 | disposition home or self-care (01) ==
PROVIDERS: PCP Family Medicine; Visit Provider Student in an Organized Health Care Education/Training Program
DX: L03.012 Cellulitis of left finger (principal); N18.4 Chronic kidney disease, stage 4 (severe)
CPT/HCPCS: 80053; 80069; 80202; 82306; 82310; 82570; 83735; 83970; 84156; 85025

== ENCOUNTER 2021-09-22 14:32 | Outpatient (CLI) | payer MEDICARE, SELFPAY ==
[2021-09-22 14:55] LABS: Basophils # 0.1 10^3/uL (0.0-0.1); Basophils % 0.7 %; Eosinophils # 0.2 10^3/uL (0.0-0.8); Eosinophils % 2.2 %; Hematocrit 34.6 % (42.0-52.0); Hemoglobin 11.1 g/dL (11.7-16.6); Lymphocytes % 15.3 %; Mean Corpuscular HGB Conc 32.1 g/dL (30.0-36.0); Mean Corpuscular Hemoglobin 29.7 pg (28.0-34.0); Mean Corpuscular Volume 92.5 fl (80-94); Mean Platelet Volume 9.9 fL (7.4-10.4); Monocytes # 0.6 10^3/uL (0.2-0.9); Monocytes % 9.3 %; Neutrophils # 4.87 10^3/uL (1.8-7.7); Neutrophils % 71.8 %; Nucleated Red Blood Cells % 0 %; Platelet Count 144 10^3/cmm (130-400); Red Blood Count 3.74 10^6/uL (4.1-5.3); Red Cell Distribution Width 16.8 % (12.1-15.1); White Blood Count 6.8 10^3/uL (4.0-10.0)
[2021-09-22 15:19] LABS: Vancomycin Trough 14.5 ug/mL (10-15)
[2021-09-22 15:22] LABS: Alanine Aminotransferase 15 U/L (0-41); Albumin Level 3.7 g/dL (3.5-5.2); Alkaline Phosphatase 142 IU/L (40-130); Anion Gap 21.9 (5-19); Aspartate Amino Transferase 20 U/L (0-40); Blood Urea Nitrogen 39 mg/dL (8-23); Calcium 9.2 mg/dL (8.5-10.5); Carbon Dioxide 22 mmol/L (22-29); Chloride 95 mmol/L (98-107); Globulin 3.4 g/dL (1.3-4.6); Glucose 166 mg/dL (65-115); Osmolality Calculated 293 mOsm/kg (285-295); Potassium 3.9 mmol/L (3.5-5.1); Sodium 135 mmol/L (136-145); Total Bilirubin 0.6 mg/dL (0.15-1.2); Total Protein 7.1 g/dL (6.6-8.7)
== END 2021-09-22 14:33 | disposition home or self-care (01) ==
LOC: LAB 14:37
PROVIDERS: PCP Family Medicine; Visit Provider Student in an Organized Health Care Education/Training Program
DX: L03.012 Cellulitis of left finger (principal)
CPT/HCPCS: 80053; 80202; 85025

== ENCOUNTER 2021-09-29 12:55 | Outpatient (CLI) | payer MEDICARE, SELFPAY ==
[2021-09-29 13:25] LABS: Basophils % 0.6 %; Eosinophils # 0.2 10^3/uL (0.0-0.8); Eosinophils % 3.8 %; Hematocrit 36.2 % (42.0-52.0); Hemoglobin 11.4 g/dL (11.7-16.6); Lymphocytes % 18.4 %; Mean Corpuscular HGB Conc 31.5 g/dL (30.0-36.0); Mean Corpuscular Hemoglobin 29.2 pg (28.0-34.0); Mean Corpuscular Volume 92.6 fl (80-94); Mean Platelet Volume 9.3 fL (7.4-10.4); Monocytes # 0.5 10^3/uL (0.2-0.9); Monocytes % 9.3 %; Neutrophils # 3.52 10^3/uL (1.8-7.7); Neutrophils % 66.8 %; Nucleated Red Blood Cells % 0 %; Platelet Count 126 10^3/cmm (130-400); Red Blood Count 3.91 10^6/uL (4.1-5.3); Red Cell Distribution Width 17.1 % (12.1-15.1); White Blood Count 5.3 10^3/uL (4.0-10.0)
[2021-09-29 13:52] LABS: Vancomycin Trough 15.2 ug/mL (10-15)
[2021-09-29 13:53] LABS: Alanine Aminotransferase 15 U/L (0-41); Albumin Level 3.6 g/dL (3.5-5.2); Alkaline Phosphatase 127 IU/L (40-130); Anion Gap 19.3 (5-19); Aspartate Amino Transferase 19 U/L (0-40); Blood Urea Nitrogen 34 mg/dL (8-23); Calcium 8.8 mg/dL (8.5-10.5); Carbon Dioxide 21 mmol/L (22-29); Chloride 100 mmol/L (98-107); Globulin 3.4 g/dL (1.3-4.6); Glucose 197 mg/dL (65-115); Osmolality Calculated 297 mOsm/kg (285-295); Potassium 3.3 mmol/L (3.5-5.1); Sodium 137 mmol/L (136-145); Total Bilirubin 0.6 mg/dL (0.15-1.2)
== END 2021-09-29 12:56 | disposition home or self-care (01) ==
PROVIDERS: PCP Family Medicine; Visit Provider Student in an Organized Health Care Education/Training Program
DX: A49.02 Methicillin resistant Staphylococcus aureus infection, unspecified site (principal)
CPT/HCPCS: 80053; 80202; 85025

== ENCOUNTER 2021-09-30 14:41 | Outpatient (RCR) | payer MEDICARE, SELFPAY | END 2021-10-27 23:59 | disposition home or self-care (01) | LOC: CR 14:41 | PROVIDERS: PCP Family Medicine; Referring Provider Internal Medicine Cardiovascular Disease; Visit Provider Internal Medicine | DX: I50.9 Heart failure, unspecified (principal) | CPT/HCPCS: 93798 ==

== ENCOUNTER 2021-10-15 13:52 | Outpatient (CLI) | payer MEDICARE, SELFPAY | END 2021-10-15 13:53 | disposition home or self-care (01) | LOC: WOUND 13:53 | PROVIDERS: PCP Family Medicine; Visit Provider Thoracic Surgery (Cardiothoracic Vascular Surgery) | DX: Z09 Encounter for follow-up examination after completed treatment for conditions other than malignant neoplasm (principal); E11.9 Type 2 diabetes mellitus without complications | CPT/HCPCS: 99213 ==

== ENCOUNTER → 2021-10-22 09:20 | Outpatient (BNVA) | payer MEDICARE, SELFPAY | PROVIDERS: PCP Family Medicine; Visit Provider Family Medicine | DX: N18.32 Chronic kidney disease, stage 3b (principal) | CPT/HCPCS: 80069; 82043; 82310; 83970; 85025 ==

== ENCOUNTER 2021-10-28 13:04 | Outpatient (RCR) | payer MEDICARE, SELFPAY | END 2021-11-27 23:59 | disposition home or self-care (01) | LOC: CR 13:04 | PROVIDERS: PCP Family Medicine; Referring Provider Internal Medicine Cardiovascular Disease; Visit Provider Internal Medicine | DX: I50.21 Acute systolic (congestive) heart failure (principal) | CPT/HCPCS: 93798 ==

== ENCOUNTER 2021-11-04 06:00 | Outpatient (RCR) | payer OTHER, MEDICARE, SELFPAY | END 2021-11-27 23:59 | disposition home or self-care (01) | LOC: MPT 06:00 | PROVIDERS: PCP Family Medicine; Referring Provider Family Medicine; Visit Provider Family Medicine | DX: M54.50 Low back pain, unspecified (principal); G89.29 Other chronic pain | CPT/HCPCS: 97110; 97140; 97162; G0283 ==

== ENCOUNTER → 2021-11-05 13:57 | Outpatient (BNVA) | payer MEDICARE, SELFPAY | PROVIDERS: PCP Family Medicine; Visit Provider Internal Medicine | DX: E11.65 Type 2 diabetes mellitus with hyperglycemia (principal); E11.42 Type 2 diabetes mellitus with diabetic polyneuropathy; E11.59 Type 2 diabetes mellitus with other circulatory complications; E11.22 Type 2 diabetes mellitus with diabetic chronic kidney disease; I25.10 Atherosclerotic heart disease of native coronary artery without angina pectoris; N18.4 Chronic kidney disease, stage 4 (severe); I50.9 Heart failure, unspecified; I50.42 Chronic combined systolic (congestive) and diastolic (congestive) heart failure; Z86.31 Personal history of diabetic foot ulcer; E78.5 Hyperlipidemia, unspecified; Z79.4 Long term (current) use of insulin | CPT/HCPCS: 99214 ==

== ENCOUNTER 2021-11-28 06:00 | Outpatient (RCR) | payer MEDICARE, SELFPAY | END 2021-12-27 23:59 | disposition home or self-care (01) | LOC: MPT 06:00 | PROVIDERS: PCP Family Medicine; Referring Provider Family Medicine; Visit Provider Family Medicine | DX: M54.50 Low back pain, unspecified (principal); G89.29 Other chronic pain | CPT/HCPCS: 97110; 97140; G0283 ==

== ENCOUNTER 2021-11-28 13:06 | Outpatient (RCR) | payer MEDICARE, SELFPAY | END 2021-12-27 23:59 | disposition home or self-care (01) | LOC: CR 13:06 | PROVIDERS: PCP Family Medicine; Referring Provider Internal Medicine Cardiovascular Disease; Visit Provider Internal Medicine | DX: I50.9 Heart failure, unspecified (principal) | CPT/HCPCS: 93798 ==

== ENCOUNTER → 2021-12-17 08:44 | Outpatient (BNVA) | payer MEDICARE, SELFPAY | PROVIDERS: PCP Family Medicine; Visit Provider Otolaryngology | DX: R49.9 Unspecified voice and resonance disorder (principal); K11.7 Disturbances of salivary secretion; R26.81 Unsteadiness on feet; E11.22 Type 2 diabetes mellitus with diabetic chronic kidney disease; E11.42 Type 2 diabetes mellitus with diabetic polyneuropathy; N18.4 Chronic kidney disease, stage 4 (severe); I50.42 Chronic combined systolic (congestive) and diastolic (congestive) heart failure; I48.21 Permanent atrial fibrillation; Z79.4 Long term (current) use of insulin | CPT/HCPCS: 99214; 99215 ==

== ENCOUNTER 2021-12-28 | Outpatient (RCR) | payer MEDICARE, SELFPAY | END 2022-01-27 23:59 | disposition home or self-care (01) | LOC: MPT | PROVIDERS: PCP Family Medicine; Referring Provider Family Medicine; Visit Provider Family Medicine | DX: G89.29 Other chronic pain (principal); M54.50 Low back pain, unspecified | CPT/HCPCS: 97110; 97140; G0283 ==

== ENCOUNTER 2021-12-29 12:37 | Outpatient (RCR) | payer MEDICARE, SELFPAY | END 2022-01-27 23:59 | disposition home or self-care (01) | LOC: CR 12:37 | PROVIDERS: PCP Family Medicine; Referring Provider Internal Medicine Cardiovascular Disease; Visit Provider Internal Medicine | DX: I50.21 Acute systolic (congestive) heart failure (principal) | CPT/HCPCS: 93798 ==

== ENCOUNTER → 2022-01-19 10:34 | Outpatient (BNVA) | payer MEDICARE, SELFPAY | PROVIDERS: PCP Family Medicine; Visit Provider Internal Medicine | DX: N18.32 Chronic kidney disease, stage 3b (principal) | CPT/HCPCS: 80069; 82043; 82310; 83970; 85007; 85027 ==

== ENCOUNTER → 2022-01-23 09:31 | Outpatient (BNVA) | payer MEDICARE, SELFPAY | PROVIDERS: PCP Family Medicine; Visit Provider Nurse Practitioner Family | DX: N40.1 Benign prostatic hyperplasia with lower urinary tract symptoms (principal); G25.81 Restless legs syndrome; R30.0 Dysuria | CPT/HCPCS: 51741; 51798; 81003; 87086; 99203 ==

== ENCOUNTER → 2022-01-27 14:55 | Outpatient (BNVA) | payer MEDICARE, SELFPAY | PROVIDERS: PCP Family Medicine; Visit Provider Podiatrist Foot & Ankle Surgery | DX: I73.9 Peripheral vascular disease, unspecified (principal); E11.42 Type 2 diabetes mellitus with diabetic polyneuropathy; Z89.421 Acquired absence of other right toe(s); M79.673 Pain in unspecified foot | CPT/HCPCS: 73630; 99213; 99214 ==

== ENCOUNTER 2022-01-28 06:00 | Outpatient (RCR) | payer MEDICARE, SELFPAY | END 2022-02-26 23:59 | disposition home or self-care (01) | LOC: MPT 06:00 | PROVIDERS: PCP Family Medicine; Referring Provider Family Medicine; Visit Provider Family Medicine | DX: G89.29 Other chronic pain (principal); M54.50 Low back pain, unspecified; M54.2 Cervicalgia; R26.81 Unsteadiness on feet | CPT/HCPCS: 97110; 97140; G0283 ==

== ENCOUNTER 2022-01-28 09:59 | Outpatient (RCR) | payer MEDICARE, SELFPAY | END 2022-02-26 23:59 | disposition home or self-care (01) | LOC: CR 09:59 | PROVIDERS: PCP Family Medicine; Referring Provider Internal Medicine Cardiovascular Disease; Visit Provider Internal Medicine | DX: I50.9 Heart failure, unspecified (principal) | CPT/HCPCS: 93798 ==

== ENCOUNTER → 2022-02-04 15:00 | Outpatient (BNVA) | payer MEDICARE, SELFPAY | PROVIDERS: PCP Family Medicine; Visit Provider Internal Medicine | DX: I13.0 Hypertensive heart and chronic kidney disease with heart failure and stage 1 through stage 4 chronic kidney disease, or unspecified chronic kidney disease (principal); E11.22 Type 2 diabetes mellitus with diabetic chronic kidney disease; N18.4 Chronic kidney disease, stage 4 (severe); I50.42 Chronic combined systolic (congestive) and diastolic (congestive) heart failure; Z79.4 Long term (current) use of insulin; Z79.84 Long term (current) use of oral hypoglycemic drugs; E11.42 Type 2 diabetes mellitus with diabetic polyneuropathy; I48.21 Permanent atrial fibrillation; E78.5 Hyperlipidemia, unspecified; I71.2 Thoracic aortic aneurysm, without rupture | CPT/HCPCS: 99214 ==

== ENCOUNTER → 2022-02-10 13:40 | Outpatient (BNVA) | payer MEDICARE, SELFPAY | PROVIDERS: PCP Family Medicine; Visit Provider Internal Medicine | DX: E11.42 Type 2 diabetes mellitus with diabetic polyneuropathy (principal); N18.32 Chronic kidney disease, stage 3b; E11.65 Type 2 diabetes mellitus with hyperglycemia; E11.59 Type 2 diabetes mellitus with other circulatory complications; E11.22 Type 2 diabetes mellitus with diabetic chronic kidney disease; N18.4 Chronic kidney disease, stage 4 (severe); E78.5 Hyperlipidemia, unspecified; I25.10 Atherosclerotic heart disease of native coronary artery without angina pectoris; I50.42 Chronic combined systolic (congestive) and diastolic (congestive) heart failure; Z86.31 Personal history of diabetic foot ulcer; Z79.4 Long term (current) use of insulin | CPT/HCPCS: 80069; 82043; 82310; 83970; 85025; 99214 ==

== ENCOUNTER → 2022-02-24 15:31 | Outpatient (BNVA) | payer MEDICARE, SELFPAY | PROVIDERS: PCP Family Medicine; Visit Provider Internal Medicine | DX: E87.6 Hypokalemia (principal) | CPT/HCPCS: 80048 ==

== ENCOUNTER 2022-02-27 06:00 | Outpatient (RCR) | payer MEDICARE, SELFPAY | END 2022-03-29 23:59 | disposition home or self-care (01) | LOC: MPT 06:00 | PROVIDERS: PCP Family Medicine; Referring Provider Family Medicine; Visit Provider Family Medicine | DX: R26.81 Unsteadiness on feet (principal); I50.42 Chronic combined systolic (congestive) and diastolic (congestive) heart failure | CPT/HCPCS: 97110; 97140; G0283 ==

== ENCOUNTER 2022-02-27 11:32 | Outpatient (RCR) | payer MEDICARE, SELFPAY | END 2022-03-29 23:59 | disposition home or self-care (01) | LOC: CR 11:32 | PROVIDERS: PCP Family Medicine; Referring Provider Internal Medicine Cardiovascular Disease; Visit Provider Internal Medicine | DX: I50.21 Acute systolic (congestive) heart failure (principal) | CPT/HCPCS: 93798 ==

== ENCOUNTER 2022-03-06 14:24 | Outpatient (CLI) | payer MEDICARE, SELFPAY ==
--- NOTE | 2022-03-06 15:00 | CT_ITS ---
WS: [id number] CT CHEST TECHNIQUE: Noncontrast CT of the chest with coronal and sagittal reformatted images. CLINICAL INFORMATION: thoracic ascending aortic aneurysm COMPARISON: May 29, 2021 DLP: 805.[address] scans at [facility] use at least one of these dose optimization techniques: automated e xposure control; mA and/or kV adjustment per patient size (includes targeted exams where dose is matc hed to clinical indication); or iterative reconstruction. FINDINGS:Prior sternotomy. Ascending thoracic aortic aneurysm measures 4.7 cm unchanged from previous . Prior CABG. Coronary calcification. Enlarged RIGHT peritracheal lymph nodes measuring 11 to 12 mm a ppear unchanged. Normal descending thoracic aorta. Several tiny 2-3 mm pulmonary nodules scattered throughout both lungs is stable in appearance. No acu te pulmonary infiltrates. No focal pneumonia or pleural fluid. No axillary lymphadenopathy. Cholelith iasis. Normal GE junction. Adrenal glands are normal. Hypertrophic changes thoracic spine. Mild thora cic kyphosis. Prior sternotomy. CT/CT chest [place] con [id number] IMPRESSION: 1. Stable ascending thoracic aortic aneurysm measuring approximately 4.8 cm un changed from previous. 2. Prior sternotomy with CABG for coronary calcification. 3. A few small 2 3 mm nodules unchanged. 4. Cholelithiasis. 5. No other significant changes compared to previous.
== END 2022-03-06 14:25 | disposition home or self-care (01) ==
LOC: RAD 14:26
PROVIDERS: PCP Family Medicine; Visit Provider Internal Medicine
DX: I71.2 Thoracic aortic aneurysm, without rupture (principal); K80.20 Calculus of gallbladder without cholecystitis without obstruction; R91.8 Other nonspecific abnormal finding of lung field; Z95.1 Presence of aortocoronary bypass graft
CPT/HCPCS: 71250

== ENCOUNTER 2022-03-30 06:00 | Outpatient (RCR) | payer MEDICARE, SELFPAY | END 2022-04-29 23:59 | disposition home or self-care (01) | LOC: MPT 06:00 | PROVIDERS: PCP Family Medicine; Referring Provider Family Medicine; Visit Provider Family Medicine | DX: R26.81 Unsteadiness on feet (principal); D64.9 Anemia, unspecified | CPT/HCPCS: 97110; 97140; G0283 ==

== ENCOUNTER 2022-03-31 11:25 | Inpatient (IN) | payer MEDICARE, SELFPAY ==
[2022-03-31] VITALS (14 sets, daily range): BP systolic 101–145; BP diastolic 55–78; PULSE 65–102; RESP 14–40; TEMP 36.7–37; O2SAT 93–100; BMI 33.1; BMI 37.1
--- NOTE | 2022-03-31 11:34 | ECG_ITS ---
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 Measurements Intervals [place] Rate: 88 P: [place]: QRS: -16 QRSD: 104 T: 153 QT: 404 QTc: 491 Interpretive Statements ATRIAL FIBRILLATION WITH ABERRANT CONDUCTION OR VENTRICULAR PREMATURE COMPLEXES ST DEVIATION AND MODERATE T-WAVE ABNORMALITY, CONSIDER LATERAL ISCHEMIA [-0.1+ mV T-WAVE IN I/aVL/V5/V6] INTERPRETATION BASED ON A DEFAULT AGE OF 40 YEARS Compared to ECG 09/06/2021 04:40:50 T-wave abnormality now present Possible ischemia now present Myocardial infarct finding no longer present Electronically Signed On 03-31-2022 21:11:15 CDT by Lisa Rosenthal M.D. [id number]
--- NOTE | 2022-03-31 11:34 | XRR_ITS ---
PROCEDURE INFORMATION: Exam: XR Chest Exam date and time: 03/31/2022 11:57 AM Age: 71 years old Clinical indication: Dyspnea and shortness of breath TECHNIQUE: Imaging protocol: Radiologic exam of the chest. Views: 1 view. COMPARISON: CT chest con [id number] 03/06/2022 2:34 PM FINDINGS: Lungs: Unremarkable. No consolidation. Pleural spaces: Unremarkable. No pleural effusion. No pneumothorax. Heart/Mediastinum: Unremarkable. No cardiomegaly. Bones/joints: Metallic sternotomy wires are present. XR/XR chest 1V portable [id number] IMPRESSION: No acute findings. Metallic sternotomy wires are present
[2022-03-31 12:07] LABS: Basophils % 0.3 %; Eosinophils # 0.2 10^3/uL (0.0-0.8); Eosinophils % 2.3 %; Hematocrit 26.4 % (42.0-52.0); Hemoglobin 7.5 g/dL (11.7-16.6); Lymphocytes # 0.7 10^3/uL (0.8-4.8); Lymphocytes % 9.1 %; Mean Corpuscular HGB Conc 28.4 g/dL (30.0-36.0); Mean Corpuscular Hemoglobin 26.6 pg (28.0-34.0); Mean Corpuscular Volume 93.6 fl (80-94); Mean Platelet Volume 9.2 fL (7.4-10.4); Monocytes # 0.6 10^3/uL (0.2-0.9); Monocytes % 7.5 %; Neutrophils # 6.19 10^3/uL (1.8-7.7); Neutrophils % 80.4 %; Nucleated Red Blood Cells % 0 %; Platelet Count 125 10^3/cmm (130-400); Red Blood Count 2.82 10^6/uL (4.1-5.3); Red Cell Distribution Width 19.8 % (12.1-15.1); White Blood Count 7.7 10^3/uL (4.0-10.0)
[2022-03-31 12:56] LABS: SARS Covid-2 Antigen Negative (Negative)
[2022-03-31 12:59] LABS: Troponin(5th) Baseline 75 ng/L (0-15)
[2022-03-31 13:12] LABS: Anion Gap 19.4 (5-19); Blood Urea Nitrogen 58 mg/dL (8-23); Calcium 8.9 mg/dL (8.5-10.5); Carbon Dioxide 25 mmol/L (22-29); Chloride 98 mmol/L (98-107); Glucose 234 mg/dL (65-115); NT Pro B Type Natriuretic Pept 2400 pg/mL (0-125); Osmolality Calculated 310 mOsm/kg (285-295); Potassium 4.4 mmol/L (3.5-5.1); Sodium 138 mmol/L (136-145)
[2022-03-31 15:35] LABS: Troponin 5 2HR 71.42 ng/L (0-15)
[2022-03-31 15:38] LABS: Troponin 5 2HR Delta -3.58 ABS# (0-10)
--- NOTE | 2022-03-31 16:11 | PC.NURSE ---
PT PLACED ON CONTINUOUS NIBP, SPO2, AND CM
--- NOTE | 2022-03-31 16:27 | ECG_ITS ---
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 Measurements Intervals [place] Rate: 95 P: [place]: QRS: -15 QRSD: 97 T: 153 QT: 389 QTc: 490 Interpretive Statements ATRIAL FIBRILLATION WITH ABERRANT CONDUCTION OR VENTRICULAR PREMATURE COMPLEXES NONSPECIFIC ST & T-WAVE ABNORMALITY Compared to ECG 03/31/2022 11:42:37 Possible ischemia no longer present T-wave abnormality still present Electronically Signed On 04-01-2022 6:47:15 CDT by Lisa Rosenthal M.D. [id number]
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
--- NOTE | 2022-03-31 17:34 | ECG_ITS ---
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 Measurements Intervals [place] Rate: 59 P: PA: QRS: -20 QRSD: 108 T: 151 QT: 460 QTc: 457 Interpretive Statements ATRIAL FIBRILLATION WITH SLOW VENTRICULAR RESPONSE ST DEVIATION AND MODERATE T-WAVE ABNORMALITY, CONSIDER LATERAL ISCHEMIA [-0.1+ mV T-WAVE IN I/aVL/V5/V6] Compared to ECG 03/31/2022 16:27:22 Possible ischemia now present Ventricular premature complex(es) no longer present Aberrant conduction of supraventricular beat(s) no longer present T-wave abnormality still present Electronically Signed On 04-01-2022 19:52:21 CDT by Angie March M.D. [id number]
[2022-03-31] MEDS: fentaNYL 50 mcg/mL INJ 2mL 25 MCG IVP (17:43)
[2022-03-31] MEDS: pantoprazole 40 mg SDV IVP (18:32)
[2022-03-31 18:46] LABS: Troponin 5 6HR 76.61 ng/L (0-15)
[2022-03-31 18:47] LABS: Troponin 5 6HR Delta 1.61 ng/L (0-12)
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
[2022-03-31 20:37] LABS: Hemoglobin 7.9 g/dL (11.7-16.6)
--- NOTE | 2022-03-31 21:07 | PC.NURSE ---
1904: Report from LESLEY Fernando. Pt resting quietly. Answers all questions appropriately. Denies needs at this time. NAD.
[2022-03-31 23:10] LABS: Hemoglobin 7.5 g/dL (11.7-16.6)
[2022-04-01] VITALS (73 sets, daily range): BP systolic 99–138; BP diastolic 51–88; PULSE 59–126; RESP 11–30; TEMP 36.4–36.9; O2SAT 16–100; BMI 37.1
[2022-04-01] MEDS: cefTRIAXone 1,000 MG in sodium chloride 0.9% (plus) 50 ML 100 MG IV (00:10)
[2022-04-01] MEDS: FUROsemide 10 mg/mL SDV 2mL 20 MG IVP ×3 (00:11→14:32)
[2022-04-01] MEDS: acetaminophen 325 mg Tablet 650 MG PO ×2 (00:12→12:23)
[2022-04-01] MEDS: hydrocortisone 100 mg/2 mL SDV 50 MG IVP ×2 (00:14→12:56)
[2022-04-01] MEDS: diphenhydrAMINE 50 mg/mL SDV 1mL 25 MG IVP ×2 (00:14→12:54)
[2022-04-01] MEDS: sodium chloride 0.9% (100 ml) 100 ML 15 ML (00:17)
[2022-04-01 00:28] LABS: Glucose Point of Care 184 mg/dL (70-110)
[2022-04-01] MEDS: insulin lispro 100 unit/1 mL SUBCUT ×3 (01:15→14:58)
[2022-04-01] MEDS: ropinirole 1 mg Tablet PO ×2 (01:43→09:04)
[2022-04-01] MEDS: ipratropium-albuterol 3 mL Neb INHALATION ×2 (02:08→08:15)
[2022-04-01 05:54] LABS: Basophils % 0.3 %; Eosinophils % 0.1 %; Hematocrit 26.7 % (42.0-52.0); Lymphocytes # 0.5 10^3/uL (0.8-4.8); Lymphocytes % 6.7 %; Mean Corpuscular Hemoglobin 26.7 pg (28.0-34.0); Mean Platelet Volume 9.4 fL (7.4-10.4); Monocytes # 0.4 10^3/uL (0.2-0.9); Monocytes % 4.7 %; Neutrophils # 6.96 10^3/uL (1.8-7.7); Neutrophils % 87.8 %; Nucleated Red Blood Cells % 0 %; Platelet Count 120 10^3/cmm (130-400); Red Cell Distribution Width 19.2 % (12.1-15.1); White Blood Count 7.9 10^3/uL (4.0-10.0)
[2022-04-01] MEDS: pantoprazole 40 mg SDV IVP (05:56)
[2022-04-01 06:39] LABS: Alanine Aminotransferase 6 U/L (0-41); Albumin Level 3.8 g/dL (3.5-5.2); Alkaline Phosphatase 106 IU/L (40-130); Anion Gap 14.8 (5-19); Aspartate Amino Transferase 11 U/L (0-40); Blood Urea Nitrogen 60 mg/dL (8-23); Calcium 8.8 mg/dL (8.5-10.5); Carbon Dioxide 25 mmol/L (22-29); Chloride 100 mmol/L (98-107); Globulin 2.7 g/dL (1.3-4.6); Glucose 201 mg/dL (65-115); Osmolality Calculated 303 mOsm/kg (285-295); Potassium 4.8 mmol/L (3.5-5.1); Sodium 135 mmol/L (136-145); Total Bilirubin 1.3 mg/dL (0.15-1.2); Total Protein 6.5 g/dL (6.6-8.7)
[2022-04-01 08:19] LABS: Retic Production Index 2.67; Reticulocyte % 4.1 % (0.5-2.0)
[2022-04-01 08:38] LABS: Lactate Dehydrogenase 163 U/L (135-225)
[2022-04-01 08:50] LABS: Glucose Point of Care 203 mg/dL (70-110)
--- NOTE | 2022-04-01 10:13 | PC.CHAP ---
Pastoral Care Encounter/Spiritual Assessment Type of Contact [] Declined career based intervention coordinator visit [] Patient/Family/Request visit [] Outpatient visit [] Follow-up visit [] Physician referral [] Code/Alert [x] Routine visit [] Staff referral [] Actively dying [] Patient sleeping [] Family support [] [] Out of room [] Palliative care [] [x] Receiving care in room [] Pre-surgical visit [] Trauma [] Long length of stay [x] ICU visit [] Other: Relational/Emotional Strength [] Patient feels connected with others/family/visitors/staff [] Distress [] Loneliness/isolation [] Abandonment Spirituality of Patient [] Person of [place] [] Attends Adventist of their [place] [] Believes in Prayer [] Reads Bible or Evangelical materials [] There are Spiritual issues to be addressed Computator Interventions [x] Prayer [] Active listening [] Non-anxious presence [] Spiritual/emotional support [] Crisis/trauma care [] Spiritual counseling [] Bereavement support [] Provided bereavement packet [] Provided Bible/devotional materials [] Provided toy/stuffed animal, coloring book to patient or family member [] Provided Communion [] Anointing/[place] [] Salvation [x] Completed spiritual assessment [] Other: Impact on Illness or Injury [] Angry [] Fearful [] Anxious [] Often cries [] Exhaustion [] Unable to work [] Unable to attend muslim [] Unable to walk/stand [] Unable to read [] Unable to drive [] Unable to eat/drink [] Unable to sleep [] Unable to be with family [] Patient intubated [] Other: Summary Time spent with patient
--- NOTE | 2022-04-01 10:47 | PC.NURSE ---
upon morning assessment, patient is alert and oriented to person, place, time, and situation. vitals within normal limits. Patient reports feeling lethargic. Patient already received 1 unit of blood this morning. Waiting on additional units for [facility].
[2022-04-01] MEDS: gabapentin 100 mg Capsule PO (12:25)
[2022-04-01] MEDS: cyclobenzaprine 10 mg Tablet PO (12:52)
[2022-04-01] MEDS: finasteride 5 mg Tablet PO (12:52)
[2022-04-01 12:56] LABS: Urine Appearance Hazy (CLEAR); Urine Color Yellow (Yellow)
[2022-04-01 12:57] LABS: Add Urine Microscopic? YES; Bilirubin Urine Neg (Negative); Blood Urine 3+ (Negative); Glucose Urine UA Norm (Normal); Ketones Urine Negative (Negative); Leukocyte Esterase Urine 2+ (Negative); Nitrate Urine Negative (Negative); Protein Urine Neg (Negative); Sulfosalicylic Acid Urine Negative (Negative); Urobilinogen Urine Norm (Negative); pH Urine 8 (5-7)
[2022-04-01 12:58] LABS: RBC Urine 25-40 /hpf (0-2); Squamous Epithelial Cell Urine 0-4 /hpf (0-5); WBC Urine 55-80 /hpf (0-5)
[2022-04-01 12:59] LABS: Add Urine Culture? Yes; Bacteria Urine TRACE /hpf
[2022-04-01] MEDS: TRAMadol 50 mg Tablet 100 MG PO (13:28)
--- NOTE | 2022-04-01 13:43 | PM.TDS ---
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 Discharge Patient Disposition: Xfer Short-Term Hosp Condition: Stable Prescriptions: No Action nitroglycerin 0.4 mg tablet, sublingual 0.4 mg SUBLINGUAL Q5M PRN (Reason: Chest Pain) Qty: 30 3RF Eliquis 5 mg tablet 5 mg PO BID 30 Days Qty: 60 5RF Rx Instructions: 340B (DME) Dexcom G6 Sensor Device See Rx Instructions .Route Qty: 3 3RF Rx Instructions: Change every 10 days. 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 (DME) Dexcom G6 Transmitter Device See Rx Instructions .Route Qty: 1 3RF Rx Instructions: Change every 90 days. (DME) OneTouch Verio test strips Strip See Rx Instructions .Route Qty: 200 11RF Rx Instructions: Use to test 3 times daily bumetanide 2 mg tablet 4 mg PO BID Rx Instructions: 4MG IN THE AM, THEO AND 2MG AT NIGHT (DME) Diabetic Shoes with 3 pairs of inserts See Rx Instructions .ROUTE .MEDSUPPLY Qty: 1 0RF Rx Instructions: As directed [facility] allopurinol 100 mg tablet 100 mg PO BID 90 Days Qty: 180 1RF cyclobenzaprine 10 mg tablet 10 mg PO TID PRN (Reason: MUSCLE SPASMS) 30 Days Qty: 90 3RF Rx Instructions: 340B tamsulosin [Flomax] 0.4 mg capsule 0.4 mg PO BID Qty: 60 12RF carvedilol 25 mg tablet 25 mg PO BID Rx Instructions: must administer with a meal/food potassium chloride 10 mEq capsule, extended release 20 meq PO BID PRN (Reason: with medication) Rx Instructions: 2 AM, 2 in afternoon, 2 extra PRN with additional waterpill gabapentin 300 mg capsule 300 mg PO TID 90 Days Qty: 270 1RF scopolamine base 1 mg over 3 days patch 3 day 1 patch transdermal Q3D PRN (Reason: nausea and vomiting) Qty: 4 2RF tramadol 50 mg tablet 100 mg PO QID MDD 8 tabs/400mg PRN (Reason: Pain) 30 Days Qty: 240 0RF Hold Instructions: Home Medication placed on hold at Doctor's office atorvastatin [Lipitor] 20 mg tablet 20 mg PO QPM 90 Days Qty: 90 3RF isosorbide mononitrate 30 mg tablet extended release 24 hr 30 mg PO DAILY 90 Days Qty: 90 1RF finasteride [Proscar] 5 mg tablet 5 mg PO DAILY Qty: 90 3RF gabapentin 100 mg capsule 100 mg PO BID 30 Days Qty: 60 2RF ropinirole 0.5 mg tablet 3 mg PO DAILY 30 Days Qty: 180 2RF Rx Instructions: 2 at lunch, 2 at dinner, 2 at bedtime lidocaine 5 % Adhesive Patch,Medicated 1 patch TOPICAL DAILY PRN (Reason: Pain) milk thistle seed extract 200 mg Capsule 200 mg PO BID [id number] C-Mn [Glucosamine Chondroitin MaxStr] 500-400 mg Capsule 1 cap PO BID Balance Of Nature 3 tab PO DAILY metolazone 2.5 mg tablet See Rx Instructions .ROUTE .COMPLEX PRN (Reason: swelling) Rx Instructions: 2.5 mg orally as needed ;TAKE 3 DAYS A WEEK, as [id number] pantoprazole 40 mg tablet,delayed release (DR/EC) 40 mg PO BID Novolog Flexpen U-100 Insulin 100 unit/mL (3 mL) insulin pen See Rx Instructions .ROUTE .COMPLEX Rx Instructions: 100 unit subcutaneously ;sliding scale Levemir FlexTouch U-100 Insuln 100 unit/mL (3 mL) insulin pen 80 unit SUBCUT DAILY Referrals: Tosha Munoz MD [Primary Care Provider] - Patient Instructions: Opioid Safety Transfer Attestations Time Spent in Transfer Care: greater than 30 min Status at Transfer: Cognitive status at transfer: cognitively intact; Behavioral status at transfer: cooperative; Quality Metrics Clinical Quality Measures [ No reported AMI, CVA or VTE this stay] Coding Level of Care Code 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
[2022-04-01] MEDS: sodium chloride 0.9% (100 ml) 100 ML (14:28)
[2022-04-01 14:38] LABS: Glucose Point of Care 161 mg/dL (70-110)
--- NOTE | 2022-04-01 15:42 | PC.NURSE ---
Patient will be transferrd to [facility] room 4221 bed 1. Nurse gave reort to brooke. NUrse attempted to arrane ground with [facility] and they cannot accept transport until 9pm. [facility] is unavailable. [facility] is unavailable. NUrse contacted [facility] and they accepted the flight as a standby at this itme. when we are ready for transport, they will recheck weather.
--- NOTE | 2022-04-01 16:39 | PC.NURSE ---
Juan [facility]. NUrse called suki Bob at [facility] for room 4221 and advised they are en route. nurse alerted [facility].
== END 2022-04-01 17:47 | disposition short-term general hospital (02) | DRG 811 ==
LOC: ER 17:04 → ICU 20:08
PROVIDERS: Emergency Medicine; Admitting Provider Internal Medicine; Emergency Provider Family Medicine; PCP Family Medicine; Visit Provider Internal Medicine
DX: D64.9 Anemia, unspecified (principal); I50.43 Acute on chronic combined systolic (congestive) and diastolic (congestive) heart failure; K92.2 Gastrointestinal hemorrhage, unspecified; I48.21 Permanent atrial fibrillation; I13.0 Hypertensive heart and chronic kidney disease with heart failure and stage 1 through stage 4 chronic kidney disease, or unspecified chronic kidney disease; N18.4 Chronic kidney disease, stage 4 (severe); I71.4 Abdominal aortic aneurysm, without rupture; D63.1 Anemia in chronic kidney disease; Z88.8 Allergy status to other drugs, medicaments and biological substances; I35.0 Nonrheumatic aortic (valve) stenosis; I25.10 Atherosclerotic heart disease of native coronary artery without angina pectoris; E11.22 Type 2 diabetes mellitus with diabetic chronic kidney disease; G89.29 Other chronic pain; M54.9 Dorsalgia, unspecified; M54.2 Cervicalgia; V89.2XXS Person injured in unspecified motor-vehicle accident, traffic, sequela; K21.9 Gastro-esophageal reflux disease without esophagitis; Z86.14 Personal history of Methicillin resistant Staphylococcus aureus infection; E66.9 Obesity, unspecified; Z68.37 Body mass index [BMI] 37.0-37.9, adult; G47.33 Obstructive sleep apnea (adult) (pediatric); N40.0 Benign prostatic hyperplasia without lower urinary tract symptoms; G25.81 Restless legs syndrome; J20.9 Acute bronchitis, unspecified; K55.20 Angiodysplasia of colon without hemorrhage; Z89.421 Acquired absence of other right toe(s); E11.65 Type 2 diabetes mellitus with hyperglycemia
CPT/HCPCS: 36415; 36416; 36430; 51702; 71045; 80048; 80053; 81001; 82962; 83010; 83615; 83880; 84484; 85014; 85018; 85025; 85045; 86850; 86900; 86920; 87070; 87086; 87205; 87426; 93005; 94640; 94660; 96372; 96374; 99213; 99214; 99285; C9113; J0696; J1200; J1720; J1815; J1940; J3010; P9040

== ENCOUNTER → 2022-04-09 15:28 | Outpatient (BNVA) | payer MEDICARE, SELFPAY | PROVIDERS: PCP Family Medicine; Visit Provider Family Medicine | DX: R26.81 Unsteadiness on feet (principal); I50.42 Chronic combined systolic (congestive) and diastolic (congestive) heart failure; D64.9 Anemia, unspecified; K55.20 Angiodysplasia of colon without hemorrhage; K21.9 Gastro-esophageal reflux disease without esophagitis; T80.89XA Other complications following infusion, transfusion and therapeutic injection, initial encounter; I48.21 Permanent atrial fibrillation; Z09 Encounter for follow-up examination after completed treatment for conditions other than malignant neoplasm | CPT/HCPCS: 85018 ==

== ENCOUNTER → 2022-04-16 12:36 | Outpatient (BNVA) | payer MEDICARE, SELFPAY | PROVIDERS: PCP Family Medicine; Visit Provider Family Medicine | DX: K55.20 Angiodysplasia of colon without hemorrhage (principal) | CPT/HCPCS: 85018; 85025 ==

== ENCOUNTER → 2022-04-20 15:59 | Outpatient (BNVA) | payer MEDICARE, SELFPAY | PROVIDERS: PCP Family Medicine; Visit Provider Family Medicine | DX: D64.9 Anemia, unspecified (principal); I48.91 Unspecified atrial fibrillation | CPT/HCPCS: 85018 ==

== ENCOUNTER → 2022-04-23 11:33 | Outpatient (BNVA) | payer MEDICARE, SELFPAY | PROVIDERS: PCP Family Medicine; Visit Provider Family Medicine | DX: K55.20 Angiodysplasia of colon without hemorrhage (principal) | CPT/HCPCS: 85018 ==

== ENCOUNTER → 2022-04-28 16:46 | Outpatient (BNVA) | payer MEDICARE, SELFPAY | PROVIDERS: PCP Family Medicine; Visit Provider Internal Medicine | DX: D64.9 Anemia, unspecified (principal); N18.4 Chronic kidney disease, stage 4 (severe); N18.9 Chronic kidney disease, unspecified | CPT/HCPCS: 80069; 82043; 82306; 82310; 82728; 83970; 85018; 85025; 85610 ==

== ENCOUNTER 2022-04-30 06:00 | Outpatient (RCR) | payer MEDICARE, SELFPAY | END 2022-05-29 23:59 | disposition home or self-care (01) | LOC: MPT 06:00 | PROVIDERS: PCP Family Medicine; Visit Provider Family Medicine | DX: M54.59 Other low back pain (principal); M54.2 Cervicalgia; R26.81 Unsteadiness on feet | CPT/HCPCS: 97110; 97140; G0283 ==

== ENCOUNTER → 2022-05-06 13:19 | Outpatient (BNVA) | payer MEDICARE, SELFPAY | PROVIDERS: PCP Family Medicine; Visit Provider Emergency Medicine | DX: E78.5 Hyperlipidemia, unspecified (principal); E11.42 Type 2 diabetes mellitus with diabetic polyneuropathy; Z79.4 Long term (current) use of insulin; K55.20 Angiodysplasia of colon without hemorrhage | CPT/HCPCS: 80061; 83036; 85018 ==

== ENCOUNTER 2022-06-18 14:47 | Inpatient (IN) | payer MEDICARE, SELFPAY ==
[2022-06-18] VITALS (7 sets, daily range): BP systolic 126–171; BP diastolic 57–75; PULSE 97–130; RESP 16–18; TEMP 36.6–37.7; O2SAT 87–95; BMI 29.7
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
--- NOTE | 2022-06-18 15:04 | CTR_ITS ---
PROCEDURE INFORMATION: Exam: CT Cervical Spine Without Contrast Exam date and time: 06/18/2022 3:50 PM Age: 71 years old Clinical indication: Injury or trauma; Blunt trauma; Injury details: Fall x today. Unwitnessed fall. Pain in back and RT hip TECHNIQUE: Imaging protocol: Computed tomography of the cervical spine without contrast. Radiation optimization: All CT scans at this facility use at least one of these dose optimization techniques: automated exposure control; mA and/or kV adjustment per patient size (includes targeted exams where dose is matched to clinical indication); or iterative reconstruction. COMPARISON: CT cervical spin wo con* [id number] 05/16/2021 2:01 PM RADIATION DOSE METRICS: Total DLP (mGy-cm): 279.1 FINDINGS: Bones/joints: No acute fracture. Normal alignment. No significant disc protrusion. Bulky posterior longitudinal ligament calcification with at least moderate central canal stenosis posterior to C3. Lungs: Lung apices are normal. Soft tissues: Unremarkable. CT/CT cervical spin wo con* [id number] IMPRESSION: No acute findings.
--- NOTE | 2022-06-18 15:04 | XRR_ITS ---
PROCEDURE INFORMATION: Exam: XR Right Hip Exam date and time: 06/18/2022 3:14 PM Age: 71 years old Clinical indication: Injury or trauma; Fall; Blunt trauma (contusions or hematomas); Right; Hip; Additional info: Fall, hip pain TECHNIQUE: Imaging protocol: Radiologic exam of the Right hip. Views: 1 view hip with pelvis when performed. COMPARISON: CR XR pelvis 1-2V* [id number] 06/29/2021 10:37 AM FINDINGS: Bones/joints: There is a right-sided subcapital femoral neck fracture with slight impaction. No significant angulation or dislocation. Well preserved joint space on this nonweightbearing exam. Acetabular osteophytes consistent with early degenerative disease. Chronic enthesophytes in the proximal femur are also present. l Soft tissues: Unremarkable. Other findings: Two views submitted. XR/XR hip RT 2-3V wo/w pel* [id number] IMPRESSION: Right femoral neck fracture.
--- NOTE | 2022-06-18 15:04 | CTR_ITS ---
PROCEDURE INFORMATION: Exam: CT Head Without Contrast Exam date and time: 06/18/2022 3:50 PM Age: 71 years old Clinical indication: Injury or trauma; Blunt trauma (contusions or hematomas); Injury details: Fall x today. Unwitnessed fall. Pain in back and RT hip TECHNIQUE: Imaging protocol: Computed tomography of the head without contrast. Radiation optimization: All CT scans at this facility use at least one of these dose optimization techniques: automated exposure control; mA and/or kV adjustment per patient size (includes targeted exams where dose is matched to clinical indication); or iterative reconstruction. COMPARISON: MR head wo con* [id number] 09/10/2021 10:28 AM RADIATION DOSE METRICS: Total DLP (mGy-cm): 1256.48 FINDINGS: Brain: No hemorrhage. No edema. Moderate diffuse cerebral atrophy. Old lacunar infarct noted in the left basal ganglia. No mass effect. Cerebral ventricles: No ventriculomegaly. Paranasal sinuses: Visualized sinuses are unremarkable. No fluid levels. Mastoid air cells: Visualized mastoid air cells are well aerated. Bones/joints: Unremarkable. No acute fracture. Soft tissues: Unremarkable. CT/CT head wo con* [id number] IMPRESSION: No acute intracranial abnormality.
--- NOTE | 2022-06-18 15:06 | CTR_ITS ---
PROCEDURE INFORMATION: Exam: CT Chest Without Contrast; Diagnostic Exam date and time: 06/18/2022 3:55 PM Age: 71 years old Clinical indication: Injury or trauma; Generalized; Blunt trauma (contusions or hematomas); Injury details: Fall x today. Unwitnessed fall. Pain in back and RT hip TECHNIQUE: Imaging protocol: Diagnostic computed tomography of the chest without contrast. Radiation optimization: All CT scans at this facility use at least one of these dose optimization techniques: automated exposure control; mA and/or kV adjustment per patient size (includes targeted exams where dose is matched to clinical indication); or iterative reconstruction. COMPARISON: CT chest wo con [id number] 03/06/2022 2:34 PM RADIATION DOSE METRICS: Total DLP (mGy-cm): 1351.5 FINDINGS: Lungs: Calcified pulmonary granulomas. Minimal dependent atelectasis. No lung consolidation/contusion or ground-glass opacity. Pleural spaces: Trace right pleural effusion. Heart: Mild cardiomegaly with coronary calcification. Redistribution of vascularity suggesting an element of possible mild vascular congestion. Lymph nodes: No enlarged lymph nodes. Vasculature: Stable mild dilatation of ascending aorta at 4.6 cm. Descending aorta measures 3.1 cm. Stable minimal dilatation of main pulmonary artery at 3.2 cm. Bones/joints: Sternotomy wires and CABG clips. Soft tissues: Images are somewhat degraded due to external streak artifacts arising from patient's arm(s). Mild bilateral male gynecomastia. PROCEDURE INFORMATION: Exam: CT Abdomen And Pelvis Without Contrast Exam date and time: 06/18/2022 3:55 PM Age: 71 years old Clinical indication: Injury or trauma; Generalized; Blunt trauma (contusions or hematomas); Injury details: Fall x today. Unwitnessed fall. Pain in back and RT hip TECHNIQUE: Imaging protocol: Computed tomography of the abdomen and pelvis without contrast. Radiation optimization: All CT scans at this facility use at least one of these dose optimization techniques: automated exposure control; mA and/or kV adjustment per patient size (includes targeted exams where dose is matched to clinical indication); or iterative reconstruction. COMPARISON: CT chest abd pel w con* 05/16/2021 2:05 PM RADIATION DOSE METRICS: Total DLP (mGy-cm): 1351.5 FINDINGS: Liver: Liver normal in size with somewhat lobulated contour which may represent early cirrhosis. Gallbladder and bile ducts: Gallbladder is markedly distended measuring 5.4 cm which may be related to prolonged fasting versus cholestasis. At least 1 calcified gallbladder calculus is present. Previous exam demonstrating multiple subcentimeter gallbladder calculi. There is minimal soft tissue stranding around the gallbladder. Gallbladder wall is difficult to assess without contrast. Clinical correlation should be obtained for early acute cholecystitis. Sonographic correlation should also be considered. No obvious bile duct dilatation. Pancreas: Fatty replaced pancreas. Spleen: Mild splenomegaly similar to previous exam. Adrenal glands: Normal. No mass. Kidneys and ureters: No obstructing calculus. No hydronephrosis. Anterior exophytic simple cyst left kidney measuring 14 mm. Anteromedial right simple renal cyst measuring 2.1 cm. Stomach and bowel: Moderate colonic stool burden with colonic diverticulosis. No acute bowel findings otherwise. Evidence of gastric surgery with surgical sutures in the gastric antrum and pyloric/proximal duodenal region. No obvious gastric wall thickening however assessment is limited due to lack of contrast. Appendix: No evidence of appendicitis. Intraperitoneal space: Unremarkable. No free air. No significant fluid collection. Vasculature: No abdominal aortic aneurysm. Lymph nodes: No enlarged lymph nodes. Urinary bladder: Unremarkable as visualized. Reproductive: Unremarkable as visualized. Bones/joints: Multilevel vertebral disc degeneration and endplate osteophytes. Mild bilateral hip joint osteoarthritis. Cortical irregularity and probable fracture line through the right femoral neck which is suspicious for right femoral neck fracture, possibly acute. Soft tissues: Images are somewhat degraded due to external streak artifacts arising from patient's arm(s). CT/[place] [id number] IMPRESSION: 1. No acute thoracic findings or significant traumatic injury. 2. Stable mild dilatation of ascending aorta and main pulmonary artery. 3. Coronary calcification and possible element of mild vascular congestion. Trace right pleural effusion. 4. Other nonacute findings as described. IMPRESSION: 1. Right femoral neck fracture, probably acute. 2. Abnormal gallbladder findings. See discussion above. Cholecystitis should be excluded. 3. Otherwise no acute traumatic injury in the abdomen and pelvis. Somewhat limited assessment due to lack of contrast. 4. Lobulated hepatic contour which may represent early cirrhosis. Mild splenomegaly. No ascites. 5. Evidence of prior gastric surgery since most recent CT exam. Moderate stool burden with colonic diverticulosis. No acute bowel findings otherwise. COMMENTS: Consistent with the [employer]'s Incidental Findings Committee white paper (J Am Lucy Radiol 2018): Any incidental renal lesion less than 1 cm or classified as too small to characterize, or any incidental cystic renal lesion characterized as simple-appearing, is likely benign. No follow-up imaging is recommended for these lesions per consensus recommendations based on imaging criteria.
[2022-06-18] MEDS: HYDROmorphone 1 mg/mL INJ 1 mL 0.5 MG IVP ×3 (15:27→21:19)
--- NOTE | 2022-06-18 16:42 | PC.PHAR ---
PT IS FROM [facility] [phone] MIRELES NURSE FROM [facility] STATES PT HAD ALL AM AND NOON MEDS-
[2022-06-18 16:48] LABS: Basophils % 0.2 %; Eosinophils # 0.1 10^3/uL (0.0-0.8); Eosinophils % 0.8 %; Hematocrit 31.9 % (42.0-52.0); Hemoglobin 9.6 g/dL (11.7-16.6); Lymphocytes # 1.2 10^3/uL (0.8-4.8); Lymphocytes % 9.2 %; Mean Corpuscular HGB Conc 30.1 g/dL (30.0-36.0); Mean Corpuscular Hemoglobin 29.4 pg (28.0-34.0); Mean Corpuscular Volume 97.9 fl (80-94); Mean Platelet Volume 9.3 fL (7.4-10.4); Monocytes # 0.7 10^3/uL (0.2-0.9); Monocytes % 5.1 %; Neutrophils # 10.71 10^3/uL (1.8-7.7); Neutrophils % 84.1 %; Nucleated Red Blood Cells % 0 %; Platelet Count 202 10^3/cmm (130-400); Red Blood Count 3.26 10^6/uL (4.1-5.3); Red Cell Distribution Width 18.6 % (12.1-15.1); White Blood Count 12.7 10^3/uL (4.0-10.0)
--- NOTE | 2022-06-18 17:05 | USR_ITS ---
PROCEDURE INFORMATION: Exam: US Abdomen, Limited; Right Upper Quadrant Exam date and time: 06/18/2022 5:24 PM Age: 71 years old Clinical indication: Abnormal findings; Abnormal radiologic finding of the abdomen; Radiologic exam and body structure: CT; Prior surgery; Surgery date: 3-7 days post-operative; Surgery type: Stomach and gallbladder; Additional info: Ruq, biliary TECHNIQUE: Imaging protocol: Real time ultrasound of the abdomen with image documentation. Limited exam focused on the right upper quadrant. COMPARISON: [place] [id number] 06/18/2022 3:55 PM FINDINGS: Liver: The liver is at the upper limits of normal in size with slightly heterogeneous parenchyma. This may be on the basis of mild fatty infiltration or other hepatocellular disease. Again seen is lobulated hepatic contour which may represent early cirrhosis. No large masses are identified however assessment for mass lesions limited in this setting. No regional ascites. Gallbladder: There is history of prior cholecystectomy. A fluid-filled structure is noted in the gallbladder fossa region, measuring 9.2 x 7.4 x 4.5 cm. This may represent nonspecific fluid collection or subacute/chronic hematoma versus biloma. However the morphology on CT resembles distended gallbladder. Confirmation with surgical history should be obtained. Infected collection should also be excluded clinically. Biliary ducts: Poorly visualized extrahepatic bile duct with proximal CBD measuring 4-5 mm, within normal limits. No obvious intrahepatic bile duct dilatation.. Pancreas: Pancreas is mostly obscured. Right kidney: Normal. No mass. No hydronephrosis. Aorta: Poorly visualized aorta with no obvious aneurysm. Portal venous: Patent main portal vein with normal flow direction. Other findings: Details are somewhat limited due to body habitus. US/US abdomen limited [id number] IMPRESSION: 1. Fluid-filled structure in the region of gallbladder fossa region with provided history of prior cholecystectomy. However the morphology is quite similar to abnormally distended gallbladder on the CT exam. See discussion above. If more definitive imaging is required, contrast-enhanced MRI/MRCP or contrast-enhanced CT may also be considered. 2. Poorly visualized pancreas. No obvious bile duct dilatation. 3. Slightly heterogeneous hepatic parenchyma with lobulated contour. No regional ascites otherwise.
[2022-06-18 17:11] LABS: Alanine Aminotransferase 11 U/L (0-41); Albumin Level 3.5 g/dL (3.5-5.2); Alkaline Phosphatase 153 U/L (40-130); Anion Gap 19.2 (5-19); Aspartate Amino Transferase 22 U/L (0-40); Blood Urea Nitrogen 54 mg/dL (8-23); Carbon Dioxide 18 mmol/L (22-29); Chloride 101 mmol/L (98-107); Globulin 5.1 g/dL (1.3-4.6); Glucose 145 mg/dL (65-115); Osmolality Calculated 293 mOsm/kg (285-295); Potassium 5.2 mmol/L (3.5-5.1); Sodium 133 mmol/L (136-145); Total Bilirubin 0.9 mg/dL (0.15-1.2); Total Protein 8.6 g/dL (6.6-8.7)
[2022-06-18 17:37] LABS: INR 1.64 (0.8-1.2); Partial Thromboplastin Time 33.9 SECONDS (23.9-36.7)
--- NOTE | 2022-06-18 18:52 | CTR_ITS ---
PROCEDURE INFORMATION: Exam: CT Abdomen And Pelvis With Contrast Exam date and time: 06/18/2022 7:12 PM Age: 71 years old Clinical indication: Injury or trauma; Fall; Blunt; Ruq; Additional info: Eval fluid collection/mass in gallbladder fossa TECHNIQUE: Imaging protocol: Computed tomography of the abdomen and pelvis with contrast. Radiation optimization: All CT scans at this facility use at least one of these dose optimization techniques: automated exposure control; mA and/or kV adjustment per patient size (includes targeted exams where dose is matched to clinical indication); or iterative reconstruction. Contrast material: OMNI 350; Contrast volume: 75 ml; Contrast route: INTRAVENOUS (IV); COMPARISON: [place] [id number] 06/18/2022 3:55 PM RADIATION DOSE METRICS: Total DLP (mGy-cm): 1117.75 FINDINGS: Heart: Mild cardiomegaly with coronary calcification. Liver: Somewhat lobulated contour with no discrete mass.. Gallbladder and bile ducts: Again seen is a fluid-filled structure in the gallbladder fossa region measuring 10.4 x 5.4 x 5.5 cm. Details are limited due to some motion however there is probably thin rim of wall enhancement. The content is slightly heterogeneous suggesting mildly complex fluid which may be related to debris or subacute/chronic blood products. No large calcified gallstones are otherwise identified. There is minimal regional soft tissue stranding. No bile duct dilatation. Pancreas: Fatty replaced pancreas with no discrete mass or acute regional inflammatory response. Bilateral renal cysts are again noted without hydronephrosis. Spleen: Mild splenomegaly. Adrenal glands: Normal. No mass. Kidneys and ureters: See Pancreas finding. Stomach and bowel: Moderate stool burden with colonic diverticulosis. Evidence of prior gastric bypass surgery. Appendix: No evidence of appendicitis. Intraperitoneal space: No free air. Trace perihepatic fluid with no obvious hepatic laceration.. A small area of subhepatic fluid containing several subcentimeter calcified foci are noted which suggest probable dropped gallstones. Vasculature: No abdominal aortic aneurysm. Lymph nodes: No enlarged lymph nodes. Urinary bladder: Unremarkable as visualized. Reproductive: Unremarkable as visualized. Bones/joints: Again seen is right femoral neck fracture, probably acute. Soft tissues: See Gallbladder and bile ducts finding. Other findings: Examination was performed with IV contrast with comparison unenhanced exam same day earlier. CT/CT abdomen pelvis w con* [id number] IMPRESSION: 1. CT exam with IV contrast with comparison unenhanced CT same day earlier. Redemonstration of fluid-filled structure in the gallbladder fossa demonstrating morphology of a gallbladder however there is provided history of prior cholecystectomy. There is thin rim/wall enhancement with slightly heterogeneous content. Considerations include fluid collection/biloma versus hematoma. Infected fluid should also be excluded clinically. No bile duct dilatation. Minimal soft tissue stranding is noted suggesting nonspecific edema/mild inflammatory response. Clinical correlation and follow-up should be obtained. 2. Trace perihepatic fluid which is better seen due to improvement of regional artifacts versus unenhanced exam. No obvious hepatic parenchymal laceration. This was probably present on this unenhanced exam in retrospect but was obscured by artifacts. Additionally there is a small amount of subhepatic fluid containing several calcified foci which may represent dropped gallstones, also present on the earlier exam in retrospect. Given the conflicting findings and possibility of fluid collection and possible biloma, correlation with nuclear medicine HIDA scan is recommended. Assessment with MRI using hepatobiliary contrast agent may also be considered. 3. No other significant change. Please refer to unenhanced CT exam report earlier same day. COMMENTS: Consistent with the [employer]'s Incidental Findings Committee white paper (J Am Lucy Radiol 2018): Any incidental renal lesion less than 1 cm or classified as too small to characterize, or any incidental cystic renal lesion characterized as simple-appearing, is likely benign. No follow-up imaging is recommended for these lesions per consensus recommendations based on imaging criteria.
[2022-06-18] MEDS: iohexol 350 mg/mL 100 mL Btl IV (19:17)
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
[2022-06-18 22:59] LABS: Glucose Point of Care 143 mg/dL (70-110)
[2022-06-18] MEDS: HYDROcodone-acetaminophen 10-325 mg Tablet 1 TAB PO (23:09)
[2022-06-18] MEDS: sodium chloride 0.9% 1,000 ML 75 ML IV (23:11)
[2022-06-19] VITALS (23 sets, daily range): BP systolic 87–141; BP diastolic 62–85; PULSE 79–124; RESP 16–21; TEMP 36.6–38.5; O2SAT 90–97
--- NOTE | 2022-06-19 | SCC_ITS ---
PROCEDURE DONE: Right Femoral neck fracture pinning 36 seconds of fluoroscopic guidance, for a cumulative dose of 112.2 mGy, was provided to Dr. Schumacher by the radiology department. C-arm images of the RIGHT hip were saved for the patient's permanent record. [facility]
--- NOTE | 2022-06-19 | XR_ITS ---
WS: [id number] Exam: XR hip RT 2-3V wo/w pel* [id number] Date/Time of Exam: 06/19/2022 12:00 AM Reason For Exam: orif right hip Intraoperative C-arm images of the right hip are submitted for evaluation. 3. Orthopedic nails stabilize a subcapital fracture of the right hip in excellent position for kei g. Moderate degenerative change of the joint compartment. XR/XR hip RT 2-3V wo/w pel* [id number] IMPRESSION: 1. Satisfactory nailing of a subcapital fracture of the right hip.
[2022-06-19] MEDS: morphine 4 mg/mL SDV 1 mL 2 MG IVP (00:08)
[2022-06-19] MEDS: piperacillin-tazobactam 3.375 GM in sodium chloride 0.9% (plus) 50 ML IV ×2 (02:46→10:15)
[2022-06-19 04:43] LABS: Add Urine Microscopic? YES; Bilirubin Urine Neg (Negative); Blood Urine 3+ (Negative); Glucose Urine UA Norm (Normal); Ketones Urine Negative (Negative); Leukocyte Esterase Urine Trace (Negative); Nitrate Urine Negative (Negative); Protein Urine 1+ (Negative); Specific Gravity, Urine 1.015 (1.005-1.030); Urine Appearance Clear (CLEAR); Urine Color Yellow (Yellow); Urobilinogen Urine Norm (Negative); pH Urine 5 (5-7)
[2022-06-19 04:45] LABS: RBC Urine TOO NUMEROUS TO CNT /hpf (0-2); Squamous Epithelial Cell Urine 0-4 /hpf (0-5); WBC Urine 25-40 /hpf (0-5)
[2022-06-19 04:46] LABS: Add Urine Culture? Yes; Bacteria Urine 1+ /hpf
[2022-06-19 05:10] LABS: Eosinophils # 0.3 10^3/uL (0.0-0.8); Hematocrit 27.4 % (42.0-52.0); Nucleated Red Blood Cells % 0 %
[2022-06-19] MEDS: HYDROcodone-acetaminophen 10-325 mg Tablet 1 TAB PO (05:47)
[2022-06-19 05:48] LABS: Alanine Aminotransferase 10 U/L (0-41); Albumin Level 3.1 g/dL (3.5-5.2); Alkaline Phosphatase 131 U/L (40-130); Anion Gap 17.4 (5-19); Aspartate Amino Transferase 18 U/L (0-40); Blood Urea Nitrogen 54 mg/dL (8-23); Calcium 8.5 mg/dL (8.5-10.5); Carbon Dioxide 20 mmol/L (22-29); Chloride 104 mmol/L (98-107); Globulin 4.5 g/dL (1.3-4.6); Glucose 134 mg/dL (65-115); Osmolality Calculated 299 mOsm/kg (285-295); Potassium 5.4 mmol/L (3.5-5.1); Sodium 136 mmol/L (136-145); Total Bilirubin 0.8 mg/dL (0.15-1.2); Total Protein 7.6 g/dL (6.6-8.7)
[2022-06-19 06:49] LABS: Glucose Point of Care 147 mg/dL (70-110)
[2022-06-19 09:41] LABS: Erythrocyte Sedimentation Rate 39 mm/hr (0-10)
[2022-06-19 09:46] LABS: Hemoglobin 8.2 g/dL (11.7-16.6); Lymphocytes % 12.2 %; Mean Corpuscular HGB Conc 29.9 g/dL (30.0-36.0); Mean Corpuscular Hemoglobin 29.4 pg (28.0-34.0); Mean Corpuscular Volume 98.2 fl (80-94); Mean Platelet Volume 8.9 fL (7.4-10.4); Monocytes % 6.8 %; Neutrophils % 76.7 %; Platelet Count 170 10^3/cmm (130-400); Red Blood Count 2.79 10^6/uL (4.1-5.3); Red Cell Distribution Width 18.7 % (12.1-15.1); White Blood Count 8.5 10^3/uL (4.0-10.0)
[2022-06-19 09:47] LABS: Basophils % 0.5 %; Eosinophils % 3.4 %; Monocytes # 0.6 10^3/uL (0.2-0.9); Neutrophils # 6.51 10^3/uL (1.8-7.7)
[2022-06-19 09:54] LABS: C Reactive Protein 42.7 mg/L (0.0-4.9)
[2022-06-19 10:05] LABS: SARS Covid-2 Antigen negative (Negative)
[2022-06-19] MEDS: carvedilol 12.5 mg Tablet PO (10:13)
[2022-06-19] MEDS: pramipexole 0.25 mg Tablet PO ×2 (10:13→20:55)
[2022-06-19] MEDS: finasteride 5 mg Tablet PO (10:13)
[2022-06-19] MEDS: isosorbide mononitrate ER 30 mg Tablet PO (10:13)
[2022-06-19] MEDS: ropinirole 1 mg Tablet PO ×2 (10:13→20:55)
[2022-06-19] MEDS: sennosides 8.6 mg Tablet 17.2 MG PO (10:14)
[2022-06-19] MEDS: pantoprazole DR 40 mg Tablet PO (10:14)
[2022-06-19] MEDS: allopurinol 100 mg Tablet PO (10:14)
[2022-06-19] MEDS: gabapentin 300 mg Capsule PO ×2 (10:15→20:55)
[2022-06-19] MEDS: ferrous sulfate EC 325 mg Tablet PO (10:15)
[2022-06-19] MEDS: TRAMadol 50 mg Tablet PO (10:17)
[2022-06-19 11:31] LABS: Glucose Point of Care 141 mg/dL (70-110)
[2022-06-19] MEDS: HYDROmorphone 1 mg/mL INJ 1 mL 0.5 MG IVP ×2 (11:35→19:40)
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
--- NOTE | 2022-06-19 15:31 | PC.NURSE ---
dr luna in to see pt.he will proceed with right hip surgery.to or via bed at this time.
[2022-06-19] MEDS: sodium chloride 0.9% 1,000 ML 30 ML IV (16:11)
[2022-06-19] MEDS: acetaminophen 1,000 MG/100 ML PIGGYBACK 400 MG IV (16:50)
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
[2022-06-19] MEDS: ceFAZolin 2,000 MG in sodium chloride 0.9% (plus) 50 ML 100 MG IV (17:15)
--- NOTE | 2022-06-19 18:31 | P.OP_ITS ---
Operative Report Date of procedure: June 19, 2022 Pre-op diagnosis: Preop Diagnosis Femoral neck fracture, right Post-op diagnosis: same Implants: Garrison 8.0mm ASNIS screws x 3 Pathology: none sent Surgeon: Virgil Schumacher Anesthesia: General Estimated blood loss (mL): 10 Findings: The patient had an impacted right femoral neck fracture Condition: stable Disposition: PACU Procedure: The patient was positioned on the fracture table with his right leg in traction. They were given 2 g of Ancef f. A timeout was performed. A small lateral stab wound was made just below the level of the greater trochanter with a scalpel blade. Under visit so fluoroscopy initial guide pin was driven from a central position just above the level of lesser trochanter into inferior neck and inferior head. Over this was passed an 8.0 mm Garrison Asnis screw. A sec ond pin was placed in the superior anterior position and a second screw placed. A third pin was placed in a posterior superior position and a third screw placed. Intraoperative fluoroscopy was used to verify hardware position. The wound was irrigated with saline. Deep tissues were closed with 3-0 Vicryl. A sterile dressing was applied. The patient was taken to PACU unit in stable condition.
--- NOTE | 2022-06-19 19:03 | XRR_ITS ---
PROCEDURE INFORMATION: Exam: XR Pelvis Exam date and time: 06/19/2022 7:04 PM Age: 71 years old Clinical indication: Screening exam; Prior surgery; Surgery date: Post-operative (0-2 days); Surgery type: Post op hip screw TECHNIQUE: Imaging protocol: Radiologic exam of the pelvis. Views: 1 or 2 view. COMPARISON: OT XR hip RT 2-3V wo/w pel* [id number] 06/19/2022 5:52 PM FINDINGS: Bones/joints: Right hip [address] bridging a subcapital hip fracture. Aiwu-fj-ioeljajx osteoarthritis of the hips bilaterally. Soft tissues: Unremarkable. XR/XR pelvis 1-2V* [id number] IMPRESSION: 1. Right hip [address] bridging a subcapital hip fracture. 2. Vkem-ie-unoqfcoo osteoarthritis of the hips bilaterally.
[2022-06-19 20:45] LABS: Glucose Point of Care 223 mg/dL (70-110)
[2022-06-19] MEDS: sodium chloride 0.9% 1,000 ML 100 ML IV (20:57)
[2022-06-19] MEDS: insulin lispro 100 unit/1 mL SUBCUT (21:43)
[2022-06-20] VITALS (11 sets, daily range): BP systolic 98–126; BP diastolic 60–79; PULSE 89–106; RESP 12–18; TEMP 36.6–37; O2SAT 95–97
[2022-06-20] MEDS: piperacillin-tazobactam 3.375 GM in sodium chloride 0.9% (plus) 50 ML IV ×3 (02:31→17:58)
[2022-06-20 04:42] LABS: Basophils % 0.1 %; Hematocrit 26.4 % (42.0-52.0); Hemoglobin 7.9 g/dL (11.7-16.6); Lymphocytes # 0.5 10^3/uL (0.8-4.8); Lymphocytes % 6.7 %; Mean Corpuscular HGB Conc 29.9 g/dL (30.0-36.0); Mean Corpuscular Hemoglobin 29.4 pg (28.0-34.0); Mean Corpuscular Volume 98.1 fl (80-94); Mean Platelet Volume 8.9 fL (7.4-10.4); Monocytes # 0.2 10^3/uL (0.2-0.9); Monocytes % 2.9 %; Neutrophils % 89.7 %; Nucleated Red Blood Cells % 0 %; Platelet Count 123 10^3/cmm (130-400); Red Blood Count 2.69 10^6/uL (4.1-5.3); Red Cell Distribution Width 18.7 % (12.1-15.1); White Blood Count 7.9 10^3/uL (4.0-10.0)
[2022-06-20] MEDS: sodium chloride 0.9% 1,000 ML 100 ML IV (05:20)
[2022-06-20 06:13] LABS: Glucose Point of Care 175 mg/dL (70-110)
[2022-06-20] MEDS: HYDROmorphone 1 mg/mL INJ 1 mL 0.5 MG IVP (06:19)
--- NOTE | 2022-06-20 07:31 | PM.PN ---
Subjective Subjective: The patient underwent pinning of the right hip yesterday. He is doing quite well this morning. Denies any abdominal pain. No fever or chills. White blood cell count remains normal. Vitals/I&O/Wt Last Vital Signs Temp 98.6 F 06/20/22 02:21 Pulse 89 06/20/22 05:57 Resp 18 06/20/22 06:19 BP 126/69 06/20/22 02:21 Pulse Ox 97 06/20/22 02:21 O2 Del Method 06/20/22 02:21 O2 Flow Rate 2 06/20/22 02:21 06/19/22 06/20/22 06/20/22 22:59 06:59 14:59 Intake Total 2335 / 2395 1318.333 / 3713.333 Output Total 750 / 750 400 / 1150 Balance 1585 / 1645 918.333 / 2563.333 Weight last 48 hrs Weight 225 lb Physical Exam Narrative: General: No acute distress Psych: AAOx3 Eyes: Sclerae are white Head/ENT: Normocephalic, symmetric CV: Regular pulse, tachychardic, no JVD Lungs: Symmetrical chest rise Abdomen: Soft, ND, nontender Ext: No obvious traumatic deformities Skin: warm Urinary Catheter Management: Leslie: Cath Placed During This Visit: yes, but has since been removed by the nurse Reason for Continuing Indwelling Catheter: Decision to DC Catheter Urinary Catheter Date of Insertion: 06/18/22 Urinary Catheter Time of Insertion: 21:16 Date Urinary Catheter Removed: 06/20/22 Time Urinary Catheter Discontinued: 06:38 Data : 06/20/22 04:14 06/19/22 04:33 Micro: Microbiology 06/19/22 04:35 Blood Culture - Preliminary Blood NEGATIVE TO DATE 06/19/22 04:33 Blood Culture - Preliminary Blood NEGATIVE TO DATE 06/19/22 03:30 Urine Culture - Preliminary Urine,Clean Catch A&P Assessment and plan (1) Anemia: (2) A-fib: (3) Intra-abdominal fluid collection: (4) Closed hip fracture: Plan Given that the patient will not have a hip replacement, the need to rule out infectious fluid collection becomes much less urgent. He is absolutely asymptomatic in regards to this fluid collection. It does have the rim enhancement and need to be monitored, possibly with repeat ultrasound down the road. I will leave final decision about percutaneous drainage of this lesion to the primary team as well as the patient's primary surgeon in [place]. No indications for any surgical intervention from my standpoint otherwise. At this time general surgery will sign off. Please call with questions/concerns. Attestations Medical Necessity Statement*: Per primary team Coding Level of Care Code Acute Product Safety Technician for Chg Fwd Diagnoses Anemia D64.9 A-fib I48.91 Intra-abdominal fluid collection R18.8 Closed hip fracture S72.009A
[2022-06-20 07:33] LABS: Blood Urea Nitrogen 57 mg/dL (8-23); Calcium 8.3 mg/dL (8.5-10.5); Carbon Dioxide 18 mmol/L (22-29); Chloride 105 mmol/L (98-107); Glucose 183 mg/dL (65-115); Osmolality Calculated 301 mOsm/kg (285-295); Sodium 135 mmol/L (136-145)
--- NOTE | 2022-06-20 08:12 | ECG_ITS ---
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 Measurements Intervals [address] Rate: 101 P: CT: QRS: -19 QRSD: 91 T: 103 QT: 352 QTc: 457 Interpretive Statements ATRIAL FIBRILLATION WITH RAPID VENTRICULAR RESPONSE POSSIBLE ANTERIOR MYOCARDIAL INFARCTION , PROBABLY OLD [30 ms Q WAVE IN V3/V4, OR R < 0.2 mV IN V4] ABNORMAL RHYTHM ECG Compared to ECG 03/31/2022 17:55:06 Myocardial infarct finding now present T-wave abnormality no longer present Possible ischemia no longer present Electronically Signed On 06-22-2022 23:04:37 CDT by Angie March M.D. [id number]
[2022-06-20] MEDS: insulin regular-human 10 UNIT in SYRINGE 1 EACH IVP (08:42)
[2022-06-20] MEDS: dextrose 50% syringe 50 mL 25 ML IVP (08:42)
[2022-06-20] MEDS: calcium gluconate 0.9% NaCL 1 GM/50 ML PREMIX IV (08:42)
[2022-06-20] MEDS: sodium polystyrene sulfonate 15 gm/60 mL Btl PO ×2 (08:43→15:01)
[2022-06-20] MEDS: lidocaine 5% Patch 1 PATCH TOPICAL (09:04)
[2022-06-20] MEDS: insulin lispro 100 unit/1 mL SUBCUT ×4 (09:05→21:53)
[2022-06-20] MEDS: apixaban 5 mg Tablet PO ×2 (09:05→17:44)
[2022-06-20] MEDS: ropinirole 1 mg Tablet PO ×3 (09:06→20:33)
[2022-06-20] MEDS: phenazopyridine 100 mg Tablet PO (09:06)
[2022-06-20] MEDS: ferrous sulfate EC 325 mg Tablet PO ×2 (09:06→17:45)
[2022-06-20] MEDS: gabapentin 300 mg Capsule PO ×3 (09:06→20:33)
[2022-06-20] MEDS: sennosides 8.6 mg Tablet 17.2 MG PO (09:06)
[2022-06-20] MEDS: finasteride 5 mg Tablet PO (09:06)
[2022-06-20] MEDS: pramipexole 0.25 mg Tablet PO ×3 (09:06→20:33)
[2022-06-20] MEDS: pantoprazole DR 40 mg Tablet PO ×2 (09:06→17:45)
--- NOTE | 2022-06-20 09:12 | PM.PN ---
Subjective Subjective: Adequate pain control. Up on commode this morning Vitals/I&O/Wt Last Vital Signs Temp 98.6 F 06/20/22 08:00 Pulse 96 06/20/22 08:00 Resp 18 06/20/22 08:00 BP 116/67 06/20/22 08:00 Pulse Ox 97 06/20/22 08:00 O2 Del Method 06/20/22 02:21 O2 Flow Rate 2 06/20/22 02:21 06/19/22 06/20/22 06/20/22 22:59 06:59 14:59 Intake Total 2335 / 2395 1318.333 / 3713.333 395 / 395 Output Total 750 / 750 400 / 1150 Balance 1585 / 1645 918.333 / 2563.333 395 / 395 Weight last 48 hrs Weight 225 lb Physical Exam Narrative: Hip dressing clean and dry. Urinary Catheter Management: Leslie: Cath Placed During This Visit: yes, but has since been removed by the nurse Reason for Continuing Indwelling Catheter: Decision to DC Catheter Urinary Catheter Date of Insertion: 06/18/22 Urinary Catheter Time of Insertion: 21:16 Date Urinary Catheter Removed: 06/20/22 Time Urinary Catheter Discontinued: 06:38 Data : 06/20/22 04:14 06/20/22 04:14 Micro: Microbiology 06/19/22 03:30 Urine Culture - Final Urine,Clean Catch 06/19/22 04:35 Blood Culture - Preliminary Blood NEGATIVE TO DATE 06/19/22 04:33 Blood Culture - Preliminary Blood NEGATIVE TO DATE A&P Assessment and plan (1) Nondisplaced fracture of neck of right femur: (2) Status post open reduction with internal fixation of fracture: Continue to mobilize with therapy. No acute orthopedic issues. Supportive care per medicine. Attestations Medical Necessity Statement*: As per medicine Coding Level of Care Code Acute Bobbin Handler for g Fwd Diagnoses Nondisplaced fracture of neck of right femur S72.001A Status post open reduction with internal fixation of fracture Z98.890; Z87.81
[2022-06-20] MEDS: ondansetron 2 mg/ML SDV 2 mL 4 MG IVP (10:03)
[2022-06-20] MEDS: HYDROcodone-acetaminophen 10-325 mg Tablet 1 TAB PO ×2 (11:15→17:22)
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
[2022-06-20 12:24] LABS: Basophils % 0.1 %; Hematocrit 26.8 % (42.0-52.0); Hemoglobin 7.9 g/dL (11.7-16.6); Lymphocytes # 0.7 10^3/uL (0.8-4.8); Lymphocytes % 7.2 %; Mean Corpuscular HGB Conc 29.5 g/dL (30.0-36.0); Mean Corpuscular Volume 98.5 fl (80-94); Mean Platelet Volume 8.7 fL (7.4-10.4); Monocytes # 0.6 10^3/uL (0.2-0.9); Monocytes % 5.6 %; Neutrophils # 8.64 10^3/uL (1.8-7.7); Neutrophils % 86.3 %; Nucleated Red Blood Cells % 0 %; Platelet Count 143 10^3/cmm (130-400); Red Blood Count 2.72 10^6/uL (4.1-5.3); Red Cell Distribution Width 18.6 % (12.1-15.1)
[2022-06-20 12:41] LABS: Glucose Point of Care 198 mg/dL (70-110)
[2022-06-20 13:02] LABS: Anion Gap 19.3 (5-19); Blood Urea Nitrogen 58 mg/dL (8-23); Calcium 8.6 mg/dL (8.5-10.5); Carbon Dioxide 17 mmol/L (22-29); Chloride 102 mmol/L (98-107); Glucose 176 mg/dL (65-115); Osmolality Calculated 296 mOsm/kg (285-295); Potassium 5.3 mmol/L (3.5-5.1); Sodium 133 mmol/L (136-145)
[2022-06-20] MEDS: cyclobenzaprine 10 mg Tablet PO (16:33)
[2022-06-20] MEDS: atorvastatin 40 mg Tablet 20 MG PO (17:42)
[2022-06-20] MEDS: carvedilol 12.5 mg Tablet PO (17:43)
[2022-06-20] MEDS: tamsulosin 0.4 mg Capsule 0.8 MG PO (17:59)
--- NOTE | 2022-06-20 18:12 | PC.NURSE ---
indwelling urinary catheter removed at 0630 this a.m..pt unable to void.at 1700 order for bladder scan and i/o cath obtained from dr silva.bladder scan showed approx 300 cc urine in bladder.i/o cath performed using aseptic technique.350 cc urine returned.pt tolerated procedure well.pt's family states pt has had difficult time urinating since his gastrectomy/choley procedure and has required insertion of indwelling catheter several times since.
[2022-06-20 18:25] LABS: Glucose Point of Care 262 mg/dL (70-110)
[2022-06-20 20:29] LABS: Glucose Point of Care 197 mg/dL (70-110)
[2022-06-20] MEDS: sodium chloride 0.9% 1,000 ML 50 ML IV (20:34)
--- NOTE | 2022-06-20 21:41 | ANE.PACU2 ---
Inpatient post-anesthesia follow up: Airway intact: Yes Vital signs: Temperature 98.4 F Pulse Rate 105 Respiratory Rate 12 Blood Pressure 111/75 Pulse Oximetry 97 Oxygen Delivery Me thod Nasal Cannula Oxygen Flow Rate 2 Fraction of Inspir ed Oxygen Hydration adequate: Yes Nausea and vomiting: No Pain level: 3 Mental status: Baseline
[2022-06-21] VITALS (15 sets, daily range): BP systolic 100–135; BP diastolic 57–70; PULSE 84–110; RESP 12–18; TEMP 36.4–37.2; O2SAT 92–100
[2022-06-21] MEDS: piperacillin-tazobactam 3.375 GM in sodium chloride 0.9% (plus) 50 ML IV ×2 (01:40→10:45)
[2022-06-21] MEDS: ondansetron 2 mg/ML SDV 2 mL 4 MG IVP ×2 (02:38→14:05)
[2022-06-21 04:41] LABS: Basophils % 0.2 %; Eosinophils % 0.1 %; Hematocrit 24.2 % (42.0-52.0); Hemoglobin 7.3 g/dL (11.7-16.6); Lymphocytes # 0.9 10^3/uL (0.8-4.8); Lymphocytes % 9.9 %; Mean Corpuscular HGB Conc 30.2 g/dL (30.0-36.0); Mean Corpuscular Hemoglobin 29.8 pg (28.0-34.0); Mean Corpuscular Volume 98.8 fl (80-94); Mean Platelet Volume 9.1 fL (7.4-10.4); Monocytes # 0.5 10^3/uL (0.2-0.9); Monocytes % 5.7 %; Neutrophils # 7.81 10^3/uL (1.8-7.7); Neutrophils % 83.5 %; Nucleated Red Blood Cells % 0 %; Platelet Count 124 10^3/cmm (130-400); Red Blood Count 2.45 10^6/uL (4.1-5.3); Red Cell Distribution Width 18.8 % (12.1-15.1); White Blood Count 9.4 10^3/uL (4.0-10.0)
[2022-06-21] MEDS: HYDROcodone-acetaminophen 10-325 mg Tablet 1 TAB PO (05:22)
[2022-06-21 05:23] LABS: Anion Gap 17.7 (5-19); Blood Urea Nitrogen 64 mg/dL (8-23); Calcium 8.1 mg/dL (8.5-10.5); Carbon Dioxide 19 mmol/L (22-29); Chloride 105 mmol/L (98-107); Glucose 146 mg/dL (65-115); Magnesium 2.2 mg/dL (1.7-2.3); NT Pro B Type Natriuretic Pept 27709 pg/mL (0-125); Osmolality Calculated 305 mOsm/kg (285-295); Potassium 4.7 mmol/L (3.5-5.1); Sodium 137 mmol/L (136-145)
[2022-06-21] MEDS: metoclopramide 5 mg/mL SDV 2 mL 10 MG IVP (05:23)
[2022-06-21 06:19] LABS: Glucose Point of Care 142 mg/dL (70-110)
[2022-06-21] MEDS: finasteride 5 mg Tablet PO (08:53)
[2022-06-21] MEDS: sennosides 8.6 mg Tablet 17.2 MG PO ×2 (08:54→17:49)
[2022-06-21] MEDS: ferrous sulfate EC 325 mg Tablet PO ×2 (08:54→17:51)
[2022-06-21] MEDS: carvedilol 12.5 mg Tablet PO ×2 (08:55→17:50)
[2022-06-21] MEDS: ropinirole 1 mg Tablet PO ×3 (08:56→20:01)
[2022-06-21] MEDS: apixaban 5 mg Tablet PO ×2 (08:56→17:51)
[2022-06-21] MEDS: pantoprazole DR 40 mg Tablet PO ×2 (08:57→17:49)
[2022-06-21] MEDS: isosorbide mononitrate ER 30 mg Tablet PO (08:57)
[2022-06-21] MEDS: pramipexole 0.25 mg Tablet PO ×3 (08:57→20:01)
[2022-06-21] MEDS: gabapentin 300 mg Capsule PO ×3 (08:57→20:01)
[2022-06-21] MEDS: insulin lispro 100 unit/1 mL SUBCUT ×3 (08:58→21:33)
[2022-06-21] MEDS: lidocaine 5% Patch 1 PATCH TOPICAL (08:58)
--- NOTE | 2022-06-21 09:17 | PC.SOCIAL ---
IMM Update Pg. 2 of IMM updated and reviewed with patient. Copy provided. Initialed, dated, and timed copy in chart.
[2022-06-21] MEDS: FUROsemide 10 mg/mL SDV 2mL 20 MG IVP (10:45)
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
[2022-06-21 12:10] LABS: Glucose Point of Care 158 mg/dL (70-110)
[2022-06-21] MEDS: diphenhydrAMINE 50 mg/mL SDV 1mL 25 MG IVP (15:38)
[2022-06-21] MEDS: sodium chloride 0.9% (100 ml) 100 ML 50 ML (16:11)
[2022-06-21 17:07] LABS: Glucose Point of Care 101 mg/dL (70-110)
[2022-06-21] MEDS: amoxicillin-clav 875-125 mg Tablet 1 TAB PO (17:47)
[2022-06-21] MEDS: atorvastatin 40 mg Tablet 20 MG PO (17:48)
[2022-06-21] MEDS: tamsulosin 0.4 mg Capsule 0.8 MG PO (17:50)
[2022-06-21 21:16] LABS: Glucose Point of Care 168 mg/dL (70-110)
[2022-06-22] VITALS: BP 107/61; PULSE 91; RESP 16; TEMP 36.7; O2SAT 96
[2022-06-22 04:00] VITALS: BP 122/67; PULSE 79; RESP 17; TEMP 37.3; O2SAT 97
[2022-06-22 05:23] LABS: Basophils % 0.4 %; Eosinophils # 0.3 10^3/uL (0.0-0.8); Eosinophils % 3.2 %; Hematocrit 26.4 % (42.0-52.0); Lymphocytes % 12.8 %; Mean Corpuscular HGB Conc 30.3 g/dL (30.0-36.0); Mean Corpuscular Hemoglobin 28.8 pg (28.0-34.0); Mean Platelet Volume 8.7 fL (7.4-10.4); Monocytes # 0.6 10^3/uL (0.2-0.9); Neutrophils # 5.99 10^3/uL (1.8-7.7); Neutrophils % 75.8 %; Nucleated Red Blood Cells % 0.4 %; Platelet Count 124 10^3/cmm (130-400); Red Blood Count 2.78 10^6/uL (4.1-5.3); Red Cell Distribution Width 20.4 % (12.1-15.1); White Blood Count 7.9 10^3/uL (4.0-10.0)
[2022-06-22 05:51] LABS: Magnesium 2.2 mg/dL (1.7-2.3)
[2022-06-22 05:54] LABS: Glucose Point of Care 104 mg/dL (70-110)
[2022-06-22 06:02] LABS: Anion Gap 17.2 (5-19); Blood Urea Nitrogen 65 mg/dL (8-23); Calcium 8.3 mg/dL (8.5-10.5); Carbon Dioxide 20 mmol/L (22-29); Chloride 103 mmol/L (98-107); Glucose 100 mg/dL (65-115); Osmolality Calculated 301 mOsm/kg (285-295); Potassium 4.2 mmol/L (3.5-5.1); Sodium 136 mmol/L (136-145)
[2022-06-22 07:59] VITALS: BP 104/64; PULSE 93; RESP 18; TEMP 37.3; O2SAT 98
[2022-06-22 08:00] VITALS: PULSE 57; RESP 16; O2SAT 95
[2022-06-22] MEDS: HYDROcodone-acetaminophen 10-325 mg Tablet 1 TAB PO (08:08)
[2022-06-22] MEDS: amoxicillin-clav 875-125 mg Tablet 1 TAB PO (09:33)
[2022-06-22] MEDS: finasteride 5 mg Tablet PO (09:33)
[2022-06-22] MEDS: sennosides 8.6 mg Tablet 17.2 MG PO (09:33)
[2022-06-22] MEDS: ropinirole 1 mg Tablet PO (09:33)
[2022-06-22] MEDS: pramipexole 0.25 mg Tablet PO (09:33)
[2022-06-22] MEDS: apixaban 5 mg Tablet PO (09:34)
[2022-06-22] MEDS: carvedilol 12.5 mg Tablet PO (09:34)
[2022-06-22] MEDS: ferrous sulfate EC 325 mg Tablet PO (09:34)
[2022-06-22] MEDS: pantoprazole DR 40 mg Tablet PO (09:34)
[2022-06-22] MEDS: isosorbide mononitrate ER 30 mg Tablet PO (09:34)
[2022-06-22] MEDS: gabapentin 300 mg Capsule PO (09:34)
[2022-06-22] MEDS: lidocaine 5% Patch 1 PATCH TOPICAL (09:35)
[2022-06-22] MEDS: TRAMadol 50 mg Tablet PO (11:38)
[2022-06-22 11:42] LABS: Glucose Point of Care 185 mg/dL (70-110)
--- NOTE | 2022-06-22 11:44 | P.DS_ITS ---
Discharge Providers Date of Admission: 06/18/22 21:12 Date of Discharge: June 22, 2022 Attending Provider at Admission: Laney Weeks MD Attending Provider at Discharge: Sudeep Dumont MD Consults: Anesthesia General surgery Orthopedics Primary Care Provider: Tosha Munoz MD Diagnoses at Discharge Discharge Diagnosis (1) Closed hip fracture: Status: Acute (2) Anemia: Status: Acute (3) Intra-abdominal fluid collection: Status: Acute (4) A-fib: Status: Acute (5) Allergic transfusion reaction: Status: Chronic Reason for Visit Reason for Visit: r hip pain /fall ,halfway [facility] Hospital Course Hospital Course Gian Bowers is a 71-year-old male with a past medical history significant for atrial fibrillation, coronary artery disease, ischemic cardiomyopathy, gastric polyps, GI bleeds, and chronic kidney disease stage IV who presented with right hip pain following mechanical fall, found to have right femoral neck fracture. Orthopedic surgery was consulted and patient underwent open reduction with internal fixation fracture. Patient was also found to have a rim-enhancing fluid collection in the subhepatic space. The ER physician reportedly spoke with the surgical service at [facility] who felt like this collection was likely a resolving hematoma from his recent surgery. General surgery was consulted and followed. Patient has recently underwent stomach resection about 5 weeks ago at [facility] for bleeding gastric polyp. That postop course was complicated by bleeding and a large hematoma on the liver bed. General surgery recommended drain placement due to concern for possible infected hematoma, however patient and family refused drain placement. Patient was empirically treated with Augmentin. Patient was found to have acute blood loss anemia on chronic anemia. She underwent transfusions with improvement in hemoglobin. Patient was found to have acute urinary retention. Attempted voiding trial and failed. He is being discharged with a Leslie. He is to follow-up outpatient with his primary care provider for further treatment. Patient discharge in stable condition back to halfway facility. Patient is to follow-up with his primary care provider in 1 to 2 weeks. Physical Exam Narrative: General: Patient is awake and alert. Frail-appearing. Head: Normocephalic. Atraumatic. EOM intact. Neck: No JVD. Cardiovascular: No gallops. No murmurs. Trace peripheral edema. Lungs: Clear to auscultation, no use of accessory muscles, no crackles or wheezes. Skin: No jaundice. No rashes. Abdomen: Normal bowel sounds, abdomen soft and nontender. Genito Urinary: Genital exam not performed since complaints not related. Rectal: Rectal exam not performed since no symptoms indicated blood loss. Extremeties: No cyanosis or clubbing. Musculoskeletal: 5/5 strength, normal range of motion, no swollen or erythematous joints. Neurological: Moves all 4 extremities. No myoclonus. Urinary Catheter Management: Leslie: Cath Placed During This Visit: yes, but has since been removed by the nurse Reason for Continuing Indwelling Catheter: Acute Urinary Retention or Obstruction Urinary Catheter Date of Insertion: 06/21/22 Urinary Catheter Time of Insertion: 04:20 Date Urinary Catheter Removed: 06/20/22 Time Urinary Catheter Discontinued: 06:38 Discharge Data Studies Completed and Pending Completed Studies During Hospitalization Category Date Time Status CT abdomen pelvis w con* [id number] Stat Cat Scan 06/18/22 18:[address] cervical spin wo con* [id number] Stat Cat Scan 06/18/22 15:[address] chest abdomen [place] [[place] [id number] Cat Scan 06/18/22 15:06 Completed ] Stat CT head wo con* [id number] Stat Cat Scan 06/18/22 15:04 Completed XR hip RT 2-3V wo/w pel* [id number] Routine Exams 06/19/22 Completed XR hip RT 2-3V wo/w pel* [id number] Stat Exams 06/18/22 15:04 Completed XR pelvis 1-2V* [id number] Routine Exams 06/19/22 19:03 Completed US abdomen limited [id number] Stat Ultrasound 06/18/22 17:05 Completed Pending at discharge Category Date Time Status Basic Metabolic Panel AM LABS Lab 06/23/22 04:00 Ordered Blood Culture Stat Lab 06/19/22 04:35 Results Complete Blood Count w/Auto AM LABS Lab 06/23/22 04:00 Ordered Magnesium AM LABS Lab 06/23/22 04:00 Ordered NT Pro B Type Natriuretic Pept QAM Lab 06/23/22 06:00 Ordered SARS Covid-2 Antigen Stat Lab 06/22/22 11:41 Uncollected Radiology Impressions Cervical Spine CT 06/18/22 15:04 IMPRESSION: No acute findings. Head CT 06/18/22 15:04 IMPRESSION: No acute intracranial abnormality. Chest/Abdomen/Pelvis CT 06/18/22 15:06 IMPRESSION: 1. No acute thoracic findings or significant traumatic injury. 2. Stable mild dilatation of ascending aorta and main pulmonary artery. 3. Coronary calcification and possible element of mild vascular congestion. Trace right pleural effusion. 4. Other nonacute findings as described. IMPRESSION: 1. Right femoral neck fracture, probably acute. 2. Abnormal gallbladder findings. See discussion above. Cholecystitis should be excluded. 3. Otherwise no acute traumatic injury in the abdomen and pelvis. Somewhat limited assessment due to lack of contrast. 4. Lobulated hepatic contour which may represent early cirrhosis. Mild splenomegaly. No ascites. 5. Evidence of prior gastric surgery since most recent CT exam. Moderate stool burden with colonic diverticulosis. No acute bowel findings otherwise. COMMENTS: Consistent with the [employer]'s Incidental Findings Committee white paper (J Am Lucy Radiol 2018): Any incidental renal lesion less than 1 cm or classified as too small to characterize, or any incidental cystic renal lesion characterized as simple-appearing, is likely benign. No follow-up imaging is recommended for these lesions per consensus recommendations based on imaging criteria. ADDENDUM: 06/18/221817 Addendum Additional history was provided including partial gastrectomy/Billroth 2 procedure and cholecystectomy on 05/13/2022. The fluid-filled structure in the gallbladder fossa on CT demonstrates morphology very similar to gallbladder. Otherwise this may represent abnormal fluid collection. Please also refer to ultrasound exam report and discussion subsequently same day. ADDENDUM: 06/18/221941 Addendum 2. Please also refer to abdominopelvic CT exam same day subsequently which was performed following IV contrast. A small amount of subhepatic low-density fluid containing several subcentimeter calcific foci are noted on the current exam which are somewhat obscured by artifacts. Findings suggest small amount of perihepatic fluid with dropped gallstones. There is provided history of prior cholecystectomy which should also be confirmed. Abdomen Ultrasound 06/18/22 17:05 IMPRESSION: 1. Fluid-filled structure in the region of gallbladder fossa region with provided history of prior cholecystectomy. However the morphology is quite similar to abnormally distended gallbladder on the CT exam. See discussion above. If more definitive imaging is required, contrast-enhanced MRI/MRCP or contrast-enhanced CT may also be considered. 2. Poorly visualized pancreas. No obvious bile duct dilatation. 3. Slightly heterogeneous hepatic parenchyma with lobulated contour. No regional ascites otherwise. Abdomen/Pelvis CT 06/18/22 18:52 IMPRESSION: 1. CT exam with IV contrast with comparison unenhanced CT same day earlier. Redemonstration of fluid-filled structure in the gallbladder fossa demonstrating morphology of a gallbladder however there is provided history of prior cholecystectomy. There is thin rim/wall enhancement with slightly heterogeneous content. Considerations include fluid collection/biloma versus hematoma. Infected fluid should also be excluded clinically. No bile duct dilatation. Minimal soft tissue stranding is noted suggesting nonspecific edema/mild inflammatory response. Clinical correlation and follow-up should be obtained. 2. Trace perihepatic fluid which is better seen due to improvement of regional artifacts versus unenhanced exam. No obvious hepatic parenchymal laceration. This was probably present on this unenhanced exam in retrospect but was obscured by artifacts. Additionally there is a small amount of subhepatic fluid containing several calcified foci which may represent dropped gallstones, also present on the earlier exam in retrospect. Given the conflicting findings and possibility of fluid collection and possible biloma, correlation with nuclear medicine HIDA scan is recommended. Assessment with MRI using hepatobiliary contrast agent may also be considered. 3. No other significant change. Please refer to unenhanced CT exam report earlier same day. COMMENTS: Consistent with the [employer]'s Incidental Findings Committee white paper (J Am Lucy Radiol 2018): Any incidental renal lesion less than 1 cm or classified as too small to characterize, or any incidental cystic renal lesion characterized as simple-appearing, is likely benign. No follow-up imaging is recommended for these lesions per consensus recommendations based on imaging criteria. Hip/Pelvis X-Ray 06/19/22 00:00 IMPRESSION: 1. Satisfactory nailing of a subcapital fracture of the right hip. Pelvis X-Ray 06/19/22 19:03 IMPRESSION: 1. Right hip [address] bridging a subcapital hip fracture. 2. [id number]-wm-jvxghkuh osteoarthritis of the hips bilaterally. Laboratory Results WBC 7.9 10^3/uL (4.0-10.0) 06/22/22 05:10 RBC 2.78 10^6/uL (4.1-5.3) L 06/22/22 05:10 Hgb 8.0 g/dL (11.7-16.6) L 06/22/22 05:10 Hct 26.4 % (42.0-52.0) L 06/22/22 05:10 MCV 95.0 fl (80-94) H 06/22/22 05:10 MCH 28.8 pg (28.0-34.0) 06/22/22 05:10 MCHC 30.3 g/dL (30.0-36.0) 06/22/22 05:10 RDW 20.4 % (12.1-15.1) H 06/22/22 05:10 Plt Count 124 10^3/cmm (130-400) L 06/22/22 05:10 MPV 8.7 fL (7.4-10.4) 06/22/22 05:10 Neut % (Auto) 75.8 % 06/22/22 05:10 Lymph % (Auto) 12.8 % 06/22/22 05:10 [place] % (Auto) 7.0 % 06/22/22 05:10 Eos % (Auto) 3.2 % 06/22/22 05:10 Baso % (Auto) 0.4 % 06/22/22 05:10 Neut # (Auto) 5.99 10^3/uL (1.8-7.7) 06/22/22 05:10 Lymph # (Auto) 1.0 10^3/uL (0.8-4.8) 06/22/22 05:10 [place] # (Auto) 0.6 10^3/uL (0.2-0.9) 06/22/22 05:10 Eos # (Auto) 0.3 10^3/uL (0.0-0.8) 06/22/22 05:10 Baso # (Auto) 0.0 10^3/uL (0.0-0.1) 06/22/22 05:10 Nucleated RBC % (auto) 0.4 % 06/22/22 05:10 Nucleated RBCs # 0.0 /100WBC 06/22/22 05:10 ESR 39 mm/hr (0-10) H 06/19/22 04:33 PT 19.80 SECONDS (12.1-14.9) H 06/18/22 17:12 INR 1.64 (0.8-1.2) H 06/18/22 17:12 APTT 33.9 SECONDS (23.9-36.7) 06/18/22 17:12 Sodium 136 mmol/L (136-145) 06/22/22 05:10 Potassium 4.2 mmol/L (3.5-5.1) 06/22/22 05:10 Chloride 103 mmol/L (98-107) 06/22/22 05:10 Carbon Dioxide 20 mmol/L (22-29) L 06/22/22 05:10 Anion Gap 17.2 (5-19) 06/22/22 05:10 BUN 65 mg/dL (8-23) H 06/22/22 05:10 Creatinine 2.2 mg/dL (0.7-1.2) H 06/22/22 05:10 GFR Calculation Not Reportable 06/22/22 05:10 Glucose 100 mg/dL (65-115) 06/22/22 05:10 POC Glucose 185 mg/dL (70-110) H 06/22/22 11:34 Calculated Osmolality 301 mOsm/kg (285-295) H 06/22/22 05:10 Calcium 8.3 mg/dL (8.5-10.5) L 06/22/22 05:10 Magnesium 2.2 mg/dL (1.7-2.3) 06/22/22 05:10 Total Bilirubin 0.8 mg/dL (0.15-1.2) 06/19/22 04:33 AST 18 U/L (0-40) 06/19/22 04:33 ALT 10 U/L (0-41) 06/19/22 04:33 Alkaline Phosphatase 131 U/L (40-130) H 06/19/22 04:33 C-Reactive Protein 42.7 mg/L (0.0-4.9) H 06/19/22 04:33 NT-Pro-B Natriuret Pep 38024 pg/mL (0-125) H 06/22/22 05:10 Total Protein 7.6 g/dL (6.6-8.7) 06/19/22 04:33 Albumin 3.1 g/dL (3.5-5.2) L 06/19/22 04:33 Globulin 4.5 g/dL (1.3-4.6) 06/19/22 04:33 Procalcitonin 0.30 ng/mL (0-0.5) 06/19/22 04:33 Urine Color Yellow (Yellow) 06/19/22 03:30 Urine Appearance Clear (CLEAR) 06/19/22 03:30 Urine pH 5 (5-7) 06/19/22 03:30 Ur Specific [place] 1.015 (1.005-1.030) 06/19/22 03:30 Urine Protein 1+ (Negative) H 06/19/22 03:30 Urine Glucose (UA) Norm (Normal) 06/19/22 03:30 Urine Ketones Negative (Negative) 06/19/22 03:30 Urine Blood 3+ (Negative) H 06/19/22 03:30 Urine Nitrate Negative (Negative) 06/19/22 03:30 Urine Bilirubin Neg (Negative) 06/19/22 03:30 Urine Urobilinogen Norm mg/dL (Negative) 06/19/22 03:30 Ur Leukocyte Esterase Trace (Negative) H 06/19/22 03:30 Urine RBC Too numerous to cnt /hpf (0-2) H 06/19/22 03:30 Urine WBC 25-40 /hpf (0-5) H 06/19/22 03:30 Ur Squamous Epith Cells 0-4 /hpf (0-5) H 06/19/22 03:30 Amorphous Sediment Not Reportable 06/19/22 03:30 Urine Bacteria 1+ /hpf (NONE) H 06/19/22 03:30 SARS-CoV-2 Ag (Rapid) negative (Negative) 06/19/22 09:11 Blood Type O Positive 06/18/22 08:45 Rho(D) Type Positive 06/18/22 08:45 Antibody Screen Negative 06/18/22 08:45 Crossmatch See Detail 06/18/22 08:45 Procedures Performed ORIF of right femur fracture Vitals Last Vital Signs Temp 99.1 F 06/22/22 07:59 Pulse 57 L 06/22/22 08:00 Resp 16 06/22/22 08:00 BP 104/64 06/22/22 07:59 Pulse Ox 95 06/22/22 08:00 O2 Del Method 06/22/22 08:00 O2 Flow Rate 3 06/22/22 07:59 Discharge Plan Discharge Patient Disposition: Xfer SNF Condition: Stable Prescriptions: Continued Eliquis 5 mg tablet 5 mg PO BID 30 Days Qty: 60 5RF Rx Instructions: 340B (DME) Dexcom G6 Sensor Device See Rx Instructions .Route Qty: 3 3RF Rx Instructions: Change every 10 days. (DME) Dexcom G6 Ep Technologist Misc See Rx Instructions .Route Qty: 1 0RF Rx Instructions: Check BS 4-6 times a day. (DME) Dexcom G6 Transmitter Device See Rx Instructions .Route Qty: 1 3RF Rx Instructions: Change every 90 days. (DME) OneTouch Verio test strips Strip See Rx Instructions .Route Qty: 200 11RF Rx Instructions: Use to test 3 times daily bumetanide 2 mg tablet 2 mg PO DAILY@08 (DME) Diabetic Shoes with 3 pairs of inserts See Rx Instructions .ROUTE .MEDSUPPLY Qty: 1 0RF Rx Instructions: As directed J P & O gabapentin 300 mg capsule 300 mg PO TID 90 Days Qty: 270 1RF allopurinol 100 mg tablet 100 mg PO BID 90 Days Qty: 180 1RF atorvastatin [Lipitor] 20 mg tablet 20 mg PO QPM 90 Days Qty: 30 0RF lidocaine 5 % Adhesive Patch,Medicated 1 patch TOPICAL DAILY Rx Instructions: apply in the am and remove at bedtime (to be on for 12 hours and off for 12 hours) [id number]-pooubaugl-ykb C-Mn [Glucosamine Chondroitin MaxStr] 500-400 mg Capsule 1 cap PO BID metolazone 2.5 mg tablet 2.5 mg PO DAILY PRN (Reason: swelling) Rx Instructions: give as needed if sob or > 5lb weight gain carvedilol 12.5 mg Tablet 12.5 mg PO BID Rx Instructions: must administer with a meal/food Miralax 17 gram Powder In Packet 17 g PO DAILY PRN (Reason: Constipation) milk thistle 500 mg Capsule 1,000 mg PO DAILY@08 hydrocodone-acetaminophen 10-325 mg Tablet 1 tab PO Q6H PRN (Reason: Pain) isosorbide dinitrate 30 mg Tablet 30 mg PO DAILY@08 ferrous sulfate 325 mg (65 mg iron) Tablet 325 mg PO BID Nitrostat 0.4 mg Tablet, Sublingual 0.4 mg SUBLINGUAL Q5M PRN (Reason: Chest Pain) Rx Instructions: do not exceed 3 doses per episode insulin aspart U-100 100 unit/mL (3 mL) Insulin Pen See Rx Instructions .ROUTE .COMPLEX Rx Instructions: per sliding scale before meals and bedtime if blood sugar is less than 70 call 70-139=0 units 140-199=2 units 200-249=4 units 250-299=6 units 300-349=8 units if blood sugar is greater than 349 give 10 units if blood sugar is greater then 400 call Florastor 250 mg Capsule 500 mg PO BID Arginaid 4.5 gram-156 mg/9.2 gram Powder In Packet See Rx Instructions .ROUTE .COMPLEX Rx Instructions: one packet po mixed with water bid with med pass for promotion of wound healing Multi Pro 32 mg iron-1 mg -315 mg Capsule 1 cap PO DAILY@08 Senokot 8.6 mg Tablet 17.2 mg PO BID Tylenol 325 mg Tablet 650 mg PO Q4H PRN (Reason: Pain) ropinirole 1 mg Tablet 1 mg PO TID Pyridium 100 mg Tablet 100 mg PO TID PRN (Reason: Pain) pramipexole 0.25 mg Tablet 0.25 mg PO TID cyclobenzaprine 10 mg tablet 10 mg PO Q8H PRN (Reason: MUSCLE SPASMS) Rx Instructions: 340B tramadol 50 mg tablet 50 mg PO Q8H PRN (Reason: Pain) Flomax 0.4 mg capsule 0.8 mg PO QPM pantoprazole 40 mg tablet,delayed release (DR/EC) 40 mg PO BID Proscar 5 mg tablet 5 mg PO DAILY@08 potassium chloride 20 mEq Tablet Extended Release 20 meq PO BID@08,12 Augmentin 500-125 mg Tablet 1 tab PO BID 7 Days Qty: 0 0RF Rx Instructions: for 7 days (end date 06/20/22) Changed Levemir FlexTouch U-100 Insuln 100 unit/mL (3 mL) insulin pen 40 unit SUBCUT BEDTIME Qty: 3 0RF Discharge Orders: Discharge Order (Routine); Ordered 06/22/22 Ordered By: Sudeep Dumont Referrals: [facility] [Outside] Tosha Munoz MD [Primary Care Provider] - 1 week Discharge Diet: Cardiac and Diabetic Discharge Activity: Increase activity as tolerated and Use walker/crutches as instructed Patient Instructions: Opioid Safety Activity Restrictions/Additional Instructions: Weight bearing as tolerated with assistance. Discharge Attestations Time Spent in Discharge Care*: greater than 30 min Status at Discharge: Cognitive status at discharge: cognitively intact , Behavioral status at discharge: cooperative , Quality Metrics Clinical Quality Measures [ No reported AMI, CVA or VTE this stay] Coding Level of Care Code Acute Chg FW DC note Diagnoses Closed hip fracture S72.009A Anemia D64.9 Intra-abdominal fluid collection R18.8 A-fib I48.91 Allergic transfusion reaction T80.89XA Time Spent (min) 40
[2022-06-22 11:52] VITALS: BP 104/64; PULSE 57; RESP 16; TEMP 37.3; O2SAT 95
[2022-06-22] MEDS: insulin lispro 100 unit/1 mL SUBCUT (12:39)
[2022-06-22 13:55] LABS: SARS Covid-2 Antigen negative (Negative)
[2022-06-22 15:18] VITALS: BP 104/64; PULSE 57; RESP 16; TEMP 37.3; O2SAT 95
== END 2022-06-22 15:19 | disposition skilled nursing facility (03) | DRG 481 ==
LOC: ER 19:56 → MEDSURG 20:56
PROVIDERS: Family Medicine; Orthopaedic Surgery; Admitting Provider Student in an Organized Health Care Education/Training Program; Emergency Provider Emergency Medicine; PCP Family Medicine; Visit Provider Internal Medicine
PROC: 0QH604Z Insertion of Internal Fixation Device into Right Upper Femur, Open Approach (ICD-10-PCS; CPT 27236; principal; 2022-06-19 16:30)
DX: S72.011A Unspecified intracapsular fracture of right femur, initial encounter for closed fracture (principal); D62 Acute posthemorrhagic anemia; I13.0 Hypertensive heart and chronic kidney disease with heart failure and stage 1 through stage 4 chronic kidney disease, or unspecified chronic kidney disease; I50.32 Chronic diastolic (congestive) heart failure; N18.4 Chronic kidney disease, stage 4 (severe); R18.8 Other ascites; W18.30XA Fall on same level, unspecified, initial encounter; Y92.129 Unspecified place in nursing home as the place of occurrence of the external cause; I48.91 Unspecified atrial fibrillation; I25.10 Atherosclerotic heart disease of native coronary artery without angina pectoris; Z95.1 Presence of aortocoronary bypass graft; E11.22 Type 2 diabetes mellitus with diabetic chronic kidney disease; I25.5 Ischemic cardiomyopathy; D63.1 Anemia in chronic kidney disease; Z87.440 Personal history of urinary (tract) infections; I35.0 Nonrheumatic aortic (valve) stenosis; G89.29 Other chronic pain; M54.9 Dorsalgia, unspecified; K21.9 Gastro-esophageal reflux disease without esophagitis; Z89.421 Acquired absence of other right toe(s); Z86.14 Personal history of Methicillin resistant Staphylococcus aureus infection; E78.5 Hyperlipidemia, unspecified; Z79.4 Long term (current) use of insulin; Z79.891 Long term (current) use of opiate analgesic; Z79.01 Long term (current) use of anticoagulants; Z88.8 Allergy status to other drugs, medicaments and biological substances; G25.81 Restless legs syndrome; N40.1 Benign prostatic hyperplasia with lower urinary tract symptoms; R33.8 Other retention of urine; G47.33 Obstructive sleep apnea (adult) (pediatric); E66.9 Obesity, unspecified; Z68.29 Body mass index [BMI] 29.0-29.9, adult
CPT/HCPCS: 12345; 36415; 36416; 36430; 51702; 51798; 70450; 71250; 72125; 72170; 73502; 74176; 74177; 76000; 76705; 80048; 80053; 81001; 82962; 83735; 83880; 84145; 85025; 85610; 85651; 85730; 86140; 86850; 86900; 86920; 87040; 87086; 87426; 93005; 96365; 96372; 96375; 96376; 97110; 97116; 97162; 97166; 97530; 97535; 99285; C1713; J0610; J1100; J1170; J1200; J1815; J1940; J2270; J2370; J2405; J2543; J2704; J2765; J3010; J7030; P9040; P9047; Q9967

== ENCOUNTER 2022-07-19 14:22 | Emergency (ER) | payer MEDICARE, SELFPAY ==
[2022-07-19] VITALS (8 sets, daily range): BP systolic 99–130; BP diastolic 59–80; PULSE 60–95; O2SAT 98–100; BMI 31.6
--- NOTE | 2022-07-19 14:48 | ECG_ITS ---
[facility] Test Date: 2022-07-19 Pat Name: Gian Bowers Department: Room: Gender: Male Oral And Maxillofacial Surgery: : 1950 Requested By: Ranjit Roman Order Number: [id number] Tanja MD: Kadeem Oliva M.D. Measurements Intervals [place] Rate: 61 P: 0 ME: 0 QRS: -20 QRSD: 90 T: 144 QT: 426 QTc: 432 Interpretive Statements ATRIAL FIBRILLATION WITH ABERRANT CONDUCTION OR VENTRICULAR PREMATURE COMPLEXES NONSPECIFIC ST & T-WAVE ABNORMALITY Compared to ECG 06/20/2022 08:33:22 Ventricular premature complex(es) now present Aberrant conduction of supraventricular beat(s) now present T-wave abnormality now present Myocardial infarct finding no longer present Electronically Signed On 07-20-2022 18:18:16 RACE CAR DRIVER by Kadeem Oliva M.D. [id number]
[2022-07-19 15:04] LABS: Basophils % 0.6 %; Eosinophils # 0.1 10^3/uL (0.0-0.8); Eosinophils % 2.8 %; Hematocrit 29.4 % (42.0-52.0); Hemoglobin 8.7 g/dL (11.7-16.6); Lymphocytes # 0.8 10^3/uL (0.8-4.8); Lymphocytes % 15.6 %; Mean Corpuscular HGB Conc 29.6 g/dL (30.0-36.0); Mean Corpuscular Hemoglobin 28.5 pg (28.0-34.0); Mean Corpuscular Volume 96.4 fl (80-94); Mean Platelet Volume 9.6 fL (7.4-10.4); Monocytes # 0.3 10^3/uL (0.2-0.9); Monocytes % 6.3 %; Neutrophils # 3.78 10^3/uL (1.8-7.7); Neutrophils % 74.5 %; Nucleated Red Blood Cells % 0 %; Platelet Count 126 10^3/cmm (130-400); Red Blood Count 3.05 10^6/uL (4.1-5.3); Red Cell Distribution Width 20.8 % (12.1-15.1); White Blood Count 5.1 10^3/uL (4.0-10.0)
[2022-07-19] MEDS: sodium chloride 0.9% 500 ML IV (15:06)
[2022-07-19 15:12] LABS: Blood Urea Nitrogen 47 mg/dL (8-23); Carbon Dioxide 20 mmol/L (22-29); Chloride 101 mmol/L (98-107); Glucose 115 mg/dL (65-115); Magnesium 2.3 mg/dL (1.7-2.3); Osmolality Calculated 287 mOsm/kg (285-295); Sodium 132 mmol/L (136-145)
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
== END 2022-07-19 18:20 ==
PROVIDERS: Emergency Provider Emergency Medicine; PCP Family Medicine
DX: I95.1 Orthostatic hypotension (principal); Z79.01 Long term (current) use of anticoagulants; Z79.4 Long term (current) use of insulin; Z95.1 Presence of aortocoronary bypass graft; I25.10 Atherosclerotic heart disease of native coronary artery without angina pectoris; I13.0 Hypertensive heart and chronic kidney disease with heart failure and stage 1 through stage 4 chronic kidney disease, or unspecified chronic kidney disease; E11.22 Type 2 diabetes mellitus with diabetic chronic kidney disease; N18.4 Chronic kidney disease, stage 4 (severe); I50.9 Heart failure, unspecified; E78.5 Hyperlipidemia, unspecified
CPT/HCPCS: 80048; 83735; 85025; 93005; 99284; J7040

== ENCOUNTER → 2022-07-22 10:23 | Outpatient (BNVA) | payer MEDICARE, SELFPAY | PROVIDERS: PCP Family Medicine; Visit Provider Family Medicine | DX: D64.9 Anemia, unspecified (principal); M10.9 Gout, unspecified; E78.5 Hyperlipidemia, unspecified; M48.9 Spondylopathy, unspecified; G25.81 Restless legs syndrome; E11.42 Type 2 diabetes mellitus with diabetic polyneuropathy; M54.2 Cervicalgia; M54.9 Dorsalgia, unspecified; G89.29 Other chronic pain; K21.9 Gastro-esophageal reflux disease without esophagitis; I50.9 Heart failure, unspecified; E11.59 Type 2 diabetes mellitus with other circulatory complications; I25.10 Atherosclerotic heart disease of native coronary artery without angina pectoris; R09.02 Hypoxemia; D50.0 Iron deficiency anemia secondary to blood loss (chronic); K21.01 Gastro-esophageal reflux disease with esophagitis, with bleeding; I95.1 Orthostatic hypotension; Z79.899 Other long term (current) drug therapy; Z98.890 Other specified postprocedural states; Z87.81 Personal history of (healed) traumatic fracture; I48.91 Unspecified atrial fibrillation; K55.20 Angiodysplasia of colon without hemorrhage; N18.4 Chronic kidney disease, stage 4 (severe); E11.9 Type 2 diabetes mellitus without complications; N40.1 Benign prostatic hyperplasia with lower urinary tract symptoms; Z09 Encounter for follow-up examination after completed treatment for conditions other than malignant neoplasm | CPT/HCPCS: 83550; 85018; 85025 ==

== ENCOUNTER 2022-07-30 06:00 | Outpatient (RCR) | payer MEDICARE, SELFPAY | END 2022-08-29 23:59 | disposition home or self-care (01) | LOC: MPT 06:00 | PROVIDERS: PCP Family Medicine; Visit Provider Family Medicine | DX: R26.81 Unsteadiness on feet (principal); I50.42 Chronic combined systolic (congestive) and diastolic (congestive) heart failure; D64.9 Anemia, unspecified | CPT/HCPCS: 97110; 97112; 97162; 97530 ==

== ENCOUNTER 2022-08-06 14:33 | Emergency (ER) | payer MEDICARE, SELFPAY ==
[2022-08-06 15:35] LABS: Basophils % 0.5 %; Eosinophils # 0.2 10^3/uL (0.0-0.8); Hematocrit 30.6 % (42.0-52.0); Lymphocytes # 0.8 10^3/uL (0.8-4.8); Mean Corpuscular HGB Conc 29.4 g/dL (30.0-36.0); Mean Corpuscular Hemoglobin 29.2 pg (28.0-34.0); Mean Corpuscular Volume 99.4 fl (80-94); Mean Platelet Volume 9.5 fL (7.4-10.4); Monocytes # 0.4 10^3/uL (0.2-0.9); Monocytes % 6.9 %; Neutrophils # 4.74 10^3/uL (1.8-7.7); Nucleated Red Blood Cells % 0 %; Platelet Count 132 10^3/cmm (130-400); Red Blood Count 3.08 10^6/uL (4.1-5.3); Red Cell Distribution Width 21.1 % (12.1-15.1); White Blood Count 6.2 10^3/uL (4.0-10.0)
[2022-08-06 15:40] VITALS: PULSE 87; RESP 15; TEMP 36.8; O2SAT 98; BMI 30.9
[2022-08-06 15:53] LABS: Alanine Aminotransferase 10 U/L (0-41); Albumin Level 3.8 g/dL (3.5-5.2); Alkaline Phosphatase 174 U/L (40-130); Anion Gap 17.9 (5-19); Aspartate Amino Transferase 16 U/L (0-40); Blood Urea Nitrogen 61 mg/dL (8-23); Calcium 9.2 mg/dL (8.5-10.5); Carbon Dioxide 24 mmol/L (22-29); Chloride 101 mmol/L (98-107); Globulin 4.2 g/dL (1.3-4.6); Glucose 144 mg/dL (65-115); Lipase 19 U/L (13-60); Osmolality Calculated 308 mOsm/kg (285-295); Potassium 3.9 mmol/L (3.5-5.1); Sodium 139 mmol/L (136-145)
[2022-08-06 16:21] VITALS: BP 123/76; PULSE 89; RESP 22; O2SAT 99
--- NOTE | 2022-08-06 18:27 | XRR_ITS ---
PROCEDURE INFORMATION: Exam: XR Chest Exam date and time: 08/06/2022 6:58 PM Age: 71 years old Clinical indication: Shortness of breath; Prior surgery; Additional info: SOB TECHNIQUE: Imaging protocol: Radiologic exam of the chest. Views: 1 view. COMPARISON: [place] [id number] 06/18/2022 3:55 PM FINDINGS: Tubes, catheters and devices: Electronic device is seen overlying proximal right humerus. Lungs: Calcified pulmonary granulomatous change. No consolidation. Pleural spaces: Unremarkable. No pleural effusion. No pneumothorax. Heart/Mediastinum: Stable mild prominence of cardiac silhouette. Bones/joints: Sternotomy wires are in place. XR/XR chest 1V portable [id number] IMPRESSION: No acute findings.
--- NOTE | 2022-08-06 18:27 | CTR_ITS ---
PROCEDURE INFORMATION: Exam: CT Abdomen And Pelvis With Contrast Exam date and time: 08/06/2022 7:24 PM Age: 71 years old Clinical indication: Abdominal pain; Generalized; Additional info: Abd pain TECHNIQUE: Imaging protocol: Computed tomography of the abdomen and pelvis with contrast. Radiation optimization: All CT scans at this facility use at least one of these dose optimization techniques: automated exposure control; mA and/or kV adjustment per patient size (includes targeted exams where dose is matched to clinical indication); or iterative reconstruction. Contrast material: OMNIPAQUE 350; Contrast volume: 95 ml; Contrast route: INTRAVENOUS (IV); COMPARISON: CT abdomen pelvis w con* [id number] 06/18/2022 7:12 PM RADIATION DOSE METRICS: Total DLP (mGy-cm): 1136.04 FINDINGS: Coronary arteries: Coronary calcifications are noted. Liver: Fluid previously seen at the margin of right hepatic lobe on previous study has markedly diminished or cleared. Previously noted high density findings along posterior lower right hepatic lobe are unchanged. Gallbladder and bile ducts: Fluid containing structure in the gallbladder fossa has decreased; there is history of cholecystectomy on previous report. Pancreas: Normal. No ductal dilation. Spleen: Mild splenomegaly. Mild interval increase in splenic size. Adrenal glands: Normal. No mass. Kidneys and ureters: Bilateral renal cysts are likely benign. No hydronephrosis. Stomach and bowel: See Soft tissues finding. Appendix: No evidence of appendicitis. Intraperitoneal space: Minimal fluid in mesentery and pericolic gutter regions. No free air. Vasculature: Minimal vascular calcifications are noted. No findings of abdominal aortic aneurysm. Lymph nodes: Unremarkable. No enlarged lymph nodes. Urinary bladder: Unremarkable as visualized. Reproductive: Unremarkable as visualized. Bones/joints: Three cannulated screws are in place in proximal right femur. Soft tissues: Billroth 2 surgical change suggested. Colonic diverticula noted. No evident pericolic inflammatory change. No findings of abnormal bowel distention. CT/CT abdomen pelvis w con* [id number] IMPRESSION: Previously noted fluid along the right hepatic margin has markedly diminished or cleared. Interval decrease in prominence of fluid containing structure previously described in the gallbladder fossa; there is history of cholecystectomy described on previous report. No new abnormalities. COMMENTS: Consistent with the [employer]'s Incidental Findings Committee white paper (J Am Lucy Radiol 2018): Any incidental renal lesion less than 1 cm or classified as too small to characterize, or any incidental cystic renal lesion characterized as simple-appearing, is likely benign. No follow-up imaging is recommended for these lesions per consensus recommendations based on imaging criteria.
--- NOTE | 2022-08-06 18:27 | ECG_ITS ---
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 Measurements Intervals [place] Rate: 95 P: 0 OR: 0 QRS: 51 QRSD: 108 T: 92 QT: 388 QTc: 489 Interpretive Statements ATRIAL FIBRILLATION WITH ABERRANT CONDUCTION OR VENTRICULAR PREMATURE COMPLEXES MODERATE ST DEPRESSION [0.05+ mV ST DEPRESSION] Compared to ECG 07/19/2022 14:55:03 ST (T wave) deviation now present T-wave abnormality no longer present Electronically Signed On 08-07-2022 13:11:45 DENTAL LABORATORY SUPERVISOR by Angie March M.D. [id number]
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
[2022-08-06 18:39] VITALS: RESP 16; O2SAT 96
[2022-08-06] MEDS: FUROsemide 10 mg/mL SDV 10mL 60 MG IVP (18:39)
[2022-08-06] MEDS: HYDROmorphone 1 mg/mL INJ 1 mL 0.5 MG IVP ×2 (18:39→20:06)
[2022-08-06] MEDS: ondansetron 2 mg/ML SDV 2 mL 4 MG IVP ×2 (18:40→20:02)
[2022-08-06 18:49] VITALS: BP 111/54; PULSE 93; RESP 18; O2SAT 99
[2022-08-06] MEDS: iohexol 350 mg/mL 500 mL Btl (per mL) IV (19:45)
[2022-08-06 20:05] LABS: NT Pro B Type Natriuretic Pept 6092 pg/mL (0-125)
[2022-08-06 20:06] VITALS: RESP 16; O2SAT 97
[2022-08-06 21:11] VITALS: BP 119/58; PULSE 92; RESP 16; O2SAT 99
== END 2022-08-06 21:10 | disposition home or self-care (01) ==
PROVIDERS: Emergency Medicine; Emergency Provider Emergency Medicine; PCP Family Medicine
DX: R10.9 Unspecified abdominal pain (principal); Z79.4 Long term (current) use of insulin; I25.10 Atherosclerotic heart disease of native coronary artery without angina pectoris; I13.0 Hypertensive heart and chronic kidney disease with heart failure and stage 1 through stage 4 chronic kidney disease, or unspecified chronic kidney disease; E11.22 Type 2 diabetes mellitus with diabetic chronic kidney disease; N18.4 Chronic kidney disease, stage 4 (severe); I50.9 Heart failure, unspecified; E78.5 Hyperlipidemia, unspecified; Z95.1 Presence of aortocoronary bypass graft
CPT/HCPCS: 71045; 74177; 80053; 83690; 83880; 85025; 93005; 96374; 96375; 96376; 99285; J1170; J1940; J2405; J7040; Q9967

== ENCOUNTER → 2022-08-12 15:21 | Outpatient (BNVA) | payer MEDICARE, SELFPAY | PROVIDERS: PCP Family Medicine; Visit Provider Internal Medicine | DX: E11.59 Type 2 diabetes mellitus with other circulatory complications (principal); I25.10 Atherosclerotic heart disease of native coronary artery without angina pectoris; I48.91 Unspecified atrial fibrillation; R06.02 Shortness of breath; I50.9 Heart failure, unspecified; I50.43 Acute on chronic combined systolic (congestive) and diastolic (congestive) heart failure; E78.5 Hyperlipidemia, unspecified; N18.4 Chronic kidney disease, stage 4 (severe) | CPT/HCPCS: 36415; 80048; 83880; 99214 ==

== ENCOUNTER → 2022-08-17 13:39 | Outpatient (BNVA) | payer MEDICARE, SELFPAY | PROVIDERS: PCP Family Medicine; Visit Provider Family Medicine | DX: D64.9 Anemia, unspecified (principal); D50.0 Iron deficiency anemia secondary to blood loss (chronic); N18.4 Chronic kidney disease, stage 4 (severe) | CPT/HCPCS: 80048; 80069; 82043; 82542; 82728; 83550; 85025 ==

== ENCOUNTER 2022-08-30 06:00 | Outpatient (RCR) | payer MEDICARE, SELFPAY | END 2022-09-29 23:59 | disposition home or self-care (01) | LOC: MPT 06:00 | PROVIDERS: PCP Family Medicine; Visit Provider Family Medicine | DX: R29.898 Other symptoms and signs involving the musculoskeletal system (principal) | CPT/HCPCS: 97110 ==

== ENCOUNTER → 2022-09-10 15:17 | Outpatient (BNVA) | payer MEDICARE, SELFPAY | PROVIDERS: PCP Family Medicine; Visit Provider Internal Medicine | DX: N18.4 Chronic kidney disease, stage 4 (severe) (principal) | CPT/HCPCS: 80048 ==

== ENCOUNTER 2022-09-14 13:38 | Outpatient (CLI) | payer MEDICARE, SELFPAY ==
--- NOTE | 2022-09-14 15:15 | USCV_ITS ---
Gian Bowers Age: 71 Gender: M : 1950 Exam Date: 09/14/2022 14:59 Ordering Phys: Kadeem Oliva M.D ([email or web address]) Technologist: [place]am [place] [facility] [place]: hx of cad BP: 105 / 68 HR: 39 Rhythm: Sinus Technical Quality: Adequate MEASUREMENTS (Male / Female) Normal Values 2D ECHO LV Diastolic Diameter PLAX 5.3 cm 4.2 - 5.9 / 3.9 - 5.3 cm LV Systolic Diameter PLAX 4.3 cm IVS Diastolic Thickness 1.3 cm 0.6 - 1.0 / 0.6 - 0.9 cm IVS Systolic Thickness 1.9 cm LVPW Diastolic Thickness 1.3 cm 0.6 - 1.0 / 0.6 - 0.9 cm LVPW Systolic Thickness 1.9 cm LVOT Diameter 2.1 cm LV Ejection Fraction 2D Teich 38.5 % LA Diameter 4.8 cm Aorta at Sinotubular Diameter 3.8 cm IVC Diameter 1.8 cm M-MODE Aortic Annulus Diameter 1.9 cm LA Ao Ratio MM 1.2 MV E Point Septal Separation 0.5 cm DOPPLER AV Peak Velocity 129.0 cm/s LVOT Peak Velocity 86.0 cm/s AV Area Cont Eq vti 2.5 cm squared AV Area Cont Eq pk 2.3 cm squared MV Area PHT 5.0 cm squared Mitral E to A Ratio 3.0 MV E' Velocity 75.0 cm/s Mitral E to MV E' Ratio 17.6 Mitral E to LV E' Lateral Ratio 15.0 Mitral E to LV E' Septal Ratio 21.6 TR Peak Velocity 234.0 cm/s TR Peak Gradient 21.9 mmHg TV Peak E Velocity 69.0 cm/s Right Atrial Pressure 3.0 mmHg Pulmonary Artery Systolic Pressu 24.9 mmHg RV Acceleration Time 0.1 s FINDINGS Left Ventricle Left ventricle is normal in size. LV systolic function is moderately reduced with EF of 35 to 40%. Regional wall motion abnormalities cannot be accurately assessed because of poor ultrasonic windows. Right Ventricle Not well visualized Right Atrium Normal in size Left Atrium Dilated Mitral Valve Structurally normal mitral valve. Moderate mitral regurgitation Aortic Valve Structurally normal aortic valve. Mild to moderate aortic regurgitation. No significant stenosis Tricuspid Valve Not well visualized Pulmonic Valve Not well visualized Pericardium Normal Aorta Ascending aorta is mildly dilated. IVC Appears to be normal CONCLUSIONS Technically limited quality echocardiogram because of poor ultrasonic windows. LV systolic function is moderately reduced with EF 35 to 40%. Regional wall motion abnormalities cannot be assessed accurately because of poor ultrasonic windows. Left atrial dilation Moderate mitral regurgitation Mild to moderate aortic regurgitation Ascending aorta is mildly dilated. Compared to prior echocardiogram from 09/06/2021, patient now has mildly dilated ascending aorta, moderate mitral regurgitation and mild to moderate aortic regurgitation. For accurate assessment regional wall motion abnormalities, recommend limited echo with contrast Kadeem Oliva MD (Electronically Signed) Final Date: 19 September 2022 12:05 S
== END 2022-09-14 13:39 | disposition home or self-care (01) ==
LOC: RAD 13:42
PROVIDERS: PCP Family Medicine; Visit Provider Internal Medicine
DX: R06.02 Shortness of breath (principal); I08.0 Rheumatic disorders of both mitral and aortic valves
CPT/HCPCS: 80048; 80069; 82043; 82542; 82728; 83550; 85025; 93306

== ENCOUNTER → 2022-09-17 09:01 | Outpatient (BNVA) | payer MEDICARE, SELFPAY | PROVIDERS: PCP Family Medicine; Visit Provider Nurse Practitioner Family | DX: I50.43 Acute on chronic combined systolic (congestive) and diastolic (congestive) heart failure (principal); I48.91 Unspecified atrial fibrillation; Z87.81 Personal history of (healed) traumatic fracture; Z98.890 Other specified postprocedural states | CPT/HCPCS: 73502; 99214 ==

== ENCOUNTER → 2022-09-21 14:59 | Outpatient (BNVA) | payer MEDICARE, SELFPAY | PROVIDERS: PCP Family Medicine; Visit Provider Nurse Practitioner Family | DX: N30.01 Acute cystitis with hematuria (principal) | CPT/HCPCS: 81000; 87086 ==

== ENCOUNTER → 2022-09-26 11:31 | Outpatient (BNVA) | payer MEDICARE, SELFPAY | PROVIDERS: PCP Family Medicine; Visit Provider Nurse Practitioner Family | DX: N12 Tubulo-interstitial nephritis, not specified as acute or chronic (principal); N18.4 Chronic kidney disease, stage 4 (severe); R60.0 Localized edema; R30.1 Vesical tenesmus | CPT/HCPCS: 81000; 87086 ==

== ENCOUNTER 2022-09-30 06:00 | Outpatient (RCR) | payer MEDICARE, SELFPAY | END 2022-10-27 23:59 | disposition home or self-care (01) | LOC: MOT 06:00 | PROVIDERS: PCP Family Medicine; Visit Provider Family Medicine | DX: F82 Specific developmental disorder of motor function (principal) | CPT/HCPCS: 97018; 97110; 97140; 97166 ==

== ENCOUNTER 2022-09-30 06:00 | Outpatient (RCR) | payer MEDICARE, SELFPAY | END 2022-10-27 23:59 | disposition home or self-care (01) | LOC: MPT 06:00 | PROVIDERS: PCP Family Medicine; Visit Provider Family Medicine | DX: R29.898 Other symptoms and signs involving the musculoskeletal system (principal) | CPT/HCPCS: 97110; 97530 ==

== ENCOUNTER → 2022-09-30 16:08 | Outpatient (BNVA) | payer MEDICARE, SELFPAY | PROVIDERS: PCP Family Medicine; Visit Provider Urology | DX: N18.4 Chronic kidney disease, stage 4 (severe) (principal); D64.9 Anemia, unspecified; I48.91 Unspecified atrial fibrillation; N40.0 Benign prostatic hyperplasia without lower urinary tract symptoms; Z12.5 Encounter for screening for malignant neoplasm of prostate; I50.9 Heart failure, unspecified | CPT/HCPCS: 80048; 84153; 85025 ==

== ENCOUNTER → 2022-10-08 13:49 | Outpatient (BNVA) | payer MEDICARE, SELFPAY | PROVIDERS: PCP Family Medicine; Visit Provider Urology | DX: N40.1 Benign prostatic hyperplasia with lower urinary tract symptoms (principal); N13.8 Other obstructive and reflux uropathy; R35.81 Nocturnal polyuria; R33.9 Retention of urine, unspecified; Z87.438 Personal history of other diseases of male genital organs | CPT/HCPCS: 51798; 99213 ==

== ENCOUNTER → 2022-10-15 10:36 | Outpatient (BNVA) | payer MEDICARE, SELFPAY | PROVIDERS: PCP Family Medicine; Visit Provider Family Medicine | DX: N40.1 Benign prostatic hyperplasia with lower urinary tract symptoms (principal); M54.2 Cervicalgia; M54.9 Dorsalgia, unspecified; G89.29 Other chronic pain; G25.81 Restless legs syndrome; I50.9 Heart failure, unspecified; E11.59 Type 2 diabetes mellitus with other circulatory complications; I25.10 Atherosclerotic heart disease of native coronary artery without angina pectoris; E78.5 Hyperlipidemia, unspecified; E11.22 Type 2 diabetes mellitus with diabetic chronic kidney disease; N18.4 Chronic kidney disease, stage 4 (severe); R31.9 Hematuria, unspecified; R30.0 Dysuria; E11.42 Type 2 diabetes mellitus with diabetic polyneuropathy; M81.0 Age-related osteoporosis without current pathological fracture; Z98.890 Other specified postprocedural states; Z87.81 Personal history of (healed) traumatic fracture; I50.43 Acute on chronic combined systolic (congestive) and diastolic (congestive) heart failure; Z86.31 Personal history of diabetic foot ulcer; Z79.4 Long term (current) use of insulin; Z79.84 Long term (current) use of oral hypoglycemic drugs; T14.8XXA Other injury of unspecified body region, initial encounter; X58.XXXA Exposure to other specified factors, initial encounter | CPT/HCPCS: 80053; 81000; 83036; 83540; 85025; 87086; 99214 ==

== ENCOUNTER 2022-10-28 06:00 | Outpatient (RCR) | payer MEDICARE, SELFPAY | END 2022-11-27 23:59 | disposition home or self-care (01) | LOC: MOT 06:00 | PROVIDERS: PCP Family Medicine; Visit Provider Family Medicine | DX: R29.898 Other symptoms and signs involving the musculoskeletal system (principal) | CPT/HCPCS: 97018; 97110; 97112; 97140 ==

== ENCOUNTER 2022-10-28 06:00 | Outpatient (RCR) | payer MEDICARE, SELFPAY | END 2022-11-27 23:59 | disposition home or self-care (01) | LOC: MPT 06:00 | PROVIDERS: PCP Family Medicine; Visit Provider Family Medicine | DX: R29.898 Other symptoms and signs involving the musculoskeletal system (principal) | CPT/HCPCS: 97110; 97112 ==

== ENCOUNTER → 2022-10-28 11:15 | Outpatient (BNVA) | payer MEDICARE, SELFPAY | PROVIDERS: PCP Family Medicine; Visit Provider Internal Medicine | DX: N18.4 Chronic kidney disease, stage 4 (severe) (principal) | CPT/HCPCS: 80069; 82542; 82570; 84156; 85025 ==

== ENCOUNTER → 2022-11-02 11:10 | Outpatient (BNVA) | payer MEDICARE, SELFPAY | PROVIDERS: PCP Family Medicine; Visit Provider Dermatology | DX: L94.2 Calcinosis cutis (principal) | CPT/HCPCS: 88305 ==

== ENCOUNTER → 2022-11-03 13:43 | Outpatient (BNVA) | payer MEDICARE, SELFPAY | PROVIDERS: PCP Family Medicine; Visit Provider Nurse Practitioner Family | DX: D48.9 Neoplasm of uncertain behavior, unspecified (principal); L72.11 Pilar cyst; L30.4 Erythema intertrigo; N18.4 Chronic kidney disease, stage 4 (severe) | CPT/HCPCS: 80048; 82570; 82728; 83550; 84156; 85025 ==

== ENCOUNTER 2022-11-06 12:18 | Outpatient (CLI) | payer MEDICARE, SELFPAY ==
--- NOTE | 2022-11-06 13:00 | XR_ITS ---
WS: [id number] SCREENING DEXA SCAN [facility] [facility] CLINICAL INFORMATION: fracture COMPARISON: None. FINDINGS: The L1-L4 bone mineral density measures 1.683 g/cm2. This corresponds to a T score score of 3.9 and Z score of 3.7. Left femoral neck bone mineral density measures 0.938 (g/cm2). This corresponds to a T score of -1.1 (no units) and Z score of -0.7 (no units). XR/XR DEXA axial skeleton* [id number] IMPRESSION: Normal bone mineralization lumbar spine. Osteopenia LEFT femoral neck. Patient's FRAX calculated 10 year probability for major osteoporotic fracture i s 12.4 % and osteoporotic hip fracture is 3.9%.
== END 2022-11-06 12:19 | disposition home or self-care (01) ==
LOC: RAD 12:21
PROVIDERS: PCP Family Medicine; Visit Provider Internal Medicine
DX: T14.8XXA Other injury of unspecified body region, initial encounter (principal); M85.852 Other specified disorders of bone density and structure, left thigh; X58.XXXA Exposure to other specified factors, initial encounter
CPT/HCPCS: 77080

== ENCOUNTER → 2022-11-09 10:39 | Outpatient (BNVA) | payer MEDICARE, SELFPAY | PROVIDERS: PCP Family Medicine; Visit Provider Podiatrist Foot & Ankle Surgery | DX: I73.9 Peripheral vascular disease, unspecified (principal); E11.42 Type 2 diabetes mellitus with diabetic polyneuropathy; E11.22 Type 2 diabetes mellitus with diabetic chronic kidney disease; N18.4 Chronic kidney disease, stage 4 (severe); Z89.421 Acquired absence of other right toe(s); Z79.4 Long term (current) use of insulin | CPT/HCPCS: 99214 ==

== ENCOUNTER 2022-11-12 15:00 | Oncology outpatient (recurring) (ONCR) | payer MEDICARE, SELFPAY ==
[2022-11-12] MEDS: acetaminophen 325 mg Tablet 650 MG PO (15:49)
[2022-11-12] MEDS: sodium chloride 0.9% 250 ML 75 ML IV (15:51)
[2022-11-12] MEDS: diphenhydrAMINE 50 mg/mL SDV 1mL 25 MG IVP (15:54)
[2022-11-12] MEDS: iron sucrose 200 MG in sodium chloride 0.9% (100 ml) 100 ML 220 MG IV (15:56)
[2022-11-12 16:50] VITALS: BP 140/88; PULSE 98; RESP 18; TEMP 36.6; O2SAT 98
== END 2022-11-27 23:59 | disposition home or self-care (01) ==
PROVIDERS: PCP Family Medicine; Visit Provider Internal Medicine
DX: D64.9 Anemia, unspecified (principal); Z79.899 Other long term (current) drug therapy
CPT/HCPCS: 96365; J1200; J1756; J7050

== ENCOUNTER 2022-11-16 11:44 | Inpatient (IN) | payer MEDICARE, SELFPAY ==
[2022-11-16] VITALS (14 sets, daily range): BP systolic 97–119; BP diastolic 62–83; PULSE 79–168; RESP 15–24; TEMP 36.7–37; O2SAT 83–100; BMI 32.7; BMI 33.4
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
--- NOTE | 2022-11-16 11:55 | ECG_ITS ---
[facility] Test Date: 2022-11-16 Pat Name: Gian Bowers Department: Room: Gender: Male Automotive Service Advisor: : 1950 Requested By: Aly Wiseman Order Number: [id number] Agrawal MD: Kadeem Oliva M.D. Measurements Intervals [place] Rate: 96 P: 0 DC: 0 QRS: 74 QRSD: 101 T: 95 QT: 394 QTc: 499 Interpretive Statements ATRIAL FIBRILLATION WITH ABERRANT CONDUCTION OR VENTRICULAR PREMATURE COMPLEXES MINIMAL ST DEPRESSION [0.025+ mV ST DEPRESSION] Compared to ECG 08/06/2022 18:36:25 No significant changes Electronically Signed On 11-16-2022 15:58:23 CDT by Kadeem Oliva M.D. [id number] f
--- NOTE | 2022-11-16 11:58 | XR_ITS ---
WS: [id number] Portable AP upright chest, 11/16/2022 Clinical Data: syncope Comparison: Portable chest, 08/06/2022 Findings: No nodules, masses or effusions are seen. The heart is enlarged. The pulmonary vascularity is not increased. No pneumonia or pneumothorax is seen. The aortic arch and descending thoracic aorta are tortuous. Monitor leads are on the chest wall. There are midline sternotomy sutures. XR/XR chest 1V portable [id number] Impression: Atherosclerosis and cardiomegaly.
[2022-11-16 12:25] LABS: Basophils % 0.5 %; Eosinophils # 0.1 10^3/uL (0.0-0.8); Eosinophils % 1.8 %; Hematocrit 35.4 % (42.0-52.0); Hemoglobin 10.3 g/dL (11.7-16.6); Lymphocytes # 0.8 10^3/uL (0.8-4.8); Lymphocytes % 10.2 %; Mean Corpuscular HGB Conc 29.1 g/dL (30.0-36.0); Mean Corpuscular Volume 99.7 fl (80-94); Mean Platelet Volume 10.7 fL (7.4-10.4); Monocytes # 0.6 10^3/uL (0.2-0.9); Monocytes % 7.6 %; Neutrophils # 5.83 10^3/uL (1.8-7.7); Neutrophils % 79.5 %; Nucleated Red Blood Cells % 0 %; Platelet Count 108 10^3/cmm (130-400); Red Blood Count 3.55 10^6/uL (4.1-5.3); Red Cell Distribution Width 19.3 % (12.1-15.1); White Blood Count 7.3 10^3/uL (4.0-10.0)
[2022-11-16 12:41] LABS: D Dimer 0.53 ug/mIFEU (0-0.59)
[2022-11-16 12:42] LABS: Lactate (Lactic Acid level) 1.6 mmol/L (0.5-2.2)
[2022-11-16 12:46] LABS: Troponin(5th) Baseline 90 ng/L (0-15)
[2022-11-16 12:53] LABS: NT Pro B Type Natriuretic Pept 6686 pg/mL (0-125); Thyroid Stimulating Hormone 4.67 uIU/mL (0.27-4.20)
[2022-11-16 13:04] LABS: Alanine Aminotransferase 6 U/L (0-41); Albumin Level 3.7 g/dL (3.5-5.2); Alkaline Phosphatase 93 U/L (40-130); Anion Gap 15.9 (5-19); Aspartate Amino Transferase 12 U/L (0-40); Blood Urea Nitrogen 53 mg/dL (8-23); C Reactive Protein 44.4 mg/L (0.0-4.9); Carbon Dioxide 23 mmol/L (22-29); Chloride 101 mmol/L (98-107); Globulin 4.4 g/dL (1.3-4.6); Glucose 137 mg/dL (65-115); Magnesium 2.5 mg/dL (1.7-2.3); Osmolality Calculated 297 mOsm/kg (285-295); Potassium 4.9 mmol/L (3.5-5.1); Sodium 135 mmol/L (136-145); Total Bilirubin 1.2 mg/dL (0.15-1.2); Total Protein 8.1 g/dL (6.6-8.7)
[2022-11-16 13:16] LABS: Blood Urine 2+ (Negative); Glucose Urine UA Norm (Normal); Ketones Urine Negative (Negative); Protein Urine 1+ (Negative); Urine Appearance Clear (CLEAR); Urine Color Yellow (Yellow); pH Urine 6 (5-7)
[2022-11-16 13:17] LABS: Add Urine Culture? No; Add Urine Microscopic? YES; Bacteria Urine TRACE /hpf; Bilirubin Urine Neg (Negative); Leukocyte Esterase Urine Negative (Negative); Nitrate Urine Negative (Negative); Urobilinogen Urine Norm (Negative); WBC Urine RARE /hpf (0-5)
--- NOTE | 2022-11-16 13:59 | ECG_ITS ---
[facility] Test Date: 2022-11-16 Pat Name: Gian Bowers Department: Room: Gender: Male Billposter: : 1950 Requested By: Aly Wiseman Order Number: [id number] Tanja MD: Kadeem Oliva M.D. Measurements Intervals [place] Rate: 93 P: 0 MO: 0 QRS: -26 QRSD: 111 T: 123 QT: 375 QTc: 467 Interpretive Statements ATRIAL FIBRILLATION BORDERLINE LEFT AXIS DEVIATION [QRS AXIS < -20] MODERATE INTRAVENTRICULAR CONDUCTION DELAY [110+ ms QRS DURATION] MINIMAL ST DEPRESSION [0.025+ mV ST DEPRESSION] ABNORMAL QRS-T ANGLE [QRS-T AXIS DIFFERENCE > 60] Compared to ECG 08/06/2022 18:36:25 Intraventricular conduction delay now present Ventricular premature complex(es) no longer present Aberrant conduction of supraventricular beat(s) no longer present ST (T wave) deviation still present Electronically Signed On 11-16-2022 16:03:49 CDT by Kadeem Oliva M.D. [id number]
[2022-11-16 14:24] LABS: Free T4 Free Thyroxine 1.24 ng/dL (0.82-1.77)
[2022-11-16] MEDS: ropinirole 1 mg Tablet PO ×2 (14:54→20:08)
[2022-11-16] MEDS: ondansetron 2 mg/ML SDV 2 mL 4 MG IVP (14:54)
--- NOTE | 2022-11-16 15:01 | CTR_ITS ---
PROCEDURE INFORMATION: Exam: CT Head Without Contrast Exam date and time: 11/16/2022 3:50 PM Age: 71 years old Clinical indication: Syncope and collapse TECHNIQUE: Imaging protocol: Computed tomography of the head without contrast. Radiation optimization: All CT scans at this facility use at least one of these dose optimization techniques: automated exposure control; mA and/or kV adjustment per patient size (includes targeted exams where dose is matched to clinical indication); or iterative reconstruction. REPORTING DATA: Count of CT and Cardiac NM exams in prior 12 months: This patient has received 6 known CTs and 0 known cardiac nuclear medicine studies in the 12 months prior to the current study. COMPARISON: CT head wo con* [id number] 06/18/2022 3:50 PM RADIATION DOSE METRICS: Total DLP (mGy-cm): 939.49 FINDINGS: Brain: There are moderate periventricular and subcortical lucencies consistent with chronic microvascular ischemic changes.The alvarado-white differentiation is maintained. No hemorrhage. No edema. Cerebral ventricles: No ventriculomegaly. Paranasal sinuses: Mucosal thickening of bilateral ethmoid sinuses. Mastoid air cells: Visualized mastoid air cells are well aerated. Bones/joints: Unremarkable. No acute fracture. Soft tissues: Unremarkable. CT/CT head wo con* [id number] IMPRESSION: No acute intracranial abnormality. Chronic microvascular ischemic changes.
[2022-11-16 15:02] LABS: Troponin 5 2HR 86.82 ng/L (0-15)
[2022-11-16 15:11] LABS: Troponin 5 2HR Delta -3.18 ABS# (0-10)
[2022-11-16] MEDS: fentaNYL 50 mcg/mL INJ 2mL IVP (16:22)
[2022-11-16] MEDS: HYDROmorphone 1 mg/mL INJ 1 mL 0.5 MG IVP (17:49)
--- NOTE | 2022-11-16 17:59 | ECG_ITS ---
[facility] Test Date: 2022-11-16 Pat Name: Gian Bowers Department: Room: 111 Gender: Male Ink Maker: : 1950 Requested By: Aly Wiseman Order Number: [id number] Tanja MD: Lisa Rosenthal M.D. Measurements Intervals [place] Rate: 93 P: 0 MA: 0 QRS: -43 QRSD: 103 T: 98 QT: 395 QTc: 493 Interpretive Statements ATRIAL FIBRILLATION WITH ABERRANT CONDUCTION OR VENTRICULAR PREMATURE COMPLEXES LEFT AXIS DEVIATION [QRS AXIS < -30] PATTERN CONSISTENT WITH PULMONARY DISEASE ABNORMAL QRS-T ANGLE [QRS-T AXIS DIFFERENCE > 60] Compared to ECG 11/16/2022 14:17:46 Ventricular premature complex(es) now present Aberrant conduction of supraventricular beat(s) now present Intraventricular conduction delay no longer present ST (T wave) deviation no longer present Electronically Signed On 11-17-2022 23:13:59 CDT by Lisa Rosenthal M.D. [id number]
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
--- NOTE | 2022-11-16 18:30 | USCV_ITS ---
Robinson Gian Age: 71 Gender: M : 1950 Exam Date: 11/17/2022 00:32 Ordering Phys: Prashant Aguilar MD Technologist: DEBRA Exam Location: [facility] [place] Indication: altered mental status. History CAD, s/p CABG 2007, History PAD, CHF BP: 116 / 83 HR: 92 Rhythm: atrial fibrillation Technical Quality: Adequate MEASUREMENTS (Male / Female) Normal Values 2D ECHO LV Diastolic Diameter PLAX 4.6 cm 4.2 - 5.9 / 3.9 - 5.3 cm LV Systolic Diameter PLAX 3.5 cm IVS Diastolic Thickness 1.6 cm 0.6 - 1.0 / 0.6 - 0.9 cm IVS Systolic Thickness 2.2 cm LVPW Diastolic Thickness 1.7 cm 0.6 - 1.0 / 0.6 - 0.9 cm LVPW Systolic Thickness 1.9 cm LVOT Diameter 1.9 cm LV Ejection Fraction 2D Teich 46.9 % LV Ejection Fraction MOD 2C 32.1 % LV Ejection Fraction 2C AL 28.9 % LA Diameter 5.2 cm LA Width 5.4 cm LA Height 6.6 cm RA Width 3.8 cm RA Height 6.3 cm Aorta at Sinotubular Diameter 3.5 cm IVC Diameter 2.4 cm M-MODE Aortic Annulus Diameter 3.7 cm LA Ao Ratio MM 1.3 MV E Point Septal Separation 0.6 cm DOPPLER AV Peak Velocity 144.0 cm/s LVOT Peak Velocity 69.0 cm/s AV Area Cont Eq vti 1.6 cm squared AV Area Cont Eq pk 1.3 cm squared MV Area PHT 3.2 cm squared MV E' Velocity 131.0 cm/s TR Peak Velocity 340.0 cm/s TR Peak Gradient 46.2 mmHg TV Peak E Velocity 76.0 cm/s Right Atrial Pressure 15.0 mmHg Pulmonary Artery Systolic Pressu 61.2 mmHg PV Peak Velocity 120.0 cm/s RV Acceleration Time 0.1 s RV Ejection Time 0.3 s RV AcT/ET 0.2 FINDINGS Left Ventricle Diffuse hypokinesia left ventricular ejection fraction of 35-40% ( visual) Mildly dilated LV cavity Right Ventricle Mildly dilated right ventricle with slightly diminished ejection fraction Right Atrium Mildly increased right atrial size. Left Atrium Moderately increased left atrial size. Mitral Valve Moderate mitral valve regurgitation. Aortic Valve [id number]-pizlibsq aortic valve regurgitation. Thickened aortic valve. Tricuspid Valve Moderate tricuspid valve regurgitation. Moderate pulmonary hypertension with an estimated pulmonary artery peak systolic pressure of 61 mmHg Pulmonic Valve Trace pulmonary valve regurgitation. Pericardium No pericardial effusion. Aorta Normal aortic annulus size. IVC Dilated IVC with decreased respiratory variation. CONCLUSIONS Diffuse hypokinesia left ventricular ejection fraction of 35-40 %. Mildly dilated LV cavity. Moderately increased left atrial size. Mildly increased right atrial size. Moderate mitral valve regurgitation. Kqfb-gm-zmomujgj aortic valve regurgitation. Thickened aortic valve. Moderate tricuspid valve regurgitation. Moderate pulmonary hypertension with an estimated pulmonary artery peak systolic pressure of 61 mmHg. Trace pulmonary valve regurgitation. There is no pericardial effusion. There are no intracardiac masses. Compared to the study from 09/14/2022, there may not be a significant change Dr Lisa Rosenthal MD [facility] (Electronically Signed) Final Date: 17 November 2022 07:23 S
--- NOTE | 2022-11-16 18:30 | ECG_ITS ---
[facility] Test Date: 2022-11-17 Pat Name: Gian Bowers Department: Room: 111 Gender: Male [employer]: : 1950 Requested By: Prashant Aguilar Order Number: [id number] Agrawal MD: Kadeem Oliva M.D. Interpretive Statements NAME OF STUDY: LEXISCAN SESTAMIBI STRESS TEST INDICATION: [Syncope and Collapse] Procedure: At the baseline, the blood pressure was 91/63 mmHg with a heart rate of 74 bpm. The electrocardiogram showed atrial fibrillation, normal axis with normal ST and T's. The Lexiscan was infused over a period of 20 seconds. A total of 0.4 mg of Lexiscan was infused. The stress phase was continued for a total of 5 minutes. Heart rate was at the end of stress phase was 70 bpm and a blood pressure of 94/65 mmHg. The EKG at the peak infusion revealed atrial fibrillation with no significant ST-T wave changes. Sestamibi was injected 20 seconds after the Lexiscan infusion. Blood pressure at the end of recovery phase was 100/62 mmHg with a heart rate of 86 bpm. Conclusion: 1. Normal EKG response to Lexiscan infusion 2. No Lexiscan induced chest pain or cardiac arrhythmia. 3. Normal blood pressure and heart rate response. 4. Sestamibi/sestamibi perfusion scan pending; see separate report. Electronically Signed On 12-03-2022 11:55:37 CDT by Kadeem Oliva M.D. [id number]
--- NOTE | 2022-11-16 18:30 | USCV_ITS ---
Robinson Gian Age: 71 Gender: M : 1950 Exam Date: 11/16/2022 23:34 Ordering Phys: Prashant Aguilar MD Technologist: DEBRA [place] [facility] [place]ication: altered mental status. Never smoked. DM2 Risk Factors: altered mental status. Never smoked. DM2 Previous Vascular Surgery: None Right Brachial BP: 116 / 83 Left Brachial BP: / Right Left Velocity (cm/s) Spectral Plaque Velocity (cm/s) Spectral Plaque Syst/Diast Broadening Syst/Diast Broadening 81.60/ 9.90 None None Prox CCA 129.00/ 20.90 None None 94.80/ 13.20 None Homo Mid CCA 91.50 / 14.30 None Homo 66.20/ 5.50 None Homo Distal CCA 70.60 / 11.00 None Homo 47.30/ 14.50 Min Hetro Prox ICA 45.40 / 15.10 Min Hetro 49.10/ 15.40 Min Homo Mid ICA 51.30 / 14.50 Min Homo 49.10/ 21.40 Min Homo Distal ICA 55.20 / 18.40 Min Homo 92.60 Min Homo ECA 94.80 Min Homo 0.52 ICA/CCA 0.43 Antegrade Vertebral Antegrade 29.90/ 15.50 cm/s 40.80/ 13.20 cm/s Tri Subclavian Tri 101.4 83.80 0 CONCLUSIONS Right ICA stenosis <50%. Moderate atheromatous plaque right carotid bulb/ICA. Left ICA stenosis <50%. Moderate atheromatous plaque left carotid bulb/ICA. Normal antegrade Doppler flow noted in the right vertebral artery. Normal antegrade Doppler flow noted in the left vertebral artery. Mat Rodarte MD (Electronically Signed) Final Date: 17 November 2022 08:43 S
[2022-11-16 19:02] LABS: Troponin 5 6HR 84.49 ng/L (0-15)
[2022-11-16 19:04] LABS: Troponin 5 6HR Delta -5.51 ng/L (0-12)
--- NOTE | 2022-11-16 19:19 | PC.NURSE ---
admitted into room 111-2 from er via stretcher at 1815.report received.pt is alert and oriented x 4.rates pain at 4/10 (le's).states has improved since dilaudid given in er.oriented to room environment.instructed to notify staff for any pain,sob,dizziness or for any concerns at all.pt verb understanding of instructions
[2022-11-16 19:30] LABS: Thyroid Stimulating Hormone 3.89 uIU/mL (0.27-4.20)
[2022-11-16 19:40] LABS: C Reactive Protein 39.3 mg/L (0.0-4.9)
[2022-11-16] MEDS: heparin drip 25,000 UNIT/500 ML PREMIX 34 UNIT IV (20:05)
[2022-11-16] MEDS: gabapentin 300 mg Capsule PO (20:07)
[2022-11-16] MEDS: bumetanide 0.25 mg/mL SDV 4 mL 1 MG IVP (20:08)
[2022-11-16] MEDS: aspirin 81 mg EC Tablet PO (20:08)
[2022-11-16] MEDS: carvedilol 12.5 mg Tablet PO (20:08)
[2022-11-16] MEDS: allopurinol 100 mg Tablet PO (20:08)
[2022-11-16] MEDS: atorvastatin 40 mg Tablet 20 MG PO (20:08)
[2022-11-16] MEDS: sucralfate 1 gm Tablet PO (20:08)
[2022-11-16] MEDS: pantoprazole 40 mg SDV IVP (20:08)
[2022-11-16] MEDS: ferrous sulfate EC 325 mg Tablet 650 MG PO (20:08)
[2022-11-16] MEDS: tamsulosin 0.4 mg Capsule PO (20:08)
[2022-11-16 20:39] LABS: Adenovirus Not Detected (NOT DETECT); Chlamydia Pneumoniae Not Detected (NOT DETECT); Coronavirus 229E,HKU1,NL63,OC4 Not Detected (NOT DETECT); Human Metapneumovirus Not Detected (NOT DETECT); Human Rhinovirus/Enterovirus Not Detected (NOT DETECT); Influenza A Not Detected (NOT DETECT); Influenza A H1 Not Detected (NOT DETECT); Influenza A H1-2009 Not Detected (NOT DETECT); Influenza A H3 Not Detected (NOT DETECT); Influenza B Not Detected (NOT DETECT); Mycoplasma Pneumoniae Not Detected (NOT DETECT); Parainfluenza Virus Type 1 Not Detected (NOT DETECT); Parainfluenza Virus Type 2 Not Detected (NOT DETECT); Parainfluenza Virus Type 3 Not Detected (NOT DETECT); Parainfluenza Virus Type 4 Not Detected (NOT DETECT); Respiratory Syncytial Virus A Not Detected (NOT DETECT); Respiratory Syncytial Virus B Not Detected (NOT DETECT); SARS-COV-2 Not Detected (NOT DETECT)
[2022-11-16 20:43] LABS: Hematocrit 31.8 % (42.0-52.0); Hemoglobin 9.4 g/dL (11.7-16.6)
[2022-11-16 20:46] LABS: Glucose Point of Care 112 mg/dL (70-110)
[2022-11-17] VITALS (16 sets, daily range): BP systolic 90–115; BP diastolic 49–74; PULSE 60–91; RESP 14–19; TEMP 36.4–37.1; O2SAT 90–97
--- NOTE | 2022-11-17 | USCV_ITS ---
Robinson Gian Age: 71 Gender: M : 1950 Exam Date: 11/17/2022 00:32 Ordering Phys: Prashant Aguilar MD Technologist: DEBRA Exam Location: [facility] [place] Indication: altered mental status. History CAD, s/p CABG 2007, History PAD, CHF BP: 116 / 83 HR: 92 Rhythm: atrial fibrillation Technical Quality: Adequate MEASUREMENTS (Male / Female) Normal Values 2D ECHO LV Diastolic Diameter PLAX 4.6 cm 4.2 - 5.9 / 3.9 - 5.3 cm LV Systolic Diameter PLAX 3.5 cm IVS Diastolic Thickness 1.6 cm 0.6 - 1.0 / 0.6 - 0.9 cm IVS Systolic Thickness 2.2 cm LVPW Diastolic Thickness 1.7 cm 0.6 - 1.0 / 0.6 - 0.9 cm LVPW Systolic Thickness 1.9 cm LVOT Diameter 1.9 cm LV Ejection Fraction 2D Teich 46.9 % LV Ejection Fraction MOD 2C 32.1 % LV Ejection Fraction 2C AL 28.9 % LA Diameter 5.2 cm LA Width 5.4 cm LA Height 6.6 cm RA Width 3.8 cm RA Height 6.3 cm Aorta at Sinotubular Diameter 3.5 cm IVC Diameter 2.4 cm M-MODE Aortic Annulus Diameter 3.7 cm LA Ao Ratio MM 1.3 MV E Point Septal Separation 0.6 cm DOPPLER AV Peak Velocity 144.0 cm/s LVOT Peak Velocity 69.0 cm/s AV Area Cont Eq vti 1.6 cm squared AV Area Cont Eq pk 1.3 cm squared MV Area PHT 3.2 cm squared MV E' Velocity 131.0 cm/s TR Peak Velocity 340.0 cm/s TR Peak Gradient 46.2 mmHg TV Peak E Velocity 76.0 cm/s Right Atrial Pressure 15.0 mmHg Pulmonary Artery Systolic Pressu 61.2 mmHg PV Peak Velocity 120.0 cm/s RV Acceleration Time 0.1 s RV Ejection Time 0.3 s RV AcT/ET 0.2 FINDINGS Left Ventricle Diffuse hypokinesia left ventricular ejection fraction of 35-40% ( visual) Mildly dilated LV cavity Right Ventricle Mildly dilated right ventricle with slightly diminished ejection fraction Right Atrium Mildly increased right atrial size. Left Atrium Moderately increased left atrial size. Mitral Valve Moderate mitral valve regurgitation. Aortic Valve [id number]-[id number] aortic valve regurgitation. Thickened aortic valve. Tricuspid Valve Moderate tricuspid valve regurgitation. Moderate pulmonary hypertension with an estimated pulmonary artery peak systolic pressure of 61 mmHg Pulmonic Valve Trace pulmonary valve regurgitation. Pericardium No pericardial effusion. Aorta Normal aortic annulus size. IVC Dilated IVC with decreased respiratory variation. CONCLUSIONS Diffuse hypokinesia left ventricular ejection fraction of 35-40 %. Mildly dilated LV cavity. Moderately increased left atrial size. Mildly increased right atrial size. Moderate mitral valve regurgitation. Jrvn-cm-oxxkyowg aortic valve regurgitation. Thickened aortic valve. Moderate tricuspid valve regurgitation. Moderate pulmonary hypertension with an estimated pulmonary artery peak systolic pressure of 61 mmHg. Trace pulmonary valve regurgitation. There is no pericardial effusion. There are no intracardiac masses. Compared to the study from 09/14/2022, there may not be a significant change Dr Lisa Rosenthal MD [facility] (Electronically Signed) Final Date: 17 November 2022 07:23 S
--- NOTE | 2022-11-17 | USCV_ITS ---
Gian Bowers Age: 71 Gender: M : 1950 Exam Date: 11/17/2022 00:07 Ordering Phys: Prashant Aguilar MD Technologist: DEBRA Exam Location: [facility] [place] Indication: chronic, bilateral, lower extremity edema. No history of DVT per patient. HISTORY: chronic, bilateral, lower extremity edema. No history of DVT per patient. PROCEDURES: Venous duplex imaging was performed in bilateral lower extremities. The following venous structures were evaluated: common femoral vein, profunda vein, proximal portion of the greater saphenous vein, superficial femoral vein, and the popliteal vein. In addition, the posterior tibial veins were evaluated. Serial compression, augmentation maneuvers, and spectral Doppler flow evaluation were performed, which were normal. Bilaterally, the common femoral, superficial femoral, profunda femoral, popliteal, posterior tibial, and greater saphenous veins were identified and interrogated in the standard fashion. These veins were found to be easily compressible with spontaneous blood flow. No evidence of thrombus noted. CONCLUSIONS No evidence of right lower extremity DVT. No evidence of left lower extremity DVT. Mat Rodarte MD (Electronically Signed) Final Date: 17 November 2022 08:40 S
[2022-11-17] MEDS: ondansetron 2 mg/ML SDV 2 mL 4 MG IVP ×2 (01:17→12:32)
[2022-11-17 02:01] LABS: Basophils % 0.5 %; Eosinophils # 0.1 10^3/uL (0.0-0.8); Eosinophils % 2.3 %; Hematocrit 30.2 % (42.0-52.0); Hemoglobin 9.2 g/dL (11.7-16.6); Lymphocytes # 0.9 10^3/uL (0.8-4.8); Lymphocytes % 14.5 %; Mean Corpuscular HGB Conc 30.5 g/dL (30.0-36.0); Mean Corpuscular Hemoglobin 30.1 pg (28.0-34.0); Mean Corpuscular Volume 98.7 fl (80-94); Mean Platelet Volume 8.9 fL (7.4-10.4); Monocytes # 0.5 10^3/uL (0.2-0.9); Monocytes % 8.6 %; Neutrophils # 4.48 10^3/uL (1.8-7.7); Neutrophils % 73.9 %; Nucleated Red Blood Cells % 0 %; Platelet Count 85 10^3/cmm (130-400); Red Blood Count 3.06 10^6/uL (4.1-5.3); Red Cell Distribution Width 19.3 % (12.1-15.1); White Blood Count 6.1 10^3/uL (4.0-10.0)
[2022-11-17 02:19] LABS: Partial Thromboplastin Time 80.9 SECONDS (23.9-36.7)
[2022-11-17 02:30] LABS: Alanine Aminotransferase < 5 U/L (0-41); Albumin Level 3.3 g/dL (3.5-5.2); Alkaline Phosphatase 82 U/L (40-130); Anion Gap 14.6 (5-19); Aspartate Amino Transferase 10 U/L (0-40); Blood Urea Nitrogen 55 mg/dL (8-23); Calcium 8.8 mg/dL (8.5-10.5); Carbon Dioxide 23 mmol/L (22-29); Chloride 102 mmol/L (98-107); Globulin 3.8 g/dL (1.3-4.6); Glucose 126 mg/dL (65-115); Magnesium 2.3 mg/dL (1.7-2.3); NT Pro B Type Natriuretic Pept 9227 pg/mL (0-125); Osmolality Calculated 297 mOsm/kg (285-295); Phosphorus 4.3 mg/dL (2.5-4.5); Potassium 4.6 mmol/L (3.5-5.1); Sodium 135 mmol/L (136-145); Total Bilirubin 0.9 mg/dL (0.15-1.2); Total Protein 7.1 g/dL (6.6-8.7)
[2022-11-17] MEDS: bumetanide 0.25 mg/mL SDV 4 mL 1 MG IVP ×3 (04:13→23:13)
[2022-11-17] MEDS: acetaminophen 325 mg Tablet 650 MG PO ×2 (05:52→17:24)
[2022-11-17 06:25] LABS: Glucose Point of Care 116 mg/dL (70-110)
--- NOTE | 2022-11-17 08:00 | NMCV_ITS ---
NM jennifer perf SPECT r/s* [id number] Gian Bowers Age: 71 Gender: M : 1950 Exam Date: 11/17/2022 08:00 Ordering Phys: Prashant Aguilar MD Technologist: AGUEDA Archibald Exam Location: [facility] Indications: CHEST PAIN STRESS TEST Please see separate stress test report in [facility] for full findings IMAGE PROTOCOL Rest/Stress 1 Lexiscan Day Radiopharmaceutical Dose (mCi) Administration Site Administered by Rest: Tc-99m 10.9 IV AGUEDA Archibald Sestamibi Stress:Tc-99m 33.0 IV AGUEDA Whitfield Sestamibi Rest: 17-Nov-2022 60 Discovery 630 Stress: 17-Nov-2022 30 Discovery 630 0.4mg Lexiscan. Supine position only as patient was unable to lay prone. SPECT RESULTS Technical Quality: Excellent Raw Data Analysis: Normal Image Corrections: No attenuation or motion correction applied Summed Stress Score: 21 Summed Rest Score: 25 Summed Difference Score: 0 PERFUSION FINDINGS Large in size mostly fixed, perfusion defects noted in apical, apical lateral, inferolateral and inferior winn. This is consistent with large sized prior infarct noted in all 3 coronary artery territories with minimal ismael-infarct ischemia in LAD territory. FUNCTIONAL RESULTS (calculated via Gated SPECT) Stress Image LV EF (%): 47 Stress EDV (mL):182 TID: 1.24 Stress ESV (mL):97 FUNCTIONAL FINDINGS: LV systolic function is midly reduced with EF of 47% and mild global hypokinesis. Elevated TID ratio may be indicative of multivessel coronary artery disease IMPRESSIONS 1. Abnormal myocardial perfusion imaging with large areas of prior infarcts noted in distribution of all 3 coronary arteries. Minimal per-infarct ischemia is seen in the LAD territory 2. LV systolic function is mildly reduced with EF of 47% 3. Elevated TID ratio may be indicative of multivessel coronary artery disease Kadeem Oliva MD (Electronically Signed) Final Date: 17 November 2022 15:20 S
[2022-11-17] MEDS: allopurinol 100 mg Tablet PO ×2 (08:51→17:20)
[2022-11-17] MEDS: finasteride 5 mg Tablet PO (08:51)
[2022-11-17] MEDS: aspirin 81 mg EC Tablet PO (08:51)
[2022-11-17] MEDS: sucralfate 1 gm Tablet PO ×2 (08:51→21:02)
[2022-11-17] MEDS: ropinirole 1 mg Tablet PO ×3 (08:51→21:02)
[2022-11-17] MEDS: carvedilol 12.5 mg Tablet PO ×2 (08:51→21:02)
[2022-11-17] MEDS: ferrous sulfate EC 325 mg Tablet 650 MG PO ×2 (08:51→17:21)
[2022-11-17] MEDS: gabapentin 100 mg Capsule PO (08:52)
[2022-11-17] MEDS: pantoprazole 40 mg SDV IVP ×2 (08:52→21:03)
[2022-11-17] MEDS: tamsulosin 0.4 mg Capsule PO ×2 (08:52→21:02)
[2022-11-17] MEDS: nystatin powder 15 gm Btl 1 APPLIC TOPICAL (08:58)
[2022-11-17] MEDS: ketoconazole Cream 15 gm 1 APPLIC TOPICAL (08:59)
[2022-11-17 09:22] LABS: Hematocrit 29.2 % (42.0-52.0); Hemoglobin 8.8 g/dL (11.7-16.6)
[2022-11-17] MEDS: ipratropium-albuterol 3 mL Neb INHALATION ×2 (09:27→15:01)
[2022-11-17 09:47] LABS: Partial Thromboplastin Time 68.6 SECONDS (23.9-36.7)
[2022-11-17] MEDS: TRAMadol 50 mg Tablet 25 MG PO (10:22)
--- NOTE | 2022-11-17 11:19 | PC.NURSE ---
nurse was notified about low BP and took a manual to confirm 94/52
[2022-11-17 11:33] LABS: Glucose Point of Care 129 mg/dL (70-110)
[2022-11-17] MEDS: regadenoson 0.4 Mg/5 ml Syringe IVP (13:18)
[2022-11-17] MEDS: HYDROmorphone 1 mg/mL INJ 1 mL 0.5 MG IVP (15:10)
--- NOTE | 2022-11-17 15:29 | P.PN_ITS ---
Subjective Subjective: - Patient was seen this morning, he is complaining of musculoskeletal pain, back pain, neck pain, he tells me the Dilaudid worked, however the tramadol is not working, denies any chest pain, palpitations, no lightheadedness, no dizziness, Vitals/I&O/Wt Last Vital Signs Temp 98.2 F 11/17/22 11:18 Pulse 91 11/17/22 15:12 Resp 18 11/17/22 15:10 BP 100/62 11/17/22 13:25 Pulse Ox 92 11/17/22 15:02 O2 Del Method 11/17/22 15:02 O2 Flow Rate 2 11/17/22 15:02 11/17/22 11/17/22 11/17/22 06:59 14:59 22:59 Intake Total 214.2 / 1174.2 Output Total 900 / 1575 Balance -685.8 / -400.8 Weight last 48 hrs Weight 114.901 kg Weight 112.491 kg Physical Exam Const: COMMON NORMALS: no acute distress and patient oriented x3 Resp: COMMON NORMALS: normal respiratory effort, No retractions, No use of accessory muscles and clear to auscultation bilaterally AUSCULTATION: clear to auscultation bilaterally Cardio: COMMON NORMALS: regular rate, regular rhythm, S1 normal heart sound present and S2 normal heart sound present RATE: regular rate RHYTHM: regular rhythm HEART SOUNDS: S1 normal heart sound present and S2 normal heart sound present GI: COMMON NORMALS: Normal to inspection, nondistended, normoactive bowel sounds present and non-tender Extremity: OTHER: Has 2+ pitting edema bilateral lower extremity Neuro: COMMON NORMALS: patient oriented x3 Psych: COMMON NORMALS: mental status grossly normal Urinary Catheter Management: Leslie: Cath Placed During This Visit: yes Reason for Continuing Indwelling Catheter: Accurate Measurement of Urinary Output in Critically Ill Patients Urinary Catheter Date of Insertion: 11/16/22 Urinary Catheter Time of Insertion: 18:50 Data 11/17/22 08:43 11/17/22 01:49 Micro: Microbiology 11/16/22 12:18 Blood Culture - Preliminary Blood NEGATIVE TO DATE 11/16/22 12:15 Blood Culture - Preliminary Blood NEGATIVE TO DATE A&P Assessment and plan (1) Syncope and collapse: (2) CHF exacerbation: (3) CHF (congestive heart failure): Qualifiers: Heart failure type: combined systolic and diastolic Heart failure chronicity: acute on chronic Qualified Code(s): I50.43 - Acute on chronic combined systolic (congestive) and diastolic (congestive) heart failure (4) GERD (gastroesophageal reflux disease): Qualifiers: Esophagitis presence: with esophagitis Esophagitis bleeding: with hemorrhage Qualified Code(s): K21.01 - Gastro-esophageal reflux disease with esophagitis, with bleeding (5) Hyperlipidemia: (6) Diabetes mellitus, type II: Qualifiers: Diabetes mellitus intermediate insulin use: without intermediate use Diabetes mellitus complication status: with kidney complications Diabetes mellitus complication detail: with chronic kidney disease Chronic kidney disease stage: stage 4 (severe) Qualified Code(s): E11.22 - Type 2 diabetes mellitus with diabetic chronic kidney disease; N18.4 - Chronic kidney disease, stage 4 (severe) (7) RLS (restless legs syndrome): (8) Diabetic peripheral neuropathy associated with type 2 diabetes mellitus: (9) Coronary artery disease due to type 2 diabetes mellitus: (10) Chronic neck and back pain: (11) BPH loc w urin obs/LUTS: (12) PVD (peripheral vascular disease): (13) GI AVM (gastrointestinal arteriovenous vascular malformation): (14) A-fib: (15) Anemia: Qualifiers: Anemia type: iron deficiency Iron deficiency anemia type: chronic blood loss Qualified Code(s): D50.0 - Iron deficiency anemia secondary to blood loss (chronic) Plan Syncope and collapse -Etiology unclear, however history and symptoms and past medical history are concerning -But symptoms concerning for cardiac etiology, baseline troponin 90, 6-hour troponin 84.49 -The other thought is pulmonary embolism, although D-dimer negative, venous ultrasound negative for DVT, currently on 2 L -The other thought is it could be vasovagal Plan -Admit to cardiac stepdown unit -Telemetry monitoring -Aspirin, statin -Cardiac echo Diffuse hypokinesia left ventricular ejection fraction of 35-40 ?%.? Mildly dilated LV cavity. ?Moderately increased left atrial size. ?Mildly increased right atrial size. ?Moderate mitral valve regurgitation. ?Llxg-ap-prmzwcbi aortic valve regurgitation. Thickened aortic ?valve. ?Moderate tricuspid valve regurgitation. ? Moderate pulmonary hypertension with an estimated pulmonary ?artery peak systolic pressure of 61 mmHg. ?Trace pulmonary valve regurgitation. ?There is no pericardial effusion. ?There are no intracardiac masses. ?Compared to the study from 09/14/2022, there may not be a ?significant change -Carotid artery ultrasound no hemodynamically significant carotid artery steno sis -Cardiac stress test today -Given his syncope and collapse episode is elevated troponin, and is recently negative EGD, I started him on a heparin drip, however his hemoglobin started to start to drift downwards towards 8.8, thus heparin drip has been held -He does have a history of anemia, necessitating the stop of Eliquis, -There is also concern for possible pulmonary embolism although D-dimer is negative, heparin drip had to be held as above, if cardiac work-up is negative we will then consider VQ scan, however I am not sure if you would tolerate anticoagulation -Telemetry monitoring for possible cardiac arrhythmia event -Full code -Heparin for DVT prophylaxis ROSA on CKD -Likely cardiorenal syndrome with his diminished ejection 35 to 40% -Monitor urine output, monitor creatinine Systolic and diastolic CHF exacerbation -BNP over 9000 -Has bilateral lower extremity pitting edema -Start Bumex 1 mg every 12 hours, 1 dose metolazone, monitor urine output, monitor creatinine -Leslie catheter placement -Cardiac echo shows a diminished ejection fraction of 35 to 40% Fevers, chills fatigue, malaise -Respiratory panel negative -Pro-Wiley negative, CRP 44 -UA within normal limits -Chest x-ray focal pneumonia -No focal evidence of infection Insulin-dependent type 2 diabetes mellitus, start low-dose insulin sliding scale Hypertension, continue home blood pressure medications BPH, continue finasteride, Flomax Diabetic peripheral neuropathy continue gabapentin Attestations Medical Necessity Statement*: Patient requires hospitalization for syncope and collapse Diagnoses Syncope and collapse R55 CHF exacerbation I50.9 CHF (congestive heart failure) I50.43 Heart failure type: combined systolic and diastolic Heart failure chronicity: acute on chronic GERD (gastroesophageal reflux disease) K21.01 Esophagitis presence: with esophagitis Esophagitis bleeding: with hemorrhage Hyperlipidemia E78.5 Diabetes mellitus, type II E11.22; N18.4 Diabetes mellitus intermediate insulin use: without intermediate use Diabetes mellitus complication status: with kidney complications Diabetes mellitus complication detail: with chronic kidney disease Chronic kidney disease stage: stage 4 (severe) RLS (restless legs syndrome) G25.81 Diabetic peripheral neuropathy associated with type 2 diabetes mellitus E11.42 Coronary artery disease due to type 2 diabetes mellitus E11.59; I25.10 Chronic neck and back pain M54.2; M54.9; G89.29 BPH loc w urin obs/LUTS N40.1 PVD (peripheral vascular disease) I73.9 GI AVM (gastrointestinal arteriovenous vascular malformation) K55.20 A-fib I48.91 Anemia D50.0 Anemia type: iron deficiency Iron deficiency anemia type: chronic blood loss
[2022-11-17 15:30] LABS: Hematocrit 30.4 % (42.0-52.0); Hemoglobin 9.4 g/dL (11.7-16.6)
[2022-11-17 16:26] LABS: Glucose Point of Care 126 mg/dL (70-110)
[2022-11-17] MEDS: metOLazone 5 MG Tablet PO (17:20)
[2022-11-17] MEDS: potassium chloride ER 20 mEq Tablet 40 MEQ PO (17:21)
--- NOTE | 2022-11-17 18:20 | CTR_ITS ---
PROCEDURE INFORMATION: Exam: CT Chest Without Contrast; Diagnostic Exam date and time: 11/17/2022 10:16 PM Age: 71 years old Clinical indication: Abdominal pain; Generalized; Chest pressure; Prior surgery; Surgery type: Cabg. Hip pinning. Patient HX: C/O diffuse pain all over body. Episode of unresponsiveness. Elevated base and two hour troponins. Elevated bnp. History of chf and stage 4 renal disease. ; Additional info: Unresponsive, episode TECHNIQUE: Imaging protocol: Diagnostic computed tomography of the chest without contrast. Radiation optimization: All CT scans at this facility use at least one of these dose optimization techniques: automated exposure control; mA and/or kV adjustment per patient size (includes targeted exams where dose is matched to clinical indication); or iterative reconstruction. REPORTING DATA: Count of CT and Cardiac NM exams in prior 12 months: This patient has received 8 known CTs and 0 known cardiac nuclear medicine studies in the 12 months prior to the current study. COMPARISON: CT chest abdpel [id number] 06/18/2022 3:55 PM RADIATION DOSE METRICS: Total DLP (mGy-cm): 1299.1 FINDINGS: Lungs: Emphysematous changes suspected. Bilateral dependent atelectasis versus infiltrate. Pleural spaces: Small bilateral right greater left pleural effusions. Heart: Cardiomegaly. Coronary arteries: Coronary artery atherosclerotic calcifications. Lymph nodes: Prominent mediastinal lymph nodes measuring up to 11 mm, nonspecific. Vasculature: Unremarkable. No aortic aneurysm. Bones/joints: Sternotomy wires. Soft tissues: Unremarkable. COMMENTS: In the absence of a history or active diagnosis of lung cancer, it is recommended that this patient with emphysema be evaluated for enrollment in a low dose CT lung cancer screening program. PROCEDURE INFORMATION: Exam: CT Abdomen And Pelvis Without Contrast Exam date and time: 11/17/2022 10:16 PM Age: 71 years old Clinical indication: Abdominal pain; Generalized; Chest pressure; Prior surgery; Surgery type: Cabg. Hip pinning. Patient HX: C/O diffuse pain all over body. Episode of unresponsiveness. Elevated base and two hour troponins. Elevated bnp. History of chf and stage 4 renal disease. ; Additional info: Unresponsive, episode TECHNIQUE: Imaging protocol: Computed tomography of the abdomen and pelvis without contrast. Radiation optimization: All CT scans at this facility use at least one of these dose optimization techniques: automated exposure control; mA and/or kV adjustment per patient size (includes targeted exams where dose is matched to clinical indication); or iterative reconstruction. REPORTING DATA: Count of CT and Cardiac NM exams in prior 12 months: This patient has received 8 known CTs and 0 known cardiac nuclear medicine studies in the 12 months prior to the current study. COMPARISON: CT abdomen pelvis w con* [id number] 08/06/2022 7:24 PM RADIATION DOSE METRICS: Total DLP (mGy-cm): 1299.1 FINDINGS: Liver: Mildly cirrhotic liver suspected. Gallbladder and bile ducts: Cholecystectomy. Rounded calcifications at the caudal tip of the liver measuring up to 7.7 mm with a small amount of surrounding fluid, may reflect dropped gallstones. Pancreas: Normal. No ductal dilation. Spleen: Spleen enlarged to 17 cm. Adrenal glands: Normal. No mass. Kidneys and ureters: Normal. No hydronephrosis. Stomach and bowel: Diverticulosis without diverticulitis. Appendix: No evidence of appendicitis. Intraperitoneal space: Left abdominal somewhat localized ascitic fluid. Vasculature: Unremarkable. No abdominal aortic aneurysm. Lymph nodes: Unremarkable. No enlarged lymph nodes. Urinary bladder: Leslie catheter in the urinary bladder with air presumed iatrogenic. Urinary bladder wall thickening likely due to nondistention, please correlate for cystitis. Reproductive: Unremarkable as visualized. Bones/joints: Right hip 3 point pinning. Soft tissues: Unremarkable. CT/[place] [id number] IMPRESSION: 1. Cardiomegaly. 2. Coronary artery atherosclerotic calcifications. 3. Prominent mediastinal lymph nodes measuring up to 11 mm, nonspecific. 4. Small bilateral right greater left pleural effusions. 5. Emphysematous changes suspected. 6. Bilateral dependent atelectasis versus infiltrate. IMPRESSION: 1. Negative for definite focal acute appearing inflammatory process in the abdomen or pelvis. 2. Mildly cirrhotic liver suspected. 3. Spleen enlarged to 17 cm. 4. Cholecystectomy. 5. Diverticulosis without diverticulitis. 6. Leslie catheter in the urinary bladder with air presumed iatrogenic. 7. Urinary bladder wall thickening likely due to nondistention, please correlate for cystitis. 8. Left abdominal somewhat localized ascitic fluid. 9. Right hip 3 point pinning. 10. Rounded calcifications at the caudal tip of the liver measuring up to 7.7 mm with a small amount of surrounding fluid, may reflect dropped gallstones.
[2022-11-17 20:53] LABS: Glucose Point of Care 106 mg/dL (70-110)
[2022-11-17] MEDS: gabapentin 300 mg Capsule PO (21:02)
[2022-11-17] MEDS: atorvastatin 40 mg Tablet 20 MG PO (21:02)
[2022-11-18] VITALS (14 sets, daily range): BP systolic 105–120; BP diastolic 67–81; PULSE 76–98; RESP 15–28; TEMP 36.8–36.9; O2SAT 95–96
[2022-11-18 04:27] LABS: Basophils % 0.8 %; Eosinophils # 0.2 10^3/uL (0.0-0.8); Eosinophils % 3.2 %; Hematocrit 30.9 % (42.0-52.0); Lymphocytes # 0.9 10^3/uL (0.8-4.8); Lymphocytes % 17.7 %; Mean Corpuscular HGB Conc 29.1 g/dL (30.0-36.0); Mean Corpuscular Hemoglobin 28.9 pg (28.0-34.0); Mean Corpuscular Volume 99.4 fl (80-94); Mean Platelet Volume 9.9 fL (7.4-10.4); Monocytes # 0.5 10^3/uL (0.2-0.9); Monocytes % 8.5 %; Neutrophils % 69.6 %; Nucleated Red Blood Cells % 0 %; Platelet Count 96 10^3/cmm (130-400); Red Blood Count 3.11 10^6/uL (4.1-5.3); Red Cell Distribution Width 19.3 % (12.1-15.1); White Blood Count 5.3 10^3/uL (4.0-10.0)
[2022-11-18 04:51] LABS: Alanine Aminotransferase < 5 U/L (0-41); Albumin Level 3.2 g/dL (3.5-5.2); Alkaline Phosphatase 104 U/L (40-130); Anion Gap 17.3 (5-19); Aspartate Amino Transferase 10 U/L (0-40); Blood Urea Nitrogen 61 mg/dL (8-23); Calcium 8.4 mg/dL (8.5-10.5); Carbon Dioxide 22 mmol/L (22-29); Chloride 101 mmol/L (98-107); Globulin 3.8 g/dL (1.3-4.6); Glucose 100 mg/dL (65-115); Magnesium 2.3 mg/dL (1.7-2.3); NT Pro B Type Natriuretic Pept 9115 pg/mL (0-125); Osmolality Calculated 299 mOsm/kg (285-295); Phosphorus 4.2 mg/dL (2.5-4.5); Potassium 4.3 mmol/L (3.5-5.1); Sodium 136 mmol/L (136-145); Total Bilirubin 0.8 mg/dL (0.15-1.2)
[2022-11-18] MEDS: potassium chloride ER 20 mEq Tablet 40 MEQ PO ×2 (05:34→17:30)
[2022-11-18 06:39] LABS: Glucose Point of Care 112 mg/dL (70-110)
[2022-11-18] MEDS: ferrous sulfate EC 325 mg Tablet 650 MG PO (09:09)
[2022-11-18] MEDS: metOLazone 5 MG Tablet 10 MG PO (09:10)
[2022-11-18] MEDS: allopurinol 100 mg Tablet PO ×2 (09:11→17:29)
[2022-11-18] MEDS: ropinirole 1 mg Tablet PO ×3 (09:11→20:32)
[2022-11-18] MEDS: finasteride 5 mg Tablet PO (09:12)
[2022-11-18] MEDS: aspirin 81 mg EC Tablet PO (09:12)
[2022-11-18] MEDS: sucralfate 1 gm Tablet PO ×2 (09:12→20:32)
[2022-11-18] MEDS: bumetanide 0.25 mg/mL SDV 4 mL 1 MG IVP ×3 (09:13→23:11)
[2022-11-18] MEDS: pantoprazole 40 mg SDV IVP ×2 (09:19→20:33)
[2022-11-18] MEDS: enoxaparin 40 mg/0.4 mL Syringe SUBCUT (09:19)
[2022-11-18] MEDS: nystatin powder 15 gm Btl 1 APPLIC TOPICAL (09:23)
[2022-11-18] MEDS: carvedilol 12.5 mg Tablet PO ×2 (09:24→20:32)
[2022-11-18] MEDS: gabapentin 100 mg Capsule PO (09:24)
[2022-11-18] MEDS: cholestyramine powder 4 gm Pkt PO (09:24)
[2022-11-18] MEDS: ketoconazole Cream 15 gm 1 APPLIC TOPICAL (09:24)
[2022-11-18 09:29] LABS: C Reactive Protein 26.6 mg/L (0.0-4.9); Iron 44 ug/dL (59-158)
[2022-11-18] MEDS: tamsulosin 0.4 mg Capsule PO ×2 (10:44→20:35)
[2022-11-18 11:17] LABS: Glucose Point of Care 157 mg/dL (70-110)
[2022-11-18] MEDS: iron sucrose 200 MG in sodium chloride 0.9% (100 ml) 100 ML 220 MG IV (11:18)
[2022-11-18] MEDS: insulin lispro 100 unit/1 mL SUBCUT (12:26)
[2022-11-18] MEDS: HYDROmorphone 1 mg/mL INJ 1 mL 0.5 MG IVP (13:32)
--- NOTE | 2022-11-18 13:36 | P.PN_ITS ---
Subjective Subjective: - I had extensive meeting with patient yesterday evening and with his , again this morning -Patient's tells me that he has a history of iron deficiency anemia, she thinks that maybe some of his low iron levels is the reason why he having his symptoms -He has been having weakness, fatigue and tiredness ever since his surgery -But his EGD looked okay recently -She is worried about a systemic infection -She is worried about his recurrent yeast infections in his skin folds -He denies any bloody or black stools -Denies any lightheadedness, dizziness -No recurrent chest pain -I had an extensive discussion with cardiology about patient's case, currently he is not the best candidate for coronary angiography, given his elevated creatinine, and no significant troponin elevation, no chest pain complaints however if his creatinine does improve, can consider coronary angiography as outpatient, likely event monitor on discharge -I discussed this with patient and in detail, the issue then becomes is that if he does need any form of anticoagulation or antiplatelet therapy could he tolerate it? As he was taken off all his blood thinner and and antiplatelet therapy given his anemia -The other concern is could he have a pulmonary embolism I do not think likely but have ordered a ventilation/perfusion scan, however he did not tolerate 24 hours of heparin drip here as inpatient his hemoglobin dropped, so do not think he will be able to tolerate anticoagulation even if it is positive, we could consider a IVC filter however his venous ultrasounds were negative for DVT -He continues to have fluid overload, but overall improving, will continue diuresis confirms with me that he has been taking Bumex 4 mg twice daily with metolazone 5 mg every single day as his fluid has been coming back for the last few weeks -Patient and voiced understanding, all questions answered, agreed to proceed with plan Vitals/I&O/Wt Last Vital Signs Temp 98.5 F 11/18/22 11:53 Pulse 90 11/18/22 12:01 Resp 17 11/18/22 13:32 BP 105/69 11/18/22 12:01 Pulse Ox 96 11/18/22 08:23 O2 Del Method 11/18/22 08:00 O2 Flow Rate 2 11/18/22 08:00 11/17/22 11/18/22 11/18/22 22:59 06:59 14:59 Intake Total 995.8 / 995.8 Output Total 1275 / 1275 1200 / 2475 Balance -1275 / -1275 -1200 / -2475 995.8 / 995.8 Weight last 48 hrs Weight 114.901 kg Physical Exam Const: COMMON NORMALS: no acute distress and patient oriented x3 Resp: COMMON NORMALS: normal respiratory effort, No retractions, No use of accessory muscles and clear to auscultation bilaterally AUSCULTATION: clear to auscultation bilaterally Cardio: COMMON NORMALS: regular rate, regular rhythm, S1 normal heart sound present and S2 normal heart sound present RATE: regular rate RHYTHM: regular rhythm HEART SOUNDS: S1 normal heart sound present and S2 normal heart sound present GI: COMMON NORMALS: Normal to inspection, nondistended, normoactive bowel sounds present Extremity: NARRATIVE EXTREMITY EXAM: 2+ pitting edema bilateral extremity Neuro: COMMON NORMALS: patient oriented x3 Psych: COMMON NORMALS: mental status grossly normal Urinary Catheter Management: Leslie: Cath Placed During This Visit: yes Reason for Continuing Indwelling Catheter: Accurate Measurement of Urinary Output in Critically Ill Patients Urinary Catheter Date of Insertion: 11/16/22 Urinary Catheter Time of Insertion: 18:50 Data 11/18/22 03:31 11/18/22 03:31 Micro: Microbiology 11/16/22 12:18 Blood Culture - Preliminary Blood NEGATIVE TO DATE 11/16/22 12:15 Blood Culture - Preliminary Blood NEGATIVE TO DATE A&P Assessment and plan (1) Syncope and collapse: (2) CHF exacerbation: (3) CHF (congestive heart failure): Qualifiers: Heart failure type: combined systolic and diastolic Heart failure chronicity: acute on chronic Qualified Code(s): I50.43 - Acute on chronic combined systolic (congestive) and diastolic (congestive) heart failure (4) GERD (gastroesophageal reflux disease): Qualifiers: Esophagitis presence: with esophagitis Esophagitis bleeding: with hemorrhage Qualified Code(s): K21.01 - Gastro-esophageal reflux disease with esophagitis, with bleeding (5) Hyperlipidemia: (6) Diabetes mellitus, type II: Qualifiers: Diabetes mellitus retirement insulin use: without retirement use Diabetes mellitus complication status: with kidney complications Diabetes mellitus complication detail: with chronic kidney disease Chronic kidney disease stage: stage 4 (severe) Qualified Code(s): E11.22 - Type 2 diabetes mellitus with marie betic chronic kidney disease; N18.4 - Chronic kidney disease, stage 4 (severe) (7) RLS (restless legs syndrome): (8) Diabetic peripheral neuropathy associated with type 2 diabetes mellitus: (9) Coronary artery disease due to type 2 diabetes mellitus: (10) Chronic neck and back pain: (11) BPH loc w urin obs/LUTS: (12) PVD (peripheral vascular disease): (13) GI AVM (gastrointestinal arteriovenous vascular malformation): (14) A-fib: (15) Anemia: Qualifiers: Anemia type: iron deficiency Iron deficiency anemia type: chronic blood loss Qualified Code(s): D50.0 - Iron deficiency anemia secondary to blood loss (chronic) Plan Syncope and collapse -Etiology unclear, however history and symptoms and past medical history are concerning -But symptoms concerning for cardiac etiology, baseline troponin 90, 6-hour trop onin 84.49 -The other thought is pulmonary embolism, although D-dimer negative, venous ultrasound negative for DVT, currently on 2 L -The other thought is it could be vasovagal Plan -Admit to cardiac stepdown unit -Telemetry monitoring -Aspirin, statin -Cardiac echo Diffuse hypokinesia left ventricular ejection fraction of 35-40 ?%.? Mildly dilated LV cavity. ?Moderately increased left atrial size. ?Mildly increased right atrial size. ?Moderate mitral valve regurgitation. ?[id number] aortic valve regurgitation. Thickened aortic ?valve. ?Moderate tricuspid valve regurgitation. ? Moderate pulmonary hypertension with an estimated pulmonary ?artery peak systolic pressure of 61 mmHg. ?Trace pulmonary valve regurgitation. ?There is no pericardial effusion. ?There are no intracardiac masses. ?Compared to the study from 09/14/2022, there may not be a ?significant change -Carotid artery ultrasound no hemodynamically significant carotid artery stenosis -Cardiac stress test 1. Abnormal myocardial perfusion imaging with large areas of prior infarcts ?noted in distribution of all 3 coronary arteries. Minimal per-infarct ischemia ?is seen in the LAD territory ?2. LV systolic function is mildly reduced with EF of 47% ?3. Elevated TID ratio may be indicative of multivessel coronary artery disease -Spoke to cardiology, given his elevated creatinine, currently not an ideal candidate for angiography especially as his troponin trend was not significantly elevated, however the issue becomes is that if he does have any lesion that needs stents could he tolerate anticoagulation and antiplatelet therapy? As he has been having issues with anemia and iron deficiency anemia and his primary care provider had removed all antiplatelet and anticoagulant therapy, so far he is tolerating aspirin -Given his syncope and collapse episode is elevated troponin, and is recently negative EGD, I started him on a heparin drip, however his hemoglobin started to start to drift downwards towards 8.8, thus heparin drip has been held, currently hemoglobin improved to 9.0 -He does have a history of anemia, necessitating the stop of Eliquis, -There is also concern for possible pulmonary embolism although D-dimer is negative, heparin drip had to be held as above, will do VQ scan, however I am not sure if you would tolerate anticoagulation -We will need an event monitor on discharge as per discussion with cardiology -Telemetry monitoring for possible cardiac arrhythmia event -Full code -Heparin for DVT prophylaxis ROSA on CKD -Likely cardiorenal syndrome with his diminished ejection 35 to 40% -Monitor urine output, monitor creatinine Iron deficiency anemia -Start IV Venofer Systolic and diastolic CHF exacerbation -BNP over 9000 -Has bilateral lower extremity pitting edema -At home he was taking Bumex 4 mg twice daily with metolazone every day, over the last few weeks his fluid has been rapidly returning according to patient and -Continue Bumex 1 mg every 8 hours, 1 dose metolazone, monitor urine output, monitor creatinine -Leslie catheter placement -Cardiac echo shows a diminished ejection fraction of 35 to 40% Fevers, chills fatigue, malaise -Respiratory panel negative -Pro-Wiley negative, CRP 44 -UA within normal limits -Chest x-ray focal pneumonia -No focal evidence of infection Insulin-dependent type 2 diabetes mellitus, start low-dose insulin sliding scale Hypertension, continue home blood pressure medications BPH, continue finasteride, Flomax Diabetic peripheral neuropathy continue gabapentin Deconditioning PT OT Attestations Medical Necessity Statement*: Current hospitalization for syncope, acute systolic diastolic CHF exacerbation Diagnoses Syncope and collapse R55 CHF exacerbation I50.9 CHF (congestive heart failure) I50.43 Heart failure type: combined systolic and diastolic Heart failure chronicity: acute on chronic GERD (gastroesophageal reflux disease) K21.01 Esophagitis presence: with esophagitis Esophagitis bleeding: with hemorrhage Hyperlipidemia E78.5 Diabetes mellitus, type II E11.22; 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 Diabetes mellitus complication status: with kidney complications Diabetes mellitus complication detail: with chronic kidney disease Chronic kidney disease stage: stage 4 (severe) RLS (restless legs syndrome) G25.81 Diabetic peripheral neuropathy associated with type 2 diabetes mellitus E11.42 Coronary artery disease due to type 2 diabetes mellitus E11.59; I25.10 Chronic neck and back pain M54.2; M54.9; G89.29 BPH loc w urin obs/LUTS N40.1 PVD (peripheral vascular disease) I73.9 GI AVM (gastrointestinal arteriovenous vascular malformation) K55.20 A-fib I48.91 Anemia D50.0 Anemia type: iron deficiency Iron deficiency anemia type: chronic blood loss
[2022-11-18 16:19] LABS: Glucose Point of Care 105 mg/dL (70-110)
[2022-11-18 20:24] LABS: Glucose Point of Care 171 mg/dL (70-110)
[2022-11-18] MEDS: gabapentin 300 mg Capsule PO (20:32)
[2022-11-18] MEDS: atorvastatin 40 mg Tablet 20 MG PO (20:32)
[2022-11-19] VITALS (11 sets, daily range): BP systolic 101–122; BP diastolic 59–74; PULSE 68–88; RESP 6–20; TEMP 36.7–37.3; O2SAT 90–100
[2022-11-19] MEDS: potassium chloride ER 20 mEq Tablet 40 MEQ PO ×2 (03:17→17:30)
[2022-11-19] MEDS: HYDROmorphone 1 mg/mL INJ 1 mL 0.5 MG IVP ×3 (03:18→17:28)
[2022-11-19 03:54] LABS: Basophils % 0.5 %; Eosinophils # 0.2 10^3/uL (0.0-0.8); Eosinophils % 3.1 %; Hematocrit 31.3 % (42.0-52.0); Hemoglobin 9.5 g/dL (11.7-16.6); Lymphocytes # 0.8 10^3/uL (0.8-4.8); Lymphocytes % 14.2 %; Mean Corpuscular HGB Conc 30.4 g/dL (30.0-36.0); Mean Corpuscular Volume 98.7 fl (80-94); Mean Platelet Volume 9.4 fL (7.4-10.4); Monocytes # 0.4 10^3/uL (0.2-0.9); Monocytes % 6.8 %; Neutrophils # 4.16 10^3/uL (1.8-7.7); Neutrophils % 74.9 %; Nucleated Red Blood Cells % 0 %; Platelet Count 97 10^3/cmm (130-400); Red Blood Count 3.17 10^6/uL (4.1-5.3); Red Cell Distribution Width 19.4 % (12.1-15.1); White Blood Count 5.6 10^3/uL (4.0-10.0)
[2022-11-19 04:25] LABS: Alanine Aminotransferase < 5 U/L (0-41); Albumin Level 3.4 g/dL (3.5-5.2); Alkaline Phosphatase 129 U/L (40-130); Aspartate Amino Transferase 13 U/L (0-40); Blood Urea Nitrogen 59 mg/dL (8-23); Calcium 8.6 mg/dL (8.5-10.5); Carbon Dioxide 20 mmol/L (22-29); Chloride 99 mmol/L (98-107); Globulin 4.1 g/dL (1.3-4.6); Glucose 143 mg/dL (65-115); Magnesium 2.1 mg/dL (1.7-2.3); NT Pro B Type Natriuretic Pept 9115 pg/mL (0-125); Osmolality Calculated 299 mOsm/kg (285-295); Phosphorus 3.4 mg/dL (2.5-4.5); Sodium 135 mmol/L (136-145); Total Bilirubin 0.6 mg/dL (0.15-1.2); Total Protein 7.5 g/dL (6.6-8.7)
[2022-11-19 04:42] LABS: Anion Gap 20.2 (5-19); Potassium 4.2 mmol/L (3.5-5.1)
[2022-11-19 06:51] LABS: Glucose Point of Care 137 mg/dL (70-110)
--- NOTE | 2022-11-19 08:16 | NM_ITS ---
WS: [id number] NUCLEAR MEDICINE LUNG VENTILATION AND PERFUSION CLINICAL INFORMATION: sob TECHNIQUE: Ventilation/perfusion lung scan with 28.9 mCi technetium 99m DTPA. 4.8 mCi MAA COMPARISON: Radiograph November 19, 2022 FINDINGS: Cardiomegaly. Recent chest radiograph reviewed. Symmetric and relatively homogeneous bilateral radiotracer uptake on the perfusion images. Slightly p atchy radiotracer deposition on the ventilatory images likely due to mild emphysema. No lobar or mism atched defects to suggest pulmonary embolus. Low probability for pulmonary embolus. NM/NM pul vent and perfus* [id number] IMPRESSION: 1. Low probability for pulmonary embolus.
--- NOTE | 2022-11-19 08:27 | PC.SOCIAL ---
Pg 2 IMM Explained to pt Pg 2 IMM. No questions voiced. Provided pt a copy. Initialed, dated, & timed a copy & placed in chart.
[2022-11-19] MEDS: pantoprazole 40 mg SDV IVP ×2 (08:43→20:28)
[2022-11-19] MEDS: enoxaparin 40 mg/0.4 mL Syringe SUBCUT (08:44)
[2022-11-19] MEDS: bumetanide 0.25 mg/mL SDV 4 mL 1 MG IVP ×2 (08:44→15:44)
[2022-11-19] MEDS: aspirin 81 mg EC Tablet PO (08:45)
[2022-11-19] MEDS: gabapentin 100 mg Capsule PO ×2 (08:46→20:28)
[2022-11-19] MEDS: finasteride 5 mg Tablet PO (08:46)
[2022-11-19] MEDS: ropinirole 1 mg Tablet PO ×3 (08:46→20:27)
[2022-11-19] MEDS: metOLazone 5 MG Tablet 10 MG PO (08:46)
[2022-11-19] MEDS: carvedilol 12.5 mg Tablet PO ×2 (08:46→20:27)
[2022-11-19] MEDS: allopurinol 100 mg Tablet PO ×2 (08:46→17:30)
[2022-11-19] MEDS: sucralfate 1 gm Tablet PO ×2 (08:46→20:28)
[2022-11-19] MEDS: tamsulosin 0.4 mg Capsule PO ×2 (08:46→20:27)
--- NOTE | 2022-11-19 10:02 | XR_ITS ---
WS: [id number] CHEST XRAY TECHNIQUE: Portable chest. CLINICAL INFORMATION: VQ SCAN COMPARISON COMPARISON: November 16, 2022 FINDINGS: Heart: Cardiomegaly. Sternotomy. Enlarged LEFT ventricle. Lungs: Linear atelectasis LEFT lower lobe. Mild pulmonary vascular congestion. No focal consolidation . Bones: Normal visualized bony structures. XR/XR chest 1V portable [id number] IMPRESSION: 1. Cardiomegaly with enlarged LEFT ventricle. 2. Mild pulmonary vascular congestion. 3. Slight linear atelectasis LEFT lower lobe. No focal pneumonia.
[2022-11-19] MEDS: iron sucrose 200 MG in sodium chloride 0.9% (100 ml) 100 ML 220 MG IV (10:51)
[2022-11-19] MEDS: nystatin powder 15 gm Btl 1 APPLIC TOPICAL ×2 (10:52→20:28)
[2022-11-19] MEDS: ketoconazole Cream 15 gm 1 APPLIC TOPICAL ×2 (10:52→20:28)
[2022-11-19 10:55] LABS: Glucose Point of Care 156 mg/dL (70-110)
[2022-11-19] MEDS: insulin lispro 100 unit/1 mL SUBCUT (11:37)
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
--- NOTE | 2022-11-19 13:23 | PC.OT ---
OT tx attempted at 1250. Pt lying in bed grimacing in pain. Pt reports back spasms and neck pain. Hoffman Durbin FACES pain scale rating 10/10. Pt declines to sit up at edge of bed with COIN PURSE ASSEMBLER and declines grooming with DAVISON at this time. He is agreeable to therapists assisting him in bed mobility to attempt to position him more comfortably. Therapists pull him up with draw sheet and pt assists with B LEs. He reports reduced pain for a few minutes then grimaces and calls out due to continued back spasms. Pt left in bed with call light and needs in reach. Will attempt tx again tomorrow.
--- NOTE | 2022-11-19 15:32 | P.PN_ITS ---
Subjective Subjective: Patient was seen this morning, at bedside, he does feel better, but continues to have edema Vitals/I&O/Wt Last Vital Signs Temp 98.1 F 11/19/22 12:00 Pulse 88 11/19/22 12:00 Resp 16 11/19/22 12:00 BP 101/68 11/19/22 12:00 Pulse Ox 90 11/19/22 12:00 O2 Del Method 11/19/22 12:00 O2 Flow Rate 1 11/19/22 08:00 11/19/22 11/19/22 11/19/22 06:59 14:59 22:59 Intake Total 110 / 110 Output Total 1150 / 4200 1050 / 1050 Balance -1150 / -2364.2 -940 / -940 Physical Exam Const: COMMON NORMALS: no acute distress and patient oriented x3 Resp: COMMON NORMALS: normal respiratory effort, No retractions, No use of accessory muscles and clear to auscultation bilaterally AUSCULTATION: clear to auscultation bilaterally Cardio: COMMON NORMALS: regular rate, regular rhythm, S1 normal heart sound present and S2 normal heart sound present RATE: regular rate RHYTHM: regular rhythm HEART SOUNDS: S1 normal heart sound present and S2 normal heart sound present GI: COMMON NORMALS: Normal to inspection, nondistended, normoactive bowel sounds present and non-tender Extremity: NARRATIVE EXTREMITY EXAM: 2+ pitting edema Neuro: COMMON NORMALS: patient oriented x3 Psych: COMMON NORMALS: mental status grossly normal Urinary Catheter Management: Leslie: Cath Placed During This Visit: yes Reason for Continuing Indwelling Catheter: Accurate Measurement of Urinary Output in Critically Ill Patients Urinary Catheter Date of Insertion: 11/16/22 Urinary Catheter Time of Insertion: 18:50 Data 11/19/22 03:29 11/19/22 03:29 A&P Assessment and plan (1) Syncope and collapse: (2) CHF exacerbation: (3) CHF (congestive heart failure): Qualifiers: Heart failure type: combined systolic and diastolic Heart failure chronicity: acute on chronic Qualified Code(s): I50.43 - Acute on chronic combined systolic (congestive) and diastolic (congestive) heart failure (4) GERD (gastroesophageal reflux disease): Qualifiers: Esophagitis presence: with esophagitis Esophagitis bleeding: with hemorrhage Qualified Code(s): K21.01 - Gastro-esophageal reflux disease with esophagitis, with bleeding (5) Hyperlipidemia: (6) Diabetes mellitus, type II: Qualifiers: Diabetes mellitus longwall shearer operator insulin use: without longwall shearer operator use Diabetes mellitus complication status: with kidney complications Diabetes mellitus complication detail: with chronic kidney disease Chronic kidney disease stage: stage 4 (severe) Qualified Code(s): E11.22 - Type 2 diabetes mellitus with diab etic chronic kidney disease; N18.4 - Chronic kidney disease, stage 4 (severe) (7) RLS (restless legs syndrome): (8) Diabetic peripheral neuropathy associated with type 2 diabetes mellitus: (9) Coronary artery disease due to type 2 diabetes mellitus: (10) Chronic neck and back pain: (11) BPH loc w urin obs/LUTS: (12) PVD (peripheral vascular disease): (13) GI AVM (gastrointestinal arteriovenous vascular malformation): (14) A-fib: (15) Anemia: Qualifiers: Anemia type: iron deficiency Iron deficiency anemia type: chronic blood loss Qualified Code(s): D50.0 - Iron deficiency anemia secondary to blood loss (chronic) Plan Syncope and collapse -Etiology unclear, however history and symptoms and past medical history are concerning -But symptoms concerning for cardiac etiology -The other thought is it could be vasovagal Plan -Admit to cardiac stepdown unit -Telemetry monitoring -Aspirin, statin -Cardiac echo Diffuse hypokinesia left ventricular ejection fraction of 35-40 ?%.? Mildly dilated LV cavity. ?Moderately increased left atrial size. ?Mildly increased right atrial size. ?Moderate mitral valve regurgitation. ?[id number] aortic valve regurgitation. Thickened aortic ?valve. ?Moderate tricuspid valve regurgitation. ? Moderate pulmonary hypertension with an estimated pulmonary ?artery peak systolic pressure of 61 mmHg. ?Trace pulmonary valve regurgitation. ?There is no pericardial effusion. ?There are no intracardiac masses. ?Compared to the study from 09/14/2022, there may not be a ?significant change -Carotid artery ultrasound no hemodynamically significant carotid artery steno sis -Cardiac stress test 1. Abnormal myocardial perfusion imaging with large areas of prior infarcts ?noted in distribution of all 3 coronary arteries. Minimal per-infarct ischemia ?is seen in the LAD territory ?2. LV systolic function is mildly reduced with EF of 47% ?3. Elevated TID ratio may be indicative of multivessel coronary artery disease -Spoke to cardiology, given his elevated creatinine, currently not an ideal candidate for angiography especially as his troponin trend was not significantly elevated, however the issue becomes is that if he does have any lesion that needs stents could he tolerate anticoagulation and antiplatelet therapy? As he has been having issues with anemia and iron deficiency anemia and his primary care provider had removed all antiplatelet and anticoagulant therapy, so far he is tolerating aspirin -Given his syncope and collapse episode is elevated troponin, and is recently negative EGD, I started him on a heparin drip, however his hemoglobin started to start to drift downwards towards 8.8, thus heparin drip has been held, currently hemoglobin improved to 9.0 -He does have a history of anemia, necessitating the stop of Eliquis, -There is also concern for possible pulmonary embolism although D-dimer is negative, heparin drip had to be held as above, VQ scan low ability for pulmonary embolism -Patient does have frequent PVCs, possible cardiac arrhythmia, will need an event monitor on discharge will place on low-dose amiodarone -We will need an event monitor on discharge as per discussion with cardiology -Telemetry monitoring for possible cardiac arrhythmia event -Full code -Heparin for DVT prophylaxis ROSA on CKD -Likely cardiorenal syndrome with his diminished ejection 35 to 40% -Monitor urine output, monitor creatinine Iron deficiency anemia -Start IV Venofer Systolic and diastolic CHF exacerbation -BNP over 9000 -Has bilateral lower extremity pitting edema -At home he was taking Bumex 4 mg twice daily with metolazone every day, over the last few weeks his fluid has been rapidly returning according to patient and -Continue Bumex 1 mg every 8 hours, 1 dose metolazone, monitor urine output, monitor creatinine -Leslie catheter placement -Cardiac echo shows a diminished ejection fraction of 35 to 40% Fevers, chills fatigue, malaise -Respiratory panel negative -Pro-Wiley negative, CRP 44 -UA within normal limits -Chest x-ray focal pneumonia -No focal evidence of infection Insulin-dependent type 2 diabetes mellitus, start low-dose insulin sliding scale Hypertension, continue home blood pressure medications BPH, continue finasteride, Flomax Diabetic peripheral neuropathy continue gabapentin Deconditioning PT OT Attestations 2 Medical Necessity Statement*: Patient requires hospitalization for acute on chronic systolic CHF exacerbation requiring diuresis Diagnoses Syncope and collapse R55 CHF exacerbation I50.9 CHF (congestive heart failure) I50.43 Heart failure type: combined systolic and diastolic Heart failure chronicity: acute on chronic GERD (gastroesophageal reflux disease) K21.01 Esophagitis presence: with esophagitis Esophagitis bleeding: with hemorrhage Hyperlipidemia E78.5 Diabetes mellitus, type II E11.22; N18.4 Diabetes mellitus nursing home insulin use: without nursing home use Diabetes mellitus complication status: with kidney complications Diabetes mellitus complication detail: with chronic kidney disease Chronic kidney disease stage: stage 4 (severe) RLS (restless legs syndrome) G25.81 Diabetic peripheral neuropathy associated with type 2 diabetes mellitus E11.42 Coronary artery disease due to type 2 diabetes mellitus E11.59; I25.10 Chronic neck and back pain M54.2; M54.9; G89.29 BPH loc w urin obs/LUTS N40.1 PVD (peripheral vascular disease) I73.9 GI AVM (gastrointestinal arteriovenous vascular malformation) K55.20 A-fib I48.91 Anemia D50.0 Anemia type: iron deficiency Iron deficiency anemia type: chronic blood loss
[2022-11-19 17:21] LABS: Glucose Point of Care 134 mg/dL (70-110)
[2022-11-19] MEDS: atorvastatin 40 mg Tablet 20 MG PO (20:27)
[2022-11-19] MEDS: gabapentin 300 mg Capsule PO (20:28)
[2022-11-19 21:36] LABS: Glucose Point of Care 161 mg/dL (70-110)
[2022-11-20] VITALS (14 sets, daily range): BP systolic 109–135; BP diastolic 65–81; PULSE 72–88; RESP 16–24; TEMP 36.5–36.7; O2SAT 93–97
[2022-11-20] MEDS: bumetanide 0.25 mg/mL SDV 4 mL 1 MG IVP ×3 (03:59→20:34)
[2022-11-20] MEDS: HYDROmorphone 1 mg/mL INJ 1 mL 0.5 MG IVP ×3 (05:15→20:23)
[2022-11-20] MEDS: potassium chloride ER 20 mEq Tablet 40 MEQ PO ×2 (05:19→18:25)
[2022-11-20 05:35] LABS: Basophils % 0.5 %; Eosinophils # 0.2 10^3/uL (0.0-0.8); Hematocrit 30.7 % (42.0-52.0); Hemoglobin 9.4 g/dL (11.7-16.6); Lymphocytes % 17.3 %; Mean Corpuscular HGB Conc 30.6 g/dL (30.0-36.0); Mean Corpuscular Volume 98.1 fl (80-94); Mean Platelet Volume 10.4 fL (7.4-10.4); Monocytes # 0.4 10^3/uL (0.2-0.9); Monocytes % 6.4 %; Neutrophils # 4.12 10^3/uL (1.8-7.7); Neutrophils % 71.3 %; Nucleated Red Blood Cells % 0 %; Platelet Count 107 10^3/cmm (130-400); Red Blood Count 3.13 10^6/uL (4.1-5.3); Red Cell Distribution Width 19.4 % (12.1-15.1); White Blood Count 5.8 10^3/uL (4.0-10.0)
[2022-11-20 05:45] LABS: Alanine Aminotransferase < 5 U/L (0-41); Albumin Level 3.3 g/dL (3.5-5.2); Alkaline Phosphatase 115 U/L (40-130); Anion Gap 16.8 (5-19); Aspartate Amino Transferase 12 U/L (0-40); Blood Urea Nitrogen 60 mg/dL (8-23); Calcium 8.8 mg/dL (8.5-10.5); Carbon Dioxide 22 mmol/L (22-29); Chloride 101 mmol/L (98-107); Globulin 4.1 g/dL (1.3-4.6); Glucose 121 mg/dL (65-115); Magnesium 2.1 mg/dL (1.7-2.3); Osmolality Calculated 300 mOsm/kg (285-295); Phosphorus 3.5 mg/dL (2.5-4.5); Potassium 3.8 mmol/L (3.5-5.1); Sodium 136 mmol/L (136-145); Total Bilirubin 0.7 mg/dL (0.15-1.2); Total Protein 7.4 g/dL (6.6-8.7)
[2022-11-20 06:05] LABS: NT Pro B Type Natriuretic Pept 8680 pg/mL (0-125)
[2022-11-20 06:28] LABS: Glucose Point of Care 160 mg/dL (70-110)
[2022-11-20] MEDS: finasteride 5 mg Tablet PO (08:10)
[2022-11-20] MEDS: sucralfate 1 gm Tablet PO ×2 (08:10→20:30)
[2022-11-20] MEDS: aspirin 81 mg EC Tablet PO (08:10)
[2022-11-20] MEDS: carvedilol 12.5 mg Tablet PO ×2 (08:10→20:30)
[2022-11-20] MEDS: gabapentin 100 mg Capsule PO (08:10)
[2022-11-20] MEDS: ropinirole 1 mg Tablet PO ×3 (08:10→20:30)
[2022-11-20] MEDS: allopurinol 100 mg Tablet PO ×2 (08:10→18:24)
[2022-11-20] MEDS: tamsulosin 0.4 mg Capsule PO ×2 (08:10→20:30)
[2022-11-20] MEDS: ketoconazole Cream 15 gm 1 APPLIC TOPICAL (09:14)
[2022-11-20] MEDS: insulin lispro 100 unit/1 mL SUBCUT ×3 (09:14→18:24)
[2022-11-20] MEDS: nystatin powder 15 gm Btl 1 APPLIC TOPICAL (09:14)
[2022-11-20] MEDS: pantoprazole 40 mg SDV IVP ×2 (09:14→20:30)
[2022-11-20] MEDS: enoxaparin 40 mg/0.4 mL Syringe SUBCUT (09:15)
[2022-11-20] MEDS: metOLazone 5 MG Tablet 10 MG PO (11:41)
[2022-11-20] MEDS: ciprofloxacin 500 mg Tablet PO ×2 (11:41→23:32)
[2022-11-20 12:09] LABS: Glucose Point of Care 182 mg/dL (70-110)
[2022-11-20] MEDS: iron sucrose 200 MG in sodium chloride 0.9% (100 ml) 100 ML IV (12:30)
--- NOTE | 2022-11-20 14:27 | PM.PN ---
Subjective Subjective: Patient was seen this morning, he feels significantly better, still having pitting edema lower extremities, he is worried about his fingers, left hand, he has had bleeding at the end of his fingers, he is worried about cellulitis, has a history of MRSA infections Vitals/I&O/Wt Last Vital Signs Temp 97.8 F 11/20/22 04:00 Pulse 82 11/20/22 09:45 Resp 18 11/20/22 09:45 BP 112/78 11/20/22 09:45 Pulse Ox 95 11/20/22 09:45 O2 Del Method 11/20/22 08:00 O2 Flow Rate 1 11/19/22 08:00 11/19/22 11/20/22 11/20/22 22:59 06:59 14:59 Intake Total 1120 / 1230 450 / 1680 1210 / 1210 Output Total 850 / 1900 1150 / 3050 1000 / 1000 Balance 270 / -670 -700 / -1370 210 / 210 Weight last 48 hrs Weight 116.709 kg Physical Exam Const: COMMON NORMALS: no acute distress and patient oriented x3 Resp: COMMON NORMALS: normal respiratory effort, No retractions, No use of accessory muscles and clear to auscultation bilaterally AUSCULTATION: clear to auscultation bilaterally Cardio: COMMON NORMALS: regular rate, regular rhythm, S1 normal heart sound present and S2 normal heart sound present RATE: regular rate RHYTHM: regular rhythm HEART SOUNDS: S1 normal heart sound present and S2 normal heart sound present GI: COMMON NORMALS: Normal to inspection, nondistended, normoactive bowel sounds present and non-tender Extremity: NARRATIVE EXTREMITY EXAM: 1+ pitting edema bilateral lower extremities OTHER: Right hand, third digit, open area of bruising, Left hand, fourth digit, open area of bruising Neuro: COMMON NORMALS: patient oriented x3 Psych: COMMON NORMALS: mental status grossly normal Urinary Catheter Management: Leslie: Cath Placed During This Visit: yes Reason for Continuing Indwelling Catheter: Accurate Measurement of Urinary Output in Critically Ill Patients Urinary Catheter Date of Insertion: 11/16/22 Urinary Catheter Time of Insertion: 18:50 Data 11/20/22 04:28 11/20/22 04:28 Micro: Microbiology 11/18/22 21:25 Urine Culture - Preliminary Urine Catheterized A&P Assessment and plan (1) Syncope and collapse: (2) CHF exacerbation: (3) CHF (congestive heart failure): Qualifiers: Heart failure type: combined systolic and diastolic Heart failure chronicity: acute on chronic Qualified Code(s): I50.43 - Acute on chronic combined systolic (congestive) and diastolic (congestive) heart failure (4) GERD (gastroesophageal reflux disease): Qualifiers: Esophagitis presence: with esophagitis Esophagitis bleeding: with hemorrhage Qualified Code(s): K21.01 - Gastro-esophageal reflux disease with esophagitis, with bleeding (5) Hyperlipidemia: (6) Diabetes mellitus, type II: Qualifiers: Diabetes mellitus usp insulin use: without intermodal dispatcher use Diabetes mellitus complication status: with kidney complications Diabetes mellitus complication detail: with chronic kidney disease Chronic kidney disease stage: stage 4 (severe) Qualified Code(s): E11.22 - Type 2 diabetes mellitus with diabetic chronic kidney disease; N18.4 - Chronic kidney disease, stage 4 (severe) (7) RLS (restless legs syndrome): (8) Diabetic peripheral neuropathy associated with type 2 diabetes mellitus: (9) Coronary artery disease due to type 2 diabetes mellitus: (10) Chronic neck and back pain: (11) BPH loc w urin obs/LUTS: (12) PVD (peripheral vascular disease): (13) GI AVM (gastrointestinal arteriovenous vascular malformation): (14) A-fib: (15) Anemia: Qualifiers: Anemia type: iron deficiency Iron deficiency anemia type: chronic blood loss Qualified Code(s): D50.0 - Iron deficiency anemia secondary to blood loss (chronic) (16) PVC (premature ventricular contraction): (17) Cellulitis: Plan Syncope and collapse -Etiology unclear, however history and symptoms and past medical history are concerning -But symptoms concerning for cardiac etiology -The other thought is it could be vasovagal Plan -Admit to cardiac stepdown unit -Telemetry monitoring -Aspirin, statin -Cardiac echo Diffuse hypokinesia left ventricular ejection fraction of 35-40 ?%.? Mildly dilated LV cavity. ?Moderately increased left atrial size. ?Mildly increased right atrial size. ?Moderate mitral valve regurgitation. ?Ydit-vs-ajwdhdas aortic valve regurgitation. Thickened aortic ?valve. ?Moderate tricuspid valve regurgitation. ? Moderate pulmonary hypertension with an estimated pulmonary ?artery peak systolic pressure of 61 mmHg. ?Trace pulmonary valve regurgitation. ?There is no pericardial effusion. ?There are no intracardiac masses. ?Compared to the study from 09/14/2022, there may not be a ?significant change -Carotid artery ultrasound no hemodynamically significant carotid artery stenosis -Cardiac stress test 1. Abnormal myocardial perfusion imaging with large areas of prior infarcts ?noted in distribution of all 3 coronary arteries. Minimal per-infarct ischemia ?is seen in the LAD territory ?2. LV systolic function is mildly reduced with EF of 47% ?3. Elevated TID ratio may be indicative of multivessel coronary artery disease -Spoke to cardiology, given his elevated creatinine, currently not an ideal candidate for angiography especially as his troponin trend was not significantly elevated, however the issue becomes is that if he does have any lesion that needs stents could he tolerate anticoagulation and antiplatelet therapy? As he has been having issues with anemia and iron deficiency anemia and his primary care provider had removed all antiplatelet and anticoagulant therapy, so far he is tolerating aspirin -Given his syncope and collapse episode is elevated troponin, and is recently negative EGD, I started him on a heparin drip, however his hemoglobin started to start to drift downwards towards 8.8, thus heparin drip has been held, currently hemoglobin improved to 9.0 -He does have a history of anemia, necessitating the stop of Eliquis, -There is also concern for possible pulmonary embolism although D-dimer is negative, heparin drip had to be held as above, VQ scan low ability for pulmonary embolism -Patient does have frequent PVCs, possible cardiac arrhythmia, will need an event monitor on discharge will place on low-dose amiodarone -We will need an event monitor on discharge as per discussion with cardiology -Telemetry monitoring for possible cardiac arrhythmia event -Full code -Heparin for DVT prophylaxis Frequent PVCs -With episodes of syncope and collapse -Start amiodarone 200 mg once daily -Cardiology consulted Cellulitis, bilateral hands, -With open excoriations -Wound care -History of MRSA infections, sensitive to fluoroquinolones -Continue Cipro 500 twice daily ROSA on CKD -Likely cardiorenal syndrome with his diminished ejection 35 to 40% -Monitor urine output, monitor creatinine Iron deficiency anemia -Start IV Venofer Systolic and diastolic CHF exacerbation -BNP over 8000 -Patient is -6 L -Has bilateral lower extremity pitting edema -At home he was taking Bumex 4 mg twice daily with metolazone every day, over the last few weeks his fluid has been rapidly returning according to patient and -Continue Bumex 1 mg every 8 hours, 1 dose metolazone, monitor urine output, monitor creatinine -Leslie catheter placement -Cardiac echo shows a diminished ejection fraction of 35 to 40% Fevers, chills fatigue, malaise -Respiratory panel negative -Pro-Wiley negative, CRP 44 -UA within normal limits -Chest x-ray focal pneumonia -No focal evidence of infection Insulin-dependent type 2 diabetes mellitus, start low-dose insulin sliding scale Hypertension, continue home blood pressure medications BPH, continue finasteride, Flomax Diabetic peripheral neuropathy continue gabapentin Deconditioning PT OT Attestations Medical Necessity Statement*: Patient requires hospitalization, for cellulitis, fluid overload, frequent PVCs, syncope and collapse Diagnoses Syncope and collapse R55 CHF exacerbation I50.9 CHF (congestive heart failure) I50.43 Heart failure type: combined systolic and diastolic Heart failure chronicity: acute on chronic GERD (gastroesophageal reflux disease) K21.01 Esophagitis presence: with esophagitis Esophagitis bleeding: with hemorrhage Hyperlipidemia E78.5 Diabetes mellitus, type II E11.22; N18.4 Diabetes mellitus intermodal dispatcher insulin use: without usp use Diabetes mellitus complication status: with kidney complications Diabetes mellitus complication detail: with chronic kidney disease Chronic kidney disease stage: stage 4 (severe) RLS (restless legs syndrome) G25.81 Diabetic peripheral neuropathy associated with type 2 diabetes mellitus E11.42 Coronary artery disease due to type 2 diabetes mellitus E11.59; I25.10 Chronic neck and back pain M54.2; M54.9; G89.29 BPH loc w urin obs/LUTS N40.1 PVD (peripheral vascular disease) I73.9 GI AVM (gastrointestinal arteriovenous vascular malformation) K55.20 A-fib I48.91 Anemia D50.0 Anemia type: iron deficiency Iron deficiency anemia type: chronic blood loss PVC (premature ventricular contraction) I49.3 Cellulitis L03.90
[2022-11-20] MEDS: amiodarone 200 mg Tablet PO (14:59)
[2022-11-20] MEDS: albumin 25 G/100 ML BAG 60 G IV ×2 (17:23→23:32)
[2022-11-20 17:40] LABS: Glucose Point of Care 187 mg/dL (70-110)
[2022-11-20] MEDS: gabapentin 300 mg Capsule PO (20:30)
[2022-11-20] MEDS: atorvastatin 40 mg Tablet 20 MG PO (20:31)
[2022-11-20 21:00] LABS: Glucose Point of Care 126 mg/dL (70-110)
[2022-11-21] VITALS (8 sets, daily range): BP systolic 97–122; BP diastolic 57–61; PULSE 69–84; RESP 16–23; TEMP 36.4–36.9; O2SAT 96–98
[2022-11-21 03:32] LABS: Basophils % 0.4 %; Eosinophils # 0.2 10^3/uL (0.0-0.8); Eosinophils % 3.7 %; Hematocrit 29.5 % (42.0-52.0); Hemoglobin 8.9 g/dL (11.7-16.6); Lymphocytes # 0.9 10^3/uL (0.8-4.8); Lymphocytes % 16.7 %; Mean Corpuscular HGB Conc 30.2 g/dL (30.0-36.0); Mean Corpuscular Hemoglobin 29.4 pg (28.0-34.0); Mean Corpuscular Volume 97.4 fl (80-94); Monocytes # 0.4 10^3/uL (0.2-0.9); Monocytes % 7.1 %; Neutrophils # 4.03 10^3/uL (1.8-7.7); Neutrophils % 71.6 %; Nucleated Red Blood Cells % 0 %; Platelet Count 105 10^3/cmm (130-400); Red Blood Count 3.03 10^6/uL (4.1-5.3); Red Cell Distribution Width 19.7 % (12.1-15.1); White Blood Count 5.6 10^3/uL (4.0-10.0)
[2022-11-21 03:52] LABS: Magnesium 2.1 mg/dL (1.7-2.3)
[2022-11-21 04:05] LABS: Anion Gap 19.9 (5-19); Blood Urea Nitrogen 63 mg/dL (8-23); Calcium 8.6 mg/dL (8.5-10.5); Carbon Dioxide 23 mmol/L (22-29); Chloride 97 mmol/L (98-107); Glucose 124 mg/dL (65-115); NT Pro B Type Natriuretic Pept 9220 pg/mL (0-125); Osmolality Calculated 301 mOsm/kg (285-295); Potassium 3.9 mmol/L (3.5-5.1); Sodium 136 mmol/L (136-145)
[2022-11-21] MEDS: potassium chloride ER 20 mEq Tablet 40 MEQ PO ×2 (05:36→12:39)
[2022-11-21] MEDS: bumetanide 0.25 mg/mL SDV 4 mL 1 MG IVP ×2 (05:36→11:34)
[2022-11-21] MEDS: HYDROmorphone 1 mg/mL INJ 1 mL 0.5 MG IVP ×2 (05:47→11:33)
--- NOTE | 2022-11-21 05:55 | PC.NURSE ---
This RN followed SN Marquis observing all assessments, medication administrations, and patient care. Student performed required patient verifications and engaged patient's during care appropriately. This RN agrees with all assessments.
[2022-11-21 06:36] LABS: Glucose Point of Care 153 mg/dL (70-110)
[2022-11-21] MEDS: sucralfate 1 gm Tablet PO (07:37)
[2022-11-21] MEDS: finasteride 5 mg Tablet PO (07:37)
[2022-11-21] MEDS: insulin lispro 100 unit/1 mL SUBCUT ×2 (07:37→12:39)
[2022-11-21] MEDS: albumin 25 G/100 ML BAG 60 G IV (07:39)
[2022-11-21] MEDS: pantoprazole 40 mg SDV IVP (08:44)
[2022-11-21] MEDS: gabapentin 100 mg Capsule PO (08:44)
[2022-11-21] MEDS: amiodarone 200 mg Tablet PO (08:44)
--- NOTE | 2022-11-21 08:44 | PM.PN ---
Subjective Subjective: Patient is doing well. No chest pain Vitals/I&O/Wt Last Vital Signs Temp 97.9 F 11/21/22 04:00 Pulse 84 11/21/22 06:00 Resp 19 H 11/21/22 05:47 BP 97/60 11/21/22 04:00 Pulse Ox 98 11/21/22 05:47 O2 Del Method 11/21/22 04:00 O2 Flow Rate 1 11/19/22 08:00 11/20/22 11/21/22 11/21/22 22:59 06:59 14:59 Intake Total 540 / 1750 820 / 2570 Output Total 4000 / 5000 1275 / 6275 Balance -3460 / -3250 -455 / -3705 Weight last 48 hrs Weight 259 lb 3.2 oz Weight 257 lb 4.8 oz Physical Exam Narrative: GENERAL: Patient is alert, awake and oriented x3. [] NECK: No jugular vein distension. [] HEENT: No cyanosis. No icterus. No pallor. [] HEART:Irregularly irregular heart rate LUNGS: Clear to auscultate bilaterally. [] CENTRAL NERVOUS SYSTEM: Grossly nonfocal. [] EXTREMITIES: Lower extremities with 1+ edema bilaterally. Pulses palpable in the lower extremities, both dorsalis pedis and posterior tibial. [] Urinary Catheter Management: Leslie: Cath Placed During This Visit: yes Reason for Continuing Indwelling Catheter: Accurate Measurement of Urinary Output in Critically Ill Patients Urinary Catheter Date of Insertion: 11/16/22 Urinary Catheter Time of Insertion: 18:50 Data 11/21/22 02:51 11/21/22 02:51 Micro: Microbiology 11/18/22 21:25 Urine Culture - Preliminary Urine Catheterized A&P Assessment and plan (1) PVC (premature ventricular contraction): (2) Syncope and collapse: (3) CHF exacerbation: (4) Hyperlipidemia: (5) Chronic kidney disease, stage IV (severe): (6) Diabetes mellitus, type II: Qualifiers: Diabetes mellitus fpc insulin use: without truck terminal manager use Diabetes mellitus complication status: with kidney complications Diabetes mellitus complication detail: with chronic kidney disease Chronic kidney disease stage: stage 4 (severe) Qualified Code(s): E11.22 - Type 2 diabetes mellitus with diabetic chronic kidney disease; N18.4 - Chronic kidney disease, stage 4 (severe) (7) Chronic back pain: Qualifiers: Back pain location: low back pain Back pain laterality: bilateral Sciatica presence: without sciatica Qualified Code(s): M54.5 - Low back pain; G89.29 - Other chronic pain (8) Diabetic peripheral neuropathy associated with type 2 diabetes mellitus: (9) Coronary artery disease due to type 2 diabetes mellitus: Plan Patient will be on amiodarone. Continue aspirin. Outpatient 30 day event monitor Thank you for involving us with care of this patient. Please call with questions. Attestations Medical Necessity Statement*: Care expected to cross 2 midnights. Coding Level of Care Code Acute Code for [facility] Fwd Diagnoses PVC (premature ventricular contraction) I49.3 Syncope and collapse R55 CHF exacerbation I50.9 Hyperlipidemia E78.5 Chronic kidney disease, stage IV (severe) N18.4 Diabetes mellitus, type II E11.22; N18.4 Diabetes mellitus truck terminal manager insulin use: without truck terminal manager use Diabetes mellitus complication status: with kidney complications Diabetes mellitus complication detail: with chronic kidney disease Chronic kidney disease stage: stage 4 (severe) Chronic back pain M54.5; G89.29 Back pain location: low back pain Back pain laterality: bilateral Sciatica presence: without sciatica Diabetic peripheral neuropathy associated with type 2 diabetes mellitus E11.42 Coronary artery disease due to type 2 diabetes mellitus E11.59; I25.10
[2022-11-21] MEDS: metOLazone 5 MG Tablet 10 MG PO (08:45)
[2022-11-21] MEDS: ropinirole 1 mg Tablet PO (08:45)
[2022-11-21] MEDS: carvedilol 12.5 mg Tablet PO (08:46)
[2022-11-21] MEDS: aspirin 81 mg EC Tablet PO (08:47)
[2022-11-21] MEDS: allopurinol 100 mg Tablet PO (08:47)
[2022-11-21] MEDS: tamsulosin 0.4 mg Capsule PO (08:48)
[2022-11-21] MEDS: nystatin powder 15 gm Btl 1 APPLIC TOPICAL (08:49)
[2022-11-21] MEDS: ketoconazole Cream 15 gm 1 APPLIC TOPICAL (08:49)
--- NOTE | 2022-11-21 10:19 | PM.DCS ---
Discharge Providers Date of Admission: 11/16/22 17:14 Date of Discharge: November 21, 2022 Attending Provider at Admission: Prashant Aguilar MD Attending Provider at Discharge: Prashant Aguilar MD Primary Care Provider: Tosha Munoz MD Diagnoses at Discharge Discharge Diagnosis (1) PVC (premature ventricular contraction): Status: Acute (2) Syncope and collapse: Status: Acute (3) CHF exacerbation: Status: Acute (4) Hyperlipidemia: Status: Chronic (5) Chronic kidney disease, stage IV (severe): Status: Acute (6) Diabetes mellitus, type II: Status: Acute Qualifiers: Diabetes mellitus supervisor intermediates insulin use: without care home use Diabetes mellitus complication status: with kidney complications Diabetes mellitus complication detail: with chronic kidney disease Chronic kidney disease stage: stage 4 (severe) Qualified Code(s): E11.22 - Type 2 diabetes mellitus with diabetic chronic kidney disease; N18.4 - Chronic kidney disease, stage 4 (severe) (7) Chronic back pain: Status: Chronic Qualifiers: Back pain location: low back pain Back pain laterality: bilateral Sciatica presence: without sciatica Qualified Code(s): M54.5 - Low back pain; G89.29 - Other chronic pain (8) Diabetic peripheral neuropathy associated with type 2 diabetes mellitus: Status: Chronic (9) Coronary artery disease due to type 2 diabetes mellitus: Status: Chronic Reason for Visit Reason for Visit: SYNCOPAL EPISODE Hospital Course Hospital Course Gian Bowers is a 71 year old male with a past medical history of atrial fibrillation not on anticoagulation due to anemia, history of GI bleeds, history of CABG, history of insulin-dependent type 2 diabetes mellitus, history of CKD stage IV, recently had a EGD for concerns for anemia which did not show any acute signs of bleeding I was told,, history of peripheral neuropathy, history of systolic diastolic CHF, history of BPH, history of hip fracture, history of anemia, 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 Patient tells me that he has not been feeling well today, it is almost like he has a flu, he has had sinus congestion, he has had subjective fevers, he has had general malaise, he has had stomach pains, he was actually going to his primary care provider today.? As he left his house, through the garage, he is to to feel lightheaded and dizzy, and told his daughter that he felt lightheaded.? I spoke to his daughter, Melody Castro, she tells me that immediately she pulled the chair and had him sit in the chair, and for about 5 seconds, he became nonresponsive, was not breathing, she still will rub him, and stimulated him, he developed agonal breathing, was pale, diaphoretic, and started to become responsive but it took about a full 5 minutes for him to be completely responsive.? Not sure if he lost his pulse, his blood sugar here in the emergency room was reasonable.? No history of hypoglycemia.? He denies any chest pain, no palpitations, does report increased shortness of breath with bilateral extremity edema.? No repeat lightheadedness.? No recent falls.? No recent injuries.? He only uses oxygen as needed at home, here he is on 3 L.? He is alert oriented x3, follows commands, no slurring of his words, no facial droop, no focal weakness.? He does have bilateral extremity diabetic peripheral neuropathy, his daughter denies any seizure-like episodes, no strokelike symptoms.? No history of DVTs or PEs.? He has atrial fibrillation and recently L anticoagulation antiplatelet therapy was stopped.? His primary care provider is working up for possible diabetic gastroparesis due to his persistent nausea. For patient's syncope and collapse -Etiology unclear, however history and symptoms and past medical history are concerning -But symptoms concerning for cardiac etiology -The other thought is it could be vasovagal -Admit to cardiac stepdown unit, monitored, no recurrent symptoms symptoms, telemetry showed frequent PVCs, cardiology consulted, recommend amiodarone 200 mg once daily, event monitor, on discharge patient had an extensive work-up as below -Discharged on-Aspirin, statin, for possible cardiac event, monitor hemoglobin discharge hemoglobin 8.9, have primary care recheck hemoglobin next week, has difficulties with anemia iron deficiency anemia recently had an EGD which was unremarkable -Cardiac echo Diffuse hypokinesia left ventricular ejection fraction of 35-40 ?%.? Mildly dilated LV cavity. ?Moderately increased left atrial size. ?Mildly increased right atrial size. ?Moderate mitral valve regurgitation. ?[id number] aortic valve regurgitation. Thickened aortic ?valve. ?Moderate tricuspid valve regurgitation. ? Moderate pulmonary hypertension with an estimated pulmonary ?artery peak systolic pressure of 61 mmHg. ?Trace pulmonary valve regurgitation. ?There is no pericardial effusion. ?There are no intracardiac masses. ?Compared to the study from 09/14/2022, there may not be a ?significant change -Carotid artery ultrasound no hemodynamically significant carotid artery stenosis -Cardiac stress test 1. Abnormal myocardial perfusion imaging with large areas of prior infarcts ?noted in distribution of all 3 coronary arteries. Minimal per-infarct ischemia ?is seen in the LAD territory ?2. LV systolic function is mildly reduced with EF of 47% ?3. Elevated TID ratio may be indicative of multivessel coronary artery disease -Spoke to cardiology, given his elevated creatinine, currently not an ideal candidate for angiography especially as his troponin trend was not significantly elevated, however the issue becomes is that if he does have any lesion that needs stents could he tolerate anticoagulation and antiplatelet therapy?? As he has been having issues with anemia and iron deficiency anemia and his primary care provider had removed all antiplatelet and anticoagulant therapy, so far he is tolerating aspirin, continue on discharge, but I worry that if he does need a angiogram in the future if Plavix or Effient need to be added this will be a significant issue -Given his syncope and collapse episode is elevated troponin, and is recently negative EGD, I started him on a heparin drip, however his hemoglobin started to start to drift downwards towards 8.8, thus heparin drip was stopped, managed on aspirin, hemoglobin discharge 8.9 -He does have a history of anemia, necessitating the stop of Eliquis, -There is also concern for possible pulmonary embolism although D-dimer is negative, heparin drip had to be held as above, VQ scan low ability for pulmonary embolism, thus pulm embolism very unlikely -Patient does have frequent PVCs, possible cardiac arrhythmia, will need an event monitor on discharge will place on low-dose amiodarone -Event monitor on discharge follow-up with cardiology For patient's cellulitis, bilateral hands, with open excoriations, wound care, history of MRSA infections, discharged on ciprofloxacin Failure patient is ROSA on CKD likely cardiorenal syndrome, improved with diuresis For patient's iron deficiency anemia, received 4 treatments of IV Venofer during hospitalization, recheck iron levels in 4 to 6 month For patient's systolic and diastolic CHF exacerbation, received diuresis with Bumex and metolazone, diuresed over 10 L, creatinine improved, symptomatology improved, cardiac echo showed EF of 35 to 40%. Will be discharged on Bumex and metolazone regimen as below as as it significantly help patient during his hospitalization - For your syncope and collapse episode, I have ordered an event monitor, please follow-up with cardiology in a week -I have discharged on amiodarone 200 mg once daily for your frequent PVCs -For your edema and your CHF, I have discharged you on Bumex 1 mg every 8 hours -With metolazone 10 mg Wednesday -For potassium replacement take 20 mEq in the morning, 20 mEq in the afternoon, 20 mEq at dinner, 10 mill equivalents in the evening -Please have cardiology or primary care recheck your kidney function next week -Please limit your fluid intake to 1 L to 1.2 L a day -I have stopped her Levemir as her blood sugars have been reasonable during her hospitalization, -Continue insulin sliding scale -For your nausea vomiting please use Zofran -If your nausea vomiting persist you can use Reglan -For your bloating and your abdominal pain and your diabetic gastroparesis you can use Reglan as prescribed -Do not use Reglan for more than 12 continuous weeks due to risk of tardive dyskinesia and muscle spasms -Monitor for muscle spasms and tardive dyskinesia if so go to the emergency room -I have discharged on aspirin for cardiac protection, given your syncope episode, please have cardiology or primary care recheck her hemoglobin -You received iron infusions during her hospitalization please have your primary care provider recheck your iron levels in 4 months -Your creatinine on discharge was 2.3, please have your primary care provider recheck your creatinine Physical Exam Const: COMMON NORMALS: no acute distress and patient oriented x3 Resp: COMMON NORMALS: normal respiratory effort, No retractions, No use of accessory muscles and clear to auscultation bilaterally AUSCULTATION: clear to auscultation bilaterally Cardio: COMMON NORMALS: regular rate, regular rhythm, S1 normal heart sound present and S2 normal heart sound present RATE: regular rate RHYTHM: regular rhythm HEART SOUNDS: S1 normal heart sound present and S2 normal heart sound present GI: COMMON NORMALS: Normal to inspection, nondistended, normoactive bowel sounds present and non-tender Extremity: COMMON NORMALS: no pedal edema Neuro: COMMON NORMALS: patient oriented x3 Psych: COMMON NORMALS: mental status grossly normal Urinary Catheter Management: Leslie: Cath Placed During This Visit: yes Reason for Continuing Indwelling Catheter: Accurate Measurement of Urinary Output in Critically Ill Patients Urinary Catheter Date of Insertion: 11/16/22 Urinary Catheter Time of Insertion: 18:50 Discharge Data Studies Completed and Pending Completed Studies During Hospitalization Category Date Time Status CT chest abdomen pelvis [[place] [id number] Cat Scan 11/17/22 18:20 Completed ] Routine CT head wo con* [id number] Stat Cat Scan 11/16/22 15:01 Completed Sestamibi Stress Test Request Routine Exams 11/16/22 18:30 Draft XR chest 1V portable [id number] Stat Exams 11/16/22 11:58 Completed XR chest 1V portable [id number] Stat Exams 11/19/22 10:02 Completed NM jennifer perf SPECT r/s* [id number] Routine Nuc Med 11/17/22 08:00 Completed NM pul vent and perfus* [id number] Routine Nuc Med 11/19/22 08:16 Completed CV carotid duplex BI* [id number] Routine Ultrasound 11/16/22 18:30 [place] [id number] Routine Ultrasound 11/17/22 Completed CV. echo complete* [id number] Routine Ultrasound 11/17/22 Completed Pending at discharge Category Date Time Status Basic Metabolic Panel AM LABS Lab 11/22/22 04:00 Ordered Basic Metabolic Panel AM LABS Lab 11/23/22 04:00 Ordered Blood Culture Stat Lab 11/16/22 12:18 Results Complete Blood Count w/Auto AM LABS Lab 11/22/22 04:00 Ordered Complete Blood Count w/Auto AM LABS Lab 11/23/22 04:00 Ordered Magnesium AM LABS Lab 11/22/22 04:00 Ordered Magnesium AM LABS Lab 11/23/22 04:00 Ordered NT Pro B Type Natriuretic Pept QAM Lab 11/22/22 06:00 Ordered NT Pro B Type Natriuretic Pept QAM Lab 11/23/22 06:00 Ordered Urine Culture Stat Lab 11/18/22 21:25 Results Radiology Impressions Head CT 11/16/22 15:01 IMPRESSION: No acute intracranial abnormality. Chronic microvascular ischemic changes. Chest/Abdomen/Pelvis CT 11/17/22 18:20 IMPRESSION: 1. Cardiomegaly. 2. Coronary artery atherosclerotic calcifications. 3. Prominent mediastinal lymph nodes measuring up to 11 mm, nonspecific. 4. Small bilateral right greater left pleural effusions. 5. Emphysematous changes suspected. 6. Bilateral dependent atelectasis versus infiltrate. IMPRESSION: 1. Negative for definite focal acute appearing inflammatory process in the abdomen or pelvis. 2. Mildly cirrhotic liver suspected. 3. Spleen enlarged to 17 cm. 4. Cholecystectomy. 5. Diverticulosis without diverticulitis. 6. Leslie catheter in the urinary bladder with air presumed iatrogenic. 7. Urinary bladder wall thickening likely due to nondistention, please correlate for cystitis. 8. Left abdominal somewhat localized ascitic fluid. 9. Right hip 3 point pinning. 10. Rounded calcifications at the caudal tip of the liver measuring up to 7.7 mm with a small amount of surrounding fluid, may reflect dropped gallstones. Pulmonary Perfusion Imaging 11/19/22 08:16 IMPRESSION: 1. Low probability for pulmonary embolus. Chest X-Ray 11/19/22 10:02 IMPRESSION: 1. Cardiomegaly with enlarged LEFT ventricle. 2. Mild pulmonary vascular congestion. 3. Slight linear atelectasis LEFT lower lobe. No focal pneumonia. Laboratory Results WBC 5.6 10^3/uL (4.0-10.0) 11/21/22 02:51 RBC 3.03 10^6/uL (4.1-5.3) L 11/21/22 02:51 Hgb 8.9 g/dL (11.7-16.6) L 11/21/22 02:51 Hct 29.5 % (42.0-52.0) L 11/21/22 02:51 MCV 97.4 fl (80-94) H 11/21/22 02:51 MCH 29.4 pg (28.0-34.0) 11/21/22 02:51 MCHC 30.2 g/dL (30.0-36.0) 11/21/22 02:51 RDW 19.7 % (12.1-15.1) H 11/21/22 02:51 Plt Count 105 10^3/cmm (130-400) L 11/21/22 02:51 MPV 10.0 fL (7.4-10.4) 11/21/22 02:51 Neut % (Auto) 71.6 % 11/21/22 02:51 Lymph % (Auto) 16.7 % 11/21/22 02:51 [place] % (Auto) 7.1 % 11/21/22 02:51 Eos % (Auto) 3.7 % 11/21/22 02:51 Baso % (Auto) 0.4 % 11/21/22 02:51 Neut # (Auto) 4.03 10^3/uL (1.8-7.7) 11/21/22 02:51 Lymph # (Auto) 0.9 10^3/uL (0.8-4.8) 11/21/22 02:51 [place] # (Auto) 0.4 10^3/uL (0.2-0.9) 11/21/22 02:51 Eos # (Auto) 0.2 10^3/uL (0.0-0.8) 11/21/22 02:51 Baso # (Auto) 0.0 10^3/uL (0.0-0.1) 11/21/22 02:51 Nucleated RBC % (auto) 0 % 11/21/22 02:51 Nucleated RBCs # 0.0 /100WBC 11/21/22 02:51 APTT 68.6 SECONDS (23.9-36.7) H 11/17/22 08:43 D-Dimer 0.53 ug/mIFEU (0-0.59) 11/16/22 12:15 Sodium 136 mmol/L (136-145) 11/21/22 02:51 Potassium 3.9 mmol/L (3.5-5.1) 11/21/22 02:51 Chloride 97 mmol/L (98-107) L 11/21/22 02:51 Carbon Dioxide 23 mmol/L (22-29) 11/21/22 02:51 Anion Gap 19.9 (5-19) H 11/21/22 02:51 BUN 63 mg/dL (8-23) H 11/21/22 02:51 Creatinine 2.3 mg/dL (0.7-1.2) H 11/21/22 02:51 GFR Calculation Not Reportable 11/21/22 02:51 Glucose 124 mg/dL (65-115) H 11/21/22 02:51 POC Glucose 153 mg/dL (70-110) H 11/21/22 06:27 Calculated Osmolality 301 mOsm/kg (285-295) H 11/21/22 02:51 Lactic Acid 1.0 mmol/L (0.5-2.2) 11/16/22 18:30 Lactate 1.6 mmol/L (0.5-2.2) 11/16/22 12:15 Calcium 8.6 mg/dL (8.5-10.5) 11/21/22 02:51 Phosphorus 3.5 mg/dL (2.5-4.5) 11/20/22 04:28 Magnesium 2.1 mg/dL (1.7-2.3) 11/21/22 02:51 Iron 44 ug/dL (59-158) L 11/18/22 03:31 Total Bilirubin 0.7 mg/dL (0.15-1.2) 11/20/22 04:28 AST 12 U/L (0-40) 11/20/22 04:28 ALT < 5 U/L (0-41) 11/20/22 04:28 Alkaline Phosphatase 115 U/L (40-130) 11/20/22 04:28 Troponin T Baseline 90 ng/L (0-15) H 11/16/22 12:15 Troponin T 120 Minute 86.82 ng/L (0-15) H 11/16/22 14:25 Delta Troponin T -3.18 ABS# (0-10) L 11/16/22 14:25 Troponin T Hi Sens 6Hr 84.49 ng/L (0-15) H 11/16/22 18:20 Troponin T Hi Sens 6Hr Delta -5.51 ng/L (0-12) L 11/16/22 18:20 C-Reactive Protein 26.6 mg/L (0.0-4.9) H 11/18/22 03:31 NT-Pro-B Natriuret Pep 9220 pg/mL (0-125) H 11/21/22 02:51 Total Protein 7.4 g/dL (6.6-8.7) 11/20/22 04:28 Albumin 3.3 g/dL (3.5-5.2) L 11/20/22 04:28 Globulin 4.1 g/dL (1.3-4.6) 11/20/22 04:28 Procalcitonin 0.10 ng/mL (0-0.5) 11/16/22 18:20 TSH 3.89 uIU/mL (0.27-4.20) 11/16/22 18: Free T4 1.24 ng/dL (0.82-1.77) 11/16/22 12:15 Urine Color Yellow (Yellow) 11/16/22 12:49 Urine Appearance Clear (CLEAR) 11/16/22 12:49 Urine pH 6 (5-7) 11/16/22 12:49 Ur Specific [place] 1.010 (1.005-1.030) 11/16/22 12:49 Urine Protein 1+ (Negative) H 11/16/22 12:49 Urine Glucose (UA) Norm (Normal) 11/16/22 12:49 Urine Ketones Negative (Negative) 11/16/22 12:49 Urine Blood 2+ (Negative) H 11/16/22 12:49 Urine Nitrate Negative (Negative) 11/16/22 12:49 Urine Bilirubin Neg (Negative) 11/16/22 12:49 Urine Urobilinogen Norm mg/dL (Negative) 11/16/22 12:49 Ur Leukocyte Esterase Negative (Negative) 11/16/22 12:49 Urine RBC 5-10 /hpf (0-2) H 11/16/22 12:49 Urine WBC Rare /hpf (0-5) 11/16/22 12:49 Ur Squamous Epith Cells None /hpf (0-5) 11/16/22 12:49 Amorphous Sediment Not Reportable 11/16/22 12:49 Urine Bacteria Trace /hpf (NONE) 11/16/22 12:49 Nasal Influ A H1 2009 PCR Not detected (NOT DETECT) 11/16/22 18:45 Adenovirus (PCR) Not detected (NOT DETECT) 11/16/22 18:45 C. pneumoniae DNA (PCR) Not detected (NOT DETECT) 11/16/22 18:45 Coronavirus 229E (PCR) Not detected (NOT DETECT) 11/16/22 18:45 Human Metapneumovir PCR Not detected (NOT DETECT) 11/16/22 18:45 Influenza A (H1) PCR Not detected (NOT DETECT) 11/16/22 18:45 Influenza A (H3) PCR Not detected (NOT DETECT) 11/16/22 18:45 Influenza Type A (PCR) Not detected (NOT DETECT) 11/16/22 18:45 Influenza Type B (PCR) Not detected (NOT DETECT) 11/16/22 18:45 M. pneumoniae (PCR) Not detected (NOT DETECT) 11/16/22 18:45 Parainfluenza 1 (PCR) Not detected (NOT DETECT) 11/16/22 18:45 Parainfluenza 2 (PCR) Not detected (NOT DETECT) 11/16/22 18:45 Parainfluenza 3 (PCR) Not detected (NOT DETECT) 11/16/22 18:45 Parainfluenza 4 (PCR) Not detected (NOT DETECT) 11/16/22 18:45 RSV Type A (PCR) Not detected (NOT DETECT) 11/16/22 18:45 RSV Type B (PCR) Not detected (NOT DETECT) 11/16/22 18:45 Entero/Rhino (PCR) Not detected (NOT DETECT) 11/16/22 18:45 SARS-CoV-2 (PCR) Not detected (NOT DETECT) 11/16/22 18:45 Vitals Last Vital Signs Temp 98.4 F 11/21/22 08:51 Pulse 84 11/21/22 09:36 Resp 18 11/21/22 09:36 BP 97/60 11/21/22 08:51 Pulse Ox 96 11/21/22 09:36 O2 Del Method 11/21/22 09:36 O2 Flow Rate 1 11/19/22 08:00 Discharge Plan Discharge Patient Disposition: Home Condition: Stable Prescriptions: New aspirin 81 mg Tablet,Delayed Release (Dr/Ec) 81 mg PO DAILY 30 Days Qty: 30 0RF sucralfate 1 gram Tablet 1 g PO Q12H 30 Days Qty: 60 0RF ciprofloxacin HCl 500 mg Tablet 500 mg PO Q12H 5 Days Qty: 10 0RF amiodarone [Pacerone] 200 mg Tablet 200 mg PO DAILY 30 Days Qty: 30 0RF metoclopramide HCl [Reglan] 5 mg tablet 5 mg PO Q8H PRN (Reason: nausea/vomiting/bloating/abdominal pain) 30 Days Qty: 90 0RF Rx Instructions: -Do not use for more than 12 weeks ondansetron HCl 4 mg tablet 4 mg PO Q8H PRN (Reason: nausea and vomiting) 30 Days Qty: 90 0RF pantoprazole [Protonix] 40 mg tablet,delayed release (DR/EC) 40 mg PO Q12H 30 Days Qty: 60 0RF Continued (DME) Dexcom G6 Sensor Device See Rx Instructions .Route Qty: 3 3RF Rx Instructions: Change every 10 days. (DME) Dexcom G6 Java Developer Analyst Misc See Rx Instructions .Route Qty: 1 0RF Rx Instructions: Check BS 4-6 times a day. (DME) Dexcom G6 Transmitter Device See Rx Instructions .Route Qty: 1 3RF Rx Instructions: Change every 90 days. (DME) Diabetic Shoes with 3 pairs of inserts See Rx Instructions .ROUTE .MEDSUPPLY Qty: 1 0RF Rx Instructions: As directed [facility] P [facility] nystatin 100,000 unit/gram ointment 1 applic topical BID Qty: 30 0RF Rx Instructions: to groin nystatin 100,000 unit/gram powder 1 applic topical BID Qty: 60 0RF Rx Instructions: for prevention tramadol 50 mg tablet 50 mg PO DAILY PRN (Reason: Pain) 30 Days Qty: 30 0RF ropinirole 1 mg tablet 1 mg PO TID 90 Days Qty: 270 1RF carvedilol 12.5 mg tablet 12.5 mg PO BID 90 Days Qty: 180 1RF Rx Instructions: must administer with a meal/food atorvastatin [Lipitor] 20 mg tablet 20 mg PO QPM 90 Days Qty: 90 1RF allopurinol 100 mg tablet 100 mg PO BID 90 Days Qty: 180 1RF gabapentin 100 mg capsule 100 mg PO BID 90 Days Qty: 180 1RF Rx Instructions: with 300 at bed pantoprazole 40 mg tablet,delayed release (DR/EC) 40 mg PO BID 90 Days Qty: 180 1RF ferrous sulfate 325 mg (65 mg iron) tablet 650 mg PO BID (DME) Diabetic Shoes with 3 Pairs of Inserts See Rx Instructions .Route .MEDSUPPLY Qty: 1 0RF Rx Instructions: As directed by HOME ketoconazole 2 % cream 1 applic topical BID Qty: 30 3RF Rx Instructions: Apply to affected areas in skin folds X3 weeks then PRN for flares. [id number] C-Mn [Glucosamine Chondroitin MaxStr] 500-400 mg Capsule 1 cap PO BID milk thistle 500 mg Capsule 1,000 mg PO BID nitroglycerin [Nitrostat] 0.4 mg Tablet, Sublingual 0.4 mg SUBLINGUAL Q5M PRN (Reason: Chest Pain) Rx Instructions: do not exceed 3 doses per episode insulin aspart U-100 100 unit/mL (3 mL) Insulin Pen See Rx Instructions .ROUTE .COMPLEX Rx Instructions: per sliding scale before meals and bedtime if blood sugar is less than 70 call 70-139=0 units 140-199=2 units 200-249=4 units 250-299=6 units 300-349=8 units if blood sugar is greater than 349 give 10 units if blood sugar is greater then 400 call acetaminophen [Tylenol] 325 mg Tablet 650 mg PO Q4H PRN (Reason: Pain) finasteride [Proscar] 5 mg tablet 5 mg PO DAILY@08 Flomax 0.4 mg capsule 0.4 mg PO BID gabapentin 300 mg capsule 300 mg PO BEDTIME cholestyramine (with sugar) 4 gram powder in packet 1 ea PO DAILY Changed metolazone 2.5 mg tablet 10 mg PO .three times weekly Qty: 60 0RF Rx Instructions: on Wednesday, Wednesday, Wednesday bumetanide 2 mg tablet 1 mg PO TID 90 Days Qty: 135 0RF potassium chloride 10 mEq tablet extended release See Rx Instructions .ROUTE .COMPLEX Qty: 90 0RF Rx Instructions: 20 mEq orally in the morning / 20 meq at noon / 20 meq at dinner / 10 meq at bedtime Discontinued Levemir FlexTouch U-100 Insuln 100 unit/mL (3 mL) insulin pen See Rx Instructions .ROUTE .COMPLEX Rx Instructions: 25 unit subcutaneously in the morning if glucose <200 Discharge Orders: Discharge Order (Routine); Ordered 11/21/22 Ordered By: Prashant Aguilar Other Ambulatory Orders: MCT/Event Monitor 30 Days (Routine) Timeframe: 1 Day Facility: [facility] - Location: Radiology Ordered By: Prashant Aguilar DME: Johnnie (Order) Location: None Selected Ordered By: Prashant Aguilar Referrals: Kadeem Oliva M.D [Physician] - 1-3 days Tosha Munoz MD [Primary Care Provider] - (Please call Dr. Munoz's Office on Wednesday at [phone] to schedule a follow up appointment for 2 weeks. The office may call you to schedule the appointment. ) Patient Instructions: Opioid Safety Activity Restrictions/Additional Instructions: - For your syncope and collapse episode, I have ordered an event monitor, please follow-up with cardiology in a week -I have discharged on amiodarone 200 mg once daily for your frequent PVCs -For your edema and your CHF, I have discharged you on Bumex 1 mg every 8 hours -With metolazone 10 mg Wednesday -For potassium replacement take 20 mEq in the morning, 20 mEq in the afternoon, 20 mEq at dinner, 10 mill equivalents in the evening -Please have cardiology or primary care recheck your kidney function next week -Please limit your fluid intake to 1 L to 1.2 L a day -I have stopped her Levemir as her blood sugars have been reasonable during her hospitalization, -Continue insulin sliding scale -For your nausea vomiting please use Zofran -If your nausea vomiting persist you can use Reglan -For your bloating and your abdominal pain and your diabetic gastroparesis you can use Reglan as prescribed -Do not use Reglan for more than 12 continuous weeks due to risk of tardive dyskinesia and muscle spasms -Monitor for muscle spasms and tardive dyskinesia if so go to the emergency room -I have discharged on aspirin for cardiac protection, given your syncope episode, please have cardiology or primary care recheck her hemoglobin -You received iron infusions during her hospitalization please have your primary care provider recheck your iron levels in 4 months -Your creatinine on discharge was 2.3, please have your primary care provider recheck your creatinine Discharge Attestations Time Spent in Discharge Care*: greater than 30 min Status at Discharge: Cognitive status at discharge: cognitively intact, Behavioral status at discharge: cooperative, Quality Metrics Clinical Quality Measures [ No reported AMI, CVA or VTE this stay] Coding Level of Care Code 97838 Total time (in minutes) for Discharge: 40 Diagnoses PVC (premature ventricular contraction) I49.3 Syncope and collapse R55 CHF exacerbation I50.9 Hyperlipidemia E78.5 Chronic kidney disease, stage IV (severe) N18.4 Diabetes mellitus, type II E11.22; N18.4 Diabetes mellitus supervisor intermediates insulin use: without care home use Diabetes mellitus complication status: with kidney complications Diabetes mellitus complication detail: with chronic kidney disease Chronic kidney disease stage: stage 4 (severe) Chronic back pain M54.5; G89.29 Back pain location: low back pain Back pain laterality: bilateral Sciatica presence: without sciatica Diabetic peripheral neuropathy associated with type 2 diabetes mellitus E11.42 Coronary artery disease due to type 2 diabetes mellitus E11.59; I25.10
[2022-11-21] MEDS: enoxaparin 40 mg/0.4 mL Syringe SUBCUT (11:00)
[2022-11-21 11:05] LABS: Glucose Point of Care 212 mg/dL (70-110)
--- NOTE | 2022-11-21 11:33 | PC.SOCIAL ---
IMM Update pg 2 of IMM updated and reviewed w/ patient. Copy provided and Copy in chart dated, and initialed.
[2022-11-21] MEDS: iron sucrose 200 MG in sodium chloride 0.9% (100 ml) 100 ML 220 MG IV (11:36)
[2022-11-21] MEDS: ciprofloxacin 500 mg Tablet PO (12:40)
== END 2022-11-21 14:28 | disposition home or self-care (01) | DRG 291 ==
LOC: ER 16:29 → CSU 17:15
PROVIDERS: Admitting Provider Family Medicine; Emergency Provider Emergency Medicine; PCP Family Medicine; Visit Provider Family Medicine
DX: I13.0 Hypertensive heart and chronic kidney disease with heart failure and stage 1 through stage 4 chronic kidney disease, or unspecified chronic kidney disease (principal); I50.23 Acute on chronic systolic (congestive) heart failure; N18.4 Chronic kidney disease, stage 4 (severe); L03.114 Cellulitis of left upper limb; L03.113 Cellulitis of right upper limb; N17.9 Acute kidney failure, unspecified; Q27.30 Arteriovenous malformation, site unspecified; E11.22 Type 2 diabetes mellitus with diabetic chronic kidney disease; R55 Syncope and collapse; I48.91 Unspecified atrial fibrillation; D50.0 Iron deficiency anemia secondary to blood loss (chronic); I25.10 Atherosclerotic heart disease of native coronary artery without angina pectoris; Z95.5 Presence of coronary angioplasty implant and graft; Z79.4 Long term (current) use of insulin; E11.42 Type 2 diabetes mellitus with diabetic polyneuropathy; E11.43 Type 2 diabetes mellitus with diabetic autonomic (poly)neuropathy; K31.84 Gastroparesis; N40.0 Benign prostatic hyperplasia without lower urinary tract symptoms; Z90.3 Acquired absence of stomach [part of]; Z86.14 Personal history of Methicillin resistant Staphylococcus aureus infection; Z99.81 Dependence on supplemental oxygen; I08.3 Combined rheumatic disorders of mitral, aortic and tricuspid valves; I27.20 Pulmonary hypertension, unspecified; I49.3 Ventricular premature depolarization; Z89.421 Acquired absence of other right toe(s); E66.9 Obesity, unspecified; Z68.34 Body mass index [BMI] 34.0-34.9, adult; G89.29 Other chronic pain; M54.9 Dorsalgia, unspecified; M54.2 Cervicalgia; E78.5 Hyperlipidemia, unspecified; G25.81 Restless legs syndrome; K21.9 Gastro-esophageal reflux disease without esophagitis; Z88.8 Allergy status to other drugs, medicaments and biological substances; Z79.891 Long term (current) use of opiate analgesic; D63.1 Anemia in chronic kidney disease
CPT/HCPCS: 36415; 36416; 51702; 70450; 71045; 71250; 74176; 78014; 78452; 80048; 80053; 81001; 82962; 83540; 83605; 83735; 83880; 84100; 84145; 84439; 84443; 84484; 85014; 85018; 85025; 85378; 85730; 86140; 87040; 87086; 87486; 87581; 87633; 93005; 93017; 93306; 93880; 93970; 94640; 96372; 96374; 96375; 96376; 97110; 97116; 97161; 97166; 97530; 97535; 99285; A9500; A9540; A9567; C9113; J1170; J1644; J1650; J1756; J1815; J2405; J2785; J3010; J3490; P9046

== ENCOUNTER → 2022-11-25 10:22 | Outpatient (BNVA) | payer MEDICARE, SELFPAY | PROVIDERS: PCP Family Medicine; Visit Provider Internal Medicine | DX: I48.91 Unspecified atrial fibrillation (principal) | CPT/HCPCS: 93246 ==

== ENCOUNTER → 2022-11-26 12:26 | Outpatient (BNVA) | payer MEDICARE, SELFPAY | PROVIDERS: PCP Family Medicine; Visit Provider Family Medicine | DX: D50.0 Iron deficiency anemia secondary to blood loss (chronic) (principal); N18.4 Chronic kidney disease, stage 4 (severe); I10 Essential (primary) hypertension; I50.43 Acute on chronic combined systolic (congestive) and diastolic (congestive) heart failure; G25.81 Restless legs syndrome; K21.01 Gastro-esophageal reflux disease with esophagitis, with bleeding; E11.22 Type 2 diabetes mellitus with diabetic chronic kidney disease; I48.11 Longstanding persistent atrial fibrillation; L03.115 Cellulitis of right lower limb; Z09 Encounter for follow-up examination after completed treatment for conditions other than malignant neoplasm | CPT/HCPCS: 80053; 83540; 83735; 83880; 85025 ==

== ENCOUNTER 2022-11-28 06:00 | Outpatient (RCR) | payer MEDICARE, SELFPAY | END 2022-12-27 23:59 | disposition home or self-care (01) | LOC: MOT 06:00 | PROVIDERS: PCP Family Medicine; Visit Provider Family Medicine | DX: R29.898 Other symptoms and signs involving the musculoskeletal system (principal) | CPT/HCPCS: 97018; 97022; 97110; 97140 ==

== ENCOUNTER 2022-11-28 06:00 | Outpatient (RCR) | payer MEDICARE, SELFPAY | END 2022-12-27 23:59 | disposition home or self-care (01) | LOC: MPT 06:00 | PROVIDERS: PCP Family Medicine; Visit Provider Family Medicine | DX: R26.81 Unsteadiness on feet (principal) | CPT/HCPCS: 97110; 97112; 97530 ==

== ENCOUNTER → 2022-12-09 13:51 | Outpatient (BNVA) | payer MEDICARE, SELFPAY | PROVIDERS: PCP Family Medicine; Visit Provider Family Medicine | DX: D50.0 Iron deficiency anemia secondary to blood loss (chronic) (principal) | CPT/HCPCS: 85007; 85027 ==

== ENCOUNTER → 2022-12-10 20:27 | Outpatient (BNVA) | payer MEDICARE, SELFPAY | PROVIDERS: PCP Family Medicine; Visit Provider Family Medicine | DX: D50.0 Iron deficiency anemia secondary to blood loss (chronic) (principal) | CPT/HCPCS: 80503 ==

== ENCOUNTER 2023-01-27 06:00 | Outpatient (RCR) | payer MEDICARE, SELFPAY | END 2023-01-27 23:59 | disposition home or self-care (01) | LOC: MOT 06:00 | PROVIDERS: Visit Provider Orthopaedic Surgery | DX: M62.81 Muscle weakness (generalized) (principal) | CPT/HCPCS: 97110; 97140; 97166 ==

== ENCOUNTER 2023-01-28 06:00 | Outpatient (RCR) | payer MEDICARE, SELFPAY | END 2023-02-26 23:59 | disposition home or self-care (01) | LOC: MOT 06:00 | PROVIDERS: PCP Family Medicine; Visit Provider Orthopaedic Surgery | DX: M79.641 Pain in right hand (principal) | CPT/HCPCS: 97110; 97140 ==

== ENCOUNTER 2023-01-30 05:51 | Emergency (ER) | payer MEDICARE, SELFPAY ==
[2023-01-30 06:02] VITALS: BP 132/71; PULSE 81; RESP 20; TEMP 36.4; O2SAT 95; BMI 31.4
[2023-01-30 06:13] VITALS: BP 132/71; PULSE 83; RESP 16
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
[2023-01-30] MEDS: sodium chloride 0.9% 500 ML 999 ML IV (06:31)
[2023-01-30 06:41] VITALS: BP 132/71; PULSE 72; RESP 16
[2023-01-30 06:59] LABS: Basophils % 0.7 %; Eosinophils # 0.4 10^3/uL (0.0-0.8); Eosinophils % 7.1 %; Hematocrit 33.6 % (42.0-52.0); Hemoglobin 10.1 g/dL (11.7-16.6); Lymphocytes # 0.9 10^3/uL (0.8-4.8); Lymphocytes % 15.4 %; Mean Corpuscular HGB Conc 30.1 g/dL (30.0-36.0); Mean Corpuscular Hemoglobin 29.6 pg (28.0-34.0); Mean Corpuscular Volume 98.5 fl (80-94); Mean Platelet Volume 9.9 fL (7.4-10.4); Monocytes # 0.4 10^3/uL (0.2-0.9); Monocytes % 7.3 %; Neutrophils # 4.08 10^3/uL (1.8-7.7); Neutrophils % 69.2 %; Nucleated Red Blood Cells % 0 %; Platelet Count 99 10^3/cmm (130-400); Red Blood Count 3.41 10^6/uL (4.1-5.3); Red Cell Distribution Width 19.3 % (12.1-15.1); White Blood Count 5.9 10^3/uL (4.0-10.0)
[2023-01-30 07:01] LABS: Lactic Sepsis W/Reflex 1.2 mmol/L (0.5-2.2)
[2023-01-30 07:11] LABS: Alanine Aminotransferase 9 U/L (0-41); Albumin Level 3.8 g/dL (3.5-5.2); Alkaline Phosphatase 114 U/L (40-130); Aspartate Amino Transferase 13 U/L (0-40); Blood Urea Nitrogen 61 mg/dL (8-23); Calcium 8.7 mg/dL (8.5-10.5); Carbon Dioxide 19 mmol/L (22-29); Chloride 109 mmol/L (98-107); Globulin 3.5 g/dL (1.3-4.6); Glucose 115 mg/dL (65-115); Lipase 48 U/L (13-60); Magnesium 1.9 mg/dL (1.7-2.3); NT Pro B Type Natriuretic Pept 7342 pg/mL (0-125); Osmolality Calculated 310 mOsm/kg (285-295); Sodium 141 mmol/L (136-145); Total Bilirubin 0.9 mg/dL (0.15-1.2); Total Protein 7.3 g/dL (6.6-8.7)
[2023-01-30 07:39] VITALS: RESP 14; O2SAT 98
[2023-01-30] MEDS: ondansetron 2 mg/ML SDV 2 mL 4 MG IVP (07:39)
[2023-01-30] MEDS: fentaNYL 50 mcg/mL INJ 2mL IVP (07:39)
--- NOTE | 2023-01-30 08:05 | CTR_ITS ---
PROCEDURE INFORMATION: Exam: CT Abdomen And Pelvis Without Contrast Exam date and time: 01/30/2023 8:42 AM Age: 72 years old Clinical indication: Other: Diarrhea; Abdominal pain; Generalized; Prior surgery; Surgery date: 6+ months; Surgery type: Gb, 1/2 stomch removal (polyps); Additional info: Abd pain, diarrhea TECHNIQUE: Imaging protocol: Computed tomography of the abdomen and pelvis without contrast. Radiation optimization: All CT scans at this facility use at least one of these dose optimization techniques: automated exposure control; mA and/or kV adjustment per patient size (includes targeted exams where dose is matched to clinical indication); or iterative reconstruction. REPORTING DATA: Count of CT and Cardiac NM exams in prior 12 months: This patient has received 9 known CTs and 0 known cardiac nuclear medicine studies in the 12 months prior to the current study. COMPARISON: 1. CT abdomen pelvis w con* [id number] 08/06/2022 7:[address] [place] [id number] 11/17/2022 10:16 PM RADIATION DOSE METRICS: Total DLP (mGy-cm): 1080.72 FINDINGS: Lungs: There is dependent opacity with bronchial crowding and calcifications in the dependent portion of the right lower lobe. There is subsegmental atelectasis in the left lower lobe. Pleural spaces: moderate right pleural effusion. Heart: the heart is moderately enlarged. Liver: The liver has a nodular surface and there is relative hypertrophy of the left and caudate lobe consistent with cirrhosis. There is a partially calcified exophytic mass arising from the posterior right lobe of the liver measuring 24 x 19 mm on series 4, image 32. A para There is moderate degenerative disease in the lumbar spine. There is liver capsular calcification and adjacent 19 x 17 mm hypodense nodule in the inferior right lobe. See series 9, image 26. Gallbladder and bile ducts: The gallbladder is absent. There is no intrahepatic or extrahepatic bile duct dilation. Pancreas: There is moderate atrophy of the pancreas. Spleen: The spleen is moderately enlarged. Adrenal glands: The adrenal glands are unremarkable. Kidneys and ureters: There are simple cysts in both kidneys. There is no hydronephrosis or stones. Stomach and bowel: Distal gastrectomy and left upper quadrant gastric jejunal anastomosis. The stomach is decompressed, preventing meaningful evaluation of wall thickness. Distal gastrectomy and unremarkable gastrojejunostomy in the left upper quadrant. Click small-bowel. The small bowel is nondilated. There is mild distal descending and sigmoid colonic diverticulosis without evidence of diverticulitis. Appendix: The appendix is normal. Intraperitoneal space: There is no free air or significant intraperitoneal free fluid. There is mild mesenteric edema in the right upper quadrant and left upper quadrant. There is trace fluid in the left and right paracolic gutters. Vasculature: Small gastric varices. The portal and splenic veins are engorged. There is mild aortic atherosclerotic disease. Lymph nodes: There is no lymphadenopathy in the retroperitoneum, mesentery, pelvis or inguinal regions. Urinary bladder: The urinary bladder is unremarkable. Reproductive: The prostate and seminal vesicles are unremarkable. Bones/joints: Cannulated screws in the right femoral neck. 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 Moderate osteoarthritis at the right hip. Mild at the left hip. Soft tissues: The abdominal wall is intact. There is mild diffuse pelvic muscle atrophy. CT/CT abdomen pelvis wo con [id number] IMPRESSION: 1. Morphologic features of the liver consistent with cirrhosis. 2. Partially calcified lesion at the inferior margin of the right lobe of the liver. The finding is similar to 08/06/2022. Neoplasm is not excluded. Recommend nonemergent liver MRI. 3. Partially calcified lesion at the inferior margin of the liver likely represents residua of the previously visible inflammatory lesion on 08/06/2022. 4. Portal and splenic vein dilation, splenomegaly and gastric varices consistent with portal hypertension. Mild persistent mesenteric edema. No significant ascites. 5. Moderate right pleural effusion, increased since 11/17/2022. 6. Dependent opacity in the right lower lobe. Probable atelectasis. Infection not excluded. 7. Distal gastrectomy and unremarkable gastrojejunostomy. No sign of obstruction or inflammation in the small bowel or colon. 8. Incidental findings above. COMMENTS: Consistent with the [employer]'s Incidental Findings Committee white paper (J Am Lucy Radiol 2018): Any incidental renal lesion less than 1 cm or classified as too small to characterize, or any incidental cystic renal lesion characterized as simple-appearing, is likely benign. No follow-up imaging is recommended for these lesions per consensus recommendations based on imaging criteria.
[2023-01-30 08:08] VITALS: BP 132/71; PULSE 59; RESP 16; O2SAT 90
[2023-01-30 08:36] VITALS: RESP 16; O2SAT 97
[2023-01-30] MEDS: fentaNYL 50 mcg/mL INJ 2mL 100 MCG IVP (08:36)
[2023-01-30 08:37] LABS: Urine Color Straw (Yellow)
[2023-01-30 08:38] LABS: Add Urine Microscopic? YES; Bilirubin Urine Neg (Negative); Blood Urine 2+ (Negative); Glucose Urine UA Norm (Normal); Ketones Urine Negative (Negative); Leukocyte Esterase Urine 2+ (Negative); Nitrate Urine Negative (Negative); Protein Urine 1+ (Negative); Urine Appearance Clear (CLEAR); Urobilinogen Urine Norm (Negative); pH Urine 5 (5-7)
[2023-01-30 08:39] LABS: Add Urine Culture? Yes; Bacteria Urine TRACE /hpf; Hyaline Casts Urine 0-4 /lpf; RBC Urine 0-4 /hpf (0-2)
--- NOTE | 2023-02-04 13:33 | DCPLANNER ---
tour manager was triggered to call patient due to o primary care physician - patient sees Dr. Tosha Munoz at [facility].
== END 2023-01-30 11:48 | disposition home or self-care (01) ==
PROVIDERS: Emergency Provider Emergency Medicine; PCP Family Medicine
DX: A04.72 Enterocolitis due to Clostridium difficile, not specified as recurrent (principal); Z79.4 Long term (current) use of insulin; E11.22 Type 2 diabetes mellitus with diabetic chronic kidney disease; I13.0 Hypertensive heart and chronic kidney disease with heart failure and stage 1 through stage 4 chronic kidney disease, or unspecified chronic kidney disease; I50.9 Heart failure, unspecified; N18.4 Chronic kidney disease, stage 4 (severe); E78.5 Hyperlipidemia, unspecified; Z95.1 Presence of aortocoronary bypass graft
CPT/HCPCS: 74176; 80053; 81001; 83605; 83690; 83735; 83880; 85025; 87077; 87086; 87186; 87493; 96361; 96374; 96375; 96376; 99285; J2405; J3010; J7040

== ENCOUNTER 2023-02-09 06:00 | Outpatient (RCR) | payer MEDICARE, SELFPAY | END 2023-02-26 23:59 | disposition home or self-care (01) | LOC: MPT 06:00 | PROVIDERS: PCP Family Medicine; Visit Provider Physical Medicine & Rehabilitation | DX: M62.81 Muscle weakness (generalized) (principal); R26.81 Unsteadiness on feet | CPT/HCPCS: 97110; 97162; 97530 ==

== ENCOUNTER → 2023-02-09 11:45 | Outpatient (BNVA) | payer MEDICARE, SELFPAY | PROVIDERS: PCP Family Medicine; Visit Provider Internal Medicine Infectious Disease | DX: A49.8 Other bacterial infections of unspecified site (principal); N18.4 Chronic kidney disease, stage 4 (severe) | CPT/HCPCS: 80053; 80069; 82043; 82310; 83970; 85025 ==

== ENCOUNTER → 2023-02-17 08:23 | Outpatient (BNVA) | payer MEDICARE, SELFPAY | PROVIDERS: PCP Family Medicine; Visit Provider Podiatrist Foot & Ankle Surgery | DX: I73.9 Peripheral vascular disease, unspecified (principal); E11.8 Type 2 diabetes mellitus with unspecified complications; E11.42 Type 2 diabetes mellitus with diabetic polyneuropathy; M20.41 Other hammer toe(s) (acquired), right foot; M20.42 Other hammer toe(s) (acquired), left foot; N18.4 Chronic kidney disease, stage 4 (severe); E11.22 Type 2 diabetes mellitus with diabetic chronic kidney disease; Z79.4 Long term (current) use of insulin | CPT/HCPCS: 99214 ==

== ENCOUNTER → 2023-02-22 10:04 | Outpatient (BNVA) | payer MEDICARE, SELFPAY | PROVIDERS: PCP Family Medicine; Visit Provider Internal Medicine Cardiovascular Disease | DX: I25.5 Ischemic cardiomyopathy (principal); R06.02 Shortness of breath | CPT/HCPCS: 71046 ==

== ENCOUNTER 2023-02-27 06:00 | Outpatient (RCR) | payer MEDICARE, SELFPAY | END 2023-03-29 23:59 | disposition home or self-care (01) | LOC: MOT 06:00 | PROVIDERS: PCP Family Medicine; Visit Provider Orthopaedic Surgery | DX: R29.898 Other symptoms and signs involving the musculoskeletal system (principal) | CPT/HCPCS: 97018; 97110; 97140 ==

== ENCOUNTER 2023-02-27 06:00 | Outpatient (RCR) | payer MEDICARE, SELFPAY | END 2023-03-29 23:59 | disposition home or self-care (01) | LOC: MPT 06:00 | PROVIDERS: PCP Family Medicine; Visit Provider Physical Medicine & Rehabilitation | DX: M62.81 Muscle weakness (generalized) (principal); R26.81 Unsteadiness on feet | CPT/HCPCS: 97110 ==

== ENCOUNTER → 2023-03-03 11:46 | Outpatient (BNVA) | payer MEDICARE, SELFPAY | PROVIDERS: PCP Family Medicine; Visit Provider Family Medicine | DX: E11.22 Type 2 diabetes mellitus with diabetic chronic kidney disease (principal); N18.4 Chronic kidney disease, stage 4 (severe); I50.43 Acute on chronic combined systolic (congestive) and diastolic (congestive) heart failure; E78.5 Hyperlipidemia, unspecified; H10.10 Acute atopic conjunctivitis, unspecified eye; M10.9 Gout, unspecified; I50.9 Heart failure, unspecified; E11.59 Type 2 diabetes mellitus with other circulatory complications; I25.10 Atherosclerotic heart disease of native coronary artery without angina pectoris; M48.9 Spondylopathy, unspecified; G25.81 Restless legs syndrome; E11.42 Type 2 diabetes mellitus with diabetic polyneuropathy; K21.9 Gastro-esophageal reflux disease without esophagitis; I51.3 Intracardiac thrombosis, not elsewhere classified; I48.11 Longstanding persistent atrial fibrillation; A04.72 Enterocolitis due to Clostridium difficile, not specified as recurrent; H10.13 Acute atopic conjunctivitis, bilateral; E78.2 Mixed hyperlipidemia; K21.01 Gastro-esophageal reflux disease with esophagitis, with bleeding; J90 Pleural effusion, not elsewhere classified; L97.811 Non-pressure chronic ulcer of other part of right lower leg limited to breakdown of skin; M25.511 Pain in right shoulder; G89.29 Other chronic pain | CPT/HCPCS: 80053; 80061; 83036; 85025 ==

== ENCOUNTER → 2023-03-15 15:11 | Outpatient (BNVA) | payer MEDICARE, SELFPAY | PROVIDERS: PCP Family Medicine; Visit Provider Internal Medicine | DX: I50.43 Acute on chronic combined systolic (congestive) and diastolic (congestive) heart failure (principal); E11.22 Type 2 diabetes mellitus with diabetic chronic kidney disease; N18.4 Chronic kidney disease, stage 4 (severe); E78.5 Hyperlipidemia, unspecified | CPT/HCPCS: 80053; 80061; 83036; 85025 ==

== ENCOUNTER → 2023-03-17 13:17 | Outpatient (BNVA) | payer MEDICARE, SELFPAY | PROVIDERS: PCP Family Medicine; Visit Provider Internal Medicine | DX: J18.9 Pneumonia, unspecified organism (principal); J94.8 Other specified pleural conditions; I50.9 Heart failure, unspecified; E78.5 Hyperlipidemia, unspecified; N18.4 Chronic kidney disease, stage 4 (severe); E11.9 Type 2 diabetes mellitus without complications; I50.43 Acute on chronic combined systolic (congestive) and diastolic (congestive) heart failure; E11.22 Type 2 diabetes mellitus with diabetic chronic kidney disease | CPT/HCPCS: 71046; 80053; 80061; 83036; 85025 ==

== ENCOUNTER → 2023-04-01 12:35 | Outpatient (BNVA) | payer MEDICARE, SELFPAY | PROVIDERS: PCP Family Medicine; Visit Provider Family Medicine | DX: I50.9 Heart failure, unspecified (principal); J90 Pleural effusion, not elsewhere classified; I51.7 Cardiomegaly; I70.0 Atherosclerosis of aorta | CPT/HCPCS: 71046 ==

== ENCOUNTER → 2023-04-02 10:30 | Outpatient (BNVA) | payer MEDICARE, SELFPAY | PROVIDERS: PCP Family Medicine; Visit Provider Internal Medicine Pulmonary Disease | DX: J90 Pleural effusion, not elsewhere classified (principal); I50.43 Acute on chronic combined systolic (congestive) and diastolic (congestive) heart failure; Z51.5 Encounter for palliative care; Z99.81 Dependence on supplemental oxygen | CPT/HCPCS: 99204 ==

== ENCOUNTER 2023-06-17 17:36 | Outpatient (CLI) | payer OTHER, MEDICARE, SELFPAY ==
[2023-06-17 18:02] LABS: Add Urine Microscopic? YES; Bilirubin Urine Neg (Negative); Blood Urine 3+ (Negative); Glucose Urine UA Norm (Normal); Ketones Urine Negative (Negative); Leukocyte Esterase Urine 2+ (Negative); Nitrate Urine Negative (Negative); Protein Urine 1+ (Negative); Specific Gravity, Urine 1.015 (1.005-1.030); Urine Appearance Cloudy (CLEAR); Urine Color Yellow (Yellow); Urobilinogen Urine Norm (Negative); pH Urine 9 (5-7)
[2023-06-17 18:06] LABS: Sulfosalicylic Acid Urine Positive (Negative)
[2023-06-17 18:12] LABS: Bacteria Urine 2+ /hpf; Mucus Urine 3+ /hpf; Squamous Epithelial Cell Urine 0-4 /hpf (0-5); WBC Urine 15-25 /hpf (0-5)
[2023-06-17 18:13] LABS: Add Urine Culture? Yes; Amorphous Sediment Urine 2+ /hpf
== END 2023-06-17 17:37 | disposition home or self-care (01) ==
LOC: LAB 17:38
PROVIDERS: PCP Family Medicine; Visit Provider Internal Medicine
DX: I13.0 Hypertensive heart and chronic kidney disease with heart failure and stage 1 through stage 4 chronic kidney disease, or unspecified chronic kidney disease (principal); Z79.899 Other long term (current) drug therapy
CPT/HCPCS: 81001; 87077; 87086; 87186